=== PATIENT | female | born 1995 | race Caucasian/White ===

== ENCOUNTER 2022-03-18 16:30 | Outpatient (CLI) | payer OTHER, SELFPAY ==
[2022-03-18 16:39] VITALS: BMI 34.2
[2022-03-18 17:16] VITALS: BP 125/81; PULSE 86
[2022-03-18 17:17] VITALS: TEMP 36.7; TEMP 37.6
[2022-03-18 17:49] LABS: ROM Internal Control Test YES-OK TO RESULT pt. (Internal QC); ROM Patient Test Negative (Negative)
[2022-03-18 17:51] VITALS: TEMP 36.7
[2022-03-18 19:30] VITALS: TEMP 36.6
[2022-03-18 19:31] VITALS: BP 135/87; PULSE 76
--- NOTE | 2022-03-18 21:17 | OB.TRI.NOTE ---
HPI - General General Date of Admission: 03/18/22 Date of Service: 03/18/22 Chief Complaint: DFM HPI Narrative MENDEZ CANADA, is a 26 F who presents with DFM. She reports increased vaginal discharge over the last few days that she notices a few minutes after using the restroom. No constant leaking of fluid. No gushes of fluid. The discharge is white-mucous. She reports DFM over the last few days. She says she has been busy and on her feet often over the last few days, and typically when she is busy she does not notice as much movement. She was at work today and behind a desk, and she has been feeling movement but she still feels like it was decreased today more than normal. She has been feeling movement since being here. She feels movement increased once she arrived because she was hungry. She says typically once she is hungry the movement increases, and then after eating dinner the movement slows again. No ctx, pain, vb. PFSH PFSH Home Medications Vitamin 03/18/22 [History Last Taken 03/17/22 17:00] Vitamin B-6 03/18/22 [History Last Taken 03/17/22 17:00] acyclovir 800 mg tablet mg 03/18/22 [History Last Taken 03/17/22 17:00] levothyroxine 150 mcg tablet (Synthroid) mcg 03/18/22 [History Last Taken 03/18/22 07:00] Allergy/AdvReac Type Severity Reaction Status Date / Time pollen extracts [pollens] Allergy Itching Verified 03/18/22 16:48 Physical Exam Const alert and no apparent distress General Appearance: comfortable GI soft to palpation and non-tender NST FHR Rate Baby A Baseline: 140 Variability:: Moderate Accelerations:: 15 x 15 Decelerations:: Variable NST Reactive:: Yes Uterine Activity:: No regular ctx's Assessment & Plan (1) 37 weeks gestation of : (2) Decreased movement: PLAN: - NST reactive but occasional variable decelerations noted. EDD normal on bedside ultrasound. BPP 8/10 and points off for 2/3 gross movements within the 30 minutes. Patient has been feeling movement since being here. ROM plus negative and no leaking of fluid, but she notes vaginal discharge after using restroom. Rupture unlikely given this, ROM plus negative, and normal EDD. Will have patient follow up in the office tomorrow for repeat ultrasound
== END 2022-03-18 21:20 | disposition home or self-care (01) ==
LOC: WPOUT 16:36 → WP 16:36 → WPOUT 16:46 → WP 16:47
PROVIDERS: Referring Provider Advanced Practice Midwife; Visit Provider Advanced Practice Midwife
DX: O36.8130 Decreased fetal movements, third trimester, not applicable or unspecified (principal); Z3A.37 37 weeks gestation of pregnancy
CPT/HCPCS: 59025; 59050; 76815; 84112; 99218; G0378

== ENCOUNTER 2022-03-30 01:50 | Inpatient (IN) | payer OTHER, SELFPAY ==
[2022-03-30] VITALS (80 sets, daily range): BP systolic 109–146; BP diastolic 53–93; PULSE 70–133; RESP 16; TEMP 36.6–37.9; O2SAT 97–100; BMI 34.4
[2022-03-30 01:59] LABS: ROM Internal Control Test YES-OK TO RESULT pt. (Internal QC)
[2022-03-30 02:01] LABS: ROM Patient Test POSITIVE (Negative)
[2022-03-30] MEDS: Lactated Ringers 1,000 ML 50 ML IV (02:25)
[2022-03-30 02:38] LABS: Absolute Lymphocyte Count 3.83 X10^3/uL (0.83-4.51); Absolute Neutrophil Count 8.6 X10^3/uL (2.0-7.7); Basophil# 0.05 X10^3/uL; Basophil% 0.4 % (0-1); Eosinophil# 0.22 X10^3/uL; Eosinophils% 1.6 % (0-5); Hematocrit 35.4 % (37-47); Hemoglobin 11.9 g/dL (12.0-15.0); Lymphocyte # 3.83 X10^3/ul (0.83-4.51); Lymphocyte % 27.5 % (19-41); Mean Corp Hgb Conc 33.6 g/dL (32-36); Mean Corpuscular Hgb 32.7 pg (27.0-32.0); Mean Corpuscular Volume 97.3 fL (81-99); Mean Platelet Vol. 10.5 fl (6.2-12.0); Monocyte% 7.9 % (0-10); NRBC Flagged by Analyzer 0 % (0-5); Neutrophil # 8.61 X10^3/uL (2.7-7.7); Neutrophil % 61.7 % (47-70); Platelet Count 263 K/mm3 (150-450); RBC Distribution Width CV 13.2 % (11.6-14.6); RBC Distribution Width SD 46.9 fl (35.1-43.9); Red Blood Count 3.64 M/mm3 (4.2-5.4); White Blood Count 13.9 K/mm3 (4.4-11.0)
[2022-03-30] MEDS: Oxytocin 15 Units/NS 250ml 15 UNITS/250 ML IV.SOLN 2 UNITS IV (03:12)
[2022-03-30] MEDS: Acetaminophen 500 MG Tablet PO ×2 (05:26→17:09)
[2022-03-30] MEDS: LACTATED RINGERS 500 ML 999 ML IV ×2 (05:35→08:12)
[2022-03-30] MEDS: Penicillin G 3,000,000 Units 50 ML 100 UNITS IV ×2 (06:26→11:05)
[2022-03-30] MEDS: fentaNYL-bupivacaine (epidural) 100 ML BAG EPIDURAL ×2 (06:45→10:54)
--- NOTE | 2022-03-30 09:27 | HP.PCM.OB_ITS ---
HPI - General General Date of Admission: 03/30/22 Date of Service: 03/30/22 HPI Narrative MENDEZ CANADA, is a 26 F who presents with LOF. Maternal Data Information Final JADON: 04/[birth year]/22 Gestational age: 39&2 PFSH PFSH Medical History Herpes, genital Thyroid disorder Home Medications Vitamin 1 tablet PO/SL DAILY 03/18/22 [History Last Taken 03/29/22 22:30] Vitamin B-6 1 caplet PO/SL DAILY 03/18/22 [History Last Taken 03/29/22 22:30] acyclovir 800 mg tablet 400 mg PO TID 03/18/22 [History Last Taken 03/29/22 22:30] levothyroxine 150 mcg tablet (Synthroid) 150 mcg PO DAILY 03/18/22 [History Last Taken 03/29/22 10:00] Allergy/AdvReac Type Severity Reaction Status Date / Time pollen extracts [pollens] Allergy Itching Verified 03/30/22 01:33 Surgical History Hx of tonsillectomy [place] teeth removed Social History Smoking Status: Never smoker History Elective abortions Hx Para 0 Spontaneous abortions Hx # Term Pregnancies Ectopic pregnancies Hx # Pregnancies Multiple births # of living children NST FHR Rate Baby A Baseline: 130 Variability:: Minimal and Moderate Accelerations:: 15 x 15 Decelerations:: Early Uterine Activity:: Q 2-3 minutes Vital Signs Vital Signs Vital Signs: 03/30/22 01:26 03/30/22 01:26 03/30/22 01:32 Temperature Temperature Source Pulse Rate 83 Blood Pressure 135/93 H BP Systolic 135 BP Diastolic 93 Pulse Ox 100 03/30/22 01:32 03/30/22 01:31 03/30/22 02:43 Temperature 100.0 F H 99.5 F H Temperature Source Pulse Rate 77 Blood Pressure BP Systolic BP Diastolic Pulse Ox 03/30/22 02:42 03/30/22 02:43 03/30/22 02:43 Temperature Temperature Source Temporal Pulse Rate 83 Blood Pressure 145/74 H BP Systolic 145 BP Diastolic 74 Pulse Ox 03/30/22 02:43 03/30/22 03:35 03/30/22 03:35 Temperature Temperature Source Pulse Rate 77 Blood Pressure BP Systolic BP Diastolic Pulse Ox 99 98 03/30/22 03:37 03/30/22 03:37 03/30/22 03:38 Temperature 99.3 F H Temperature Source Pulse Rate 81 Blood Pressure 125/80 H BP Systolic 125 BP Diastolic 80 Pulse Ox 03/30/22 03:38 03/30/22 04:54 03/30/22 04:54 Temperature Temperature Source Temporal Pulse Rate 74 Blood Pressure 126/82 H BP Systolic 126 BP Diastolic 82 Pulse Ox 03/30/22 04:54 03/30/22 04:56 03/30/22 04:56 Temperature 98.4 F Temperature Source Temporal Pulse Rate Blood Pressure BP Systolic BP Diastolic Pulse Ox 98 03/30/22 05:20 03/30/22 05:20 03/30/22 06:06 Temperature Temperature Source Pulse Rate 75 104 H Blood Pressure BP Systolic BP Diastolic Pulse Ox 100 03/30/22 06:06 03/30/22 06:11 03/30/22 06:11 Temperature Temperature Source Pulse Rate 100 Blood Pressure BP Systolic BP Diastolic Pulse Ox 99 99 03/30/22 06:16 03/30/22 06:16 03/30/22 06:21 Temperature Temperature Source Pulse Rate 91 100 Blood Pressure BP Systolic BP Diastolic Pulse Ox 98 03/30/22 06:21 03/30/22 06:26 03/30/22 06:26 Temperature Temperature Source Pulse Rate 91 Blood Pressure BP Systolic BP Diastolic Pulse Ox 98 97 03/30/22 06:28 03/30/22 06:28 03/30/22 06:31 Temperature Temperature Source Pulse Rate 81 108 H Blood Pressure 139/75 H BP Systolic 139 BP Diastolic 75 Pulse Ox 03/30/22 06:31 03/30/22 06:33 03/30/22 06:33 Temperature Temperature Source Pulse Rate 102 H Blood Pressure 140/82 H BP Systolic 140 BP Diastolic 82 Pulse Ox 100 03/30/22 06:37 03/30/22 06:37 03/30/22 06:39 Temperature Temperature Source Pulse Rate 92 Blood Pressure 109/53 L BP Systolic 109 BP Diastolic 53 Pulse Ox 98 03/30/22 06:39 03/30/22 06:40 03/30/22 06:42 Temperature 99.7 F H Temperature Source Pulse Rate 90 96 Blood Pressure BP Systolic BP Diastolic Pulse Ox 03/30/22 06:42 03/30/22 06:43 03/30/22 06:43 Temperature Temperature Source Pulse Rate 85 Blood Pressure 110/66 BP Systolic 110 BP Diastolic 66 Pulse Ox 99 03/30/22 06:47 03/30/22 06:47 03/30/22 06:50 Temperature Temperature Source Pulse Rate 86 Blood Pressure 117/59 L BP Systolic 117 BP Diastolic 59 Pulse Ox 100 03/30/22 06:50 03/30/22 06:52 03/30/22 06:52 Temperature Temperature Source Pulse Rate 93 94 Blood Pressure BP Systolic BP Diastolic Pulse Ox 100 03/30/22 06:55 03/30/22 06:55 03/30/22 06:57 Temperature Temperature Source Pulse Rate 85 82 Blood Pressure 111/65 BP Systolic 111 BP Diastolic 65 Pulse Ox 03/30/22 06:57 03/30/22 06:59 03/30/22 06:59 Temperature Temperature Source Pulse Rate 86 Blood Pressure 119/73 BP Systolic 119 BP Diastolic 73 Pulse Ox 100 03/30/22 07:02 03/30/22 07:02 03/30/22 07:04 Temperature Temperature Source Pulse Rate 87 Blood Pressure 112/70 BP Systolic 112 BP Diastolic 70 Pulse Ox 100 03/30/22 07:04 03/30/22 07:29 03/30/22 07:30 Temperature 98.4 F Temperature Source Pulse Rate 82 Blood Pressure 122/67 H BP Systolic 122 BP Diastolic 67 Pulse Ox 03/30/22 07:30 03/30/22 07:29 03/30/22 07:29 Temperature Temperature Source Temporal Pulse Rate 75 Blood Pressure BP Systolic BP Diastolic Pulse Ox 100 03/30/22 07:29 03/30/22 08:39 03/30/22 08:39 Temperature 98.4 F Temperature Source Temporal Pulse Rate Blood Pressure 139/80 H BP Systolic 139 BP Diastolic 80 Pulse Ox 03/30/22 08:39 03/30/22 08:39 03/30/22 08:39 Temperature 100.2 F H Temperature Source Pulse Rate 82 Blood Pressure BP Systolic BP Diastolic Pulse Ox 99 Weight Weight: 206 lb 12.8 oz Body Mass Index (BMI) 34.4 Physical Exam Narrative: cvx - 6-7/80/-2, FSE & IUPC placed Labs Labs Labs: Blood Type A POSITIVE Antibody Screen NEGATIVE Hct 35.4 % (37-47) L Hgb 11.9 g/dL (12.0-15.0) L See [facility] H&P Assessment & Plan (1) SROM (spontaneous rupture of membranes): COMMENT: 39&2 PLAN: Plan Admit to L&D Augmentation wiht pitocin GBS positive - pcn per protocol Pain - epidural EFW - less than 4500g, patient with adequate pelvis Routine care
[2022-03-30] MEDS: Levothyroxine 150 MCG Tablet 300 MCG PO (10:55)
[2022-03-30] MEDS: Lactated Ringers 1,000 ML 200 ML IV (11:10)
[2022-03-30] MEDS: miSOPROStol 200 MCG Tablet 1000 MCG RC (14:51)
--- NOTE | 2022-03-30 15:58 | EX.PCM.OBRPT ---
Maternal Data Information Final JADON: 04[birth year]22 Gestational age: 39&2 Vaginal Delivery Maternal Presentation Maternal Presentation: Spontaneous Rupture of Membranes Operative Information Date of Procedure: 03/30/22 Pre-Operative Diagnosis: SROM Post-Operative Diagnosis: SROM Surgery / Procedure Performed: Spontaneous Vaginal Delivery Type of Anesthesia: Epidural Estimated Blood Loss: 700ml Findings Description of Procedure: Patient prepped & draped when C/C/+2. She pushed well to deliver the head. Triple nuchal cord clamped & cut. head gently guided to allow delivery of anterior and posterior shoulders. No excess traction placed on head. Body delivered Placenta delivered with gentle traction and good uterine tone obtained. Presentation: JAMISON Amniotic Membrane Rupture Type: Spontaneous Amniotic Fluid Description: Clear Placental Delivery Description: Expressed Placenta Disposition: [facility] Specimen(s) Removed: Placenta Cord Vessel Description: 3 Vessels Cord Entanglement: - (Around neck x3 tight) Nuchal Cord Compression: With compression A Gender: Female (Karena) (1 minute): 8 (5 minute): 9 Delayed Cord Clamping: No Post Vaginal Delivery Medications Given After Delivery: IV Pitocin and - (Rectal cytotec) Episiotomy Description: None Laceration: 1st degree (Vaginal - repaired with 3-0 vicryl) Complication Complications: None
[2022-03-30] MEDS: Ibuprofen 600 MG Tablet PO (23:57)
[2022-03-31] VITALS (8 sets, daily range): BP systolic 121–135; BP diastolic 66–73; PULSE 73–86; RESP 16–18; TEMP 36.7–36.9; O2SAT 97–100
[2022-03-31] MEDS: Levothyroxine 150 MCG Tablet 300 MCG PO (06:18)
[2022-03-31] MEDS: Acetaminophen 500 MG Tablet 1000 MG PO ×2 (07:47→13:44)
[2022-03-31] MEDS: Prenatal Vits Tablet 1 TABLET PO (13:31)
--- NOTE | 2022-03-31 16:09 | DCINST_ITS ---
Discharge Instructions Diet Discharge Diet: No restrictions Activity Discharge Activity: May Shower May resume sexual activity in: 6 weeks Weight Bearing Status: Weight bearing as tolerated Dressing / Incision Call your doctor if you observe: Fever of 101 or Higher, Coldness, Increased Pain, Change in Color, Inability to urinate, Inability to have a bowel movement, Using more than 1 pad per hour, Shortness of breath, Dizziness, Fainting spells, Chest pain, Increased palpitations (irregular heartbeat), Calf discomfort and Uncontrolled pain Follow Up Care Please Follow Up With: Namrata Harvey MD When: Follow up in 2 and 6 weeks for visits. Test Results: Test results from this visit will be discussed in further detail at your follow- up appointment, if applicable. Discharge Plan Admission Admit Date/Time: 03/30/22 01:50 Primary Reason for Your Visit: Vaginal delivery Attending Provider: Namrata Harvey Primary Care Provider: Fadumo Gibbs Primary Discharge Orders/Prescriptions Prescriptions: New acetaminophen 500 mg Tablet 1,000 mg PO Q6H PRN PRN (Reason: Pain 1-10 Or Fever) Qty: 0 0RF ibuprofen 600 mg Tablet 600 mg PO Q6H PRN PRN (Reason: Pain Score 1-3) Qty: 0 0RF Continued levothyroxine [Synthroid] 150 mcg Tablet 150 mcg PO DAILY Rx Instructions: pt reports taking 2 tablets on Saturdays and Sundays Vitamin 1 tablet PO/SL DAILY Discontinued acyclovir 800 mg Tablet 400 mg PO TID Vitamin B-6 1 caplet PO/SL DAILY Referrals / Follow Up: Care Physician,No Primary [Primary Care Provider] - Disposition Disposition (needs filled in before D/C Order can be placed): Home, Self Care
--- NOTE | 2022-03-31 16:12 | PCM.PN.OB ---
Subjective Subjective Denies complaints Objective Data Objective Data Vital Signs: Vital Signs Temp Pulse Resp BP Pulse Ox O2 Del Method 98.0 F 73 18 124/71 H 97 Room Air 03/31/22 13:39 03/31/22 13:39 03/31/22 13:39 03/31/22 13:39 03/31/22 13:39 03/31/22 13:39 Oxygen Delivery Method Room Air Weight: 206 lb 12.8 oz Body Mass Index (BMI) 34.4 Intake & Output: Intake and Output for Last 24 Hours 03/29/22 03/30/22 03/31/22 23:59 23:59 23:59 Intake Total 2484.17 / 2484.17 Output Total 600 / 1100 500 / 500 Balance 1884.17 / 1384.17 -500 / -500 Lab / Micro Data Result Diagrams: 03/30/22 02:25 Physical Exam Const alert, oriented x3 and no apparent distress HEENT normocephalic GI soft to palpation, non-tender and non-distended GI Narrative: fundus firm, mid & below umbilicus Extremity normal to inspection and no calf tenderness Extremity Narrative: 2+ edema bilaterally Assessment & Plan (1) Vaginal delivery: COMMENT: PPD#1 PLAN: Plan D/c home per patient request
== END 2022-03-31 16:45 | disposition home or self-care (01) | DRG 806 ==
LOC: WPOUT 01:54 → WP 01:54
PROVIDERS: Admitting Provider Obstetrics & Gynecology; Visit Provider Obstetrics & Gynecology
DX: O99.284 Endocrine, nutritional and metabolic diseases complicating childbirth (principal); Z37.0 Single live birth; O98.32 Other infections with a predominantly sexual mode of transmission complicating childbirth; E07.9 Disorder of thyroid, unspecified; O99.824 Streptococcus B carrier state complicating childbirth; A60.00 Herpesviral infection of urogenital system, unspecified; Z3A.39 39 weeks gestation of pregnancy; Z79.899 Other long term (current) drug therapy; Z79.890 Hormone replacement therapy; O70.0 First degree perineal laceration during delivery; O69.1XX0 Labor and delivery complicated by cord around neck, with compression, not applicable or unspecified
CPT/HCPCS: 59025; 59050; 84112; 85025; 86850; 86900; 86901; 99218; J7120; G0378

== ENCOUNTER 2022-06-05 23:21 | Observation (INO) | payer OTHER, SELFPAY ==
[2022-06-05 23:22] VITALS: BP 99/61; PULSE 87; RESP 16; TEMP 36.6; O2SAT 100; BMI 27.4
--- NOTE | 2022-06-05 23:52 | EDS_ITS ---
HPI HPI - GI History of Present Illness Chief Complaint: Chest Pain Narrative Narrative: 26-year-old female 2 weeks presents with right-sided chest pain/right upper quadrant abdominal pain that began within the last 30 minutes prior to arrival. It awoke her from sleep. She states has been having heartburn all week. Whenever she eats she gets abdominal pain radiating to her back. She states that she is having pain in her right shoulder as well. She is nauseated but has not vomited. No fevers or chills. She is having pain mainly on the right side of her chest under her ribs. She told the survey data technician that it was more chest pain, but actually is now stating it is more in her abdomen. She denies any coronary artery disease risk factors, past medical history includes hypothyroidism. [facility] Medical History Herpes, genital Thyroid disorder Home Medications Vitamin 1 tablet PO/SL DAILY 03/18/22 [History Last Taken 03/29/22 22:30] levothyroxine 150 mcg tablet (Synthroid) 150 mcg PO DAILY 03/18/22 [History Last Taken 03/29/22 10:00] acetaminophen 500 mg tablet 1,000 mg PO Q6H PRN PRN Pain 1-10 Or Fever #0 tabs 03/31/22 [Rx Last Taken Unknown] ibuprofen 600 mg tablet 600 mg PO Q6H PRN PRN Pain Score 1-3 #0 tabs 03/31/22 [Rx Last Taken Unknown] Allergy/AdvReac Type Severity Reaction Status Date / Time pollen extracts [pollens] Allergy Itching Verified 06/05/22 23:23 Surgical History Hx of tonsillectomy [place] teeth removed Social History Smoking Status: Never smoker ROS ROS ED ROS Narrative Constitutional: No fever, no chills. HEENT: No sore throat. No neck pain. No loss of vision. No rhinorrhea. Cardiovascular: Right lower and right shoulder chest pain. No palpitations. No pedal edema. Respiratory: No cough, no shortness of breath. Abdominal: Right upper quadrant abdominal pain. Positive nausea. No vomiting. Genitourinary: No dysuria. No hematuria. Musculoskeletal: No myalgias. No arthralgias. Neurologic: No headaches. No dizziness. No lightheadedness. Skin: No rash. No change in color. Psychiatric: No depression. No anxiety. EXAM Physical Exam Narrative Exam Narrative: Afebrile. Vital signs noted. HEENT: Normocephalic. Atraumatic. PERRL, EOMI. Neck soft and supple. No point tenderness or step off. Cardiovascular: Regular rate and rhythm. No murmurs, rubs, or gallops appreciated. Respiratory: No tachypnea. Lungs clear to auscultation bilaterally. Gastrointestinal: Abdomen soft, mild tenderness over right upper quadrant and epigastrium, with normoactive bowel sounds. No rebound or guarding. Questionable Lo[place] sign. Neurological: Awake. Alert. Nonfocal, nonlateralizing. Skin: No rash. Normal color. No pallor. Musculoskeletal: No pedal edema. Full range of motion extremities. Const Vital Signs: 06/05/22 23:22 06/05/22 23:42 06/06/22 00:28 Temperature 98 F Temperature Source Temporal Pulse Rate 87 83 Respiratory Rate 16 18 Respiratory Effort Short of Breath Blood Pressure 99/61 124/74 H Blood Pressure Mean 73 90 Pulse Ox 100 98 Oxygen Delivery Method Room Air Room Air 06/06/22 01:00 06/06/22 04:34 06/06/22 05:00 Temperature Temperature Source Pulse Rate 89 78 57 L Respiratory Rate 15 19 H 13 Respiratory Effort Blood Pressure 118/69 122/72 H 101/56 L Blood Pressure Mean 85 88 71 Pulse Ox 98 97 95 Oxygen Delivery Method Room Air Room Air Room Air 06/06/22 06:00 Temperature Temperature Source Pulse Rate 55 L Respiratory Rate 12 Respiratory Effort Blood Pressure 101/60 Blood Pressure Mean 73 Pulse Ox 95 Oxygen Delivery Method Room Air MDM MDM MDM Narrative Medical decision making narrative: I do feel that she is having more problems with right upper quadrant abdominal pain than cardiac chest pain. EKG was obtained and interpreted by myself which demonstrates what I see as normal sinus rhythm at 80 bpm without ectopy or acute ST changes. No STEMI. At this hour, ultrasound is unavailable, but she will be bolused normal saline and administered morphine and ondansetron for analgesia. I will obtain CT imaging after negative test. I will also obtain CBC, CMP, and lipase in the event that she has choledocholithiasis. I reviewed her laboratory work and she has a normal white count of 9.9, hemoglobin normal at 12.4, hematocrit 38.6. Normal platelet count of 276. CMP shows normal sodium of 134 with potassium normal at 3.5, chloride normal at 106. Glucose 80 with AST slightly elevated at 83 and ALT elevated at 79, alk phos normal at 109. Lipase normal at 203. Serum is negative. Urinalysis shows 10-25 WBCs, but negative for nitrites. I do not feel that antibiotics are indicated as she is not having dysuria or hematuria. Her pain is more in the right upper quadrant. CT was obtained as ultrasound is unavailable at this hour. CT of the abdomen and pelvis does show intrahepatic periportal edema which could be a nonspecific finding, but radiology report was reviewed and they are suggesting clinical correlation with LFTs and hepatitis panel. Hepatitis panel was ordered along with ultrasound as she has slightly elevated LFTs. She did have continued pain mainly in the right upper quadrant. I discussed with her the possibility of outpatient ultrasound, but she would like ultrasound performed. They will arrive in the morning to perform the study. At this point in time, patient will be signed out to the oncoming physician to check the ultrasound results and the hepatitis panel to make final disposition on this patient. Surgery can be consulted as needed versus gastroenterology. Disposition is pending. Patient is in stable condition. Lab Data Attestation: I reviewed the patient's lab results. Labs: Laboratory Results - last 24 hr 06/05/22 06/05/22 06/06/22 23:30 23:30 00:15 WBC 9.9 RBC 4.11 L Hgb 12.4 Hct 38.6 MCV 93.9 MCH 30.2 MCHC 32.1 RDW Std Deviation 42.1 RDW Coeff of Lakeisha 12.2 Plt Count 276 MPV 8.9 Immature Gran % (Auto) 0.300 Neut % (Auto) 33.0 L Lymph % (Auto) 52.2 H Mcintosh % (Auto) 8.8 Eos % (Auto) 5.4 H Baso % (Auto) 0.3 Absolute Neuts (auto) 3.3 Absolute Lymphs (auto) 5.16 H Nucleated RBC % 0 Differential Comment SCANNED Reactive Lymphocytes 1+ Sodium 143 Potassium 3.5 Chloride 106 Carbon Dioxide 31.0 Anion Gap 6 BUN 13 Creatinine 0.90 Estim Creat Clear Calc 90.23 Est GFR (MDRD) Af Amer 98 Est GFR (MDRD) Non-Af 81 BUN/Creatinine Ratio 14.4 Glucose 80 Calcium 9.1 Total Bilirubin 0.40 AST 83 H ALT 79 H Alkaline Phosphatase 109 Troponin I High Sens 4 Total Protein 7.0 Albumin 3.7 Globulin 3.3 Albumin/Globulin Ratio 1.1 Lipase 203 Serum , Qual NEGATIVE Urine Color Urine Clarity Urine pH Ur Specific [place] Urine Protein Urine Glucose (UA) Urine Ketones Urine Occult Blood Urine Nitrite Urine Bilirubin Urine Urobilinogen Ur Leukocyte Esterase Urine RBC Urine WBC Ur Squamous Epith Cells Urine Bacteria Urine Mucus 06/06/22 01:05 WBC RBC Hgb Hct MCV MCH MCHC RDW Std Deviation RDW Coeff of [place]isha Plt Count MPV Immature Gran % (Auto) Neut % (Auto) Lymph % (Auto) Mcintosh % (Auto) Eos % (Auto) Baso % (Auto) Absolute Neuts (auto) Absolute Lymphs (auto) Nucleated RBC % Differential Comment Reactive Lymphocytes Sodium Potassium Chloride Carbon Dioxide Anion Gap BUN Creatinine Estim Creat Clear Calc Est GFR (MDRD) Af Amer Est GFR (MDRD) Non-Af BUN/Creatinine Ratio Glucose Calcium Total Bilirubin AST ALT Alkaline Phosphatase Troponin I High Sens Total Protein Albumin Globulin Albumin/Globulin Ratio Lipase Serum , Qual Urine Color Yellow Urine Clarity Clear Urine pH 6.0 Ur Specific [place] 1.020 Urine Protein 30 H Urine Glucose (UA) Normal Urine Ketones 5 H Urine Occult Blood Negative Urine Nitrite Negative Urine Bilirubin Negative Urine Urobilinogen 1 H Ur Leukocyte Esterase 500 H Urine RBC 0 SEEN Urine WBC 10-25 SEEN Ur Squamous Epith Cells 0-5 SEEN Urine Bacteria 0 SEEN Urine Mucus 0 SEEN Radiography Diagnostic Testing: Clinical Impression(s) from Imaging Studies Abdomen/Pelvis CT 06/06/22 00:00 IMPRESSION: 1. Mild, nonspecific intrahepatic periportal edema. Often benign idiopathic finding. Consider correlation with LFTs and hepatitis profile and/or further evaluation with right upper quadrant ultrasound. 2. Trace physiologic fluid within pelvis with partially involuted left ovarian follicle. Electronically Signed: Cassius Kapadia MD at 1:54 EST , Discharge Plan Triage Chief Complaint: Chest Pain ED Provider: Michoacano Seaman Dx/Rx/DC Orders Clinical Impression: Abdominal pain, RUQ, Elevated LFTs Prescriptions: No Action levothyroxine [Synthroid] 150 mcg Tablet 150 mcg PO DAILY Rx Instructions: pt reports taking 2 tablets on Saturdays and Sundays Vitamin 1 tablet PO/SL DAILY acetaminophen 500 mg Tablet 1,000 mg PO Q6H PRN PRN (Reason: Pain 1-10 Or Fever) Qty: 0 0RF ibuprofen 600 mg Tablet 600 mg PO Q6H PRN PRN (Reason: Pain Score 1-3) Qty: 0 0RF Primary Care Provider: Care Physician,No Primary Referrals: Care Physician,No Primary [Primary Care Provider] -
[2022-06-06] VITALS (11 sets, daily range): BP systolic 101–130; BP diastolic 56–80; PULSE 55–89; RESP 12–19; TEMP 36.6–36.9; O2SAT 95–100; BMI 28.7
--- NOTE | 2022-06-06 | CT_ITS ---
INDICATION: Epigastric pain EXAMINATION: CT Abdomen And Pelvis W/ Contrast Injection TECHNIQUE: Helically acquired images were obtained of the abdomen and pelvis following IV contrast. 2-D reconstructions reviewed. A radiation dose optimization technique was used for this scan. IV Contrast dosage and agent: 100 mL [id number] Oral contrast: None. COMPARISON: None. FINDINGS: LOWER CHEST: Partially imaged small right infrahilar fluid attenuation focus likely benign effusion within pericardial recess. No acute basilar airspace disease. Heart size within normal limits. LIVER: Mild intrahepatic periportal edema. No discrete lesion. GALLBLADDER AND BILIARY TREE: No radiopaque gallstones identified. No significant biliary ductal dilation. PANCREAS: No discrete mass or peripancreatic edema. SPLEEN: Normal size without focal cystic or solid mass. ADRENAL GLANDS: Unremarkable. KIDNEYS AND URETERS: Normal renal size and position. No perinephric edema or hydronephrosis. No concerning lesion. PERITONEUM: Trace free pelvic fluid. No free air or abscess. RETROPERITONEUM: No retroperitoneal mass or pathologic fluid collection. BOWEL: Normal appendix posterior to cecum within right lower quadrant. No abnormal stomach or bowel distension. No focal inflammatory change. LYMPH NODES: No enlarged mesenteric or retroperitoneal lymph nodes. VESSELS: No acute findings. No abdominal aortic aneurysm. URINARY BLADDER: Unremarkable as visualized. REPRODUCTIVE ORGANS: Partially involuted 1.6 cm left ovarian follicle. ABDOMINAL WALL: No acute findings or significant hernia defect. BONES: Mild levoscoliotic curvature of lumbar spine. CT/Abdomen/Pelvis W IV Cont ONLY IMPRESSION: 1. Mild, nonspecific intrahepatic periportal edema. Often benign idiopathic finding. Consider correlation with LFTs and hepatitis profile and/or further evaluation with right upper quadrant ultrasound. 2. Trace physiologic fluid within pelvis with partially involuted left ovarian follicle. Electronically Signed: Cassius Kapadia MD at 1:54 EST ,
[2022-06-06 00:23] LABS: Absolute Lymphocyte Count 5.16 X10^3/uL (0.83-4.51); Absolute Neutrophil Count 3.3 X10^3/uL (2.0-7.7); Basophil# 0.03 X10^3/uL; Basophil% 0.3 % (0-1); Eosinophil# 0.53 X10^3/uL; Eosinophils% 5.4 % (0-5); Hematocrit 38.6 % (37-47); Hemoglobin 12.4 g/dL (12.0-15.0); Lymphocyte # 5.16 X10^3/ul (0.83-4.51); Lymphocyte % 52.2 % (19-41); Mean Corp Hgb Conc 32.1 g/dL (32-36); Mean Corpuscular Hgb 30.2 pg (27.0-32.0); Mean Corpuscular Volume 93.9 fL (81-99); Mean Platelet Vol. 8.9 fl (6.2-12.0); Monocyte# 0.87 X10^3/uL; Monocyte% 8.8 % (0-10); NRBC Flagged by Analyzer 0 % (0-5); Neutrophil # 3.26 X10^3/uL (2.7-7.7); POSITIVE DIFFERENTIAL YES; Platelet Count 276 K/mm3 (150-450); RBC Distribution Width CV 12.2 % (11.6-14.6); RBC Distribution Width SD 42.1 fl (35.1-43.9); Red Blood Count 4.11 M/mm3 (4.2-5.4); White Blood Count 9.9 K/mm3 (4.4-11.0)
[2022-06-06] MEDS: Ondansetron 4 MG/2 ML Vial IV (00:23)
[2022-06-06] MEDS: Morphine 4 MG/ML Syringe IV ×2 (00:24→04:42)
[2022-06-06] MEDS: 0.9% Normal Saline 1,000 ML 1000 ML IV (00:25)
[2022-06-06 00:27] LABS: Differential Indicated SCAN CRITERIA MET
[2022-06-06 00:34] LABS: Internal QC Validated? YES +Cl - CLEAR BKGD; Pregnancy, Serum, hCG Quali. NEGATIVE Negative
[2022-06-06 00:42] LABS: ALB/GLOB Ratio 1.1 RATIO (0.9-2.4); AST(SGOT) 83 U/L (15-37); Alanine Aminotransfer ALT/SGPT 79 U/L (13-56); Albumin, Serum 3.7 g/dL (3.2-5.0); Alkaline Phosphatase 109 U/L (45-117); Anion Gap 6 (5-15); BUN 13 mg/dL (7-18); BUN/Creat Ratio 14.4 RATIO (10-20); Calcium,Total 9.1 mg/dL (8.5-10.1); Chloride 106 mmol/L (98-107); EST Glomerular Filtration Rate 81 mL/min (>60); Est Glom Filt Rate - Afr Amer 98 mL/min (>60); Estimated Creatinine Clearance 90.23 ml/min; Globulin 3.3 g/dL (2.2-4.2); Glucose 80 mg/dL (74-106); Lipase 203 U/L (73-393); Potassium 3.5 mmol/L (3.5-5.1); Sodium Level 143 mmol/L (136-145); Troponin-I HS 4 pg/mL (3.0-54.0)
[2022-06-06 00:47] LABS: Differential Comment SCANNED; Reactive Lymphocyte 1+
[2022-06-06 01:09] LABS: Bacteria 0 SEEN /hpf (None Seen); Mucous, Urine 0 SEEN /hpf (<or=2+); Red Blood Cells-Urine 0 SEEN /hpf (0-5)
[2022-06-06 01:10] LABS: Color, Urine Yellow (Yellow); Glucose, Dipstick Normal (Normal); Ketone-Dipstick 5 mg/dl (Negative); Leukocyte Esterase-Dipstick 500 /ul (Negative); Nitrite-Dipstick Negative (Negative); Occult Blood-Urine Negative /ul (Negative); Protein-Dipstick 30 mg/dl (Negative); Urine Bilirubin Dipstick Negative (Negative); Urine Clarity Clear (Clear); Urine Urobilinogen 1 mg/dl (Normal)
[2022-06-06 01:17] LABS: Squamous Epithelial Cells - UA 0-5 SEEN /hpf (5-10); White Blood Cells 10-25 SEEN /hpf (0-5)
--- NOTE | 2022-06-06 02:10 | US_ITS ---
STUDY: ABDOMINAL ULTRASOUND - RIGHT UPPER QUADRANT REASON FOR VISIT: Female, 26 years old periportal edema -- CT today also TECHNIQUE: Ultrasound evaluation of the right upper quadrant was performed with real-time and static stanton-scale imaging. TECHNICAL QUALITY: Adequate. COMPARISON: Comparison is made with prior CT scan the abdomen and pelvis done earlier today. FINDINGS: Liver: The liver measures 14.9 cm. There is increased echogenicity consistent with a mild degree of fatty infiltration. The bile ducts are within normal limits. There is hepatic color flow. The direction of portal flow is hepatopetal. There is no demonstrated mass lesion. Gallbladder: Normal distended gallbladder. The gallbladder wall measures 2.5 mm. There is a negative sonographic Loera''s sign. There is no pericholecystic fluid. There are no gallstones. Common Bile Duct (C.B.D.): The common bile duct measures 8.5 mm. Pancreas: Normal size of the head, body and tail of the pancreas. There is normal echogenicity of the pancreas. There is no demonstrated pancreatic mass or cyst. Right Kidney: Normal size of the right kidney. The right kidney measures 11.8 cm x 5.7 cm x 4.7 cm. Normal renal cortex. The right cortex measures 1.5 cm. There is no demonstrated renal mass or cyst. There is no right hydronephrosis. US/Liver IMPRESSION: Mild degree of fatty infiltration of the liver. Electronically Signed: Antonio Mark MD at 8:03 EST ,
[2022-06-06] MEDS: Ketorolac 15 MG/ML Vial IV (09:23)
--- NOTE | 2022-06-06 11:49 | MRI_ITS ---
EXAM: MR ABDOMEN WITHOUT INTRAVENOUS CONTRAST, MRCP PROTOCOL CLINICAL INDICATION: dilated bile duct TECHNIQUE: Multiplanar and multisequence MR images of the abdomen without intravenous contrast obtained with MRCP sequence. Three-dimensional post-processing reconstructions were performed. This report was created using [employer] report generation technology. COMPARISON: None. FINDINGS: LOWER THORAX: Trace pleural effusion noted bilaterally. LIVER: Normal. Normal morphology. GALLBLADDER AND BILE DUCTS: 2 mm filling defect noted within the distal common bile duct on the MIP images of the biliary tree suggestive of stone. Biliary tree is nondilated. Common bile duct measures 5.8 mm in maximum diameter. No gallbladder distention or wall edema. PANCREAS: Normal. No focal cystic mass. No pancreatic duct dilation. SPLEEN: Normal. Non-enlarged. ADRENALS: Normal. No nodules. KIDNEYS AND URETERS: Normal. Normal renal size and position. No hydronephrosis. INTRAPERITONEAL SPACE: Normal. No ascites or other fluid collection. VASCULATURE: Normal. Abdominal aorta is non-dilated. LYMPH NODES: No enlarged lymph nodes. MRI/MRCP Abdomen without Contrast IMPRESSION: 2 mm filling defect within the distal common bile duct noted only on the MIP images consistent with small stone. Otherwise unremarkable MRCP Electronically Signed: Nelson Dunbar MD at 14:06 EST ,
[2022-06-06] MEDS: 0.9% Normal Saline 1,000 ML 100 ML IV (13:22)
[2022-06-06] MEDS: 0.9% Saline Lock 10 ML Syringe IV (13:22)
[2022-06-06 14:19] LABS: Free T3 1.2 pg/mL (2.18-3.98)
--- NOTE | 2022-06-06 14:58 | HP.PCM.HOS_ITS ---
HPI - General General Date of Admission: 06/06/22 Date of Service: 06/06/22 Chief Complaint: Chest discomfort, right upper quadrant abdominal pain HPI Narrative MENDEZ CANADA, is a 26 F who presents to the emergency room at [facility] with complaints of right-sided chest discomfort and right upper quadrant abdominal pain that began 30 minutes prior to arrival, she stated it woke her from sleep, she was also complaining of pain in her right shoulder area along with nausea but no vomiting. Patient had recently delivered 2 weeks previously. Work-up in the emergency room showed the patient have normal white blood cell count, patient's AST was slightly elevated 83 and ALT was elevated at 79. Lipase was normal. CT of the abdomen pelvis showed intrahepatic periportal edema which could be a nonspecific finding, it was suggested that the patient have an ultrasound done as an outpatient but patient declined and wanted it performed in the hospital. Patient remained in the emergency room throughout the night and was given IV normal saline and administered morphine and Zofran. Liver ultrasound was obtained and it showed a common bile duct that was dilated at 8.5 mm along with some fatty infiltration of the liver. EKG showed a normal sinus rhythm. Troponin was unremarkable. Patient was admitted to [place] [address] and will undergo an MRCP. Gastroenterology will be consulted. [facility] Medical History (Updated 06/06/22 @ 11:01 by Crista Garza) Anemia Herpes, genital Hypothyroidism Thyroid disorder Home Medications levothyroxine 150 mcg tablet (Synthroid) 150 mcg PO DAILY #30 tabs 06/06/22 [Rx Last Taken Unknown] multivitamin 1 tab PO DAILY 06/06/22 [History Last Taken 06/05/22 14:00] Allergy/AdvReac Type Severity Reaction Status Date / Time pollen extracts [pollens] Allergy Itching Verified 06/06/22 10:56 Surgical History Hx of tonsillectomy [place] teeth removed Social History Smoking Status: Never smoker ROS Constitutional Constitutional: Denies anorexia, change in weight, chills, fatigue, fever(s), night sweats or weakness Eyes Eyes: Denies blurry vision, change in vision, discharge from eye(s) or eye pain Cardiovascular Cardiovascular: Reports chest pain; Denies claudication, edema or palpitations Respiratory/Chest Respiratory/Chest: Denies cough, hemoptysis, shortness of breath at rest or shortness of breath with exertion Gastrointestinal Gastrointestinal: Reports abdominal pain and nausea; Denies constipation, diarrhea, hematemesis, hematochezia, melena or vomiting Genitourinary Genitourinary: Denies dysuria, hematuria, urinary frequency, urinary hesitancy, urinary incontinence or urinary urgency Musculoskeletal Musculoskeletal: Denies back pain, joint pain, joint stiffness, joint swelling, myalgias or neck pain Neurologic Neurologic: Denies abnormal gait, abnormal speech, dizziness, focal weakness, headache(s), loss of vision, numbness, other visual disturbances, paresthesias, syncope or tingling Psychiatric Psychiatric: Denies anxiety, cognitive impairment, depression, irritability, mood swings or suicidal ideation Endocrine Endocrinology: Denies change in body appearance, cold intolerance, excessive sweating, heat intolerance, polydipsia or polyuria Hematologic/Lymphatic Hematologic/Lymphatic: Denies none, anemia, easy bleeding, easy bruising or lymphadenopathy Allergic/Immunologic Allergic/Immunologic: Denies rhinitis, urticaria, eczemia or asthma Vital Signs Vital Signs Vital Signs: Weight Weight: 80.7 kg Body Mass Index (BMI) 28.7 Physical Exam Const alert, oriented x3, no apparent distress and healthy appearing General Appearance: cooperative, well kempt and well developed Orientation / Consciousness: awake, oriented to person, oriented to place and oriented to time HEENT normocephalic, head/scalp atraumatic, hearing grossly normal bilaterally and moist oral mucous membranes Eyes PERRL, EOMs intact bilaterally and conjunctivae normal Neck supple, no JVD, thyroid normal and no carotid bruits General: trachea midline Resp normal respiratory effort, no retractions, no use of accessory muscles and clear to auscultation bilaterally Auscultation: Negative for rales, rhonchi or wheezes Cardio regular rate, regular rhythm, S1 normal heart sound, S2 normal heart sound, no murmurs, no rub and no gallops GI normal to inspection, nondistended, normoactive bowel sounds, soft to palpation, non-tender and non-distended Extremity no clubbing, cyanosis or edema Skin no rashes or lesions noted General Skin Exam: no breakdown Neuro oriented x3, CN's II-XII intact bilaterally, moves all extremities, no focal motor deficits and no sensory deficits noted Sensorium / Orientation: awake, alert, oriented to person, oriented to place and oriented to time Speech: speech normal Psych affect normal Results Lab / Micro Data Result Diagrams: 06/05/22 23:30 06/05/22 23:30 Assessment & Plan Assessment/Plan (1) Elevated LFTs: PLAN: Plan 1. Dilated common bile duct-indicative of possible obstructive process, patient will be placed in observation status on [facility] 3, she will undergo an MRCP, she will be seen in consultation by gastroenterology and be given IV fluids and pain medications as needed. #2 elevated liver enzymes suggestive of possible bile duct obstruction-again patient will undergo an MRCP Total clinical time spent by myself addressing the patient's medical issues, reviewing all the data, and collaborating with patient's care team: 55-minutes Charges/Coding Visit Charges Inpatient E&M: 40602 Init Hosp L2
--- NOTE | 2022-06-06 15:23 | NURSING ---
This RN IBCLC Kel Horta calling to speak with primary RN Crista about patient and her needs during hospital stay. Primary RN reports patient has a pump with her as needed and hasn't voiced any concerns. Verified patient is okay to nurse/pump with morphine, and IBCLC confirmed. Checked in [facility] [employer] reference book and medication is category L-3, likely compatible with . Primary RN informed patient can request business analyst consultant at any time if needed. Kel Horta, MSN, RN, IBCLC.
--- NOTE | 2022-06-06 17:28 | HP.PCM.HOS_ITS ---
HPI - General General Date of Admission: 06/06/22 Date of Service: 06/06/22 Chief Complaint: Chest pain, mid back pain, right upper abdominal pain HPI Narrative MENDEZ CANADA, is a 26 F who presents [facility] Medical History (Updated 06/06/22 @ 11:01 by Crista Garza) Anemia Herpes, genital Hypothyroidism Thyroid disorder Home Medications multivitamin 1 tab PO DAILY 06/06/22 [History Last Taken 06/05/22 14:00] Allergy/AdvReac Type Severity Reaction Status Date / Time pollen extracts [pollens] Allergy Itching Verified 06/06/22 10:56 Surgical History Hx of tonsillectomy [place] teeth removed Social History Smoking Status: Never smoker Vital Signs Vital Signs Vital Signs: 06/05/22 23:22 06/05/22 23:42 06/06/22 00:28 Temperature 98 F Temperature Source Temporal Pulse Rate 87 83 Respiratory Rate 16 18 Respiratory Effort Short of Breath Respiratory Depth Respiratory Pattern Blood Pressure 99/61 124/74 H Blood Pressure Mean 73 90 Blood Pressure Source Blood Pressure Position Blood Pressure Location Pulse Ox 100 98 Oxygen Delivery Method Room Air Room Air 06/06/22 01:00 06/06/22 04:34 06/06/22 05:00 Temperature Temperature Source Pulse Rate 89 78 57 L Respiratory Rate 15 19 H 13 Respiratory Effort Respiratory Depth Respiratory Pattern Blood Pressure 118/69 122/72 H 101/56 L Blood Pressure Mean 85 88 71 Blood Pressure Source Blood Pressure Position Blood Pressure Location Pulse Ox 98 97 95 Oxygen Delivery Method Room Air Room Air Room Air 06/06/22 06:00 06/06/22 08:00 06/06/22 10:07 Temperature 97.9 F Temperature Source Temporal Pulse Rate 55 L 73 65 Respiratory Rate 12 16 16 Respiratory Effort Respiratory Depth Respiratory Pattern Blood Pressure 101/60 107/79 116/80 Blood Pressure Mean 73 88 92 Blood Pressure Source Blood Pressure Position Blood Pressure Location Pulse Ox 95 100 98 Oxygen Delivery Method Room Air Room Air Room Air 06/06/22 10:00 06/06/22 10:41 06/06/22 11:06 Temperature 98.5 F Temperature Source Oral Pulse Rate 65 59 L 60 Respiratory Rate 16 14 Respiratory Effort Normal Respiratory Depth Normal Respiratory Pattern Normal Blood Pressure 116/80 130/80 H Blood Pressure Mean 92 96 Blood Pressure Source Monitor Blood Pressure Position Semi-Fowlers Blood Pressure Location Right Arm Pulse Ox 98 98 Oxygen Delivery Method Room Air Room Air Room Air 06/06/22 14:22 06/06/22 14:22 Temperature 98.5 F Temperature Source Oral Pulse Rate 60 59 L Respiratory Rate 14 Respiratory Effort Respiratory Depth Respiratory Pattern Blood Pressure 108/63 Blood Pressure Mean 78 Blood Pressure Source Blood Pressure Position Blood Pressure Location Pulse Ox 96 Oxygen Delivery Method Room Air Weight Weight: 80.7 kg Body Mass Index (BMI) 28.7 Results Lab / Micro Data Result Diagrams: 06/05/22 23:30 06/05/22 23:30 Labs: Laboratory Results - last 24 hr 06/05/22 23:30: WBC 9.9, RBC 4.11 L, Hgb 12.4, Hct 38.6, MCV 93.9, MCH 30.2, MCHC 32.1, RDW Std Deviation 42.1, RDW Coeff of [place] 12.2, Plt Count 276, MPV 8.9, Immature Gran % (Auto) 0.300, Neut % (Auto) 33.0 L, Lymph % (Auto) 52.2 H, [place] % (Auto) 8.8, Eos % (Auto) 5.4 H, Baso % (Auto) 0.3, Absolute Neuts (auto) 3.3, Absolute Lymphs (auto) 5.16 H, Nucleated RBC % 0, Differential Comment SCANNED, Reactive Lymphocytes 1+ 06/05/22 23:30: Sodium 143, Potassium 3.5, Chloride 106, Carbon Dioxide 31.0, Anion Gap 6, BUN 13, Creatinine 0.90, Estim Creat Clear Calc 90.23, Est GFR (MDRD) Af Amer 98, Est GFR (MDRD) Non-Af 81, BUN/Creatinine Ratio 14.4, Glucose 80, Calcium 9.1, Total Bilirubin 0.40, AST 83 H, ALT 79 H, Alkaline Phosphatase 109, Troponin I High Sens 4, Total Protein 7.0, Albumin 3.7, Globulin 3.3, Albumin/Globulin Ratio 1.1, Lipase 203 06/05/22 23:30: TSH 95.30 H, Free T4 0.40 L, Free T3 pg/dL 1.2 L 06/06/22 00:15: Serum , Qual NEGATIVE 06/06/22 01:05: Urine Color Yellow, Urine Clarity Clear, Urine pH 6.0, Ur Specific [place] 1.020, Urine Protein 30 H, Urine Glucose (UA) Normal, Urine Ket ones 5 H, Urine Occult Blood Negative, Urine Nitrite Negative, Urine Bilirubin Negative, Urine Urobilinogen 1 H, Ur Leukocyte Esterase 500 H, Urine RBC 0 SEEN, Urine WBC 10-25 SEEN, Ur Squamous Epith Cells 0-5 SEEN, Urine Bacteria 0 SEEN, Urine Mucus 0 SEEN Radiology Impression Abdomen/Pelvis CT 06/06/22 00:00 IMPRESSION: 1. Mild, nonspecific intrahepatic periportal edema. Often benign idiopathic finding. Consider correlation with LFTs and hepatitis profile and/or further evaluation with right upper quadrant ultrasound. 2. Trace physiologic fluid within pelvis with partially involuted left ovarian follicle. Electronically Signed: Cassius Kapadia MD at 1:54 EST , Liver Ultrasound 06/06/22 02:10 IMPRESSION: Mild degree of fatty infiltration of the liver. Electronically Signed: Antonio Mark MD at 8:03 EST , ADDENDUM: 06/06/22 1206 IMPRESSION: undefined MRCP 06/06/22 11:49 IMPRESSION: 2 mm filling defect within the distal common bile duct noted only on the MIP images consistent with small stone. Otherwise unremarkable MRCP Electronically Signed: Nelson Dunbar MD at 14:06 EST ,
--- NOTE | 2022-06-06 17:30 | DCINST_ITS ---
Discharge Instructions Diet Discharge Diet: No restrictions Activity Discharge Activity: Return to Normal Activity Weight Bearing Status: Full weight bearing Follow Up Care Test Results: Test results from this visit will be discussed in further detail at your follow- up appointment, if applicable. Discharge Plan Admission Admit Date/Time: 06/06/22 11:42 Primary Reason for Your Visit: Common bile duct stone Attending Provider: Cassius Hernandez Primary Care Provider: Care Physician,No Primary Instructions Additional Instructions / Restrictions: Follow-up with a family physician in 3 to 4 weeks, I would recommend [facility] Discharge Orders/Prescriptions Prescriptions: New levothyroxine [Synthroid] 150 mcg tablet 150 mcg PO DAILY Qty: 30 1RF Rx Instructions: Take one half daily for 5 days, then increase to 1 daily thereafter Continued multivitamin Tablet 1 tab PO DAILY Referrals / Follow Up: [facility] [Non-Staff] - See Referral Note (In 3 to 4 weeks, call for an appointment) Care Physician,No Primary [Primary Care Provider] - Disposition Disposition (needs filled in before D/C Order can be placed): Home, Self Care
--- NOTE | 2022-06-06 17:36 | DS.PCM_ITS ---
Providers Date of Admission: 06/06/22 Date of Discharge: 06/06/22 Primary Care Physician: No Primary Care Phys Reason For Visit: RUQ PAIN, DILATED CBD Diagnosis Discharge Diagnosis (1) Elevated LFTs: Status: Acute Code(s): R79.89 - Other specified abnormal findings of blood chemistry Plan 1. Distal common bile duct stone-probably passed by the patient #2 elevated liver enzymes secondary to #1 Medications at Discharge Home Medications levothyroxine 150 mcg tablet (Synthroid) 150 mcg PO DAILY #30 tabs 06/06/22 multivitamin 1 tab PO DAILY 06/06/22 Hospital Course Operations None Procedures None Summary of Care Provided Minutes Spent on Discharge: 45 Hospital Course: This 26-year-old white female was seen in the emergency room at [facility] complaining of right-sided chest pain along with right upper quadrant abdominal pain radiating to her right shoulder area along with nausea. Work-up in the emergency room included a CT of the abdomen and pelvis which did not show any etiology for patient's abdominal pain, an ultrasound was recomme nded, and the patient underwent an ultrasound of the abdomen the next morning. Patient's liver enzymes are slightly elevated, ultrasound showed dilation of the common bile duct at 8.5 mm. Patient was placed in observation status on MedSurg 3, she underwent an MRCP which showed a very small stone in the distal bile duct. Patient's gastroenterology consultation was canceled after this case was discussed with them, they felt that the patient would probably pass a stone if she had not already passed it, patient's symptomology had resolved and she was no longer having any abdominal pain. On 06/06/2022, patient was seen and examined: On examination she appeared in good health and spirits, she does not appear to be in any distress. Vital signs as documented. Skin warm and dry and without overt rashes. Neck without JVD, thyroid appears normal, trachea is midline, neck is supple. Lungs clear, normal air movement was noted. Heart exam notable for regular rhythm, normal sounds and absence of murmurs, rubs or gallops. Abdomen unremarkable and without evidence of organomegaly, masses, or abdominal aortic enlargement, bowel sounds are present in all 4 quadrants, no abdominal tenderness was noted. Extremities nonedematous, no cyanosis was noted, no clubbing was noted. Neuro: Cranial nerves II through XII are grossly intact, no focal motor deficits were noted, sensation to light touch and pinprick is intact, motor exam 5/5 throughout. Psych: Patient is alert and oriented x3, she does not appear anxious or depressed, she does not appear agitated. Patient was discharged home in stable condition on 06/06/2022 Weight / BMI Weight Weight: 80.7 kg Body Mass Index (BMI) 28.7 ABG / Lab / Microbiology Data Result Diagrams: 06/05/22 23:30 06/05/22 23:30 Laboratory: Laboratory Results - last 24 hr 06/05/22 23:30: WBC 9.9, RBC 4.11 L, Hgb 12.4, Hct 38.6, MCV 93.9, MCH 30.2, MCHC 32.1, RDW Std Deviation 42.1, RDW Coeff of [place] 12.2, Plt Count 276, MPV 8.9, Immature Gran % (Auto) 0.300, Neut % (Auto) 33.0 L, Lymph % (Auto) 52.2 H, [place] % (Auto) 8.8, Eos % (Auto) 5.4 H, Baso % (Auto) 0.3, Absolute Neuts (auto) 3.3, Absolute Lymphs (auto) 5.16 H, Nucleated RBC % 0, Differential Comment SCANNED, Reactive Lymphocytes 1+ 06/05/22 23:30: Sodium 143, Potassium 3.5, Chloride 106, Carbon Dioxide 31.0, Anion Gap 6, BUN 13, Creatinine 0.90, Estim Creat Clear Calc 90.23, Est GFR (MDRD) Af Amer 98, Est GFR (MDRD) Non-Af 81, BUN/Creatinine Ratio 14.4, Glucose 80, Calcium 9.1, Total Bilirubin 0.40, AST 83 H, ALT 79 H, Alkaline Phosphatase 109, Troponin I High Sens 4, Total Protein 7.0, Albumin 3.7, Globulin 3.3, Albumin/Globulin Ratio 1.1, Lipase 203 06/05/22 23:30: TSH 95.30 H, Free T4 0.40 L, Free T3 pg/dL 1.2 L 06/06/22 00:15: Serum , Qual NEGATIVE 06/06/22 01:05: Urine Color Yellow, Urine Clarity Clear, Urine pH 6.0, Ur Specific [place] 1.020, Urine Protein 30 H, Urine Glucose (UA) Normal, Urine Ketones 5 H, Urine Occult Blood Negative, Urine Nitrite Negative, Urine Bilirubin Negative, Urine Urobilinogen 1 H, Ur Leukocyte Esterase 500 H, Urine RBC 0 SEEN, Urine WBC 10-25 SEEN, Ur Squamous Epith Cells 0-5 SEEN, Urine Bacteria 0 SEEN, Urine Mucus 0 SEEN Radiography Diagnostic Testing: Radiology Impression Abdomen/Pelvis CT 06/06/22 00:00 IMPRESSION: 1. Mild, nonspecific intrahepatic periportal edema. Often benign idiopathic finding. Consider correlation with LFTs and hepatitis profile and/or further evaluation with right upper quadrant ultrasound. 2. Trace physiologic fluid within pelvis with partially involuted left ovarian follicle. Electronically Signed: Cassius Kapadia MD at 1:54 EST , Liver Ultrasound 06/06/22 02:10 IMPRESSION: Mild degree of fatty infiltration of the liver. Electronically Signed: Antonio Mark MD at 8:03 EST , ADDENDUM: 06/06/22 1206 IMPRESSION: undefined MRCP 06/06/22 11:49 IMPRESSION: 2 mm filling defect within the distal common bile duct noted only on the MIP images consistent with small stone. Otherwise unremarkable MRCP Electronically Signed: Nelson Dunbar MD at 14:06 EST , D/C Instructions Discharge Diet: No restrictions Weight Bearing Status: Full weight bearing Meaningful Use Info Meaningful Use Diagnoses (Choose all that apply): None applicable Discharge Plan Admission Admit Date/Time: 06/06/22 11:42 Primary Reason for Your Visit: Common bile duct stone Attending Provider: Cassius Hernandez Primary Care Provider: Care Physician,No Primary Instructions Additional Instructions / Restrictions: Follow-up with a family physician in 3 to 4 weeks, I would recommend [facility] Discharge Orders/Prescriptions Prescriptions: New levothyroxine [Synthroid] 150 mcg tablet 150 mcg PO DAILY Qty: 30 1RF Rx Instructions: Take one half daily for 5 days, then increase to 1 daily thereafter Continued multivitamin Tablet 1 tab PO DAILY Referrals / Follow Up: [facility] [Non-Staff] - See Referral Note (In 3 to 4 weeks, call for an appointment) Care Physician,No Primary [Primary Care Provider] - Disposition Disposition (needs filled in before D/C Order can be placed): Home, Self Care Charges/Coding Visit Charges OBSV E&M: 06254 Observ/hosp same date L1
[2022-06-07 07:08] LABS: HEPATITIS B SURFACE AG Negative (Negative); Hep C Antibodies Non Reactive (Non Reactive); Hepatitis A IgM Antibody Negative (Negative); Hepatitis B Core AB IgM Negative (Negative)
== END 2022-06-06 17:51 | disposition home or self-care (01) ==
LOC: ED 06-06 00:43 → MS3 06-06 12:02
PROVIDERS: Admitting Provider Internal Medicine; Emergency Provider Emergency Medicine; Visit Provider Internal Medicine
DX: K80.50 Calculus of bile duct without cholangitis or cholecystitis without obstruction (principal); K76.0 Fatty (change of) liver, not elsewhere classified; M25.511 Pain in right shoulder; K83.8 Other specified diseases of biliary tract; R79.89 Other specified abnormal findings of blood chemistry; R12 Heartburn; E03.9 Hypothyroidism, unspecified; Z79.890 Hormone replacement therapy; Z79.899 Other long term (current) drug therapy
CPT/HCPCS: 74177; 74181; 76705; 80053; 80074; 81001; 83690; 84439; 84443; 84481; 84484; 84703; 85025; 87086; 87088; 93005; 96361; 96374; 96375; 96376; 97802; 99221; 99284; J7030; Q9967; A4216; G0378; J2405

== ENCOUNTER 2024-02-09 18:56 | Inpatient (IN) | payer OTHER, SELFPAY ==
[2024-02-09] VITALS (7 sets, daily range): BP systolic 92–137; BP diastolic 50–82; PULSE 59–81; RESP 16–17; TEMP 36.6–37.2; O2SAT 99; BMI 32.8
--- OUTSIDE RECORDS SUMMARY | 2024-02-09 19:09 | XMS RPT_ITS | CCD ---
Author Organization [facility] Care Team Providers Care Waistline Joiner Lockstitch Name Role Phone Unavailable Primary Care Provider Unavailabl e Nils Leo MD Primary Care Provider Nils Leo MD Primary Care Provider Nils Leo MD Primary Care Provider Radhika DIRECTOR OF TEENAGE ACTIVITIES.PAPER CUTTING MACHINE OPERATOR, Nolan Primary Care Provider Radhika DIRECTOR OF TEENAGE ACTIVITIES.PAPER CUTTING MACHINE OPERATOR, Nolan Primary Care Provider YAN ESPINO Referring Unavailable KNOBLE, NOLAN Primary Care Unavailable KNOBLE, NOLAN Primary Care Unavailable KNOBLE, NOLAN Primary Care Unavailable CONI GONZALEZ Attending Unavailable KNOBLE, NOLAN Primary Care Unavailable KNOBLE, NOLAN Referring Unavailable HASANDRA, BERTO Referring Unavailable KNOBLE, NOLAN Primary Care Unavailable YAN ESPINO Referring Unavailable KNOBLE, NOLAN Primary Care Unavailable YAN ESPINO Attending Unavailable KNOBLE, NOLAN Primary Care Unavailable JOSSELINE COX Attending Unavail able KNOBLE, NOLAN Primary Care Unavailable KNOBLE, NOLAN Primary Care Unavailable WESTLEY SIERRA Attending Unavailable KNOBLE, NOLAN Primary Care Unavailable JACINTA MERRITT Attending Unavailable YAN ESPINO Attending Unavailable KNOBLE, NOLAN Primary Care Unavailable CONI GONZALEZ Attending Unavailable KNOBLE, NOLAN Primary Care Unavailable CONI GONZALEZ Referring Unavailable KNOBLE, NOLAN Primary Care Unavailable KNOBLE, NOLAN Primary Care Unavailable PADMINI LITTLE Attending Unavailable KNOBLE, NOLAN Primary Care Unavailable HAURY, BERTO Referring Unavailable KNOBLE, NOLAN Primary Care Unavailable CLOTILDE CONKLIN Attending Unavailable KNOBLE, NOLAN Primary Care Unavailable KNOBLE, NOLAN Primary Care Unavailable WESTLEY SIERRA Attending Unavailable PADMINI LITTLE Attending Unavailable KNOBLE, NOLAN Primary Care Unavailable PLOTTS, CONI Attending Unavailable NOLAN GARRIDO Primary Care Unavailable PADMINI LITTLE Attending Unavailable NOLAN GARRIDO Primary Care Unavailable BERTO VIDES Attending Unavailable NOLAN GARRIDO Primary Care Unavailable BERTO VIDES Attending Unavailable RADHIKA, NOLAN Primary Care Unavailable WESTLEY SIERRA Attending Unavailable NOLAN GARRIDO Primary Care Unavailable Medications Current Medications Medication Drug Class(es) Dates Sig (Normalized) Sig (Original) acyclovir 400 mg oral tablet (20 sources) Herpesvirus Nucleoside Analog DNA Polymerase Inhibitor, Herpes Simplex Virus Nucleoside Analog DNA Polymerase Inhibitor, Herpes Zoster Virus Nucleoside Analog DNA Polymerase Inhibitor Start: 01-15-2024 take 1 tablet by mouth three times daily acyclovir (ZOVIRAX) 400 mg tablet Indications: 36 weeks gestation of , Supervision of high risk in third trimester , History of herpes genitalis Take 1 tablet by mouth three times a day. 90 tablet 1 01/15/2024 Active Start: 03-01-2022 End: 11-21-2022 take 1 tablet by mouth three times daily acyclovir (ZOVIRAX) 400 mg tablet Indications: 35 weeks gestation of , Encounter for supervision of normal first in third trimester , History of herpes genitalis Take 1 tablet by mouth three times daily. 60 tablet 1 03/01/2022 11/21/2022 Discontinued Comment on above: Take 1 tablet by ranjan th three times daily. amoxicillin 875 mg oral tablet (2 sources) Penicillin-class Antibacterial Start: 04-08-20 End: 04-15-20 take 1 tablet by mouth twice daily amoxicillin (AMOXIL) 875 mg tablet Indications: Dysuria , Feeling of incomplete bladder emptying Take 1 tablet by mouth twice daily for 7 days. 14 tablet 0 04/08/2022 04/15/2022 Active Comment on above: Take 1 tablet by ranjan th twice daily for 7 days. Choline (12 sources) CHOLINE ORAL Luke e by mouth. Active dicloxacillin 500 mg oral capsule (2 sources) Penicillin-class Antibacterial Start: 05-10-19 End: 05-24-19 take 1 capsule by mouth four times daily dicloxacillin (DYNAPEN) 500 mg capsule Indications: Mastitis, right, acute Take 1 capsule by mouth four times daily for 14 days. 56 capsule 0 05/10/2022 05/24/2022 Active Comment on above: Take 1 capsule by mo uth four times daily for 14 days. 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 30 tablet 11 07/09/2023 Active Start: 06-09-2023 End: 09-25-2023 take 1 tablet by mouth once daily before breakfast levothyroxine (SYNTHROID) 137 mcg tablet Indications: Hypothyroidism, acquired Take 1 tablet by mouth daily before breakfast. 90 tablet 0 06/09/2023 09/25/2023 Discontinued Start: 11-22-2022 End: 06-06-2023 take 1 tablet by mouth once daily before breakfast levothyroxine (SYNTHROID) 137 mcg tablet Indications: Hypothyroidism, acquired Take 1 tablet by mouth daily before breakfast. 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 Friday through Friday. Please take 2 tablets on Friday and Friday. 90 tablet 0 03/08/2022 11/22/2022 Discontinued Start: 08-10-2021 End: 01-02-2022 take 1 tablet by mouth once daily levothyroxine (SYNTHROID) 125 mcg tablet Take 1 tablet by mouth once daily. 90 tablet 0 10/04/2021 12/21/2021 Discontinued Start: 04-26-2020 End: 08-10-2021 take 1 tablet by mouth once daily levothyroxine (SYNTHROID) 112 mcg tablet Indications: Hypothyroidism, unspecified type TAKE 1 TABLET BY MOUTH EVERY DAY 90 tablet 3 04/26/2020 08/10/2021 Discontinued Comment on above: TAKE 1 TABLET BY RANJAN TH EVERY DAY Take 1 tablet by ranjan th once daily. Patient needs an appt for further refills Take 1 tablet by ranjan th once daily. Take 1 tablet by ranjan th once daily. Friday through Friday. Please take 2 tablets on Friday. Take 1 tablet by ranjan th once daily. Friday through Friday. Please take 2 tablets on Friday and Friday. Take 1 tablet by ranjan th daily before breakfast. metoclopramide 10 mg oral tablet (2 sources) Dopamine-2 Receptor Antagonist Start: 09-26-2020 metoclopramide (REGLAN) tablet 10 mg PNV no.95/ferrous fum/folic ac ( ORAL) (20 sources) PNV no.95/ferrou s fum/folic ac ( ORAL) Take by mouth. Active PNV no.95/ferrou s fum/folic ac ( ORAL) Take by mouth. 0 Active Comment on above: Take by mouth. Completed/Discontinued Medications Medication Drug Class(es) Dates Sig (Normalized) Sig (Original) Calcium Carbonate (7 sources) End: 09-25-2023 calcium carbonate (TUMS ORAL) Take by mouth. 0 09/25/2023 Discontinued calcium carbonat e (TUMS ORAL) Take by mouth. 0 Active Comment on above: Take by mouth. Cetirizine (3 sources) Histamine-1 Receptor Antagonist End: 09-25-2023 cetirizine HCl (ZYRTEC ORAL) Take by mouth. 0 09/25/2023 Discontinued cetirizine HCl ( ZYRTEC ORAL) Take by mouth. 0 Active Ethinyl Estradiol / norgestimate (2 sources) Progestin, Estrogen Start: 06-26-2021 End: 08-09-2021 take 1 tablet by mouth once daily TRI FEMYNOR 0.18/0.215/0.25 mg-35 mcg (28) Indications: Encounter for surveillance of contraceptive pills TAKE 1 TABLET BY MOUTH EVERY DAY 84 tablet 0 06/26/2021 08/09/2021 Discontinued Start: 06-26-2021 take 1 tablet by ranjan th once daily TRI FEMYNOR 0.18/0.215/0.25 mg-35 mcg (28) Indications: Encounter for surveillance of contraceptive pills TAKE 1 TABLET BY MOUTH EVERY DAY 84 tablet 0 06/26/2021 Active Comment on above: TAKE 1 TABLET BY RANJAN TH EVERY DAY famotidine 20 mg oral tablet (16 sources) Histamine-2 Receptor Antagonist Start: 2 End: 3 take 1 tablet by mouth twice daily famotidine (PEPCID) 20 mg tablet TAKE 1 TABLET BY MOUTH TWICE A DAY 60 tablet 0 04/08/2022 11/21/2022 Discontinued Comment on above: Take 1 tablet by ranjan th twice daily. TAKE 1 TABLET BY RANJAN TH TWICE A DAY ferrous sulfate 325 mg oral tablet (2 sources) End: 2 take 1 tablet by mouth once daily at breakfast ferrous sulfate (IRON) 325 mg (65 mg iron) tablet Take 325 mg by mouth daily with breakfast. 0 08/09/2021 Discontinued Comment on above: Take 325 mg by mouth daily with breakfast. fluconazole 150 mg oral tablet (2 sources) Azole Antifungal Start: 2 End: 2 take 1 tablet by mouth once fluconazole (DIFLUCAN) 150 mg tablet Indications: Dysuria , Feeling of incomplete bladder emptying Take 1 tablet by mouth one time only for 1 dose. 1 tablet 0 04/08/2022 04/08/2022 Comment on above: Take 1 tablet by ranjan th one time only for 1 dose. magnesium oxide 420 mg oral tablet (20 sources) Start: 4 End: 4 take 1 tablet by mouth once daily Magnesium Oxide 420 mg tab Take 1 tablet by mouth once daily. 0 08/07/2023 09/25/2023 Discontinued Start: 08-09-2021 End: 11-21-2022 take 1 tablet by mouth once daily Magnesium Oxide 420 mg tab Take 1 tablet by mouth once daily. 100 tablet 2 08/09/2021 11/21/2022 Discontinued Comment on above: Take 1 tablet by ranjan th once daily. norethindrone 0.35 mg oral tablet (6 sources) Start: 05-06-2022 End: 11-21-2022 take 1 tablet by mouth once daily Norethindrone, Contraceptive, (ORTHO MICRONOR) 0.35 mg tablet Take 1 tablet by mouth once daily. 30 tablet 11 05/06/2022 11/21/2022 Discontinued Comment on above: Take 1 tablet by ranjan th once daily. multivitamin (CLASSIC ) 28 mg iron- 800 mcg tab(s) (20 sources) End: 11-21-2022 take 1 tablet by mouth once daily multivitamin (CLASSIC ) 28 mg iron- 800 mcg tab(s) Take 1 tablet by mouth once daily. 0 11/21/2022 Discontinued take 1 tablet by mouth once ingrid y multivitamin (CLASSIC ) 28 mg iron- 800 mcg tab(s) Take 1 tablet by mouth once daily. 0 Active Comment on above: Take 1 tablet by ranjan th once daily. vitamin b6 50 mg oral tablet (20 sources) Start: 08-09-2021 End: 11-21-2022 take 1 tablet by mouth twice daily pyridoxine, vitamin B6, (VITAMIN B-6) 50 mg tablet Take 1 tablet by mouth twice daily. 0 08/09/2021 11/21/2022 Discontinued Comment on above: Take 1 tablet by ranjan th twice daily. Problems Active Problems Problem Classification Problem Date Documented Date Episodic/Chronic Biliary tract disease (1 source) Gallstone; Translations: [Calculus of gallbladder without cholecystitis without obstruction] 11-21-2022 Episodic Blindness and vision defects (1 source) Eye / vision finding; Translations: [Unspecified visual disturbance] Episodic Disorders usually diagnosed in infancy, childhood, or adolescence (20 sources) Attention deficit hyperactivity disorder, predominantly inattentive type; Translations: [Other specified behavioral and emotional disorders with onset usually occurring in childhood and adolescence] Onset: 06-13-2010 06-13-2010 Chronic Headache; including migraine (1 source) Headache; Translations: [Nonintractable episodic headache, unspecified headache type] Episodic Immunizations and screening for infectious disease (2 sources) Vaccination needed; Translations: [Encounter for immunization] Episodic Nonmalignant breast conditions (1 source) Acute mastitis; Translations: [Mastitis without abscess] Episodic Other complications of (2 sources) Variable heart decelerations; Translations: [Maternal care for abnormalities of the heart rate or rhythm, unspecified trimester, not applicable or unspecified] Episodic Other complications of (2 sources) Thyroid dysfunction during , childbirth and the puerperium; Translations: [Endocrine, nutritional and metabolic diseases complicating , second trimester] 08-14-2023 Episodic Other complications of (20 sources) High risk ; Translations: [Supervision of high risk , unspecified, second trimester] Onset: 07-03-2023 08-27-2023 Episodic Other complications of (20 sources) Hypothyroidism in ; Translations: [Endocrine, nutritional and metabolic diseases complicating , second trimester] Onset: 10-09-2017 10-16-2023 Episodic Other complications of (2 sources) Uterine size for dates discrepancy; Translations: [Uterine size-date discrepancy, third trimester] 12-23-2023 Episodic Other complications of (1 source) Supervision of high risk , unspecified, third trimester; Translations: [Encounter for supervision of high risk in third trimester, antepartum] Onset: 12-23-2023 Episodic Other complications of (1 source) Endocrine, nutritional and metabolic diseases complicating , third trimester; Translations: [Hypothyroidism affecting in third trimester] Onset: 01-29-2024 Episodic Other female genital disorders (5 sources) Cyst of vagina; Translations: [Other specified noninflammatory disorders of vagina] Onset: 01-29-2024 01-29-2024 Episodic Other infections; including parasitic (20 sources) History of sexually transmitted disease; Translations: [Personal history of other infectious and parasitic diseases] Onset: 08-02-2021 Episodic Other nervous system disorders (1 source) Difficulty articulating words; Translations: [Dysarthria and anarthria] 11-21-2022 Episodic Other nutritional; endocrine; and metabolic disorders (1 source) Unintentional weight loss; Translations: [Abnormal weight loss] Episodic Other screening for suspected conditions (not mental disorders or infectious disease) (10 sources) Patient encounter status; Translations: [Encounter for screening for malignant neoplasm of cervix] Episodic Other upper respiratory disease (20 sources) Seasonal allergy; Translations: [Other seasonal allergic rhinitis] Onset: 07-12-2014 07-12-2014 Chronic Polyhydramnios and other problems of amniotic cavity (1 source) Polyhydramnios; Translations: [Polyhydramnios, third trimester, not applicable or unspecified] 01-06-2024 Episodic Residual codes; unclassified (1 source) Gestation period, 12 weeks; Translations: [12 weeks gestation of ] Episodic Residual codes; unclassified (1 source) Gestation period, 16 weeks; Translations: [16 weeks gestation of ] Episodic Residual codes; unclassified (3 sources) Gestation period, 20 weeks; Translations: [20 weeks gestation of ] Episodic Residual codes; unclassified (2 sources) Gestation period, 23 weeks; Translations: [23 weeks gestation of ] Episodic Residual codes; unclassified (3 sources) Gestation period, 25 weeks; Translations: [25 weeks gestation of ] Episodic Residual codes; unclassified (2 sources) Gestation period, 27 weeks; Translations: [27 weeks gestation of ] Episodic Residual codes; unclassified (1 source) Gestation period, 33 weeks; Translations: [33 weeks gestation of ] Episodic Residual codes; unclassified (2 sources) Gestation period, 35 weeks; Translations: [35 weeks gestation of ] Episodic Residual codes; unclassified (2 sources) Gestation period, 36 weeks; Translations: [36 weeks gestation of ] Episodic Residual codes; unclassified (2 sources) Gestation period, 37 weeks; Translations: [37 weeks gestation of ] Episodic Residual codes; unclassified (2 sources) Gestation period, 38 weeks; Translations: [38 weeks gestation of ] Episodic Residual codes; unclassified (2 sources) Gestation period, 39 weeks; Translations: [39 weeks gestation of ] Episodic Residual codes; unclassified (1 source) Family history of cancer; Translations: [Family history of malignant neoplasm, unspecified] 11-21-2022 Episodic Residual codes; unclassified (1 source) Reduced libido; Translations: [Decreased libido] 11-21-2022 Episodic Residual codes; unclassified (1 source) Gestation period, 8 weeks; Translations: [8 weeks gestation of ] 07-03-2023 Episodic Residual codes; unclassified (1 source) Gestation period, 15 weeks; Translations: [15 weeks gestation of ] 08-27-2023 Episodic Residual codes; unclassified (1 source) Gestation period, 29 weeks; Translations: [29 weeks gestation of ] 11-27-2023 Episodic Residual codes; unclassified (1 source) Gestation period, 31 weeks; Translations: [31 weeks gestation of ] 12-11-2023 Episodic Residual codes; unclassified (1 source) Gestation period, 32 weeks; Translations: [32 weeks gestation of ] 12-23-2023 Episodic Residual codes; unclassified (1 source) Gestation period, 34 weeks; Translations: [34 weeks gestation of ] 01-06-2024 Episodic Residual codes; unclassified (7 sources) H/O: Disorder; Translations: [Personal history of other specified conditions] Onset: 01-22-2024 01-22-2024 Episodic Residual codes; unclassified (1 source) 38 weeks gestation of ; Translations: [38 weeks gestation of ] Onset: 01-29-2024 Episodic Residual codes; unclassified (1 source) 31 weeks gestation of ; Translations: [31 weeks gestation of ] Onset: 12-11-2023 Episodic Syncope (7 sources) Syncope and collapse; Translations: [Syncope and collapse] Onset: 01-22-2024 01-22-2024 Episodic Thyroid disorders (20 sources) Hypothyroidism; Translations: [Hypothyroidism, unspecified] Onset: 10-09-2017 Chronic Unclassified (20 sources) [facility] Education - COMMON Onset: 07-03-2023 07-03-2023 Unclassified (20 sources) Education - [place] Onset: 07-03-2023 07-03-2023 Past or Other Problems Problem Classification Problem Date Documented Da te Episodic/Chronic Abdominal pain (20 sources) Pelvic girdle pain; Translations: [Pelvic and perineal pain] Onset: 05-14-2022 Episodic Acquired foot deformities (20 sources) Talipes planus; Translations: [Flat foot [pes planus] (acquired), right foot] Onset: 05-29-2015 05-29-2015 Episodic Bacterial infection; unspecified site (20 sources) Bacteria present; Translations: [Streptococcus, group B, as the cause of diseases classified elsewhere] Onset: 03-11-2022 Resolved: 08-07-2023 03-11-2022 Episodic Conditions associated with dizziness or vertigo (20 sources) Dizziness; Translations: [Dizziness and giddiness] Onset: 10-16-2023 10-16-2023 Episodic Genitourinary symptoms and ill-defined conditions (20 sources) Dysuria; Translations: [Dysuria] Onset: 07-06-2023 Episodic Other complications of (20 sources) Swelling of lower limb; Translations: [Gestational edema, third trimester] Onset: 03-12-2022 Episodic Other complications of (1 source) Endocrine, nutritional and metabolic diseases complicating , second trimester; Translations: [Thyroid dysfunction in in second trimester] Onset: 09-18-2023 Episodic Other complications of (1 source) Supervision of high risk , unspecified, second trimester; Translations: [Supervision of high risk in second trimester] Onset: 08-27-2023 Episodic Other infections; including parasitic (1 source) Personal history of other infectious and parasitic diseases; Translations: [History of herpes genitalis] Onset: 08-09-2021 Episodic Other and delivery including normal (20 sources) Normal ; Translations: [Encounter for supervision of normal first , unspecified trimester] Onset: 05-14-2022 Resolved: 08-07-2023 Episodic Other skin disorders (20 sources) Keloid scar; Translations: [Hypertrophic scar] Onset: 02-25-2006 02-25-2006 Episodic Residual codes; unclassified (20 sources) FH: Thyroid disorder; Translations: [Family history of other endocrine, nutritional and metabolic diseases] Onset: 10-09-2017 Resolved: 08-09-2021 10-09-2017 Episodic Residual codes; unclassified (1 source) 23 weeks gestation of ; Translations: [23 weeks gestation of ] Onset: 10-16-2023 Episodic Residual codes; unclassified (1 source) 15 weeks gestation of ; Translations: [15 weeks gestation of ] Onset: 08-27-2023 Episodic Thyroid disorders (1 source) Disorder of thyroid, unspecified; Translations: [Thyroid dysfunction in in second trimester] Onset: 09-18-2023 Episodic Results Test Name Value Interpretation Reference Range Facil ity URINE OB DIP B/Oon Glucose Ql (U) Negative Neg mg/dL [facility] Interpretation and review of laboratory results Normal [facility] Protein.monoclonal (U) [Mass/Vol] Negative Neg mg/dL [facility] URINE OB DIP B/OOrdered By: Hortensia Jacobs on 01-29-2024 Glucose Ql (U) Negative Neg mg/dL [facility] Interpretation and review of laboratory results Normal [facility] Protein.monoclonal (U) [Mass/Vol] Negative Neg mg/dL [facility] CNPNon 01-27-2024 MARIANAN Telephone (OBGYWM) ODALYS MORALES ([id number]) 1995 F Date Time Provider Department 01/27/24 WESTLEY SIERRA During your visit today, we recorded the following information about you: Padmini Calles RN 01/27/2024 8:21 AM Signed Received breast pump RX from [facility]. To SW to sign. YASMEEN Stanley Trisha, RN 01/30/2024 8:58 AM Signed Signed and faxed. Azra Iraheta RN Allergies As of Date: 01/27/2024 (No Known Allergies) Date Reviewed: 01/22/2024 Reviewed by: Coni Gonzalez APRN.CNM - Fully Assessed Reason for Visit: Breast Pump [Other] Prescriptions as of 01/30/2024 - acyclovir (ZOVIRAX) 400 mg tablet Take 1 tablet by mouth three times a day. - CHOLINE ORAL Take by mouth. - levothyroxine (SYNTHROID) 150 mcg tablet Take 1 tablet by mouth once daily. - PNV no.95/ferrous fum/folic ac ( ORAL) Take by mouth. Problem List As Of Date 01/27/2024 Noted Resolved KELOID, CHELOID SCAR [L91.0] 02/25/2006 ADD (attention deficit disorder) [F98.8] 06/13/2010 Seasonal allergies [J30.2] 07/12/2014 Bilateral pes planus [M21.41, M21.42] 05/29/2015 Family history of thyroid disease in mother [Z8*10/09/2017 08/09/2021 Hypothyroidism affecting in second tr*10/09/2017 History of herpes genitalis [Z86.19] 08/02/2021 Positive GBS test [B95.1] 03/11/2022 08/07/2023 Swelling of lower extremity during in*03/12/2022 care and examination [Z39.2] 05/14/2022 08/07/2023 Pain of pelvic girdle [R10.2] 05/14/2022 Encounter for supervision of high risk pregnanc*07/03/2023 GBS bacteriuria [R82.71] 07/06/2023 Dizziness [R42] 10/16/2023 H/O dizziness [Z87.898] 01/22/2024 Syncope and collapse [R55] 01/22/2024 Encounter Status:Closed by AZRA IRAHETA on 01/30/24 Normal [facility] URINE OB DIP B/Oon 4 Glucose Ql (U) Negative Neg mg/dL [facility] Interpretation and review of laboratory results Normal [facility] Protein.monoclonal (U) [Mass/Vol] Negative Neg mg/dL [facility] URINE OB DIP B/Oon 4 Glucose Ql (U) Negative Neg mg/dL [facility] Interpretation and review of laboratory results Normal [facility] Protein.monoclonal (U) [Mass/Vol] Negative Neg mg/dL [facility] URINE OB DIP B/Oon 4 Glucose Ql (U) Negative Neg mg/dL [facility] Interpretation and review of laboratory results Normal [facility] Protein.monoclonal (U) [Mass/Vol] Negative Neg mg/dL [facility] Examination level ultrasound on 01-06-2024 [facility] Radiology Study observation (narrative) [facility] CNPNon 12-23-2023 CNPN Telephone (OBGYWM) ODALYS MORALES ([id number]) 1995 F Date Time Provider Department 12/23/23 JACINTA MERRITT OBGYWM During your visit today, we recorded the following information about you: Cirilo [facility] 12/23/2023 11:33 AM Signed PT refused US due to no available US in [place]. Jacinta Merritt APRN.CN 12/23/2023 12:05 PM Signed Can we please see if [facility] has any? Azra Iraheta RN 12/23/2023 1:02 PM Signed PSS calling to schedule patient. Azra Iraheta RN Allergies As of Date: 12/23/2023 (No Known Allergies) Date Reviewed: 12/23/2023 Reviewed by: Nadine Boyer LPN - Fully Assessed Prescriptions as of 12/23/2023 - CHOLINE ORAL Take by mouth. - levothyroxine (SYNTHROID) 150 mcg tablet Take 1 tablet by mouth once daily. - PNV no.95/ferrous fum/folic ac ( ORAL) Take by mouth. 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] 02/25/2006 ADD (attention deficit disorder) [F98.8] 06/13/2010 Seasonal allergies [J30.2] 07/12/2014 Bilateral pes planus [M21.41, M21.42] 05/29/2015 Family history of thyroid disease in mother [Z8*10/09/2017 08/09/2021 Hypothyroidism affecting in second tr*10/09/2017 History of herpes genitalis [Z86.19] 08/02/2021 Positive GBS test [B95.1] 03/11/2022 08/07/2023 Swelling of lower extremity during in*03/12/2022 care and examination [Z39.2] 05/14/2022 08/07/2023 Pain of pelvic girdle [R10.2] 05/14/2022 Encounter for supervision of high risk pregnanc*07/03/2023 GBS bacteriuria [R82.71] 07/06/2023 Dizziness [R42] 10/16/2023 Encounter Status:Closed by AZRA IRAHETA on 12/23/23 [facility] Telephone (OBGYWM) ODALYS MORALES ([id number]) 1995 F Date Time Provider Department 12/23/23 JACINTA MERRITT During your visit today, we recorded the following information about you: Cirilo Butler 12/23/2023 11:31 AM Signed PT refused US do to no available US in jenny. Allergies As of Date: 12/23/2023 (No Known Allergies) Date Reviewed: 12/23/2023 Reviewed by: Nadine Boyer LPN - Fully Assessed Prescriptions as of 12/23/2023 - CHOLINE ORAL Take by mouth. - levothyroxine (SYNTHROID) 150 mcg tablet Take 1 tablet by mouth once daily. - PNV no.95/ferrous fum/folic ac ( ORAL) Take by mouth. 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] 02/25/2006 ADD (attention deficit disorder) [F98.8] 06/13/2010 Seasonal allergies [J30.2] 07/12/2014 Bilateral pes planus [M21.41, M21.42] 05/29/2015 Family history of thyroid disease in mother [Z8*10/09/2017 08/09/2021 Hypothyroidism affecting in second tr*10/09/2017 History of herpes genitalis [Z86.19] 08/02/2021 Positive GBS test [B95.1] 03/11/2022 08/07/2023 Swelling of lower extremity during in*03/12/2022 care and examination [Z39.2] 05/14/2022 08/07/2023 Pain of pelvic girdle [R10.2] 05/14/2022 Encounter for supervision of high risk pregnanc*07/03/2023 GBS bacteriuria [R82.71] 07/06/2023 Dizziness [R42] 10/16/2023 Encounter Status:Closed by CIRILO BUTLER on 12/23/23 [facility] Ce 11-26-2023 [employer] Telephone (ENDOAL) ODALYS MORALES ([id number]) 1995 F Date Time Provider Department 11/26/23 YAN ESPINO During your visit today, we recorded the following information about you: Yan Espino, DO 11/26/2023 11:15 AM Signed Sent the following via Chirpify: Justyn Morrow- your thyroid studies are at goal for - continue levothyroxine 150 mcg/day as you are doing for the duration of your . After delivery - reduce levothyroxine 137 mcg/day. See me for post f/u Apr 26 as scheduled with blood work prior. Thanks and GOOD LUCK with the rest of your ! 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 - PNV no.95/ferrous fum/folic ac ( ORAL) Take by mouth. 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] 02/25/2006 ADD (attention deficit disorder) [F98.8] 06/13/2010 Seasonal allergies [J30.2] 07/12/2014 Bilateral pes planus [M21.41, M21.42] 05/29/2015 Family history of thyroid disease in mother [Z8*10/09/2017 08/09/2021 Hypothyroidism affecting in second tr*10/09/2017 History of herpes genitalis [Z86.19] 08/02/2021 Positive GBS test [B95.1] 03/11/2022 08/07/2023 Swelling of lower extremity during in*03/12/2022 care and examination [Z39.2] 05/14/2022 08/07/2023 Pain of pelvic girdle [R10.2] 05/14/2022 Encounter for supervision of high risk pregnanc*07/03/2023 GBS bacteriuria [R82.71] 07/06/2023 Dizziness [R42] 10/16/2023 Encounter Status:Closed by YAN ESPINO on 11/26/23 Normal [facility] CBC W Auto Differential pane l (Bld)on 11-13-2023 Basophils (Bld) [#/Vol] 0.04 10*3/uL Normal <0.11 [facility] Comment on above: Order Comment: Speci men Type: BLOOD SPECIMEN Ordering Facility: [facility] Address: [address] [place] [address] Performed By: #### 3 026-2, 6-3 #### [facility] CLIA [id number] [address] [place] [address] [place] Basophils/100 WBC (Bld) 0.3 % Normal [facility] Comment on above: Order Comment: Speci men Type: BLOOD SPECIMEN Ordering Facility: [facility] Address: [address] [place] [address] Performed By: #### 3 026-2, 6-3 #### [facility] CLIA [id number] [address] [place] [address] [place] Differential cell count method Nom (Bld) Auto Normal [facility] Comment on above: Order Comment: Speci men Type: BLOOD SPECIMEN Ordering Facility: [facility] Address: [address] [place] [address] Performed By: #### 3 026-2, 6-3 #### [facility] CLIA [id number] [address] [place] [address] [place] Eosinophils (Bld) [#/Vol] 0.16 10*3/uL Normal <0.46 [facility] Comment on above: Order Comment: Speci men Type: BLOOD SPECIMEN Ordering Facility: [facility] Address: [address] [place] [address] Performed By: #### 3 026-2, 3016-3 #### [facility] CLIA [id number] [address] [place] [address] [place] Eosinophils/100 WBC (Bld) 1.3 % Normal [facility] Comment on above: Order Comment: Speci men Type: BLOOD SPECIMEN Ordering Facility: [facility] Address: [address] [place] [address] Performed By: #### 3 026-2, 3016-3 #### [facility] CLIA [id number] [address] [place] [address] [place] Erythrocyte distribution width (RBC) [Ratio] 12.4 % Normal 11.5-15.0 [facility] Comment on above: Order Comment: Speci men Type: BLOOD SPECIMEN Ordering Facility: [facility] Address: [address] [place] [address] Performed By: #### 3 026-2, 3015-3 #### [facility] CLIA [id number] [address] [place] [address] [place] Hematocrit (Bld) [Volume fraction] 34.3 % Low 36.0-46.0 [facility] Comment on above: Order Comment: Speci men Type: BLOOD SPECIMEN Ordering Facility: [facility] Address: [address] [place] [address] Performed By: #### 3 026-2, 6-3 #### [facility] CLIA [id number] [address] [place] [address] [place] Hemoglobin (Bld) [Mass/Vol] 11.4 g/dL Low 11.5-15.5 [facility] Comment on above: Order Comment: Speci men Type: BLOOD SPECIMEN Ordering Facility: [facility] Address: [address] [place] [address] Performed By: #### 3 026-2, 3016-3 #### [facility] CLIA [id number] [address] [id number] [address] [place] Immature granulocytes (Bld) [#/Vol] 0.11 10*3/uL High <0.10 [facility] Comment on above: Order Comment: Speci men Type: BLOOD SPECIMEN Ordering Facility: [facility] Address: [address] [place] [address] Performed By: #### 3 026-2, 3016-3 #### [facility] CLIA [id number] [address] [place] [address] [place] Immature granulocytes/100 WBC (Bld) 0.9 % Normal [facility] Comment on above: Order Comment: Speci men Type: BLOOD SPECIMEN Ordering Facility: [facility] Address: [address] [place] [address] Performed By: #### 3 026-2, 3016-3 #### [facility] CLIA [id number] [address] [place] [address] [place] Lymphocytes (Bld) [#/Vol] 2.64 10*3/uL Normal 1.00-4.00 [facility] Comment on above: Order Comment: Speci men Type: BLOOD SPECIMEN Ordering Facility: [facility] Address: [address] [place] [address] Performed By: #### 3 026-2, 3016-3 #### [facility] CLIA [id number] [address] [place] [address] [place] Lymphocytes/100 WBC (Bld) 20.7 % Normal [facility] Comment on above: Order Comment: Speci men Type: BLOOD SPECIMEN Ordering Facility: [facility] Address: [address] [place] [address] Performed By: #### 3 026-2, 3016-3 #### [facility] CLIA [id number] [address] [place] [address] [place] MCH (RBC) [Entitic mass] 31.8 pg Normal 26.0-34.0 [facility] Comment on above: Order Comment: Speci men Type: BLOOD SPECIMEN Ordering Facility: [facility] Address: [address] [place] [address] Performed By: #### 3 026-2, 3016-3 #### [facility] CLIA [id number] [address] [place] [address] [place] MCHC (RBC) [Mass/Vol] 33.2 g/dL Normal 30.5-36.0 [facility] Comment on above: Order Comment: Speci men Type: BLOOD SPECIMEN Ordering Facility: [facility] Address: [address] [place] [address] Performed By: #### 3 026-2, 6-3 #### [facility] CLIA [id number] [address] [place] [address] [place] MCV (RBC) [Entitic vol] 95.8 fL Normal 80.0-100.0 [facility] Comment on above: Order Comment: Speci men Type: BLOOD SPECIMEN Ordering Facility: [facility] Address: [address] [place] [address] Performed By: #### 3 026-2, 6-3 #### [facility] CLIA [id number] [address] [place] [address] [place] Monocytes (Bld) [#/Vol] 0.80 10*3/uL Normal <0.87 [facility] Comment on above: Order Comment: Speci men Type: BLOOD SPECIMEN Ordering Facility: [facility] Address: [address] [place] [address] Performed By: #### 3 026-2, 6-3 #### [facility] CLIA [id number] [address] [place] [address] [place] Monocytes/100 WBC (Bld) 6.3 % Normal [facility] Comment on above: Order Comment: Speci men Type: BLOOD SPECIMEN Ordering Facility: [facility] Address: [address] [place] [address] Performed By: #### 3 026-2, 3016-3 #### [facility] CLIA [id number] [address] [place] [address] [place] Neutrophils (Bld) [#/Vol] 9.03 10*3/uL High 1.45-7.50 [facility] Comment on above: Order Comment: Speci men Type: BLOOD SPECIMEN Ordering Facility: [facility] Address: [address] [place] [address] Performed By: #### 3 026-2, 3015-3 #### [facility] CLIA [id number] [address] [place] [address] [place] Neutrophils/100 WBC (Bld) 70.5 % Normal [facility] Comment on above: Order Comment: Speci men Type: BLOOD SPECIMEN Ordering Facility: [facility] Address: [address] [place] [address] Performed By: #### 3 026-2, 3015-3 #### [facility] CLIA [id number] [address] [place] [address] [place] Nucleated RBC (Bld) [#/Vol] 10*3/uL Normal <0.01 [facility] Comment on above: Order Comment: Speci men Type: BLOOD SPECIMEN Ordering Facility: [facility] Address: [address] [place] [address] Performed By: #### 3 026-2, 3015-3 #### [facility] CLIA [id number] [address] [place] [address] [place] Nucleated RBC/100 WBC (Bld) [Ratio] 0.0 /100 WBC Normal [facility] Comment on above: Order Comment: Speci men Type: BLOOD SPECIMEN Ordering Facility: [facility] Address: [address] [place] [address] Performed By: #### 3 026-2, 6-3 #### [facility] CLIA [id number] [address] [place] [address] [place] Platelet mean volume (Bld) [Entitic vol] 9.9 fL Normal 9.0-12.7 [facility] Comment on above: Order Comment: Speci men Type: BLOOD SPECIMEN Ordering Facility: [facility] Address: [address] [place] [address] Performed By: #### 3 026-2, 3016-3 #### [facility] CLIA [id number] [address] [place] [address] [place] Platelets (Bld) [#/Vol] 244 10*3/uL Normal 150-400 [facility] Comment on above: Order Comment: Speci men Type: BLOOD SPECIMEN Ordering Facility: [facility] Address: [address] [place] [address] Performed By: #### 3 026-2, 3016-3 #### [facility] CLIA [id number] [address] [place] [address] [place] RBC (Bld) [#/Vol] 3.58 10*6/uL Low 3.90-5.20 [facility] Comment on above: Order Comment: Speci men Type: BLOOD SPECIMEN Ordering Facility: [facility] Address: [address] [place] [address] Performed By: #### 3 026-2, 3016-3 #### [facility] CLIA [id number] [address] [place] [address] [place] WBC (Bld) [#/Vol] 12.78 10*3/uL High 3.70-11.00 [facility] Comment on above: Order Comment: Speci men Type: BLOOD SPECIMEN Ordering Facility: [facility] Address: [address] [place] [address] Performed By: #### 3 026-2, 3016-3 #### [facility] CLIA [id number] [address] [place] [address] [place] GESTATIONAL GLUCOSE SCREEN, 1-HOUR, 50 GRAM, NON-FASTINGon 07-25-2024 Glucose [Mass/Vol] 123 mg/dL Normal 74-134 [facility] Comment on above: Order Comment: Elaina england Type: BLOOD SPECIMEN Ordering Facility: [facility] Address: [address] [place] [address] Result Comment: [facility] Congress of Obstetricians and Gynecologists (Ammy/Glenn) guidelines state a gestational diabetes mellitus positive screen is made, in women not previously diagnosed with overt diabetes, when the 1 hr plasma glucose level is equal to or above 140 mg/dL. The [facility] Leak Inspector and [facility] recommends a 135 mg/dL cutoff. Performed By: #### 3 026-2, 6-3 #### [facility] CLIA [id number] [address] [place] [address] [place] Reagin and Treponema pallidu m IgG and IgM [Interp]on 11-13-2023 T. pallidum IgG+IgM IA Ql (S) Non-Reactive Normal Nonreactive [facility] Comment on above: Order Comment: Elaina england Type: BLOOD SPECIMEN Ordering Facility: [facility] Address: [address] [place] [address] Performed By: #### 3 026-2, 3015-3 #### [facility] CLIA [id number] [address] [place] [address] [place] Reagin+T pallidum IgG+IgM Se rPl-Impon 11-13-2023 Reagin and Treponema pallidum IgG and IgM [Interp] Cannot exclude recent Treponemal infection if specimen collected within 7-10 days after appearance of suspect lesions or 2-3 weeks after an exposure. Clinical correlation is required. Normal [facility] Comment on above: Order Comment: Elaina england Type: BLOOD SPECIMEN Ordering Facility: [facility] Address: [address] [place] [address] Performed By: #### 3 026-2, 6-3 #### [facility] CLIA [id number] [address] [place] [address] [place] T4 SerPl-mCncon 11-13-2023 T4 [Mass/Vol] 11.4 ug/dL High 5.5-10.2 [facility] Comment on above: Order Comment: Speci men Type: BLOOD SPECIMEN Ordering Facility: [facility] Address: [address] [place] [address] Performed By: #### 3 026-2, 3016-3 #### [facility] CLIA [id number] [address] [place] [address] [place] TSH SerPl-aCncon 11-13-2023 TSH Qn 2.120 m[IU]/L Normal 0.270-4.200 [facility] Comment on above: Order Comment: Speci men Type: BLOOD SPECIMEN Ordering Facility: [facility] Address: [address] [place] [address] Result Comment: If t he patient is , TSH reference range varies by gestational period: First Trimester (weeks 9-12): 0.180-2.990 mIU/L Second Trimester: 0.110-3.980 mIU/L Third Trimester: 0.480-4.710 mIU/L Gerry Joel et al. A Practical Approach for the Verifications and Determination of Site- and Trimester-Specific Reference Intervals for Thyroid Function tests in . Thyroid, 2019:29:3:412-420. Juvencio Marinelli, et al. 2017 Guidelines of the [place] Thy[employer] for the Diagnosis and Management of Thyroid Disease during and the . Thyroid, 2017:27:3:315-389. Performed By: #### 3 026-2, 6-3 #### [facility] CLIA [id number] [address] [place] [address] [place] CBC panel Auto (Bld)on 10-15 Erythrocyte distribution width (RBC) [Ratio] 13.1 % 11.5 - 15.0 % [facility] Hematocrit (Bld) [Volume fraction] 34.8 % Low 36.0 - 46.0 % [facility] Hemoglobin (Bld) [Mass/Vol] 11.8 g/dL 11.5 - 15.5 g/dL [facility] Interpretation and review of laboratory results Abnormal [facility] MCH (RBC) [Entitic mass] 32.2 pg 26.0 - 34.0 pg [facility] MCHC (RBC) [Mass/Vol] 33.9 g/dL 30.5 - 36.0 g/dL [facility] MCV (RBC) [Entitic vol] 94.8 fL 80.0 - 100.0 fL [facility] Nucleated RBC (Bld) [#/Vol] NINF [facility] Platelet mean volume (Bld) [Entitic vol] 9.4 fL 9.0 - 12.7 fL [facility] Platelets (Bld) [#/Vol] 243 10*3/uL [facility] RBC (Bld) [#/Vol] 3.67 10*6/uL Low 3.90 - 5.20 m/uL [facility] WBC (Bld) [#/Vol] 11.95 10*3/uL High [facility] Erythrocyte distribution width (RBC) [Ratio] 13.1 % Normal 11.5-15.0 [facility] Comment on above: Order Comment: Speci men Type: BLOOD SPECIMEN Ordering Facility: [facility] Address: [address] [place] [address] Performed By: #### 3 026-2, 3016-3 #### [facility] CLIA [id number] [address] [place] [address] [place] Hematocrit (Bld) [Volume fraction] 34.8 % Low 36.0-46.0 [facility] Comment on above: Order Comment: Speci men Type: BLOOD SPECIMEN Ordering Facility: [facility] Address: [address] [place] [address] Performed By: #### 3 026-2, 3016-3 #### [facility] CLIA [id number] [address] [place] [address] [place] Hemoglobin (Bld) [Mass/Vol] 11.8 g/dL Normal 11.5-15.5 [facility] Comment on above: Order Comment: Speci men Type: BLOOD SPECIMEN Ordering Facility: [facility] Address: [address] [place] [address] Performed By: #### 3 026-2, 6-3 #### [facility] CLIA [id number] [address] [place] [address] [place] MCH (RBC) [Entitic mass] 32.2 pg Normal 26.0-34.0 [facility] Comment on above: Order Comment: Speci men Type: BLOOD SPECIMEN Ordering Facility: [facility] Address: [address] [place] [address] Performed By: #### 3 026-2, 3015-3 #### [facility] CLIA [id number] [address] [place] [address] [place] MCHC (RBC) [Mass/Vol] 33.9 g/dL Normal 30.5-36.0 [facility] Comment on above: Order Comment: Speci men Type: BLOOD SPECIMEN Ordering Facility: [facility] Address: [address] [place] [address] Performed By: #### 3 026-2, 3015-3 #### [facility] CLIA [id number] [address] [place] [address] [place] MCV (RBC) [Entitic vol] 94.8 fL Normal 80.0-100.0 [facility] Comment on above: Order Comment: Speci men Type: BLOOD SPECIMEN Ordering Facility: [facility] Address: [address] [place] [address] Performed By: #### 3 026-2, 3015-3 #### [facility] CLIA [id number] [address] [place] [address] [place] Nucleated RBC (Bld) [#/Vol] 10*3/uL Normal <0.01 [facility] Comment on above: Order Comment: Speci men Type: BLOOD SPECIMEN Ordering Facility: [facility] Address: [address] [place] [address] Performed By: #### 3 026-2, 3016-3 #### [facility] CLIA [id number] [address] [place] [address] [place] Platelet mean volume (Bld) [Entitic vol] 9.4 fL Normal 9.0-12.7 [facility] Comment on above: Order Comment: Speci men Type: BLOOD SPECIMEN Ordering Facility: [facility] Address: [address] [place] [address] Performed By: #### 3 026-2, 6-3 #### [facility] CLIA [id number] [address] [place], [place] [address] [place] Platelets (Bld) [#/Vol] 243 10*3/uL Normal 150-400 [facility] Comment on above: Order Comment: Speci men Type: BLOOD SPECIMEN Ordering Facility: [facility] Address: [address] [place] [address] Performed By: #### 3 026-2, 3015-3 #### [facility] CLIA [id number] [address] [place] [address] [place] RBC (Bld) [#/Vol] 3.67 10*6/uL Low 3.90-5.20 [facility] Comment on above: Order Comment: Speci men Type: BLOOD SPECIMEN Ordering Facility: [facility] Address: [address] [place] [address] Performed By: #### 3 026-2, 3015-3 #### [facility] CLIA [id number] [address] [place], [place] [address] [place] WBC (Bld) [#/Vol] 11.95 10*3/uL High 3.70-11.00 [facility] Comment on above: Order Comment: Speci men Type: BLOOD SPECIMEN Ordering Facility: [facility] Address: [address] [place] [address] Performed By: #### 3 026-2, 3016-3 #### [facility] CLIA [id number] [address] [place] [address] [place] Comprehensive metabolic 2000 panelOrdered By: Laurie Parra on 10-16-2023 Albumin [Mass/Vol] 3.6 g/dL Low 3.9 - 4.9 g/dL [facility] ALP [Catalytic activity/Vol] 73 U/L 34 - 123 U/L [facility] ALT [Catalytic activity/Vol] U/L Low 7 - 38 U/L [facility] Anion gap [Moles/Vol] 9 mmol/L 8 - 15 mmol/L [facility] AST [Catalytic activity/Vol] 10 U/L Low 13 - 35 U/L [facility] Bilirubin [Mass/Vol] 0.3 mg/dL 0.2 - 1.3 mg/dL [facility] Calcium [Mass/Vol] 9.0 mg/dL 8.5 - 10.2 mg/dL [facility] Chloride [Moles/Vol] 104 mmol/L 98 - 107 mmol/L [facility] CO2 [Moles/Vol] 22 mmol/L 22 - 30 mmol/L [facility] Creatinine [Mass/Vol] 0.63 mg/dL 0.58 - 0.96 mg/dL [facility] GFR/1.73 sq M.predicted among non-blacks MDRD (S/P/Bld) [Vol rate/Area] 126 mL/min/{1.73_m2} - PINF [facility] Comment on above: Estimated Glomerular Filtration Rate (eGFR) is calculated using the 2020 CKD-EPI creatinine equation. This equation utilizes serum creatinine, sex, and age as parameters. The creatinine assay has traceable calibration to isotope dilution-mass spectrometry. Refer to KDIGO guidelines for clinical interpretation. In patients with unstable renal function, e.g. those with acute kidney injury, the eGFR may not accurately reflect actual GFR. Glucose [Mass/Vol] 79 mg/dL 74 - 99 mg/dL [facility] Comment on above: The [place] [employer] s Association (ADA) provides guidance for cutoff values for fasting glucose and random glucose. The ADA defines fasting as no caloric intake for at least 8 hours. Fasting plasma glucose results between 100 to 125 mg/dL indicate increased risk for diabetes (prediabetes). Fasting plasma glucose results greater than or equal to 126 mg/dL meet the criteria for diagnosis of diabetes. In the absence of unequivocal hyperglycemia, results should be confirmed by repeat testing. In a patient with classic symptoms of hyperglycemia or hyperglycemic crisis, random plasma glucose results greater than or equal to 200 mg/dL meet the criteria for diagnosis of diabetes. Reference: Standards of Medical Care in Diabetes 2016, [place] Diabetes Association. Diabetes Care. 2016.39(Suppl 1). Interpretation and review of laboratory results Abnormal [facility] Potassium [Moles/Vol] 4.1 mmol/L 3.7 - 5.1 mmol/L [facility] Protein [Mass/Vol] 6.0 g/dL Low 6.3 - 8.0 g/dL [facility] Sodium [Moles/Vol] 135 mmol/L Low 136 - 144 mmol/L [facility] Urea nitrogen [Mass/Vol] 10 mg/dL 7 - 21 mg/dL [facility] Comprehensive metabolic 2000 panelon 10-16-2023 Albumin [Mass/Vol] 3.6 g/dL Low 3.9-4.9 [facility] Comment on above: Order Comment: Elaina england Type: BLOOD SPECIMEN Ordering Facility: [facility] Address: [address] [place] [address] Performed By: #### 3 026-2, 6-3 #### [facility] CLIA [id number] [address] [place] [address] [place] ALP [Catalytic activity/Vol] 73 U/L Normal 34-123 [facility] Comment on above: Order Comment: Elaina england Type: BLOOD SPECIMEN Ordering Facility: [facility] Address: [address] [place] [address] Performed By: #### 3 026-2, 6-3 #### [facility] CLIA [id number] [address] [place] [address] [place] ALT [Catalytic activity/Vol] U/L Low 7-38 [facility] Comment on above: Order Comment: Elaina england Type: BLOOD SPECIMEN Ordering Facility: [facility] Address: [address] [place] [address] Performed By: #### 3 026-2, 6-3 #### [facility] CLIA [id number] [address] [place] [address] [place] Anion gap [Moles/Vol] 9 mmol/L Normal 8-15 [facility] Comment on above: Order Comment: Speci men Type: BLOOD SPECIMEN Ordering Facility: [facility] Address: [address] [place] [address] Performed By: #### 3 026-2, 3016-3 #### [facility] CLIA [id number] [address] [place] [address] [place] AST [Catalytic activity/Vol] 10 U/L Low 13-35 [facility] Comment on above: Order Comment: Speci men Type: BLOOD SPECIMEN Ordering Facility: [facility] Address: [address] [place] [address] Performed By: #### 3 026-2, 3016-3 #### [facility] CLIA [id number] [address] [place] [address] [place] Bilirubin [Mass/Vol] 0.3 mg/dL Normal 0.2-1.3 [facility] Comment on above: Order Comment: Speci men Type: BLOOD SPECIMEN Ordering Facility: [facility] Address: [address] [place] [address] Performed By: #### 3 026-2, 3016-3 #### [facility] CLIA [id number] [address] [place] [address] [place] Calcium [Mass/Vol] 9.0 mg/dL Normal 8.5-10.2 [facility] Comment on above: Order Comment: Speci men Type: BLOOD SPECIMEN Ordering Facility: [facility] Address: [address] [place] [address] Performed By: #### 3 026-2, 3016-3 #### [facility] CLIA [id number] [address] [place] [address] [place] Chloride [Moles/Vol] 104 mmol/L Normal 98-107 [facility] Comment on above: Order Comment: Speci men Type: BLOOD SPECIMEN Ordering Facility: [facility] Address: [address] [place] [address] Performed By: #### 3 026-2, 6-3 #### [facility] CLIA [id number] [address] [place] [address] [place] CO2 [Moles/Vol] 22 mmol/L Normal 22-30 [facility] Comment on above: Order Comment: Speci men Type: BLOOD SPECIMEN Ordering Facility: [facility] Address: [address] [place] [address] Performed By: #### 3 026-2, 3015-3 #### [facility] CLIA [id number] [address] [place] [address] [place] Creatinine [Mass/Vol] 0.63 mg/dL Normal 0.58-0.96 [facility] Comment on above: Order Comment: Speci men Type: BLOOD SPECIMEN Ordering Facility: [facility] Address: [address] [place] [address] Performed By: #### 3 026-2, 3015-3 #### [facility] CLIA [id number] [address] [place] [address] [place] Creatinine and Glomerular filtration rate.predicted panel (S/P/Bld) 126 mL/min/1.73m??? Normal >=60 [facility] Comment on above: Order Comment: Speci men Type: BLOOD SPECIMEN Ordering Facility: [facility] Address: [address] [place] [address] Result Comment: Micaela mated Glomerular Filtration Rate (eGFR) is calculated using the 2020 CKD-EPI creatinine equation. This equation utilizes serum creatinine, sex, and age as parameters. The creatinine assay has traceable calibration to isotope dilution-mass spectrometry. Refer to KDIGO guidelines for clinical interpretation. In patients with unstable renal function, e.g. those with acute kidney injury, the eGFR may not accurately reflect actual GFR. Performed By: #### 3 026-2, 3016-3 #### [facility] CLIA [id number] [address] [place] [address] [place] Glucose [Mass/Vol] 79 mg/dL Normal 74-99 [facility] Comment on above: Order Comment: Speci men Type: BLOOD SPECIMEN Ordering Facility: [facility] Address: [address] [place] [address] Result Comment: The [place] Diabetes Association (ADA) provides guidance for cutoff values for fasting glucose and random glucose. The ADA defines fasting as no caloric intake for at least 8 hours. Fasting plasma glucose results between 100 to 125 mg/dL indicate increased risk for diabetes (prediabetes). Fasting plasma glucose results greater than or equal to 126 mg/dL meet the criteria for diagnosis of diabetes. In the absence of unequivocal hyperglycemia, results should be confirmed by repeat testing. In a patient with classic symptoms of hyperglycemia or hyperglycemic crisis, random plasma glucose results greater than or equal to 200 mg/dL meet the criteria for diagnosis of diabetes. Reference: Standards of Medical Care in Diabetes 2016, [place] Diabetes Association. Diabetes Care. 2016.39(Suppl 1). Performed By: #### 3 026-2, 3015-3 #### [facility] CLIA [id number] [address] [place] [address] [place] Potassium [Moles/Vol] 4.1 mmol/L Normal 3.7-5.1 [facility] Comment on above: Order Comment: Mikeyi men Type: BLOOD SPECIMEN Ordering Facility: [facility] Address: [address] [place] [address] Performed By: #### 3 026-2, 3 #### [facility] CLIA [id number] [address] [place] [address] [place] Protein [Mass/Vol] 6.0 g/dL Low 6.3-8.0 [facility] Comment on above: Order Comment: Mikeyi men Type: BLOOD SPECIMEN Ordering Facility: [facility] Address: [address] [place] [address] Performed By: #### 3 026-2, 3015-3 #### [facility] CLIA [id number] [address] [place] [address] [place] Sodium [Moles/Vol] 135 mmol/L Low 136-144 [facility] Comment on above: Order Comment: Speci men Type: BLOOD SPECIMEN Ordering Facility: [facility] Address: [address] [place] [address] Performed By: #### 3 026-2, 3016-3 #### [facility] CLIA [id number] [address] [place] [address] [place] Urea nitrogen [Mass/Vol] 10 mg/dL Normal 7-21 [facility] Comment on above: Order Comment: Speci men Type: BLOOD SPECIMEN Ordering Facility: [facility] Address: [address] [place] [address] Performed By: #### 3 026-2, 6-3 #### [facility] CLIA [id number] [address] [place] [address] [place] Examination level ultrasound on 09-25-2023 Indication anatomy survey Hypothyroidism Impression REMOTE READ 1. Single, live, intrauterine . 2. biometry is consistent with the established gestational age. 3. Unremarkable anatomic survey. No markers for aneuploidy are noted. 4. Amniotic fluid normal amount. 5. The placenta is anterior, fundal. 6. Normal transabdominal cervical length without evidence of funneling or dynamic changes. Recommendations Follow up as clinically indicated. Maternal Assessment Height 165 cm Height (ft) 5 ft Height (in) 5 in Physical Exam Initial weight (lb) 160 lb Initial BMI 26.63 kg/m Maternal assessment other: 2 Para 1 Method Transabdominal ultrasound examination. View: Adequate visualization Choudhury . Number of fetuses: 1 Dating LMP on: 05/08/2023 GA by LMP 20 w + 0 d JADON by LMP: 02/12/2024 GA by prior assessment 20 w + 0 d JADON by prior assessment: 02/12/2024 Ultrasound examination on: 09/25/2023 GA by U/S based upon: AC, BPD, Femur, HC GA by U/S 19 w + 6 d JADON by U/S: 02/13/2024 Assigned: based on stated JADON, selected on 09/25/2023 Assigned GA 20 w + 0 d Assigned JADON: 02/12/2024 General Evaluation Cardiac activity present. FHR 132 bpm. movements: present. Presentation: cephalic Placenta: Placental site: anterior, fundal Umbilical cord: normal insertion, 3 vessel cord Amniotic fluid: Amount of AF: normal amount. MVP 5.3 cm Growth Overview Exam date GA BPD (mm) HC (mm) AC (mm) FL (mm) HL (mm) EFW (g) 09/25/2023 20w 0d 47.8 69% 173.1 45% 143.1 33% 30.1 38% 29.5 42% 297 22% Biometry Standard BPD 47.8 mm 20w 3d 69% Hadlock OFD 60.4 mm 19w 4d 51% Nicolaides HC 173.1 mm 19w 6d 45% Too Cerebellum tr 20.6 mm 19w 5d 66% Hill Nuchal fold 4.7 mm AC 143.1 mm 19w 5d 33% Hadlock Femur 30.1 mm 19w 3d 38% Too Humerus 29.5 mm 19w 4d 42% Too EFW 297 g 19w 3d 22% Hadlock EFW (lb) 0 lb EFW (oz) 10 oz EFW by: Hadlock (HC-AC-FL) Extended Social Work Instructor 4.4 mm CM 5.0 mm 51% Nicolaides Extremities / Bony Struc FL / HC 0.17 5% Hadlock Other Structures FHR 132 bpm Anatomy Cranium: normal Lateral ventricles: normal Choroid plexus: normal Midline falx: normal Cavum septi pellucidi: normal Cerebellum: normal Cisterna magna: normal Head / Neck Vermis: normal Neck: normal Nuchal fold: normal Lips: normal Profile: normal Nose: normal Face Maxilla: normal Mandible: normal Orbits: normal Lens: normal 4-chamber view: normal RVOT view: normal LVOT view: normal 3-vessel view: normal 8-[id number]-xrjxuhs view: normal Heart / Thorax Situs: situs solitus (normal) Aortic arch view: normal Ductal arch view: normal SVC: normal IVC: normal Cardiac axis: normal Rt lung: normal Lt lung: normal Diaphragm: normal Cord insertion: normal Stomach: normal Kidneys: normal Bladder: normal Genitals: normal Abdomen Abdom. wall: normal Cervical spine: normal Thoracic spine: normal Lumbar spine: normal Sacral spine: normal Arms: normal Legs: normal Rt upper arm: normal Rt forearm: normal Rt hand: normal Rt fingers: normal Lt upper arm: normal Lt forearm: normal Lt hand: normal Lt fingers: normal Rt upper leg: normal Rt lower leg: normal Rt foot: normal Lt upper leg: normal Lt lower leg: normal Lt foot: normal Gender: Unspecified Wants to know sex: no Maternal Structures Uterus / Cervix Uterus: Visualized Cervix: Visualized Approach: Transabdominal Cervical length 33.7 mm Ovaries / Tubes / Adnexa Rt ovary: Visualized Lt ovary: Visualized Performed By: Christine Lei RDMS, RVT Read By: Jessica Peñaloza M.D. MATERNAL MEDICINE [facility] Radiology Study observation (narrative) [facility] Ce 09-24-2023 CNPN Telephone (ENDOAL) ODALYS MORALES ([id number]) 1995 F Date Time Provider Department 09/24/23 YAN ESPINO ENDOAL During your visit today, we recorded the following information about you: Yan Espino, 09/24/2023 2:14 PM Signed Sent the following via Chirpify: Justyn Morrow- your TSH/T4 are at goal for - continue levothyroxine 150 mcg/day as you are doing. Please get blood work repeated prior to you next follow up with me- let me know if you need anything in the interim Thanks Dr Espino Allergies As of Date: 09/24/2023 (No Known Allergies) Date Reviewed: 08/27/2023 Reviewed by: Rosa Maria Haq MA - Fully Assessed Reason for Visit: Results [95] Primary Visit Diagnosis:Hypothyroid ism due to Carole's thyroiditis [E03.8, E06.3] Order(s):THYROID STIMULATING HORMONE [SQTSH] Order #: [id number] FUTURE T4/THYROXINE [SQT4] Order #: [id number] FUTURE Prescriptions as of 09/24/2023 - cetirizine HCl (ZYRTEC ORAL) Take by mouth. - Magnesium Oxide 420 mg tab Take 1 tablet by mouth once daily. - levothyroxine (SYNTHROID) 150 mcg tablet Take 1 tablet by mouth once daily. - PNV no.95/ferrous fum/folic ac ( ORAL) Take by mouth. - calcium carbonate (TUMS ORAL) Take by mouth. - levothyroxine (SYNTHROID) 137 mcg tablet Take 1 tablet by mouth daily before breakfast. 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] 02/25/2006 ADD (attention deficit disorder) [F98.8] 06/13/2010 Seasonal allergies [J30.2] 07/12/2014 Bilateral pes planus [M21.41, M21.42] 05/29/2015 Family history of thyroid disease in mother [Z8*10/09/2017 08/09/2021 Hypothyroidism [E03.9] 10/09/2017 History of herpes genitalis [Z86.19] 08/02/2021 Patient request for diagnostic testing [Z01.89] 08/02/2021 Positive GBS test [B95.1] 03/11/2022 08/07/2023 Swelling of lower extremity during in*03/12/2022 care and examination [Z39.2] 05/14/2022 08/07/2023 Pain of pelvic girdle [R10.2] 05/14/2022 Encounter for supervision of normal first pregn*07/03/2023 GBS bacteriuria [R82.71] 07/06/2023 Supervision of high risk in second tr*08/27/2023 Encounter Status:Closed by YAN ESPINO on 09/24/23 Normal [facility] T4 SerPl-mCncon 09-18-2023 T4 [Mass/Vol] 12.0 ug/dL High 5.5-10.2 [facility] Comment on above: Order Comment: Speci men Type: BLOOD SPECIMEN Ordering Facility: [facility] Address: [address] [place] [address] Performed By: #### 3 026-2, 3016-3 #### [facility] CLIA [id number] [address] [place] [address] [place] TSH SerPl-aCncon 09-18-2023 TSH Qn 0.396 m[IU]/L Normal 0.270-4.200 [facility] Comment on above: Order Comment: Speci men Type: BLOOD SPECIMEN Ordering Facility: [facility] Address: [address] [place] [address] Result Comment: If t he patient is , TSH reference range varies by gestational period: First Trimester (weeks 9-12): 0.180-2.990 mIU/L Second Trimester: 0.110-3.980 mIU/L Third Trimester: 0.480-4.710 mIU/L Gerry Joel et al. A Practical Approach for the Verifications and Determination of Site- and Trimester-Specific Reference Intervals for Thyroid Function tests in . Thyroid, 2019:29:3:412-420. Juvencio Marinelli, et al. 2017 Guidelines of the [place] Thyroid Association for the Diagnosis and Management of Thyroid Disease during and the . Thyroid, 2017:27:3:315-389. Performed By: #### 3 026-2, 6-3 #### [facility] CLIA [id number] [address] [place] [address] [place] T4 SerPl-mCncon 08-07-2023 T4 [Mass/Vol] 13.6 ug/dL High 5.5-10.2 [facility] Comment on above: Order Comment: Speci men Type: BLOOD SPECIMEN Ordering Facility: [facility] Address: [address] [place] [address] Performed By: #### 3 026-2, 3016-3 #### [facility] CLIA [id number] [address] [place] [address] [place] TSH SerPl-aCncon 08-07-2023 TSH Qn 0.144 m[IU]/L Low 0.270-4.200 [facility] Comment on above: Order Comment: Speci men Type: BLOOD SPECIMEN Ordering Facility: [facility] Address: [address] [place] [address] Result Comment: If t he patient is , TSH reference range varies by gestational period: First Trimester (weeks 9-12): 0.180-2.990 mIU/L Second Trimester: 0.110-3.980 mIU/L Third Trimester: 0.480-4.710 mIU/L Gerry Joel et al. A Practical Approach for the Verifications and Determination of Site- and Trimester-Specific Reference Intervals for Thyroid Function tests in . Thyroid, 2019:29:3:412-420. Juvencio E, et al. 2017 Guidelines of the [place] Thyroid Association for the Diagnosis and Management of Thyroid Disease during and the . Thyroid, 2017:27:3:315-389. Performed By: #### 3 026-2, 3016-3 #### [facility] CLIA [id number] [address] [place], [place] [address] [address] OF [facility] CNPNon 07-08-2023 CNPN Telephone (ENDOAL) ODALYS MORALES ([id number]) 1995 F Date Time Provider Department 07/08/23 YAN ESPINO ENDOAL During your visit today, we recorded the following information about you: Yan Espino, DO 07/08/2023 7:41 PM Signed Please contact pt- TSH elevated- is she taking levothyroxine 137 mcg/day (everyday, not missing doses)- if so will need to increase dose (let me know yovany, she is ) Advise her she can f/u with me in 4 weeks - will repeat blood work prior. Please advise/schedule Thanks Jaclyn Wagoner, RN 07/09/2023 8:41 AM Signed Called patient. Left a message for the patient to check her Everypointt message. Alexandra León 07/09/2023 8:44 AM Signed Left voicemail for patient to call [phone] Espino in 4 weeks. Advised patient that it is okay to cancel appt on 07/13 and that she will need to have repeat blood work prior to appt. Alexandra León 07/09/2023 9:14 AM Signed Sent patient My Chart message that Dr. Espino would like to see her in 4 weeks with repeat blood work done prior to appt. Advised patient that I can cancel 07/14/2023 appt and gave her the number [phone] to directly schedule with Dr. Espino's office. Alexandra León 07/09/2023 9:57 AM Signed Patient replied that she is available on 08/07/2023 , you will be out of the office that week. Please advise if patient should be scheduled 07/30 or 08/14 and please advise if you would like her to come to the office or virtual appointment. Thank you Yan Espino DO 07/09/2023 11:23 AM Signed She should increase levothyroxine to 150 mcg/day (take away from foods/medications, , etc, take by itself). I sent rx to [facility]- She can see me virtually 08/14 with blood work 1-2 days prior. Thanks! Yan Dickson DO 07/09/2023 11:23 AM Signed Addended by: YAN ESPINO on: 07/09/2023 11:23 AM Modules accepted: Orders Alexandra León 07/09/2023 12:04 PM Signed Spoke with patient, advised her on the changes to her medication, patient advised that she does not take her meds with any food or other meds , she takes 45 minutes prior to eating. Patient scheduled 08/14/2023 @ 8:40 am (virtual appointment) Allergies As of Date: 07/08/2023 (No Known Allergies) Date Reviewed: 07/03/2023 Reviewed by: Coni Gonzalez APRN.CNM - Fully Assessed Reason for Visit: Results [95] Primary Visit Diagnosis:Hypothyroid ism due to Carole's thyroiditis [E03.8, E06.3] Order(s):levothyroxin e (SYNTHROID) 150 mcg tabletTake 1 tablet by mouth once daily.Disp: 30 tabletRfl: 11 TSH BLD [SQTSH] Order #: [id number] FUTURE T4/THYROXINE BLOOD [SQT4] Order #: [id number] FUTURE Prescriptions as of 07/09/2023 - levothyroxine (SYNTHROID) 150 mcg tablet Take 1 tablet by mouth once daily. - PNV no.95/ferrous fum/folic ac ( ORAL) Take by mouth. - calcium carbonate (TUMS ORAL) Take by mouth. - levothyroxine (SYNTHROID) 137 mcg tablet Take 1 tablet by mouth daily before breakfast. 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] 02/25/2006 ADD (attention deficit disorder) [F98.8] 06/13/2010 Seasonal allergies [J30.2] 07/12/2014 Bilateral pes planus [M21.41, M21.42] 05/29/2015 Family history of thyroid disease in mother [Z8*10/09/2017 08/09/2021 Hypothyroidism [E03.9] 10/09/2017 History of herpes genitalis [Z86.19] 08/02/2021 Patient request for diagnostic testing [Z01.89] 08/02/2021 Positive GBS test [B95.1] 03/11/2022 Swelling of lower extremity during in*03/12/2022 care and examination [Z39.2] 05/14/2022 Pain of pelvic girdle [R10.2] 05/14/2022 Encounter for supervision of normal first pregn*07/03/2023 GBS bacteriuria [R82.71] 07/06/2023 Prescriptions ordered this encounter Disp Refills Start End LEVOTHYROXINE 150 MCG TABLET 30 t* 11 07/09/2023 Route: ORAL Sig: Take 1 tablet by mouth once daily. Encounter Status:Closed by ALEXANDRA LEÓN on 07/09/23 Normal [facility] Bacteria Ur Culton Bacteria identified Cx Nom (U) ORGANISM ID: 1 10,000 -<50,000 CFU/ml Normal urogenital niharika Streptococcus agalactiae (Group B streptococcus) was identified in this specimen, which is clinically relevant if the individual is . Normal [facility] Comment on above: Performed By: #### 6 30-4 #### [facility] CLIA [id number] [address] [place] [address] [place] C. trachomatis+N. gonorrhoea e DNA PAWAN+probe Ql (Unsp spec)on 07-03-2023 C. trachomatis rRNA PAWAN+probe Ql (Unsp spec) Negative Normal Negative for Chlamydia trachomatis by amplificaton [facility] Comment on above: Order Comment: Speci men Type: SWABOrdering Facility: [facility] Address: [address] [place] [address] Performed By: #### 3 6902-5 ####[facility] [id number] [address] [place] N. gonorrhoeae rRNA PAWAN+probe Ql (Unsp spec) Negative Normal Negative for Neisseria gonorrhoeae by amplification [facility] Comment on above: Order Comment: Speci men Type: SWABOrdering Facility: [facility] Address: [address] [place] [address] Performed By: #### 3 6902-5 ####[facility] [id number] [place] [address] [place] CBC panel Auto (Bld)on 07-02 Erythrocyte distribution width (RBC) [Ratio] 12.5 % 11.5 - 15.0 % [facility] Hematocrit (Bld) [Volume fraction] 36.2 % 36.0 - 46.0 % [facility] Hemoglobin (Bld) [Mass/Vol] 12.7 g/dL 11.5 - 15.5 g/dL [facility] MCH (RBC) [Entitic mass] 30.8 pg 26.0 - 34.0 pg [facility] MCHC (RBC) [Mass/Vol] 35.1 g/dL 30.5 - 36.0 g/dL [facility] MCV (RBC) [Entitic vol] 87.7 fL 80.0 - 100.0 fL [facility] Nucleated RBC (Bld) [#/Vol] <0.01 k/uL [facility] Platelet mean volume (Bld) [Entitic vol] 9.2 fL 9.0 - 12.7 fL [facility] Platelets (Bld) [#/Vol] 255 10*3/uL 150 - 400 k/uL [facility] RBC (Bld) [#/Vol] 4.13 10*6/uL 3.90 - 5.20 m/uL [facility] WBC (Bld) [#/Vol] 9.52 10*3/uL 3.70 - 11.00 k/u L [facility] Erythrocyte distribution width (RBC) [Ratio] 12.5 % Normal 11.5-15.0 [facility] Comment on above: Order Comment: Speci men Type: BLOOD SPECIMEN Ordering Facility: [facility] Address: [address] [place] [address] Performed By: #### 3 026-2, 3016-3 #### [facility] IA [id number] [address] [place] [address] [place] Hematocrit (Bld) [Volume fraction] 36.2 % Normal 36.0-46.0 [facility] Comment on above: Order Comment: Speci men Type: BLOOD SPECIMEN Ordering Facility: [facility] Address: [address] [place] [address] Performed By: #### 3 026-2, 3016-3 #### [facility] CLIA [id number] [address] [place] [address] [place] Hemoglobin (Bld) [Mass/Vol] 12.7 g/dL Normal 11.5-15.5 [facility] Comment on above: Order Comment: Speci men Type: BLOOD SPECIMEN Ordering Facility: [facility] Address: [address] [place] [address] Performed By: #### 3 026-2, 3016-3 #### [facility] CLIA [id number] [address] [place] [address] [place] MCH (RBC) [Entitic mass] 30.8 pg Normal 26.0-34.0 [facility] Comment on above: Order Comment: Speci men Type: BLOOD SPECIMEN Ordering Facility: [facility] Address: [address] [place] [address] Performed By: #### 3 026-2, 3016-3 #### [facility] CLIA [id number] [address] [place] [address] [place] MCHC (RBC) [Mass/Vol] 35.1 g/dL Normal 30.5-36.0 [facility] Comment on above: Order Comment: Speci men Type: BLOOD SPECIMEN Ordering Facility: [facility] Address: [address] [place] [address] Performed By: #### 3 026-2, 3016-3 #### [facility] CLIA [id number] [address] [place] [address] [place] MCV (RBC) [Entitic vol] 87.7 fL Normal 80.0-100.0 [facility] Comment on above: Order Comment: Speci men Type: BLOOD SPECIMEN Ordering Facility: [facility] Address: [address] [place] [address] Performed By: #### 3 026-2, 3016-3 #### [facility] CLIA [id number] [address] [place] [address] [place] Nucleated RBC (Bld) [#/Vol] 10*3/uL Normal <0.01 [facility] Comment on above: Order Comment: Speci men Type: BLOOD SPECIMEN Ordering Facility: [facility] Address: [address] [place] [address] Performed By: #### 3 026-2, 3016-3 #### [facility] CLIA [id number] [address] [place] [address] [place] Platelet mean volume (Bld) [Entitic vol] 9.2 fL Normal 9.0-12.7 [facility] Comment on above: Order Comment: Speci men Type: BLOOD SPECIMEN Ordering Facility: [facility] Address: [address] [place] [address] Performed By: #### 3 026-2, 3016-3 #### [facility] CLIA [id number] [address] [place] [address] [place] Platelets (Bld) [#/Vol] 255 10*3/uL Normal 150-400 [facility] Comment on above: Order Comment: Speci men Type: BLOOD SPECIMEN Ordering Facility: [facility] Address: [address] [place] [address] Performed By: #### 3 026-2, 3016-3 #### [facility] CLIA [id number] [address] [place] [address] [place] RBC (Bld) [#/Vol] 4.13 10*6/uL Normal 3.90-5.20 [facility] Comment on above: Order Comment: Speci men Type: BLOOD SPECIMEN Ordering Facility: [facility] Address: [address] [place] [address] Performed By: #### 3 026-2, 3016-3 #### [facility] CLIA [id number] [address] [place] [address] [place] WBC (Bld) [#/Vol] 9.52 10*3/uL Normal 3.70-11.00 [facility] Comment on above: Order Comment: Speci men Type: BLOOD SPECIMEN Ordering Facility: [facility] Address: [address] [place] [address] Performed By: #### 3 026-2, 3016-3 #### [facility] CLIA [id number] [address] [place] [address] [place] HBV surface Ag Ser Qlon 03- HBV surface Ag Ql (S) Negative Normal Negative [facility] Comment on above: Order Comment: Speci men Type: BLOOD SPECIMEN Ordering Facility: [facility] Address: [address] [place] [address] Performed By: #### 3 026-2, 6-3 #### [facility] CLIA [id number] [address] [place] [address] [place] HCV Ab Ser Qlon 07-03-2023 HCV Ab Ql (S) Negative Normal Negative [facility] Comment on above: Order Comment: Speci men Type: BLOOD SPECIMEN Ordering Facility: [facility] Address: [address] [place] [address] Result Comment: The result suggests no evidence of active infection with Hepatitis C virus. Should recent infection be suspected, repeat testing may be considered 4-6 weeks after this draw. Performed By: #### 3 026-2, 3015-3 #### [facility] CLIA [id number] [address] [place] [address] [place] HEP B SURF AG SCRNon 024 HBV surface Ag Ql (S) Negative Negative [facility] HEPATITIS C ANTIBODY IA WITH CONFIRMATIONon 07-03-2023 HCV Ab Ql (S) Negative Negative [facility] HIV 1+2 Ab IA Qlon HIV 1 and 2 Ab IA.rapid Nom (S/P/Bld) [facility] HIV 1+2 Ab+HIV1 p24 Ag IA Ql Non-Reactive Nonreactive [facility] HIV immunoassay testing algorithm interpretation (S/P/Bld) [Interp] [facility] HIV 1 and 2 Ab IA.rapid Nom (S/P/Bld) Normal [facility] Comment on above: Order Comment: Speci men Type: BLOOD SPECIMEN Ordering Facility: [facility] Address: [address] [place] [address] Result Comment: Test not indicated. Performed By: #### 3 026-2, 6-3 #### [facility] CLIA [id number] [address] [place] [address] [place] HIV 1+2 Ab+HIV1 p24 Ag IA Ql Non-Reactive Normal Nonreactive [facility] Comment on above: Order Comment: Speci men Type: BLOOD SPECIMEN Ordering Facility: [facility] Address: [address] [place] [address] Performed By: #### 3 026-2, 3015-3 #### [facility] CLIA [id number] [address] [place] [address] [place] HIV immunoassay testing algorithm interpretation (S/P/Bld) [Interp] Normal [facility] Comment on above: Order Comment: Speci men Type: BLOOD SPECIMEN Ordering Facility: [facility] Address: [address] [place] [address] Result Comment: No e vidence of HIV-1 or HIV-2 infection. Should recent infection be suspected, repeat testing may be considered 2-3 weeks after this draw. [place] Rev. Code 3701.243(E): This information has been disclosed to you from confidential records protected from disclosure by state law. ???You shall make no further disclosure of this information without the specific, written, and informed release of the individual to whom it pertains or as otherwise permitted by state law. A general authorization for the release of medical or other information is not sufficient for the purpose of the release of HIV test results or diagnoses. Performed By: #### 3 026-2, 3015-3 #### [facility] CLIA [id number] [address] [place] [address] [place] RUBELLA IGG ABon 07-03-2023 RUBELLA IGG AB, QUAL Positive Normal Positive [facility] Comment on above: Order Comment: Speci men Type: BLOOD SPECIMEN Ordering Facility: [facility] Address: [address] [place] [address] Result Comment: The result suggests recent or past exposure to Rubella virus or history of Rubella vaccination. Positive result may also be seen due to presence of passively-transferred antibodies. Please correlate with patient's history. Performed By: #### 3 026-2, 3015-3 #### [facility] CLIA [id number] [address] [id number] [address] [place] Reagin and Treponema pallidu m IgG and IgM [Interp]on 07-03-2023 T. pallidum IgG+IgM IA Ql (S) Non-Reactive Nonreactive [facility] T. pallidum IgG+IgM IA Ql (S) Non-Reactive Normal Nonreactive [facility] Comment on above: Order Comment: Elaina england Type: BLOOD SPECIMEN Ordering Facility: [facility] Address: [address] [place] [address] Performed By: #### 3 026-2, 3016-3 #### [facility] CLIA [id number] [address] [place] [address] [place] Reagin+T pallidum IgG+IgM Se rPl-Impon 07-03-2023 Reagin and Treponema pallidum IgG and IgM [Interp] Cannot exclude recent Treponemal infection if specimen collected within 7-10 days after appearance of suspect lesions or 2-3 weeks after an exposure. Clinical correlation is required. Normal [facility] Comment on above: Order Comment: Elaina england Type: BLOOD SPECIMEN Ordering Facility: [facility] Address: [address] [place] [address] Performed By: #### 3 026-2, 3016-3 #### [facility] CLIA [id number] [address] [place] [address] [place] SYPHILIS TOTAL W/REFLEXon Reagin and Treponema pallidum IgG and IgM [Interp] Cannot exclude recent Treponemal infection if specimen collected within 7-10 days after appearance of suspect lesions or 2-3 weeks after an exposure. Clinical correlation is required. [facility] TSH BLDon 07-03-2023 TSH Qn 11.200 m[IU]/L High 0.270 - 4.200 mIU/L [facility] TSH SerPl-aCncon 07-03-2023 TSH Qn 11.200 m[IU]/L High 0.270-4.200 [facility] Comment on above: Order Comment: Elaina england Type: BLOOD SPECIMEN Ordering Facility: [facility] Address: [address] [place] [address] Result Comment: If t he patient is , TSH reference range varies by gestational period: First Trimester (weeks 9-12): 0.180-2.990 mIU/L Second Trimester: 0.110-3.980 mIU/L Third Trimester: 0.480-4.710 mIU/L Gerry Joel et al. A Practical Approach for the Verifications and Determination of Site- and Trimester-Specific Reference Intervals for Thyroid Function tests in . Thyroid, 2019:29:3:412-420. Juvencio Marinelli, et al. 2017 Guidelines of the [place] Thyroid Association for the Diagnosis and Management of Thyroid Disease during and the . Thyroid, 2017:27:3:315-389. Performed By: #### 3 026-2, 3016-3 #### [facility] CLIA [id number] [address] [place] [address] [place] TYPE + SCREEN PRENATALon ABO A Normal [facility] Comment on above: Order Comment: Speci men Type: BLOOD SPECIMENOrdering Facility: [facility] Address: [address] [place] [address] Performed By: #### T SPN ####[facility] [id number] [place] [address] [place] HISTORICAL AB SCR STATUS Negative Normal [facility] Comment on above: Order Comment: Speci men Type: BLOOD SPECIMENOrdering Facility: [facility] Address: [address] [place] [address] Performed By: #### T SPN ####[facility] [id number] [place] [address] [place] Rh Nom (Bld) Positive Normal [facility] Comment on above: Order Comment: Speci men Type: BLOOD SPECIMENOrdering Facility: [facility] Address: [address] [place] [address] Performed By: #### T SPN ####[facility]CLIA [id number] [id number] TYPE AND SCREEN EXPIRATION 07/06/2023 23:59 Normal [facility] Comment on above: Order Comment: Speci men Type: BLOOD SPECIMENOrdering Facility: [facility] Address: [address] [place] [address] Performed By: #### T SPN ####CC [facility] [id number] [id number] CNPNon 07-01-2023 CNPN Telephone (OBGYWM) ODALYS MORALES ([id number]) 1995 F Date Time Provider Department 07/01/23 CONI GONZALEZ OBGYWM During your visit today, we recorded the following information about you: Johnna Ashley MA 07/01/2023 12:56 PM Signed Left vm message for patient to call back to go over intake questions for New OB appt. Johnna Ashley MA ext: [phone] Allergies As of Date: 07/01/2023 (No Known Allergies) Date Reviewed: 11/21/2022 Reviewed by: Adela Julian MA - Fully Assessed Reason for Visit: NOB Intake Questions [Other] Prescriptions as of 07/04/2023 - PNV no.95/ferrous fum/folic ac ( ORAL) Take by mouth. - calcium carbonate (TUMS ORAL) Take by mouth. - levothyroxine (SYNTHROID) 137 mcg tablet Take 1 tablet by mouth daily before breakfast. 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 ADD (attention deficit disorder) [F98.8] 06/13/2010 Seasonal allergies [J30.2] 07/12/2014 Bilateral pes planus [M21.41, M21.42] 05/29/2015 Family history of thyroid disease in mother [Z8*10/09/2017 08/09/2021 Hypothyroidism [E03.9] 10/09/2017 History of herpes genitalis [Z86.19] 08/02/2021 Patient request for diagnostic testing [Z01.89] 08/02/2021 Positive GBS test [B95.1] 03/11/2022 Swelling of lower extremity during in*03/12/2022 care and examination [Z39.2] 05/14/2022 Pain of pelvic girdle [R10.2] 05/14/2022 Encounter Status:Closed by PADMINI CALLES on 07/04/23 [facility] OD[facility] ([id number]) 1995 F Date Time Provider Department 02/24/23 NOLAN GARRIDO During your visit today, we recorded the following information about you: Nolan Garrido APRN.PAPER CUTTING MACHINE OPERATOR 02/24/2023 7:54 AM Signed Please let patient know TSH is normal. Continue current levothyroxine dose. I have sent in a refill for her. Adela Julian Cma 02/24/2023 8:50 AM Signed Left message for patient to return call to office Malia Mendez Cma, LPN 02/25/2023 8:02 AM Signed Spoke with pt and information listed below given. Pt verbalizes understanding. Malia Boyer LPN Allergies As of Date: 02/24/2023 (No Known Allergies) Date Reviewed: 11/21/2022 Reviewed by: Adela Julian Cma - Fully Assessed Reason for Visit: Results [95] Visit Diagnosis:Hypothyroid ism, acquired [E03.9] Order(s):levothyroxin e (SYNTHROID) 137 mcg tabletTake 1 tablet by mouth daily before breakfast.Disp: 90 tabletRfl: 0 Prescriptions as of 02/25/2023 - levothyroxine (SYNTHROID) 137 mcg tablet Take 1 tablet by mouth daily before breakfast. 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 ADD (attention deficit disorder) [F98.8] 06/13/2010 Seasonal allergies [J30.2] 07/12/2014 Bilateral pes planus [M21.41, M21.42] 05/29/2015 Family history of thyroid disease in mother [Z8*10/09/2017 08/09/2021 Hypothyroidism [E03.9] 10/09/2017 History of herpes genitalis [Z86.19] 08/02/2021 Patient request for diagnostic testing [Z01.89] 08/02/2021 Positive GBS test [B95.1] 03/11/2022 Swelling of lower extremity during in*03/12/2022 care and examination [Z39.2] 05/14/2022 Pain of pelvic girdle [R10.2] 05/14/2022 Prescriptions ordered this encounter Disp Refills Start End LEVOTHYROXINE 137 MCG TABLET 90 t* 0 02/24/2023 Route: ORAL Sig: Take 1 tablet by mouth daily before breakfast. Medications Discontinued During This Encounter Prescriptions - levothyroxine (SYNTHROID) 137 mcg tablet (Discontinued) Take 1 tablet by mouth daily before breakfast. Encounter Status:Closed by MALIA BOYER LPN on 02/25/23 Normal [facility] TSH SerPl-aCncon 02-22-2023 TSH Qn 0.311 m[IU]/L Normal 0.270-4.200 [facility] Comment on above: Order Comment: Speci men Type: BLOOD SPECIMEN Ordering Facility: [facility] Address: [address] [place] [address] Result Comment: If t he patient is , TSH reference range varies by gestational period: First Trimester (weeks 9-12): 0.180-2.990 mIU/L Second Trimester: 0.110-3.980 mIU/L Third Trimester: 0.480-4.710 mIU/L Gerry L, et al. A Practical Approach for the Verifications and Determination of Site- and Trimester-Specific Reference Intervals for Thyroid Function tests in . Thyroid, 2019:29:3:412-420. Juvencio Marinelli, et al. 2017 Guidelines of the [place] Thyroid Association for the Diagnosis and Management of Thyroid Disease during and the . Thyroid, 2017:27:3:315-389. Performed By: #### 3 026-2, 3016-3 #### [facility] CLIA [id number] [address] [place] [address] [place] CBC W Auto Differential pane l (Bld)on 11-21-2022 Basophils (Bld) [#/Vol] 0.05 10*3/uL <0.11 k/uL [facility] Basophils/100 WBC (Bld) 0.7 % [facility] Differential cell count method Nom (Bld) Auto [facility] Eosinophils (Bld) [#/Vol] 0.22 10*3/uL <0.46 k/uL [facility] Eosinophils/100 WBC (Bld) 2.9 % [facility] Erythrocyte distribution width (RBC) [Ratio] 12.0 % 11.5 - 15.0 % [facility] Hematocrit (Bld) [Volume fraction] 44.3 % 36.0 - 46.0 % [facility] Hemoglobin (Bld) [Mass/Vol] 14.4 g/dL 11.5 - 15.5 g/dL [facility] Immature granulocytes (Bld) [#/Vol] <0.10 k/uL [facility] Immature granulocytes/100 WBC (Bld) 0.3 % [facility] Lymphocytes (Bld) [#/Vol] 3.46 10*3/uL 1.00 - 4.00 k/uL [facility] Lymphocytes/100 WBC (Bld) 46.3 % [facility] MCH (RBC) [Entitic mass] 29.6 pg 26.0 - 34.0 pg [facility] MCHC (RBC) [Mass/Vol] 32.5 g/dL 30.5 - 36.0 g/dL [facility] MCV (RBC) [Entitic vol] 91.0 fL 80.0 - 100.0 fL [facility] Monocytes (Bld) [#/Vol] 0.68 10*3/uL <0.87 k/uL [facility] Monocytes/100 WBC (Bld) 9.1 % [facility] Neutrophils (Bld) [#/Vol] 3.05 10*3/uL 1.45 - 7.50 k/uL [facility] Neutrophils/100 WBC (Bld) 40.7 % [facility] Nucleated RBC (Bld) [#/Vol] <0.01 k/uL [facility] Nucleated RBC/100 WBC (Bld) [Ratio] 0.0 /100 WBC [facility] Platelet mean volume (Bld) [Entitic vol] 9.8 fL 9.0 - 12.7 fL [facility] Platelets (Bld) [#/Vol] 300 10*3/uL 150 - 400 k/uL [facility] RBC (Bld) [#/Vol] 4.87 10*6/uL 3.90 - 5.20 m/uL [facility] WBC (Bld) [#/Vol] 7.48 10*3/uL 3.70 - 11.00 k/u L [facility] HbA1c (Bld)on 11-21-2022 Average glucose Estimated from glycated hemoglobin (Bld) [Mass/Vol] 94 mg/dL [facility] HbA1c (Bld) [Mass fraction] 4.9 % 4.3 - 5.6 % [facility] UA DIP, URINE (POC)on 2021 BILIRUBIN UA (POCT) Negative Negative [facility] CLARITY UA (POCT) Clear [facility] COLOR UA (POCT) Yellow [facility] GLUCOSE UA (POCT) Negative Negative mg/dL [facility] HEMOGLOBIN/BLOOD UA (POCT) Large Abnormal Negative [facility] KETONE UA (POCT) Negative Negative mg/dL [facility] LEUKOCYTES UA (POCT) Moderate Abnormal Negative [facility] NITRITE UA (POCT) Negative Negative [facility] PH UA (POCT) 6.5 4.5 - 8.0 [facility] Protein Ql (U) Trace Abnormal Negative mg/dL [facility] SPECIFIC GRAVITY UA (POCT) 1.020 1.005 - 1.030 [facility] UROBILINOGEN UA (POCT) 0.2 E.U./dL Normal E.U./dL [facility] URINE OB DIP B/Oon 2 Glucose Ql (U) Negative Neg mg/dL [facility] Protein.monoclonal (U) [Mass/Vol] Negative Neg mg/dL [facility] URINE OB DIP B/Oon 2 Glucose Ql (U) Negative Neg mg/dL [facility] Protein.monoclonal (U) [Mass/Vol] Negative Neg mg/dL [facility] OBSTETRIC ULTRASOUND WHIon 1 05-19-2021 [facility] URINE OB DIP B/Oon 2 Glucose Ql (U) Negative Neg mg/dL [facility] Protein.monoclonal (U) [Mass/Vol] Negative Neg mg/dL [facility] URINE OB DIP B/Oon 2 Glucose Ql (U) Negative Neg mg/dL [facility] Protein.monoclonal (U) [Mass/Vol] Negative Neg mg/dL [facility] URINE OB DIP B/Oon 2 Glucose Ql (U) Negative Neg mg/dL [facility] Protein.monoclonal (U) [Mass/Vol] Negative Neg mg/dL [facility] URINE OB DIP B/Oon 2 Glucose Ql (U) Negative Neg mg/dL [facility] Protein.monoclonal (U) [Mass/Vol] Negative Neg mg/dL [facility] URINE OB DIP B/Oon 2 Glucose Ql (U) Negative Neg mg/dL [facility] Protein.monoclonal (U) [Mass/Vol] Negative Neg mg/dL [facility] OBSTETRIC ULTRASOUND WHIon 0 11-15-2021 [facility] URINE OB DIP B/Oon 2 Glucose Ql (U) Negative Neg mg/dL [facility] Protein.monoclonal (U) [Mass/Vol] Negative Neg mg/dL [facility] URINE OB DIP B/Oon 2 Glucose Ql (U) Negative Neg mg/dL [facility] Protein.monoclonal (U) [Mass/Vol] Negative Neg mg/dL [facility] CBC panel Auto (Bld)on 08-09 Erythrocyte distribution width (RBC) [Ratio] 11.9 % 11.5 - 15.0 % [facility] Hematocrit (Bld) [Volume fraction] 39.3 % 36.0 - 46.0 % [facility] Hemoglobin (Bld) [Mass/Vol] 13.7 g/dL 11.5 - 15.5 g/dL [facility] MCH (RBC) [Entitic mass] 32.7 pg 26.0 - 34.0 pg [facility] MCHC (RBC) [Mass/Vol] 34.9 g/dL 30.5 - 36.0 g/dL [facility] MCV (RBC) [Entitic vol] 93.8 fL 80.0 - 100.0 fL [facility] Nucleated RBC (Bld) [#/Vol] 10*3/uL <0.01 k/uL [facility] Platelet mean volume (Bld) [Entitic vol] 9.0 fL 9.0 - 12.7 fL [facility] Platelets (Bld) [#/Vol] 265 10*3/uL 150 - 400 k/uL [facility] RBC (Bld) [#/Vol] 4.19 10*6/uL 3.90 - 5.20 m/uL [facility] WBC (Bld) [#/Vol] 6.97 10*3/uL 3.70 - 11.00 k/u L [facility] Vital Signs Date Time Vital Sign Value Performing Clinician Faci lity 02-05-2024 13:25-0400 Body mass index (BMI) [Ratio] 33.12 kg/m2 Westley Sierra MD Work Phone: [facility] 02-05-2024 13:25-0400 Body weight 90.27 kg Westley Sierra MD Work Phone: [facility] 02-05-2024 13:25-0400 Diastolic blood pressure 70 mm[Hg] Westley Sierra MD Work Phone: [facility] 02-05-2024 13:25-0400 Systolic blood pressure 110 mm[Hg] Westley Sierra MD Work Phone: [facility] 01-29-2024 09:28-0400 Diastolic blood pressure 62 mm[Hg] Berto Vides APRN.PAPER CUTTING MACHINE OPERATOR Work Phone: [facility] 01-29-2024 09:28-0400 Systolic blood pressure 96 mm[Hg] Berto Vides APRN.PAPER CUTTING MACHINE OPERATOR Work Phone: [facility] 01-29-2024 08:44-0400 Body mass index (BMI) [Ratio] 32.95 kg/m2 Berto Vides DIRECTOR OF TEENAGE ACTIVITIES.PAPER CUTTING MACHINE OPERATOR Work Phone: [facility] 01-29-2024 08:44-0400 Body weight 89.81 kg Berto Vides DIRECTOR OF TEENAGE ACTIVITIES.PAPER CUTTING MACHINE OPERATOR Work Phone: [facility] 01-22-2024 11:07-0400 Body mass index (BMI) [Ratio] 32.28 kg/m2 Coni Plotts DIRECTOR OF TEENAGE ACTIVITIES.CNM Work Phone: [facility] 01-22-2024 11:07-0400 Body weight 88 kg Coni Plotts DIRECTOR OF TEENAGE ACTIVITIES.CNM Work Phone: [facility] 01-22-2024 11:07-0400 Diastolic blood pressure 72 mm[Hg] Coni Plotts DIRECTOR OF TEENAGE ACTIVITIES.CNM Work Phone: [facility] 01-22-2024 11:07-0400 Systolic blood pressure 112 mm[Hg] Coni Plotts DIRECTOR OF TEENAGE ACTIVITIES.CNM Work Phone: [facility] 01-15-2024 14:34-0400 Body mass index (BMI) [Ratio] 31.82 kg/m2 Westley Sierra MD Work Phone: [facility] 01-15-2024 14:34-0400 Body weight 86.73 kg Westley Sierra MD Work Phone: [facility] 01-15-2024 14:34-0400 Diastolic blood pressure 72 mm[Hg] Westley Sierra MD Work Phone: [facility] 01-15-2024 14:34-0400 Systolic blood pressure 120 mm[Hg] Westley Sierra MD Work Phone: [facility] 01-08-2024 10:42-0400 Body mass index (BMI) [Ratio] 31.32 kg/m2 Westley Sierra MD Work Phone: [facility] 01-08-2024 10:42-0400 Body weight 85.37 kg Westley Sierra MD Work Phone: [facility] 01-08-2024 10:42-0400 Diastolic blood pressure 78 mm[Hg] Westley Sierra MD Work Phone: [facility] 01-08-2024 10:42-0400 Systolic blood pressure 120 mm[Hg] Westley Sierra MD Work Phone: [facility] 01-06-2024 13:22-0400 Diastolic blood pressure 78 mm[Hg] Ob Remote Work Phone: [facility] 01-06-2024 13:22-0400 Systolic blood pressure 114 mm[Hg] Ob Remote Work Phone: [facility] 12-23-2023 11:00-0400 Body mass index (BMI) [Ratio] 30.89 kg/m2 Jacinta Merritt APRN.CNM Work Phone: [facility] 12-23-2023 11:00-0400 Body weight 84.19 kg Jacinta Merritt APRN.CNM Work Phone: [facility] 12-23-2023 11:00-0400 Diastolic blood pressure 74 mm[Hg] Jacinta Merritt APRN.CNM Work Phone: [facility] 12-23-2023 11:00-0400 Systolic blood pressure 126 mm[Hg] Jacinta Merritt APRN.CNM Work Phone: [facility] 12-11-2023 16:36-0400 Diastolic blood pressure 62 mm[Hg] Westley Sierra MD Work Phone: [facility] 12-11-2023 16:36-0400 Systolic blood pressure 112 mm[Hg] Westley Sierra MD Work Phone: [facility] 12-11-2023 16:25-0400 Body mass index (BMI) [Ratio] 30.85 kg/m2 Westley Sierra MD Work Phone: [facility] 12-11-2023 16:25-0400 Body weight 84.1 kg Westley Sierra MD Work Phone: [facility] 11-27-2023 16:35-0400 Body mass index (BMI) [Ratio] 30.29 kg/m2 Coni Pelaezts DIRECTOR OF TEENAGE ACTIVITIES.CNM Work Phone: [facility] 11-27-2023 16:35-0400 Body weight 82.56 kg Coni Gonzalez DIRECTOR OF TEENAGE ACTIVITIES.CNM Work Phone: [facility] 11-27-2023 16:35-0400 Diastolic blood pressure 64 mm[Hg] Coni Pelaezts DIRECTOR OF TEENAGE ACTIVITIES.CNM Work Phone: [facility] 11-27-2023 16:35-0400 Systolic blood pressure 100 mm[Hg] Coni Pelaezts DIRECTOR OF TEENAGE ACTIVITIES.CNM Work Phone: [facility] 11-13-2023 15:29-0400 Body mass index (BMI) [Ratio] 30.25 kg/m2 Padmini Little MD Work Phone: [facility] 11-13-2023 15:29-0400 Body weight 82.46 kg Padmini Little MD Work Phone: [facility] 11-13-2023 15:29-0400 Diastolic blood pressure 68 mm[Hg] Padmini Little MD Work Phone: [facility] 11-13-2023 15:29-0400 Systolic blood pressure 110 mm[Hg] Padmini Little MD Work Phone: [facility] 10-16-2023 09:11-0400 Body mass index (BMI) [Ratio] 28.49 kg/m2 Berto Vides DIRECTOR OF TEENAGE ACTIVITIES.PAPER CUTTING MACHINE OPERATOR Work Phone: [facility] 10-16-2023 09:11-0400 Body weight 77.66 kg Bertolarry Vides DIRECTOR OF TEENAGE ACTIVITIES.PAPER CUTTING MACHINE OPERATOR Work Phone: [facility] 10-16-2023 09:11-0400 Diastolic blood pressure 58 mm[Hg] Berto Haury DIRECTOR OF TEENAGE ACTIVITIES.PAPER CUTTING MACHINE OPERATOR Work Phone: [facility] 10-16-2023 09:11-0400 Systolic blood pressure 90 mm[Hg] Berto Hasandra DIRECTOR OF TEENAGE ACTIVITIES.PAPER CUTTING MACHINE OPERATOR Work Phone: [facility] 09-25-2023 16:20-0400 Body mass index (BMI) [Ratio] 27.79 kg/m2 Padmini Little MD Work Phone: [facility] 09-25-2023 16:20-0400 Body weight 75.75 kg Padmini Little MD Work Phone: [facility] 09-25-2023 16:20-0400 Diastolic blood pressure 70 mm[Hg] Padmini Little MD Work Phone: [facility] 09-25-2023 16:20-0400 Systolic blood pressure 110 mm[Hg] Padmini Little MD Work Phone: [facility] 08-27-2023 16:28-0400 Body mass index (BMI) [Ratio] 26.96 kg/m2 Josseline Carroll MD Work Phone: [facility] 08-27-2023 16:28-0400 Body weight 73.48 kg Josseline Carroll MD Work Phone: [facility] 08-27-2023 16:28-0400 Diastolic blood pressure 60 mm[Hg] Josseline Carroll MD Work Phone: [facility] 08-27-2023 16:28-0400 Systolic blood pressure 92 mm[Hg] Josseline Carroll MD Work Phone: [facility] 08-07-2023 16:11-0400 Body weight 70.31 kg Clotilde Conklin MD Work Phone: [facility] 08-07-2023 16:11-0400 Diastolic blood pressure 58 mm[Hg] Clotilde Conklin MD Work Phone: [facility] 08-07-2023 16:11-0400 Systolic blood pressure 102 mm[Hg] Clotilde Conklin MD Work Phone: [facility] 07-03-2023 13:12-0400 Body height 165.1 cm [facility] Work Phone: [facility] 07-03-2023 13:12-0400 Body weight 72.76 kg Coni Pelaezjulius DIRECTOR OF TEENAGE ACTIVITIES.CNM Work Phone: [facility] 07-03-2023 13:12-0400 Diastolic blood pressure 66 mm[Hg] Coni Plotts DIRECTOR OF TEENAGE ACTIVITIES.CNM Work Phone: [facility] 07-03-2023 13:12-0400 Systolic blood pressure 98 mm[Hg] Coni Pelaezts DIRECTOR OF TEENAGE ACTIVITIES.CNM Work Phone: [facility] 11-21-2022 09:02-0400 Body height 167 cm Nolan Garrido DIRECTOR OF TEENAGE ACTIVITIES.PAPER CUTTING MACHINE OPERATOR Work Phone: [facility] 11-21-2022 09:02-0400 Body weight 77.56 kg Nolan Garrido DIRECTOR OF TEENAGE ACTIVITIES.PAPER CUTTING MACHINE OPERATOR Work Phone: [facility] 11-21-2022 09:02-0400 Diastolic blood pressure 66 mm[Hg] Nolan Garrido DIRECTOR OF TEENAGE ACTIVITIES.PAPER CUTTING MACHINE OPERATOR Work Phone: [facility] 11-21-2022 09:02-0400 Heart rate 98 /min Nolan Garrido DIRECTOR OF TEENAGE ACTIVITIES.PAPER CUTTING MACHINE OPERATOR Work Phone: [facility] 11-21-2022 09:02-0400 Respiratory rate 14 /min Nolan Garrido DIRECTOR OF TEENAGE ACTIVITIES.PAPER CUTTING MACHINE OPERATOR Work Phone: [facility] 11-21-2022 09:02-0400 Systolic blood pressure 120 mm[Hg] Nolan Garrido DIRECTOR OF TEENAGE ACTIVITIES.PAPER CUTTING MACHINE OPERATOR Work Phone: [facility] 05-14-2022 11:00-0500 Diastolic blood pressure 72 mm[Hg] Natasha Castillo PT Work Phone: [facility] 05-14-2022 11:00-0500 Systolic blood pressure 122 mm[Hg] Natasha Castillo PT Work Phone: [facility] 05-10-2022 11:23-0500 Body temperature 98.1 [degF] Jovanna Torres DIRECTOR OF TEENAGE ACTIVITIES.PAPER CUTTING MACHINE OPERATOR Work Phone: [facility] 05-10-2022 11:23-0500 Body weight 78.47 kg Jovanna Torres DIRECTOR OF TEENAGE ACTIVITIES.PAPER CUTTING MACHINE OPERATOR Work Phone: [facility] 05-10-2022 11:23-0500 Diastolic blood pressure 60 mm[Hg] Jovanna Torres DIRECTOR OF TEENAGE ACTIVITIES.PAPER CUTTING MACHINE OPERATOR Work Phone: [facility] 05-10-2022 11:23-0500 Systolic blood pressure 100 mm[Hg] Jovanna Torres DIRECTOR OF TEENAGE ACTIVITIES.PAPER CUTTING MACHINE OPERATOR Work Phone: [facility] 05-06-2022 15:21-0500 Body weight 78.83 kg Jacinta Merritt DIRECTOR OF TEENAGE ACTIVITIES.CNM Work Phone: [facility] 05-06-2022 15:21-0500 Diastolic blood pressure 64 mm[Hg] Jacinta Merritt DIRECTOR OF TEENAGE ACTIVITIES.CNM Work Phone: [facility] 05-06-2022 15:21-0500 Systolic blood pressure 110 mm[Hg] Jacinta Merritt DIRECTOR OF TEENAGE ACTIVITIES.CNM Work Phone: [facility] 04-08-2022 14:25-0500 Body weight 79.02 kg Jacinta Merritt DIRECTOR OF TEENAGE ACTIVITIES.CNM Work Phone: [facility] 04-08-2022 14:25-0500 Diastolic blood pressure 72 mm[Hg] Jacinta Merritt DIRECTOR OF TEENAGE ACTIVITIES.CNM Work Phone: [facility] 04-08-2022 14:25-0500 Systolic blood pressure 124 mm[Hg] Jacinta Merritt DIRECTOR OF TEENAGE ACTIVITIES.CNM Work Phone: [facility] 03-28-2022 16:28-0500 Body weight 95.44 kg Westley Sierra MD Work Phone: [facility] 03-28-2022 16:28-0500 Diastolic blood pressure 88 mm[Hg] Westley Sierra MD Work Phone: [facility] 03-28-2022 16:28-0500 Systolic blood pressure 120 mm[Hg] Westley Sierra MD Work Phone: [facility] 03-21-2022 16:26-0500 Body weight 95.17 kg Westley Sierra MD Work Phone: [facility] 03-21-2022 16:26-0500 Diastolic blood pressure 82 mm[Hg] Westley Sierra MD Work Phone: [facility] 03-21-2022 16:26-0500 Systolic blood pressure 120 mm[Hg] Westley Sierra MD Work Phone: [facility] 03-19-2022 11:47-0500 Body height 166 cm Jessica Peñaloza MD Work Phone: [facility] 03-19-2022 11:47-0500 Body weight 93.89 kg Jessica Peñaloza MD Work Phone: [facility] 03-19-2022 11:47-0500 Diastolic blood pressure 78 mm[Hg] Jessica Peñaloza MD Work Phone: [facility] 03-19-2022 11:47-0500 Systolic blood pressure 118 mm[Hg] Jessica Peñaloza MD Work Phone: [facility] 03-12-2022 15:19-0500 Body weight 93.89 kg Coni Plotts DIRECTOR OF TEENAGE ACTIVITIES.CNM Work Phone: [facility] 03-12-2022 15:19-0500 Diastolic blood pressure 72 mm[Hg] Coni Plotts DIRECTOR OF TEENAGE ACTIVITIES.CNM Work Phone: [facility] 03-12-2022 15:19-0500 Systolic blood pressure 110 mm[Hg] Coni Plotts DIRECTOR OF TEENAGE ACTIVITIES.CNM Work Phone: [facility] 02-28-2022 16:39-0500 Body weight 87.82 kg Westley Sierra MD Work Phone: [facility] 02-28-2022 16:39-0500 Diastolic blood pressure 62 mm[Hg] Westley Sierra MD Work Phone: [facility] 02-28-2022 16:39-0500 Systolic blood pressure 102 mm[Hg] Westley Sierra MD Work Phone: [facility] 02-14-2022 16:25-0400 Body weight 85.28 kg Coni Plotts DIRECTOR OF TEENAGE ACTIVITIES.CNM Work Phone: [facility] 02-14-2022 16:25-0400 Diastolic blood pressure 68 mm[Hg] Coni Plotts DIRECTOR OF TEENAGE ACTIVITIES.CNM Work Phone: [facility] 02-14-2022 16:25-0400 Systolic blood pressure 110 mm[Hg] Coni Plotts DIRECTOR OF TEENAGE ACTIVITIES.CNM Work Phone: [facility] 01-03-2022 16:10-0400 Body weight 77.02 kg Westley Sierra MD Work Phone: [facility] 01-03-2022 16:10-0400 Diastolic blood pressure 64 mm[Hg] Westley Sierra MD Work Phone: [facility] 01-03-2022 16:10-0400 Systolic blood pressure 108 mm[Hg] Westley Sierra MD Work Phone: [facility] 12-06-2021 16:19-0400 Body weight 72.58 kg Coni Plotts DIRECTOR OF TEENAGE ACTIVITIES.CNM Work Phone: [facility] 12-06-2021 16:19-0400 Diastolic blood pressure 62 mm[Hg] Coni Plotts DIRECTOR OF TEENAGE ACTIVITIES.CNM Work Phone: [facility] 12-06-2021 16:19-0400 Systolic blood pressure 104 mm[Hg] Coni Plotts DIRECTOR OF TEENAGE ACTIVITIES.CNM Work Phone: [facility] 10-18-2021 14:40-0400 Body weight 68.49 kg Coni Plotts DIRECTOR OF TEENAGE ACTIVITIES.CNM Work Phone: [facility] 10-18-2021 14:40-0400 Diastolic blood pressure 58 mm[Hg] Coni Plotts DIRECTOR OF TEENAGE ACTIVITIES.CNM Work Phone: [facility] 10-18-2021 14:40-0400 Systolic blood pressure 110 mm[Hg] Coni Plotts DIRECTOR OF TEENAGE ACTIVITIES.CNM Work Phone: [facility] 09-20-2021 13:47-0400 Body weight 68.04 kg Coni Gonzalez DIRECTOR OF TEENAGE ACTIVITIES.CNM Work Phone: [facility] 09-20-2021 13:47-0400 Diastolic blood pressure 60 mm[Hg] Coni Gonzalez DIRECTOR OF TEENAGE ACTIVITIES.CNM Work Phone: [facility] 09-20-2021 13:47-0400 Systolic blood pressure 100 mm[Hg] Coni Gonzalez DIRECTOR OF TEENAGE ACTIVITIES.CNM Work Phone: [facility] 08-09-2021 10:06-0400 Body height 166 cm Clotilde Conklin MD Work Phone: [facility] 08-09-2021 10:06-0400 Body weight 71.58 kg Clotilde Conklin MD Work Phone: [facility] 08-09-2021 10:06-0400 Diastolic blood pressure 70 mm[Hg] Clotilde Conklin MD Work Phone: [facility] 08-09-2021 10:06-0400 Systolic blood pressure 102 mm[Hg] Clotilde Conklin MD Work Phone: [facility] 09-26-2020 21:50-0400 Diastolic blood pressure 79 mm[Hg] Norman Pay DO Work Phone: [facility] Work Phone: 09-26-2020 21:50-0400 Heart rate 64 /min Norman Pay DO Work Phone: [facility] Work Phone: 09-26-2020 21:50-0400 Respiratory rate 14 /min Norman Pay DO Work Phone: [facility] Work Phone: 09-26-2020 21:50-0400 SaO2% (BldA) [Mass fraction] 100 % Norman Pay DO Work Phone: [facility] Work Phone: 09-26-2020 21:50-0400 Systolic blood pressure 122 mm[Hg] Norman Pay DO Work Phone: [facility] Work Phone: 09-26-2020 20:28-0400 Body height 165.1 cm Norman Pay DO Work Phone: [facility] Work Phone: 09-26-2020 20:28-0400 Body mass index (BMI) [Ratio] 29.95 kg/m2 Norman Pay DO Work Phone: [facility] Work Phone: 09-26-2020 20:28-0400 Body temperature 98.2 [degF] Norman Pay DO Work Phone: [email or web address] Work Phone: 09-26-2020 20:28-0400 Body weight 81.65 kg Norman Pay DO Work Phone: [email or web address] Work Phone: Encounters Encounter Date Encounter Type Care Provider Facility Start: 02-05-2024 End: 02-05-2024 ambulatory WESTLEY SIERRA Facility:[facility] Start: 02-05-2024 End: 02-05-2024 Patient encounter procedure Westley Sierra MD Work Phone: OB/Gynecology Comment on above: GBS bacteriuria (Milena dong Dx); Hypothyroidism affecting in third trimester; Encounter for supervision of high risk in third trimester, antepartum; History of herpes genitalis; 39 weeks gestation of Start: 01-29-2024 End: 01-29-2024 ambulatory Ruth Hardwick [facility] Start: 01-29-2024 End: 01-29-2024 Patient encounter procedure Berto Vides APRN.CNP Work Phone: OB/Gynecology Comment on above: Encounter for superv ision of high risk in third trimester, antepartum (Primary Dx); 38 weeks gestation of ; History of herpes genitalis; Hypothyroidism affecting in third trimester; GBS bacteriuria; Dizziness; Vaginal cyst [facility] (OB/peds) Start: 01-27-2024 End: 01-30-2024 Telephone encounter Westley Sierra MD Work Phone: OB/Gynecology Comment on above: Breast Pump Start: 01-22-2024 End: 01-23-2024 ambulatory Coni Gonzalez APRN.CNM Work Phone: OB/Gynecology Comment on above: Bartholin cyst? Start: 01-22-2024 End: 01-22-2024 Patient encounter procedure Coni Benignojulius NEHAL Work Phone: OB/Gynecology Comment on above: Supervision of high risk in third trimester (Primary Dx); 37 weeks gestation of ; History of herpes genitalis; Hypothyroidism affecting in third trimester; GBS bacteriuria; H/O dizziness; Syncope and collapse Start: 01-15-2024 End: 01-15-2024 ambulatory PADMINI LITTLE Facility:[facility] Start: 01-15-2024 End: 01-15-2024 Patient encounter procedure Westley Sierra MD Work Phone: OB/Gynecology Comment on above: Supervision of high risk in third trimester (Primary Dx); 36 weeks gestation of ; History of herpes genitalis Start: 01-08-2024 End: 01-08-2024 ambulatory NOLAN GARRIDO Facility:[facility] Start: 01-08-2024 End: 01-08-2024 Patient encounter procedure Westley Sierra MD Work Phone: OB/Gynecology Comment on above: Supervision of high risk in third trimester (Primary Dx); 35 weeks gestation of Start: 01-06-2024 End: 01-06-2024 ambulatory NOLAN GARRIDO Facility:[facility] Start: 01-06-2024 End: 01-06-2024 Patient encounter procedure Physician Assistant [facility] Remote Work Phone: Maternal Medicine Comment on above: Encounter for ultras ound to check growth (Primary Dx); Uterine size-date discrepancy, third trimester; 34 weeks gestation of ; Polyhydramnios in third trimester complication, single or unspecified fetus Start: 12-23-2023 End: 12-23-2023 Telephone encounter Jacinta Merritt APRN.CNM Work Phone: OB/Gynecology Start: 12-23-2023 End: 12-23-2023 ambulatory NOLAN GARRIDO Facility:[facility] Start: 12-23-2023 End: 12-23-2023 Patient encounter procedure Jacintalobo Merritt APRN.CNM Work Phone: OB/Gynecology Comment on above: Supervision of high risk in third trimester (Primary Dx); 32 weeks gestation of ; Hypothyroidism affecting in second trimester; GBS bacteriuria; Uterine size-date discrepancy, third trimester Start: 12-11-2023 End: 12-11-2023 Patient encounter procedure Westley Sierra MD Work Phone: OB/Gynecology Comment on above: 31 weeks gestation o f (Primary Dx); Supervision of high risk in second trimester Start: 12-11-2023 End: 12-11-2023 ambulatory NOLAN GARRIDO Facility:[facility] Start: 11-27-2023 End: 11-27-2023 ambulatory NOLAN GARRIDO Facility:[facility] Start: 11-27-2023 End: 11-27-2023 Patient encounter procedure Coni Gonzalez APRN.CNM Work Phone: OB/Gynecology Comment on above: Supervision of high risk in second trimester (Primary Dx); 29 weeks gestation of ; Encounter for supervision of high risk in second trimester, antepartum; Hypothyroidism affecting in second trimester Start: 11-26-2023 Telephone encounter Yan henry DO Work Phone: Endocrinology Comment on above: Results Start: 11-13-2023 End: 11-13-2023 Patient encounter procedure Padmini Little MD Work Phone: OB/Gynecology Comment on above: 27 weeks gestation o f (Primary Dx); Supervision of high risk in second trimester; Need for vaccination Start: 11-13-2023 End: 11-13-2023 ambulatory NOLAN GARRIDO Facility:[facility] Start: 11-04-2023 ambulatory Berto GARCIA RN.PAPER CUTTING MACHINE OPERATOR Work Phone: OB/Gynecology Comment on above: Cramps Start: 10-30-2023 End: 10-30-2023 ambulatory Yan Espino DO Work Phone: Endocrinology Comment on above: Thyroid dysfunction in in second trimester (Primary Dx); 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 Start: 10-30-2023 End: 10-30-2023 Telemedicine consultation with patient Yan Wisam Espino DO Work Phone: Endocrinology Start: 10-16-2023 End: 10-16-2023 ambulatory BERTO VIDES Facility:[facility] Start: 10-16-2023 End: 10-16-2023 Patient encounter procedure Berto Vides APRNGrantPAPER CUTTING MACHINE OPERATOR Work Phone: OB/Gynecology Comment on above: Supervision of high risk in second trimester (Primary Dx); 23 weeks gestation of ; Hypothyroidism affecting in second trimester; Group beta Strep positive; History of herpes genitalis; Dizziness Start: 09-25-2023 End: 09-25-2023 ambulatory NOLAN GARRIDO Facility:[facility] Start: 09-25-2023 End: 09-25-2023 Patient encounter procedure Physician Assistant Jenny Ultrasound Work Phone: OB/Gynecology Comment on above: Encounter for anatomic survey (Primary Dx); 20 weeks gestation of 20 weeks gestation o f (Primary Dx); Supervision of high risk in second trimester Start: 09-24-2023 Telephone encounter Yan henry DO Work Phone: Endocrinology Comment on above: Results Start: 09-18-2023 End: 09-18-2023 ambulatory YAN ESPINO Facility:[facility] Start: 08-27-2023 End: 08-27-2023 Patient encounter procedure Josseline Carroll MD Work Phone: OB/Gynecology Comment on above: Supervision of high risk in second trimester (Primary Dx); 15 weeks gestation of ; Hypothyroidism, unspecified type Start: 08-27-2023 End: 08-27-2023 ambulatory JOSSELINE CARROLL Facility:[facility] Start: 08-14-2023 End: 08-14-2023 ambulatory Yan Espino DO Work Phone: Endocrinology Comment on above: Hypothyroidism due t o Carole's thyroiditis (Primary Dx); Thyroid dysfunction in in second trimester Start: 08-14-2023 End: 08-14-2023 Telemedicine consultation with patient Yan Espino DO Work Phone: Endocrinology Start: 08-07-2023 End: 08-07-2023 ambulatory YAN ESPINO Facility:[facility] Start: 08-07-2023 End: 08-07-2023 Patient encounter procedure Clotilde Conklin MD Work Phone: OB/Gynecology Comment on above: Encounter for superv ision of normal first in first trimester (Primary Dx) Start: 07-08-2023 Telephone encounter Yan henry DO Work Phone: Endocrinology Comment on above: Results Start: 07-03-2023 End: 07-03-2023 ambulatory CONI GONZALEZ Facility:[facility] Start: 07-03-2023 End: 07-03-2023 Patient encounter procedure Coni Gonzalez DIRECTOR OF TEENAGE ACTIVITIES.CNM Work Phone: OB/Gynecology Comment on above: with uncer tain dates, antepartum (Primary Dx); Hypothyroidism, unspecified type; 8 weeks gestation of ; Encounter for supervision of normal first in first trimester Start: 07-01-2023 Telephone encounter Coni prater DIRECTOR OF TEENAGE ACTIVITIES.CNM Work Phone: OB/Gynecology Comment on above: NOB Intake Questions Start: 06-20-2023 Refill Nolan marinelli APRN.PAPER CUTTING MACHINE OPERATOR Work Phone: [facility] [place] Comment on above: Refill Request Thyroid Start: 06-06-2023 Refill Nolan marinelli APRN.PAPER CUTTING MACHINE OPERATOR Work Phone: [facility] [place] Comment on above: Refill Request Start: 03-08-2023 ambulatory Nolan marinelli DIRECTOR OF TEENAGE ACTIVITIES.PAPER CUTTING MACHINE OPERATOR Work Phone: [facility] [place] Comment on above: Hemroids Start: 02-24-2023 Telephone encounter Nolan simpson DIRECTOR OF TEENAGE ACTIVITIES.PAPER CUTTING MACHINE OPERATOR Work Phone: [facility] [place] Comment on above: Results Start: 02-22-2023 End: 02-22-2023 ambulatory NOLAN GARRIDO Facility:[facility] Start: 11-22-2022 Telephone encounter Nolan simpson APRN.PAPER CUTTING MACHINE OPERATOR Work Phone: [facility] Comment on above: Results Start: 11-21-2022 End: 11-21-2022 Patient encounter procedure Nolan Garrido APRN.PAPER CUTTING MACHINE OPERATOR Work Phone: [facility] Comment on above: Family history of ca ncer (Primary Dx); Wellness examination; Screening for diabetes mellitus; Screening for lipid disorders; Hypothyroidism, unspecified type; Gallstones; Encounter for immunization; Low libido; Difficulty articulating words Start: 11-21-2022 End: 11-21-2022 Patient encounter status Nolan Knzulma DIRECTOR OF TEENAGE ACTIVITIES.PAPER CUTTING MACHINE OPERATOR Work Phone: [facility] Work Phone: Start: 06-01-2022 Refill Jacinta Merritt APRN.AJ Work Phone: OB/Gynecology Comment on above: Refill Request Start: 05-14-2022 End: 05-14-2022 ambulatory Natasha Castillo PT Work Phone: [facility] Start: 05-14-2022 End: 05-14-2022 Manual pelvic examination Natasha Castillo PT Work Phone: [facility] Comment on above: care and examination (Primary Dx); Pain of pelvic girdle Start: 05-10-2022 ambulatory Jacinta Merritt APRN.AJ Work Phone: OB/Gynecology Comment on above: Mastitis Start: 05-10-2022 End: 05-10-2022 Patient encounter procedure Jovanna Torres APRN.PAPER CUTTING MACHINE OPERATOR Work Phone: OB/Gynecology Comment on above: Mastitis, right, acu te (Primary Dx) Start: 05-06-2022 End: 05-06-2022 Patient encounter procedure Jacinta Merritt APRN.CNAbad Work Phone: OB/Gynecology Comment on above: care and examination (Primary Dx); Pain of pelvic girdle; Encounter for initial prescription of contraceptive pills Start: 04-08-2022 End: 04-08-2022 Patient encounter procedure Jacinta Merritt APRN.CNM Work Phone: OB/Gynecology Comment on above: Dysuria (Primary Dx) ; Feeling of incomplete bladder emptying; Lactating mother Start: 04-08-2022 ambulatory Clotilde Stauffer Work Phone: OB/Gynecology Comment on above: Labor Start: 04-08-2022 Refill Coni ochoa DIRECTOR OF TEENAGE ACTIVITIES.CNM Work Phone: OB/Gynecology Comment on above: Refill Request Start: 04-02-2022 ambulatory Clotilde Stauffer Work Phone: OB/Gynecology Comment on above: Ob Delivery Note Start: 03-28-2022 End: 03-28-2022 Patient encounter procedure Westley Sierra MD Work Phone: OB/Gynecology Comment on above: 39 weeks gestation o f (Primary Dx); Encounter for supervision of normal first in third trimester Start: 03-21-2022 End: 03-21-2022 Patient encounter procedure Westley Sierra MD Work Phone: OB/Gynecology Comment on above: 38 weeks gestation o f (Primary Dx); Encounter for supervision of normal first in third trimester Start: 03-19-2022 End: 03-19-2022 Patient encounter procedure Jessica Peñaloza MD Work Phone: Maternal Medicine Comment on above: Suspected problem wi th amniotic cavity and membrane not found (Primary Dx); Variable heart rate decelerations, antepartum; Suspected problem with growth not found; 37 weeks gestation of Start: 03-18-2022 Telephone encounter Westley santos MD Work Phone: OB/Gynecology Comment on above: Orders Start: 03-12-2022 End: 03-12-2022 Patient encounter procedure Coni Gonzalez DIRECTOR OF TEENAGE ACTIVITIES.CNM Work Phone: OB/Gynecology Comment on above: 36 weeks gestation o f (Primary Dx); Swelling of lower extremity during in third trimester Start: 03-08-2022 ambulatory Lisa Gomez MD Work Phone: Endocrinology Comment on above: Results Start: 03-08-2022 E-mail encounter fro m caregiver Lisa Gomez MD Work Phone: [facility] Start: 03-08-2022 Telephone encounter Coni gomezjulius DIRECTOR OF TEENAGE ACTIVITIES.CNM Work Phone: OB/Gynecology Comment on above: OB-Cramping Start: 03-01-2022 ambulatory Westley Stauffer Work Phone: OB/Gynecology Comment on above: Medication Start: 02-28-2022 End: 02-28-2022 Patient encounter procedure Westley Sierra MD Work Phone: OB/Gynecology Comment on above: 35 weeks gestation o f (Primary Dx); Encounter for supervision of normal first in third trimester; History of herpes genitalis Start: 02-26-2022 ambulatory Coni ochoa DIRECTOR OF TEENAGE ACTIVITIES.CNM Work Phone: OB/Gynecology Comment on above: FMLA paperwork Start: 02-26-2022 E-mail encounter marycarmen campbell caregiver Coni Pelaezjulius DIRECTOR OF TEENAGE ACTIVITIES.CNM Work Phone: [facility] Start: 02-20-2022 Telephone encounter Lisa Garnica MD Work Phone: Endocrinology Comment on above: Appointment Start: 02-14-2022 End: 02-14-2022 Patient encounter procedure Coni Gonzalez APRN.CNM Work Phone: OB/Gynecology Comment on above: 33 weeks gestation o f (Primary Dx) Start: 01-31-2022 ambulatory Lisa Gomez MD Work Phone: Endocrinology Comment on above: Results Start: 01-31-2022 E-mail encounter fro m caregiver Lisa Gomez MD Work Phone: [facility] Start: 01-25-2022 Telephone encounter Lisa Garnica MD Work Phone: Endocrinology Comment on above: Appointment Start: 01-17-2022 Refill Westley Stauffer Work Phone: OB/Gynecology Comment on above: Refill Request Start: 01-03-2022 End: 01-03-2022 Patient encounter procedure Wsetley Sierra MD Work Phone: OB/Gynecology Comment on above: 27 weeks gestation o f (Primary Dx); Encounter for supervision of normal first in second trimester; Need for vaccination Start: 12-21-2021 Telephone encounter Westley santos MD Work Phone: OB/Gynecology Comment on above: Orders Results Start: 12-06-2021 End: 12-06-2021 Patient encounter procedure Coni Gonzalez DIRECTOR OF TEENAGE ACTIVITIES.CNM Work Phone: OB/Gynecology Comment on above: Encounter for superv ision of normal first in second trimester (Primary Dx); 23 weeks gestation of ; Hypothyroidism, unspecified type Start: 11-19-2021 Telephone encounter Westley santos MD Work Phone: OB/Gynecology Comment on above: Results Start: 11-15-2021 End: 11-15-2021 Patient encounter procedure Jessica Peñaloza MD Work Phone: Maternal Medicine Comment on above: Encounter for anatomic survey (Primary Dx); 20 weeks gestation of Start: 10-18-2021 End: 10-18-2021 Patient encounter procedure Coni Gonzalez DIRECTOR OF TEENAGE ACTIVITIES.CNM Work Phone: OB/Gynecology Comment on above: 16 weeks gestation o f (Primary Dx) Start: 10-04-2021 End: 10-04-2021 ambulatory Lisa Gomez MD Work Phone: Endocrinology Comment on above: Hypothyroidism due t o Carole's thyroiditis (Primary Dx) Start: 10-04-2021 End: 10-04-2021 Telemedicine consultation with patient Lisa Gomez MD Work Phone: [facility] Start: 09-20-2021 End: 09-20-2021 Patient encounter procedure Coni Gonzalez DIRECTOR OF TEENAGE ACTIVITIES.CNM Work Phone: OB/Gynecology Comment on above: 12 weeks gestation o f (Primary Dx); Encounter for supervision of normal first in first trimester; Hypothyroidism, unspecified type; Weight loss, non-intentional Start: 09-07-2021 Refill Benita Sellers MD Work Phone: Endocrinology Comment on above: Refill Request Start: 08-10-2021 Telephone encounter Benita Sellers MD Work Phone: Endocrinology Comment on above: Results Start: 08-09-2021 End: 08-09-2021 Patient encounter procedure Clotilde Conklin MD Work Phone: OB/Gynecology Comment on above: Encounter for screen ing for malignant neoplasm of cervix (Primary Dx); Supervision of normal first , antepartum; Other specified hypothyroidism; History of herpes genitalis Start: 08-02-2021 End: 08-02-2021 Nursing evaluation of patient and report Nurse [facility] Work Phone: OB/Gynecology Comment on above: Supervision of jorge a l first , antepartum (Primary Dx); Hypothyroidism, unspecified type; History of herpes genitalis; Patient request for diagnostic testing Start: 08-02-2021 End: 08-02-2021 Patient requested procedure Nurse [facility]nob [facility] Work Phone: OB/Gynecology Start: 09-26-2020 End: 09-26-2020 Emergency department patient visit Norman L Jacoby HERR Work Phone: [facility] ED Comment on above: Nonintractable episo dic headache, unspecified headache type (Primary Dx); Vision changes Procedures Date Procedure Procedure Detail Performing Clinician Start: 02-05-2024 Urnls dip stick/tabl et rgnt non-auto w/o micrscp Westley Sierra MD Work Phone: Start: 01-29-2024 Urnls dip stick/tabl et rgnt non-auto w/o micrscp Berto Vides DIRECTOR OF TEENAGE ACTIVITIES.PAPER CUTTING MACHINE OPERATOR Work Phone: Start: 01-22-2024 Urnls dip stick/tabl et rgnt non-auto w/o micrscp Coni Gonzalez APRN.CNM Work Phone: Start: 01-15-2024 Urnls dip stick/tabl et rgnt non-auto w/o micrscp Padmini Little MD Work Phone: Start: 01-08-2024 Urnls dip stick/tabl et rgnt non-auto w/o micrscp Westley Sierra MD Work Phone: Start: 01-06-2024 Us preg uterus after 1st trimest / gestation Jacinta Merritt DIRECTOR OF TEENAGE ACTIVITIES.CNM Work Phone: Start: 09-25-2023 Us preg uterus after 1st trimest / gestation Coni Gonzalez DIRECTOR OF TEENAGE ACTIVITIES.CNM Work Phone: Start: 07-03-2023 Antibody screen YAN SCHWARTZ Comment on above: Order Comment: Speci men Type: BLOOD SPECIMENOrdering Facility: [facility] Address: [address] [place] [address] Performed By: #### T SPN ####CC MAIN BLOOD BANKCLIA [id number] [address] [place] Start: 11-21-2022 MENINGOCOCCAL B VACC INE (BEXSERO) Nolan Garrido DIRECTOR OF TEENAGE ACTIVITIES.PAPER CUTTING MACHINE OPERATOR Work Phone: Start: 04-08-2022 Urnls dip stick/tabl et rgnt auto w/o microscopy Jacinta Merritt DIRECTOR OF TEENAGE ACTIVITIES.CNM Work Phone: Start: 03-28-2022 URINE OB DIP B/O Westley chairez MD Work Phone: Start: 03-21-2022 URINE OB DIP B/O Westley chairez MD Work Phone: Start: 03-19-2022 Us preg uterus after 1st trimest 04/21 gestation Josseline Carroll MD Work Phone: Start: 03-12-2022 URINE OB DIP B/O Anuja Gonzalez DIRECTOR OF TEENAGE ACTIVITIES.CNM Work Phone: Start: 02-28-2022 URINE OB DIP B/O Westley chairez MD Work Phone: Start: 02-14-2022 URINE OB DIP B/O Courtn sheryl Gonzalez DIRECTOR OF TEENAGE ACTIVITIES.CNM Work Phone: Start: 01-03-2022 URINE OB DIP B/O Westley chairez MD Work Phone: Start: 12-06-2021 URINE OB DIP B/O Maylinn sheryl Gonzalez DIRECTOR OF TEENAGE ACTIVITIES.CNM Work Phone: Start: 11-15-2021 Us preg uterus after 1st trimest 04/21 gestation Coni Gonzalez DIRECTOR OF TEENAGE ACTIVITIES.CNM Work Phone: Start: 10-18-2021 URINE OB DIP B/O Maylinn ey Carlos DIRECTOR OF TEENAGE ACTIVITIES.CNM Work Phone: Start: 09-20-2021 URINE OB DIP B/O Maylinn ey Carlos DIRECTOR OF TEENAGE ACTIVITIES.CNM Work Phone: Start: 04-20-2018 [facility] Work Phone: Plan of Treatment Date Care Activity Detail Author Start: 08-09-2024 PAP TESTING PAP TESTING [facility] Start: 08-09-2024 Screening for malignant neoplasm of cervix [facility] Start: 08-02-2024 End: 08-02-2024 Patient encounter procedure 08/02/2024 2:00 PM EDT Office Visit Cardiology [address] [place] [id number] Chasity Dasilva MD [address], [address] [place] [address] Supervision of high risk in third trimester [O09.93]; 37 weeks gestation of [Z3A.37]; H/O dizziness [Z87.898]; Syncope and collapse [R55] Cardiology Comment on above: Supervision of high risk in th ird trimester [O09.93]; 37 weeks gestation of [Z3A.37]; H/O dizziness [Z87.898]; Syncope and collapse [R55] Start: 04-29-2024 End: 04-29-2024 ambulatory 04/29/2024 11:00 AM [facility] Endocrinology [address] [address] Yan Espino, DO [address] [place] [address] See me for post f/u Apr 26- with blood work prior (virtual visit ok) Endocrinology Comment on above: See me for post f/u Apr 26- with b lood work prior (virtual visit ok) Start: 04-21-2024 End: 07-21-2024 Thyrotropin [Units/volume] in Serum or Plasma THYROID STIMULATING HORMONE Lab Routine 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 Expected: 04/21/2024 (Approximate), Expires: 07/21/2024 [facility] Work Phone: Comment on above: Expected: 04/21/2024 (Approximate), Expi res: 07/21/2024 Start: 04-21-2024 End: 07-21-2024 Thyroxine (T4) free [Mass/volume] in Serum or Plasma T4 FREE/FREE THYROXINE Lab Routine 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 Expected: 04/21/2024 (Approximate), Expires: 07/21/2024 [facility] Comment on above: Expected: 04/21/2024 (Approximate), Expi res: 07/21/2024 Start: 02-12-2024 End: 02-12-2024 Patient encounter procedure 02/12/2024 10:50 AM EDT Routine Office Visit OB/Gynecology [address] [place] [address] Westley Sierra MD [address] [place] [address] OB OB/Gynecology Comment on above: OB Start: 02-05-2024 End: 02-05-2024 Patient encounter procedure 02/05/2024 1:30 PM EDT Routine Office Visit OB/Gynecology [address] [place] [id number] Westley Sierra MD [address] [place] [id number] OB OB/Gynecology Comment on above: OB Start: 01-29-2024 End: 04-29-2024 Thyrotropin [Units/volume] in Serum or Plasma THYROID STIMULATING HORMONE Lab Routine Hypothyroidism affecting in third trimester Expected: 01/29/2024, Expires: 04/29/2024 [facility] Work Phone: Comment on above: Expected: 01/29/2024, Expires: Start: 01-29-2024 End: 04-29-2024 Thyroxine (T4) free [Mass/volume] in Serum or Plasma T4 FREE/FREE THYROXINE Lab Routine Hypothyroidism affecting in third trimester Expected: 01/29/2024, Expires: 04/29/2024 [facility] Comment on above: Expected: 01/29/2024, Expires: Start: 01-29-2024 End: 01-29-2024 Patient encounter procedure 01/29/2024 8:45 AM EDT Routine Office Visit OB/Gynecology [address] [place] [address] Berto Vides APRN.PAPER CUTTING MACHINE OPERATOR [address] [place] [address] OB OB/Gynecology Comment on above: OB Start: 01-22-2024 End: 01-22-2024 Patient encounter procedure 01/22/2024 10:10 AM EDT Routine Office Visit OB/Gynecology [address] [place] [address] Westley Sierra MD [address] [place] [address] OB OB/Gynecology Comment on above: OB Start: 01-15-2024 End: 01-15-2024 Patient encounter procedure 01/15/2024 2:40 PM EDT Routine Office Visit OB/Gynecology [address] [place] [address] Padmini Little MD [address] [place] [address] OB OB/Gynecology Comment on above: OB Start: 01-08-2024 End: 01-08-2024 Patient encounter procedure OB/Gynecology Comment on above: OB OB- discuss u/s and scheduled next one Start: 01-06-2024 End: 01-06-2024 Patient encounter procedure 01/06/2024 1:00 PM EDT Routine Office Visit Maternal Medicine [address] [place] [address] Growth Maternal Medicine Comment on above: Growth Start: 12-23-2023 End: 12-22-2024 OBSTETRIC ULTRASOUND WHI OBSTETRIC ULTRASOUND [facility] Anc Imaging Routine Supervision of high risk in third trimester 32 weeks gestation of Uterine size-date discrepancy, third trimester Expected: 12/23/2023, Expires: 12/22/2024 [facility] Work Phone: Comment on above: Expected: 12/23/2023, Expires: Start: 12-23-2023 End: 12-23-2023 Patient encounter procedure 12/23/2023 11:00 AM EDT Routine Office Visit OB/Gynecology [address] [place] [address] Jacinta Merritt APRN.CN [address] [place] [address] OB OB/Gynecology Comment on above: OB Start: 12-21-2023 Covid-19 Vaccine ( season) Covid-19 Vaccine ( season) [facility] Start: 12-21-2023 Covid-19 Vaccine ( season) Covid-19 Vaccine ( season) [facility] Start: 12-21-2023 Influenza vaccination [facility] Start: 12-21-2023 RSV Vaccine (1 - Risk 1-dose series) RSV Vaccine (1 - Risk 1-dose series) [facility] Start: 12-11-2023 End: 12-11-2023 Patient encounter procedure 12/11/2023 4:20 PM EDT Routine Office Visit OB/Gynecology [address] [place] [address] Westley Sierra MD [address] [place] [address] OB OB/Gynecology Comment on above: OB Start: 11-27-2023 End: 11-27-2023 Patient encounter procedure 11/27/2023 4:30 PM EDT Routine Office Visit OB/Gynecology [address] [place] [address] Coni Gonzalez APRN.CN [address] [place] [address] OB OB/Gynecology Comment on above: OB Start: 11-22-2023 ANNUAL PCP TEAM CHRONIC DISEASE VISIT ANNUAL PCP TEAM CHRONIC DISEASE VISIT [facility] Start: 11-22-2023 COVID-19 VACCINE (#1) COVID-19 VACCINE (#1) [facility] Comment on above: Postponed from 06/23/1998 (Declined at t his time) Start: 11-13-2023 End: 11-13-2023 Patient encounter procedure 11/13/2023 3:50 PM EDT Routine Office Visit OB/Gynecology [address] [place] [address] Padmini Little MD [address] [place] [address] OB OB/Gynecology Comment on above: OB Start: 11-13-2023 End: 11-13-2023 ambulatory 11/13/2023 3:15 PM EDT Results Only Jenny Álvarez [facility] [address] [place] [address] Glucose Lab [facility] Laboratory Comment on above: Glucose Lab Start: 10-30-2023 End: 01-29-2024 Thyrotropin [Units/volume] in Serum or Plasma THYROID STIMULATING HORMONE Lab Routine Thyroid dysfunction in in second trimester 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 Expected: 10/30/2023, Expires: 01/29/2024 [facility] Work Phone: Comment on above: Expected: 10/30/2023, Expires: Start: 10-30-2023 End: 01-29-2024 Thyroxine (T4) [Mass/volume] in Serum or Plasma T4/THYROXINE Lab Routine Thyroid dysfunction in in second trimester 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 Expected: 10/30/2023, Expires: 01/29/2024 [facility] Comment on above: Expected: 10/30/2023, Expires: Start: 10-30-2023 End: 10-30-2023 ambulatory 10/30/2023 8:20 AM EDT [facility] Endocrinology [address] [place], [place] [id number] Yan Espino, DO [address] [place], [place] [id number] 10 weeks virtual visit ok thyroid in Endocrinology Comment on above: 10 weeks virtual visit ok thyroid in pre gnancy Start: 10-20-2023 End: 01-19-2024 Thyrotropin [Units/volume] in Serum or Plasma THYROID STIMULATING HORMONE Lab Routine 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 Expected: 10/20/2023 (Approximate), Expires: 01/19/2024 [facility] Work Phone: Comment on above: Expected: 10/20/2023 (Approximate), Expi res: 01/19/2024 Start: 10-20-2023 End: 01-19-2024 Thyroxine (T4) [Mass/volume] in Serum or Plasma T4/THYROXINE Lab Routine 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 Expected: 10/20/2023 (Approximate), Expires: 01/19/2024 [facility] Comment on above: Expected: 10/20/2023 (Approximate), Expi res: 01/19/2024 Start: 10-16-2023 End: 01-15-2024 CBC W Auto Differential panel - Blood COMPLETE BLOOD COUNT AND DIFFERENTIAL Lab Routine Supervision of high risk in second trimester 23 weeks gestation of Expected: 10/16/2023, Expires: 01/15/2024 [facility] Comment on above: Expected: 10/16/2023, Expires: Start: 10-16-2023 End: 01-15-2024 GESTATIONAL GLUCOSE SCREEN, 1-HOUR, 50 GRAM, NON-FASTING GESTATIONAL GLUCOSE SCREEN, 1-HOUR, 50 GRAM, NON-FASTING Lab Routine Supervision of high risk in second trimester 23 weeks gestation of Expected: 10/16/2023, Expires: 01/15/2024 [facility] Comment on above: Expected: 10/16/2023, Expires: Start: 10-16-2023 End: 01-15-2024 SYPHILIS TOTAL W/REFLEX SYPHILIS TOTAL W/REFLEX Lab Routine Supervision of high risk in second trimester 23 weeks gestation of Expected: 10/16/2023, Expires: 01/15/2024 [facility] Comment on above: Expected: 10/16/2023, Expires: Start: 10-16-2023 End: 10-16-2023 Patient encounter procedure 10/16/2023 9:00 AM EDT Routine Office Visit OB/Gynecology [address] [place], [place] [id number] Berto Vides APRN.PAPER CUTTING MACHINE OPERATOR [address] 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 Thyroid dysfunction in in second trimester Expected: 09/03/2023 (Approximate), Expires: 12/03/2023 [facility] Work Phone: Comment on above: Expected: 09/03/2023 (Approximate), Expi res: 12/03/2023 Start: 09-03-2023 End: 12-03-2023 Thyroxine (T4) [Mass/volume] in Serum or Plasma T4/THYROXINE Lab Routine 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 Thyroid dysfunction in in second trimester Expected: 09/03/2023 (Approximate), Expires: 12/03/2023 [facility] Comment on above: Expected: 09/03/2023 (Approximate), Expi res: 12/03/2023 Start: 08-09-2023 End: 11-08-2023 Thyrotropin [Units/volume] in Serum or Plasma TSH BLD Lab Routine 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 Expected: 08/09/2023 (Approximate), Expires: 11/08/2023 [facility] Work Phone: Comment on above: Expected: 08/09/2023 (Approximate), Expi res: 11/08/2023 Start: 08-09-2023 End: 11-08-2023 Thyroxine (T4) [Mass/volume] in Serum or Plasma T4/THYROXINE BLOOD Lab Routine 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 Expected: 08/09/2023 (Approximate), Expires: 11/08/2023 [facility] Work Phone: Comment on above: Expected: 08/09/2023 (Approximate), Expi res: 11/08/2023 Start: 07-03-2023 End: 07-02-2024 NUCHAL TRANSLUCENCY WHI NUCHAL TRANSLUCENCY WHI Anc Imaging Routine with uncertain dates, antepartum Expected: 07/03/2023, Expires: 07/02/2024 [facility] Work Phone: Comment on above: Expected: 07/03/2023, Expires: Start: 07-03-2023 End: 07-02-2024 OBSTETRIC ULTRASOUND WHI OBSTETRIC ULTRASOUND [facility] Anc Imaging Routine with uncertain dates, antepartum Expected: 07/03/2023, Expires: 07/02/2024 [facility] Work Phone: Comment on above: Expected: 07/03/2023, Expires: Start: 07-03-2023 End: 10-02-2023 RUBELLA IGG AB [facility] Work Phone: Comment on above: Expected: 07/03/2023, Expires: Start: 07-03-2023 End: 10-02-2023 TYPE + SCREEN [facility] Work Phone: Comment on above: Expected: 07/03/2023, Expires: 4 Start: 04-21-2023 Behavioral Health Screening Behavioral Health Screening [facility] Start: 04-21-2023 Depression Assessment Depression Assessment [facility] Start: 02-22-2023 End: 04-24-2023 Thyrotropin [Units/volume] in Serum or Plasma TSH BLD Lab Routine Hypothyroidism, acquired Expected: 02/22/2023, Expires: 04/24/2023 [facility] Work Phone: Comment on above: Expected: 02/22/2023, Expires: 4 Start: 12-20-2022 Covid-19 Vaccine ( season) Covid-19 Vaccine ( season) [facility] Start: 12-20-2022 Influenza vaccination [facility] Start: 12-19-2022 Meningococcal B Vaccine: Consider Based On Risk (2 of 2 - Risk Bexsero 2-dose series) Meningococcal B Vaccine: Consider Based On Risk (2 of 2 - Risk Bexsero 2-dose series) [facility] Start: 12-19-2022 MENINGOCOCCAL B: Consider based on risk (2 of 2 - Risk Bexsero 2-dose series) MENINGOCOCCAL B: Consider based on risk (2 of 2 - Risk Bexsero 2-dose series) [facility] Start: 11-21-2022 End: 01-21-2023 Comprehensive metabolic 2000 panel - Serum or Plasma [facility] Work Phone: Comment on above: Expected: 11/21/2022, Expires: 3 Start: 11-21-2022 End: 01-21-2023 Lipase [Enzymatic activity/volume] in Serum or Plasma [facility] Work Phone: Comment on above: Expected: 11/21/2022, Expires: 3 Start: 11-21-2022 End: 01-21-2023 LIPID PANEL, NONFASTING [facility] Work Phone: Comment on above: Expected: 11/21/2022, Expires: 3 Start: 11-21-2022 End: 01-21-2023 Thyrotropin [Units/volume] in Serum or Plasma [facility] Work Phone: Comment on above: Expected: 11/21/2022, Expires: 3 Start: 08-09-2022 CHLAMYDIA SCREENING (18-24) CHLAMYDIA SCREENING (18-24) [facility] Start: 08-09-2022 GC (GONORRHEA) SCREENING (18-24) GC (GONORRHEA) SCREENING (18-24) [facility] Start: 04-21-2022 DEPRESSION ASSESSMENT DEPRESSION ASSESSMENT [facility] Start: 04-15-2022 PAP TESTING PAP TESTING [facility] Start: 03-19-2022 End: 03-19-2023 OBSTETRIC ULTRASOUND [facility] OBSTETRIC ULTRASOUND [facility] Anc Imaging Routine Variable heart rate decelerations, antepartum Expected: 03/19/2022, Expires: 03/19/2023 [facility] Work Phone: Comment on above: Expected: 03/19/2022, Expires: 3 Start: 02-20-2022 End: 04-22-2022 Thyrotropin [Units/volume] in Serum or Plasma TSH BLD Lab Routine 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 Expected: 02/20/2022, Expires: 04/22/2022 [facility] Work Phone: Comment on above: Expected: 02/20/2022, Expires: 3 Start: 02-20-2022 End: 04-22-2022 Thyroxine (T4) free [Mass/volume] in Serum or Plasma T4 FREE/FREE THYROX Lab Routine 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 Expected: 02/20/2022, Expires: 04/22/2022 [facility] Work Phone: Comment on above: Expected: 02/20/2022, Expires: 3 Start: 12-20-2021 Influenza vaccination [facility] Start: 12-06-2021 End: 02-05-2022 CBC W Auto Differential panel - Blood CBC + DIFF Lab Routine Encounter for supervision of normal first in second trimester 23 weeks gestation of Hypothyroidism, unspecified type Expected: 12/06/2021, Expires: 02/05/2022 [facility] Work Phone: Comment on above: Expected: 12/06/2021, Expires: 2 Start: 12-06-2021 End: 02-05-2022 GEST GLUC SCREEN, 1-HR, 50 GM, NON-FASTING GEST GLUC SCREEN, 1-HR, 50 GM, NON-FASTING Lab Routine Encounter for supervision of normal first in second trimester 23 weeks gestation of Hypothyroidism, unspecified type Expected: 12/06/2021, Expires: 02/05/2022 [facility] Work Phone: Comment on above: Expected: 12/06/2021, Expires: 2 Start: 12-06-2021 End: 02-05-2022 SYPHILIS TOTAL W/REFLEX SYPHILIS TOTAL W/REFLEX Lab Routine Encounter for supervision of normal first in second trimester 23 weeks gestation of Hypothyroidism, unspecified type Expected: 12/06/2021, Expires: 02/05/2022 [facility] Work Phone: Comment on above: Expected: 12/06/2021, Expires: 2 Start: 10-04-2021 End: 12-04-2021 Thyrotropin [Units/volume] in Serum or Plasma TSH BLD Lab Routine 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 Expected: 10/04/2021, Expires: 12/04/2021 [facility] Work Phone: Comment on above: Expected: 10/04/2021, Expires: 2 Start: 10-04-2021 End: 12-04-2021 Thyroxine (T4) [Mass/volume] in Serum or Plasma T4/THYROXINE BLOOD Lab Routine 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 Expected: 10/04/2021, Expires: 12/04/2021 [facility] Work Phone: Comment on above: Expected: 10/04/2021, Expires: 2 Start: 10-04-2021 End: 12-04-2021 Thyroxine (T4) free [Mass/volume] in Serum or Plasma T4 FREE/FREE THYROX Lab Routine 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 Expected: 10/04/2021, Expires: 12/04/2021 [facility] Work Phone: Comment on above: Expected: 10/04/2021, Expires: 2 Start: 10-04-2021 End: 12-04-2021 Triiodothyronine (T3) [Mass/volume] in Serum or Plasma T3 BLD Lab Routine 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 Expected: 10/04/2021, Expires: 12/04/2021 [facility] Work Phone: Comment on above: Expected: 10/04/2021, Expires: 2 Start: 09-20-2021 End: 11-20-2021 Thyrotropin [Units/volume] in Serum or Plasma TSH BLD Lab Routine Hypothyroidism, unspecified type Expected: 09/20/2021, Expires: 11/20/2021 [facility] Work Phone: Comment on above: Expected: 09/20/2021, Expires: 2 Start: 08-09-2021 End: 10-09-2021 Hepatitis B virus surface Ab [Presence] in Serum by Immunoassay [facility] Work Phone: Comment on above: Expected: 08/09/2021, Expires: 2 Start: 08-09-2021 End: 10-09-2021 Hepatitis C virus Ab [Presence] in Serum [facility] Work Phone: Comment on above: Expected: 08/09/2021, Expires: 2 Start: 08-09-2021 End: 10-09-2021 HIV 1+2 Ab [Presence] in Serum or Plasma by Immunoassay [facility] Work Phone: Comment on above: Expected: 08/09/2021, Expires: 2 Start: 08-09-2021 End: 10-09-2021 RUBELLA IGG AB [facility] Work Phone: Comment on above: Expected: 08/09/2021, Expires: 2 Start: 08-09-2021 End: 10-09-2021 SYPHILIS TOTAL W/REFLEX [facility] Work Phone: Comment on above: Expected: 08/09/2021, Expires: 2 Start: 08-09-2021 End: 10-09-2021 T4 FREE/FREE THYROX [facility] Work Phone: Comment on above: Expected: 08/09/2021, Expires: 2 Start: 08-09-2021 End: 10-09-2021 Thyrotropin [Units/volume] in Serum or Plasma [facility] Work Phone: Comment on above: Expected: 08/09/2021, Expires: 2 Start: 08-09-2021 End: 10-09-2021 TYPE + SCREEN [facility] Work Phone: Comment on above: Expected: 08/09/2021, Expires: 2 Start: 04-21-2021 DEPRESSION ASSESSMENT DEPRESSION ASSESSMENT [facility] Start: 12-20-2020 Influenza vaccination Flu vaccine (Season Ended) [facility] Work Phone: Start: 04-15-2020 CHLAMYDIA SCREENING (18-24) CHLAMYDIA SCREENING (18-24) [facility] Start: 04-15-2020 GC (GONORRHEA) SCREENING (18-24) GC (GONORRHEA) SCREENING (18-24) [facility] Start: 04-20-2019 Adult depression screening assessment DEPRESSION SCREENING [facility] Start: 04-20-2019 ANNUAL PCP TEAM CHRONIC DISEASE VISIT ANNUAL PCP TEAM CHRONIC DISEASE VISIT [facility] Start: 08-21-2018 ANNUAL PCP TEAM CHRONIC DISEASE VISIT ANNUAL PCP TEAM CHRONIC DISEASE VISIT [facility] Start: 12-25-2015 Anxiety Screening Anxiety Screening [facility] Start: 12-25-2015 Depression Screening Depression Screening [facility] Start: 12-25-2015 HEPATITIS C SCREENING HEPATITIS C SCREENING [facility] Start: 12-25-2015 HIV SCREENING HIV SCREENING [facility] Start: 12-25-2011 PEDS TO ADULT TRANSITION ANNUAL ASSESSMENT PEDS TO ADULT TRANSITION ANNUAL ASSESSMENT [facility] Start: 2009 COVID-19 Vaccine (1) COVID-19 Vaccine (1) [facility] Work Phone: Start: 2009 PEDS TO ADULT TRANSITION INITIAL DISCUSSION PEDS TO ADULT TRANSITION INITIAL DISCUSSION [facility] Start: 12-25-2007 MENINGOCOCCAL B: Consider based on risk (1 of 2 - Risk Bexsero 2-dose series) MENINGOCOCCAL B: Consider based on risk (1 of 2 - Risk Bexsero 2-dose series) [facility] Start: 2002 COVID-19 VACCINE (#1) COVID-19 VACCINE (#1) [facility] Start: 2002 COVID-19 VACCINE (1) COVID-19 VACCINE (1) [facility] Start: 06-23-1998 COVID-19 VACCINE (#1) COVID-19 VACCINE (#1) [facility] Bacteria identified in Urine by Culture URINE CULTURE Microbiology Routine Supervision of normal first , antepartum 08/09/2021 10:51 AM EDT [facility] Work Phone: Bacteria identified in Urine by Culture URINE CULTURE Microbiology Routine Dysuria Feeling of incomplete bladder emptying 04/08/2022 3:01 PM EST [facility] Work Phone: Bacteria identified in Urine by Culture URINE CULTURE Microbiology Routine with uncertain dates, antepartum 07/03/2023 1:50 PM EDT [facility] Work Phone: Chlamydia trachomatis+Neisseria gonorrhoeae DNA [Presence] in Unspecified specimen by PAWAN with probe detection GC/CHLAMYDIA DNA DET Lab Routine Supervision of normal first , antepartum 08/09/2021 10:51 AM EDT [facility] Work Phone: Chlamydia trachomatis+Neisseria gonorrhoeae DNA [Presence] in Unspecified specimen by PAWAN with probe detection GONORRHEA/CHLAMYDIA NAAT Lab Routine with uncertain dates, antepartum 07/03/2023 1:50 PM EDT [facility] Work Phone: NUCHAL TRANSLUCENCY WHI NUCHAL T RANSLUCENCY WHI Anc Imaging Routine Supervision of normal first , antepartum Ordered: 08/09/2021 [facility] Work Phone: Comment on above: Ordered: 08/09/2021 OBSTETRIC ULTRASOUND WHI OBSTETR IC ULTRASOUND WHI Anc Imaging Routine 16 weeks gestation of Ordered: 10/18/2021 [facility] Work Phone: Comment on above: Ordered: 10/18/2021 PAP FLUID CERVICAL SCREENING PAP FLUID CERVICAL SCREENING Lab Routine Encounter for screening for malignant neoplasm of cervix 08/09/2021 10:51 AM EDT [facility] Work Phone: POC FAST FOOD DELIVERY DRIVER ULTRASOUND POC FAST FOOD DELIVERY DRIVER ULTRASO UND Anc Imaging Routine with uncertain dates, antepartum Ordered: 07/03/2023 [facility] Work Phone: Comment on above: Ordered: 07/03/2023 PT PLAN OF CARE CERTIFICATION PT PLAN OF CARE CERTIFICATION Procedures Routine care and examination Pain of pelvic girdle Ordered: 05/14/2022 [facility] Work Phone: Comment on above: Ordered: 05/14/2022 URINE OB DIP B/O URINE OB DIP B/ O Lab Routine Supervision of high risk in second trimester 23 weeks gestation of Ordered: 10/16/2023 [facility] Work Phone: Comment on above: Ordered: 10/16/2023 [facility] Immunizations Immunization Date Immunization Notes Care Provider Yohan cristina 11-13-2023 tetanus toxoid, redu alia diphtheria toxoid, and acellular pertussis vaccine, adsorbed Padmini Little MD Work Phone: [facility] 11-21-2022 meningococcal B vacc ine, recombinant, OMV, adjuvanted Nolan Garrido APRN.PAPER CUTTING MACHINE OPERATOR Work Phone: [facility] 01-03-2022 tetanus toxoid, redu alia diphtheria toxoid, and acellular pertussis vaccine, adsorbed Westley Sierra MD Work Phone: [facility] 05-29-2015 Human Papillomavirus 9-valent vaccine Nurse Wstr Work Phone: [facility] Work Phone: 05-27-2014 hepatitis A vaccine, pediatric/adolescent dosage, 2 dose schedule Nurse Wstr Work Phone: [facility] Work Phone: 05-27-2014 human papilloma viru s vaccine, quadrivalent Nurse Wstr Work Phone: [facility] Work Phone: 05-27-2014 meningococcal oligosaccharide (groups A, C, Y and W-135) diphtheria toxoid conjugate vaccine (MCV4O) Nurse Wstr Work Phone: [facility] Work Phone: 07-06-2013 hepatitis A vaccine, unspecified formulation Nurse Wstr Work Phone: [facility] 07-06-2013 human papilloma viru s vaccine, quadrivalent Nurse Wstr Work Phone: [facility] 05-13-2011 influenza virus vacc ine, unspecified formulation Nurse Wstr Work Phone: [facility] 05-13-2011 Meningococcal, MCV4, unspecified conjugate formulation(groups A, C, Y and W-135) Nurse Wstr Work Phone: [facility] 05-13-2011 varicella virus vaccine Nurs e Wstr Work Phone: [facility] 05-11-2009 tetanus toxoid, redu alia diphtheria toxoid, and acellular pertussis vaccine, adsorbed Nurse Wstr Work Phone: [facility] Work Phone: 09-01-2002 diphtheria, tetanus toxoids and acellular pertussis vaccine Nurse Wstr Work Phone: [facility] Work Phone: 09-01-2002 measles, mumps and rubella virus vaccine Nurse Wstr Work Phone: [facility] Work Phone: 09-01-2002 poliovirus vaccine, inactivated Nurse Wstr Work Phone: [facility] Work Phone: 05-09-1999 haemophilus influenz ae type b vaccine, HbOC conjugate Nurse Wstr Work Phone: [facility] Work Phone: 05-09-1999 poliovirus vaccine, inactivated Nurse Wstr Work Phone: [facility] Work Phone: 01-17-1999 measles, mumps and rubella virus vaccine Nurse Wstr Work Phone: [facility] Work Phone: 01-17-1999 varicella virus vaccine Nurs e Wstr Work Phone: [facility] Work Phone: 10-02-1998 diphtheria, tetanus toxoids and acellular pertussis vaccine Nurse Wstr Work Phone: [facility] Work Phone: 10-02-1998 haemophilus influenz ae type b vaccine, HbOC conjugate Nurse Wstr Work Phone: [facility] Work Phone: 10-02-1998 hepatitis B vaccine, pediatric or pediatric/adolescent dosage Nurse Wstr Work Phone: [facility] Work Phone: 04-26-1998 diphtheria, tetanus toxoids and acellular pertussis vaccine Nurse Wstr Work Phone: [facility] Work Phone: 04-26-1998 haemophilus influenz ae type b vaccine, HbOC conjugate Nurse Wstr Work Phone: [facility] Work Phone: 04-26-1998 poliovirus vaccine, inactivated Nurse Wstr Work Phone: [facility] Work Phone: 02-23-1998 diphtheria, tetanus toxoids and acellular pertussis vaccine Nurse Wstr Work Phone: [facility] Work Phone: 02-23-1998 haemophilus influenz ae type b vaccine, HbOC conjugate Nurse Wstr Work Phone: [facility] Work Phone: 02-23-1998 hepatitis B vaccine, pediatric or pediatric/adolescent dosage Nurse Wstr Work Phone: [facility] Work Phone: 02-23-1998 poliovirus vaccine, inactivated Nurse Wstr Work Phone: [facility] Work Phone: 1997 hepatitis B vaccine, pediatric or pediatric/adolescent dosage Nurse Wstr Work Phone: [facility] Work Phone: Payers Date Payer Category Payer Unknown [id number] 2023 Unknown MMO MMO [employer] PPO [id number] 2023-Present [phone] [address] [place] [address] PPO [id number] 2023 Unknown [id number] 2011 Private Health Insurance [employer] A ETNA CHOICE POS II [id number] 2011-Present [phone] [address] [place] [address] POS [id number] 2011 Private Health Insurance [id number] Social History Date Type Detail Facility Start: 09-26-2020 End: 01-03-2022 Tobacco smoking status NHIS Never smoker [facility] Work Phone: Start: 09-26-2020 Alcohol Comment Occasional [facility] Work Phone: Start: 1997 Sex Assigned At Not on file [facility] Work Phone: Start: 07-22-2021 End: 02-28-2022 Exposure to SARS-CoV-2 (event) Not sure [facility] Start: 08-02-2021 End: 02-05-2024 Alcohol intake Ex-drinker (finding) [facility] Start: 03-03-2018 History SDOH Alcohol Comment Occasionally [facility] Start: 08-02-2021 Education 21 [facility] Start: 07-12-2021 [facility] Start: 11-27-2015 End: 01-03-2022 Tobacco use and exposure Smokeless tobacco non-user [facility] Start: 05-10-2022 End: 11-21-2022 History of Social function [facility] Work Phone: Start: 05-10-2022 End: 11-21-2022 Tobacco use panel [facility] Work Phone: Adult Depression Screening Assessment 0 [facility] Work Phone: Goals Date Patient Goal Desired Activity /State Personal health goal Personal health goal Clinical Notes 10-09-2017 to 02-05-2024 Quick Notes - Westley Sierra MD - 02/05/2024 1:59 PM EDTPrenatal Quick Notes - Westley Sierra MD - 02/05/2024 1:59 PM EDTPatient Ruth Kunz MA - 01/29/2024 11:07 AM EDT Note Date & Type Note Facility 02-05-2024 Progress note Formatting of t his note might be different from the original. SW- pt doing well. No ctx, vb, lof. Good FM PE: Gen- NAD, well appearing Abd- Soft, gravid, NT See flowsheet A/p 39 wk gestation - Pt requests membrane sweep today. Performed after discussion of r/b/a - RTO 1 wk. Discussed Iol ~41 wks if undelivered Westley Sierra DO [facility] 02-05-2024 Miscellaneous Notes SW- pt doing well. No ctx, vb, lof. Good FM PE: Gen- NAD, well appearing Abd- Soft, gravid, NT See flowsheet A/p 39 wk gestation - Pt requests membrane sweep today. Performed after discussion of r/b/a - RTO 1 wk. Discussed Iol ~41 wks if undelivered Westley Sierra DO documented in this encounter [facility] 02-05-2024 Instructions Rajinder Horner MA - 02/05/2024 1:21 PM EDT SEQUENTIAL SCREENINGS The [facility] offers sequential screenings for women who are interested in screenings for chromosomal abnormalities and certain defects during a . The sequential screen combines ultrasound and blood tests to determine the risk of chromosomal abnormalities, including Down's Syndrome (Trisomy 21) and Trisomy 18, as well as open neural tube defects including spina bifida. Ultrasound examination is performed between 11 weeks and 13 weeks gestational age. Blood tests are drawn after the ultrasound and again later in the between 15 and 21 weeks gestational age. Please let your physician know if you are interested in this testing. It will require an appointment with our dyno technician. This is not an ultrasound performed by a physician in our office during a routine visit. SIGNS AND SYMPTOMS OF LABOR 1. Contractions every 10 minutes or more often 2. Clear, pink, or brownish fluid (water) leaking from vagina 3. Feeling that baby is pushing down, pressure 4. Low, dull backache 5. Cramps that feel like a period 6. Cramps with or without diarrhea If you notice any of the above symptoms, contact our office at [phone] and ask to speak with a nurse. After hours, you can call doctors registry at [phone] OR call [facility] at [phone] and ask to have the doctor outdoor education teacher paged. If you consider this an emergency, dial 9- or go to your nearest emergency department. NEED HELP? Are you dealing with a violent or abusive relationship? Are you a victim of rape or sexual assult? Call [facility] ([place]) 24 hour Crisis Hotline: 422.689.8101 or 038-576-4685. MANUAL Your Guide to a Healthy manual is now on-line. Visit [email or web address] to download your free copy documented in this encounter [facility] 01-30-2024 Telephone encounter Note Signed and faxed. Azra Iraheta RN [facility] 01-30-2024 Miscellaneous Notes Signed and faxed. Azra Iraheta RN Received breast pump RX from [facility]. To SW to sign. Padmini Calles RN documented in this encounter [facility] 01-29-2024 Note HNO ID: [id number] Author: RUTH HARDWICK MA Service: ? Author Type: Automotive Welder Type: Progress Notes Filed: 01/29/2024 11:09 Note Text: POPULATION HEALTH NAVIGATION OUTREACH Action/FYI Called and spoke with pt and confirmed driller's assistant. Reason for Outreach Medicaid OB/Peds Care Gaps due: N/A Patient Contacted: Spoke to patient/parent/or legal guardian Patient identified by name and : Yes Medicaid OB/Peds actions taken: [place]/Caterer'S Aide added Navigation Signature: Ruth Ackerman MA January 29, 2024 11:09 AM [facility] 01-29-2024 History of Presen t illness Narrative POPULATION HEALTH NAVIGATION OUTREACH Action/FYI Called and spoke with pt and confirmed driller's assistant. Reason for Outreach Medicaid OB/Peds Care Gaps due: N/A Patient Contacted: Spoke to patient/parent/or legal guardian Patient identified by name and : Yes Medicaid OB/Peds actions taken: /Caterer'S Aide added Navigation Signature: Ruth Ackerman MA January 29, 2024 11:09 AM documented in this encounter [facility] 01-29-2024 Note HNO ID: [id number] Author: BERTO VIDES APRN.PAPER CUTTING MACHINE OPERATOR Service: ? 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 CHOLINE ORAL Take by mouth. levothyroxine (SYNTHROID) 150 mcg tablet Take 1 tablet by mouth once daily. PNV no.95/ferrous fum/folic ac ( ORAL) Take by mouth. No current facility-administered medications for this visit. ALLERGIES No Known Allergies Social History Tobacco Use Smoking status: Never Smokeless tobacco: Never Vaping Use Vaping status: Never Used Substance Use Topics Alcohol use: Not Currently Comment: Occasionally Drug use: No UNIVERSAL PROTOCOL / SAFETY CHECKLIST Procedure to be Performed: Incision and Drainage Sign In: A Moment of CARE was completed. Personnel directly involved with the procedure wore the appropriate PPE (Personal Protective Equipment). Patient/Surrogate Stated/Verified: PATIENT VERIFIED(optional for EMERGENT procedures): Patient name, Date of , Relevant allergies, and The intended procedure Time Out Communication: Intended patient and procedure match the source documents. Consent documented and matches the intended procedure. Sign Out: SIGN OUT (optional for EMERGENT procedures): No specimen collected. All instruments, equipment, possible retained foreign bodies accounted for. Post-procedure follow-up management communicated and Plan of Care Visit completed when applicable. Berto Vides APRN.PAPER CUTTING MACHINE OPERATOR PHYSICAL EXAMINATION: PELVIS: External genitalia edematous.Perineal body intact. + 2 cm, fluid filled white soft cyst to the internal left vaginal wall PLAN: After informed consent was obtained, using Betadine for cleansing and 1% LIDOCAINE for anesthetic, some white thin fluid was drained from the cyst from the site of lidocaine injection. The cyst somewhat decreased in size. However, patient requested procedure to be stopped due to dizziness. Return to clinic as needed for pain, increased swelling, or fever. 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 CHOLINE ORAL Take by mouth. levothyroxine (SYNTHROID) 150 mcg tablet Take 1 tablet by mouth once daily. PNV no.95/ferrous fum/folic ac ( ORAL) Take by mouth. No current facility-administered medications for this visit. ALLERGIES No Known Allergies Social History Tobacco Use Smoking status: Never Smokeless tobacco: Never Vaping Use Vaping status: Never Used Substance Use Topics Alcohol use: Not Currently Comment: Occasionally Drug use: No UNIVERSAL PROTOCOL / SAFETY CHECKLIST Procedure to be Performed: Incision and Drainage Sign In: A Moment of CARE was completed. Personnel directly involved with the procedure wore the appropriate PPE (Personal Protective Equipment). Patient/Surrogate Stated/Verified: PATIENT VERIFIED(optional for EMERGENT procedures): Patient name, Date of , Relevant allergies, and The intended procedure Time Out Communication: Intended patient and procedure match the source documents. Consent documented and matches the intended procedure. Sign Out: SIGN OUT (optional for EMERGENT procedures): No specimen collected. All instruments, equipment, possible retained foreign bodies accounted for. Post-procedure follow-up management communicated and Plan of Care Visit completed when applicable. Berto Vides APRN.PAPER CUTTING MACHINE OPERATOR PHYSICAL EXAMINATION: PELVIS: External genitalia edematous.Perineal body intact. + 2 cm, fluid filled white soft cyst to the internal left vaginal wall PLAN: After informed consent was obtained, using Betadine for cleansing and 1% LIDOCAINE for anesthetic, some white thin fluid was drained from the cyst from the site of lidocaine injection. The cyst somewhat decreased in size. However, patient requested procedure to be stopped due to dizziness. Return to clinic as needed for pain, increased swelling, or fever. 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 CHOLINE ORAL Take by mouth. levothyroxine (SYNTHROID) 150 mcg tablet Take 1 tablet by mouth once daily. PNV no.95/ferrous fum/folic ac ( ORAL) Take by mouth. No current facility-administered medications for this visit. ALLERGIES No Known Allergies Social History Tobacco Use Smoking status: Never Smokeless tobacco: Never Vaping Use Vaping status: Never Used Substance Use Topics Alcohol use: Not Currently Comment: Occasionally Drug use: No UNIVERSAL PROTOCOL / SAFETY CHECKLIST Procedure to be Performed: Incision and Drainage Sign In: A Moment of CARE was completed. Personnel directly involved with the procedure wore the appropriate PPE (Personal Protective Equipment). Patient/Surrogate Stated/Verified: PATIENT VERIFIED(optional for EMERGENT procedures): Patient name, Date of , Relevant allergies, and The intended procedure Time Out Communication: Intended patient and procedure match the source documents. Consent documented and matches the intended procedure. Sign Out: SIGN OUT (optional for EMERGENT procedures): No specimen collected. All instruments, equipment, possible retained foreign bodies accounted for. Post-procedure follow-up management communicated and Plan of Care Visit completed when applicable. Berto Vides APRN.CNP PHYSICAL EXAMINATION: PELVIS: External genitalia edematous.Perineal body intact. + 2 cm, fluid filled white soft cyst to the internal left vaginal wall PLAN: After informed consent was obtained, using Betadine for cleansing and 1% LIDOCAINE for anesthetic, some white thin fluid was drained from the cyst from the site of lidocaine injection. The cyst somewhat decreased in size. However, patient requested procedure to be stopped due to dizziness. Return to clinic as needed for pain, increased swelling, or fever. Berto Vides APRN.PAPER CUTTING MACHINE OPERATOR documented in this encounter [facility] 01-29-2024 Miscellaneous Notes EH - S: Odalys is a 28 year old female who presents at 38w0d for a routine visit. Feeling movement. Denies headache, visual changes, chest pain, shortness of breath, vaginal bleeding, leakage of fluid, or dysuria. O: See flow sheet Gen: No apparent distress Abd: Gravid, nontender, S<D The sensitive examination was discussed with the Patient or Patient's Authorized Quality Analyst. As applicable, any other physician, advance practice provider, medical student, or other health professional student that will be observing or involved in the sensitive examination for educational or training purposes was discussed with the Patient or Authorized Quality Analyst. The Patient or Authorized Quality Analyst has agreed to proceed with the sensitive examination. (Sensitive examination includes inspection and/or palpation of the breasts, pelvis, prostate and anorectal regions) ASSESSMENT/PLAN: 1. Encounter for supervision of high risk in third trimester, antepartum - ICD9: V23.9, ICD10: O09.93 (primary diagnosis) - Notes a cyst to left side of vulva - Non tender - Exam reveals a 2 cm, fluid filled soft cyst to the internal left vaginal wall - Does not cause pain with palpation - No surrounding erythema, edema, or signs of infection - Dr. Conklin in to assess and recommends I+D - Verbal consent received from patient - See procedure note, unable to tolerate I+D due to dizziness. Re evaluate at delivery. Precautions reviewed. 2. 38 weeks gestation of - ICD9: V22.2, ICD10: Z3A.38 3. History of herpes genitalis - ICD9: V12.09, ICD10: Z86.19 - Continue suppression therapy 4. Hypothyroidism affecting in third trimester - ICD9: 648.13, 244.9, ICD10: O99.283, E03.9 - Managed by Dr. Espino, continue Synthroid - Repeat thyroid labs today 5. GBS bacteriuria - ICD9: 599.0, 041.02, ICD10: R82.71 - Plan for Penicillin during labor 6. Dizziness - ICD9: 780.4, ICD10: R42 - Cardiology consult previously placed, appt scheduled for July Labor precautions and kick counts reviewed. Pre e precautions reviewed. RTO in 1 week or sooner as needed. Berto Vides APRN.MARIANA documented in this encounter [facility] 01-29-2024 Progress note Formatting of t his note might be different from the original. EH - S: Odalys is a 28 year old female who presents at 38w0d for a routine visit. Feeling movement. Denies headache, visual changes, chest pain, shortness of breath, vaginal bleeding, leakage of fluid, or dysuria. O: See flow sheet Gen: No apparent distress Abd: Gravid, nontender, S The sensitive examination was discussed with the Patient or Patient's Authorized Quality Analyst. As applicable, any other physician, advance practice provider, medical student, or other health professional student that will be observing or involved in the sensitive examination for educational or training purposes was discussed with the Patient or Authorized Quality Analyst. The Patient or Authorized Quality Analyst has agreed to proceed with the sensitive examination. (Sensitive examination includes inspection and/or palpation of the breasts, pelvis, prostate and anorectal regions) ASSESSMENT/PLAN: 1. Encounter for supervision of high risk in third trimester, antepartum - ICD9: V23.9, ICD10: O09.93 (primary diagnosis) - Notes a cyst to left side of vulva - Non tender - Exam reveals a 2 cm, fluid filled soft cyst to the internal left vaginal wall - Does not cause pain with palpation - No surrounding erythema, edema, or signs of infection - Dr. Conklin in to assess and recommends I+D - Verbal consent received from patient - See procedure note, unable to tolerate I+D due to dizziness. Re evaluate at delivery. Precautions reviewed. 2. 38 weeks gestation of - ICD9: V22.2, ICD10: Z3A.38 3. History of herpes genitalis - ICD9: V12.09, ICD10: Z86.19 - Continue suppression therapy 4. Hypothyroidism affecting in third trimester - ICD9: 648.13, 244.9, ICD10: O99.283, E03.9 - Managed by Dr. Espino, continue Synthroid - Repeat thyroid labs today 5. GBS bacteriuria - ICD9: 599.0, 041.02, ICD10: R82.71 - Plan for Penicillin during labor 6. Dizziness - ICD9: 780.4, ICD10: R42 - Cardiology consult previously placed, appt scheduled for July Labor precautions and kick counts reviewed. Pre e precautions reviewed. RTO in 1 week or sooner as needed. Berto Vides APRN.PAPER CUTTING MACHINE OPERATOR [facility] 01-29-2024 Instructions Hortensia Jacobs MA - 01/29/2024 8:41 AM EDT SEQUENTIAL SCREENINGS The [facility] offers sequential screenings for women who are interested in screenings for chromosomal abnormalities and certain defects during a . The sequential screen combines ultrasound and blood tests to determine the risk of chromosomal abnormalities, including Down's Syndrome (Trisomy 21) and Trisomy 18, as well as open neural tube defects including spina bifida. Ultrasound examination is performed between 11 weeks and 13 weeks gestational age. Blood tests are drawn after the ultrasound and again later in the between 15 and 21 weeks gestational age. Please let your physician know if you are interested in this testing. It will require an appointment with our dyno technician. This is not an ultrasound performed by a physician in our office during a routine visit. SIGNS AND SYMPTOMS OF LABOR 1. Contractions every 10 minutes or more often 2. Clear, pink, or brownish fluid (water) leaking from vagina 3. Feeling that baby is pushing down, pressure 4. Low, dull backache 5. Cramps that feel like a period 6. Cramps with or without diarrhea If you notice any of the above symptoms, contact our office at [phone] and ask to speak with a nurse. After hours, you can call doctors registry at [phone] OR call [facility] at [phone] and ask to have the doctor outdoor education teacher paged. If you consider this an emergency, dial 9-1- or go to your nearest emergency department. NEED HELP? Are you dealing with a violent or abusive relationship? Are you a victim of rape or sexual assult? Call [facility] [place] ([facility] 24 hour Crisis Hotline: 590.967.8078 or 681-590-6770. MANUAL Your Guide to a Healthy manual is now on-line. Visit [email or web address] Orestes to download your free copy documented in this encounter [facility] 01-29-2024 Note Patient Outreach (YUNIER TNHEATH) ODALYS MORALES ([id number]) 1995 F Date Time Provider Department 01/29/24 RUTH HARDWICK During your visit today, we recorded the following information about you: Ruth Hardwick MA 01/29/2024 11:09 AM Signed POPULATION HEALTH NAVIGATION OUTREACH Action/FYI Called and spoke with pt and confirmed driller's assistant. Reason for Outreach Medicaid OB/Peds Care Gaps due: N/A Patient Contacted: Spoke to patient/parent/or legal guardian Patient identified by name and : Yes Medicaid OB/Peds actions taken: /Caterer'S Aide added Navigation Signature: Ruth Ackerman MA January 29, 2024 11:09 AM Allergies As of Date: 01/29/2024 (No Known Allergies) Date Reviewed: 01/29/2024 Reviewed by: Berto iVdes APRN.PAPER CUTTING MACHINE OPERATOR - Fully Assessed Reason for Visit: Population Health Navigation Outreach [3910] Cmt: OB/peds Prescriptions as of 01/29/2024 - acyclovir (ZOVIRAX) 400 mg tablet Take 1 tablet by mouth three times a day. - CHOLINE ORAL Take by mouth. - levothyroxine (SYNTHROID) 150 mcg tablet Take 1 tablet by mouth once daily. - PNV no.95/ferrous fum/folic ac ( ORAL) Take by mouth. Problem List As Of Date 01/29/2024 Noted Resolved KELOID, CHELOID SCAR [L91.0] 02/25/2006 ADD (attention deficit disorder) [F98.8] 06/13/2010 Seasonal allergies [J30.2] 07/12/2014 Bilateral pes planus [M21.41, M21.42] 05/29/2015 Family history of thyroid disease in mother [Z8*10/09/2017 08/09/2021 Hypothyroidism affecting in third tri*10/09/2017 History of herpes genitalis [Z86.19] 08/02/2021 Positive GBS test [B95.1] 03/11/2022 08/07/2023 care and examination [Z39.2] 05/14/2022 08/07/2023 Pain of pelvic girdle [R10.2] 05/14/2022 Encounter for supervision of high risk pregnanc*07/03/2023 GBS bacteriuria [R82.71] 07/06/2023 Dizziness [R42] 10/16/2023 H/O dizziness [Z87.898] 01/22/2024 Syncope and collapse [R55] 01/22/2024 Vaginal cyst [N89.8] 01/29/2024 Encounter Status:Closed by RUTH HARDWICK on 01/29/24 [facility] 01-27-2024 Telephone encounter Note Received breast pump RX from [facility]. To SW to sign. Padmini Calles RN [facility] 01-23-2024 Telephone encounter Note 37w1d Patient seen in office for an appointment yesterday. [facility] 01-23-2024 Miscellaneous Notes 37w1d Patient seen in office for an appointment yesterday. documented in this encounter [facility] 01-22-2024 Progress note Formatting of t his note might be different from the original. S: Odalys Morales is a 28 year old female who presents at 37 weeks gestation for a routine visit. Positive movement. Feeling cramping on and off. Yesterday felt that cramping was more frequent but not very painful. Rates pain 4/10. Denies headache, visual changes, chest pain, shortness of breath, vaginal bleeding, leakage of fluid, or dysuria. Patient reporting that she continues to have episodes of dizziness with syncope. She has had several episodes during the . O: See flow sheet Gen: No apparent distress Abd: Gravid, nontender TAUS- confirms vertex position ASSESSMENT/PLAN: 1. Supervision of high risk in third trimester - ICD9: V23.9, ICD10: O09.93 (primary diagnosis) 2. History of herpes genitalis - ICD9: V12.09, ICD10: Z86.19 3. Hypothyroidism affecting in third trimester - ICD9: 648.13, 244.9, ICD10: O99.283, E03.9 4. GBS bacteriuria - ICD9: 599.0, 041.02, ICD10: R82.71 5. 37 weeks gestation of - ICD9: V22.2, ICD10: Z3A.37 6. Dizziness 7. Syncope - Patient almost passing out while laying for TAUS today. Became diaphoretic, pale. Patient moved to side and recovered after several minutes - Consult placed for evaluation by cardiology department - Continues to take Acyclovir PO daily - GBS bacteremia - will need treatment during labor and delivery P: 1) PTL precautions reviewed and when to call 2) RTO 1 week Coni Gonzalez APRN.CNM [facility] 01-22-2024 Miscellaneous Notes S: Odalys Morales is a 28 year old female who presents at 37 weeks gestation for a routine visit. Positive movement. Feeling cramping on and off. Yesterday felt that cramping was more frequent but not very painful. Rates pain 4/10. Denies headache, visual changes, chest pain, shortness of breath, vaginal bleeding, leakage of fluid, or dysuria. Patient reporting that she continues to have episodes of dizziness with syncope. She has had several episodes during the . O: See flow sheet Gen: No apparent distress Abd: Gravid, nontender TAUS- confirms vertex position ASSESSMENT/PLAN: 1. Supervision of high risk in third trimester - ICD9: V23.9, ICD10: O09.93 (primary diagnosis) 2. History of herpes genitalis - ICD9: V12.09, ICD10: Z86.19 3. Hypothyroidism affecting in third trimester - ICD9: 648.13, 244.9, ICD10: O99.283, E03.9 4. GBS bacteriuria - ICD9: 599.0, 041.02, ICD10: R82.71 5. 37 weeks gestation of - ICD9: V22.2, ICD10: Z3A.37 6. Dizziness 7. Syncope - Patient almost passing out while laying for TAUS today. Became diaphoretic, pale. Patient moved to side and recovered after several minutes - Consult placed for evaluation by cardiology department - Continues to take Acyclovir PO daily - GBS bacteremia - will need treatment during labor and delivery P: 1) PTL precautions reviewed and when to call 2) RTO 1 week Coni Gonzalez APRN.CNM documented in this encounter [facility] 01-22-2024 Instructions Coni Gonzalez APRN.CNM - 01/22/2024 10:59 AM EDT Images from the original note were not included. Preparing for labor: Eat dates to promote spontaneous labor! Has an oxytocin-like effect on the body, leading to increased sensitivity of the uterus. Stimulates uterine contractions. Reduces hemorrhage the way oxytocin does. Date fruit contains saturated and unsaturated fatty acids such as oleic, linoleic, and linolenic acids, which are involved in saving and supplying energy and construction of prostaglandins. In addition, serotonin, tannin, and calcium in date fruit contribute to the contraction of smooth muscles of the uterus. Date fruit also has a laxative effect, which stimulates uterine contractions. Six dates per day is the magic number--provided that you re eating smaller deglet noor dates. Deglet noor dates are about 1 inch long. Medjool dates can be up to 2 inches long. If you re eating medjool dates, you only need about 3 dates to reach the 75 grams recommended in the studies. Not sure which type of date you have in your refrigerator? It s probably a deglet noor. How to Eat Dates During Dates are a healthy and delicious snack, so how can you add them to your diet? Add dates during in this awesome oatmeal recipe. Add dates to replace sugar in your favorite recipe or to conor your homemade almond milk. Use dates and nuts to make an easy pie crust in the food mixer. Add soaked dates to homemade nut butter for a sweet treat. Add dates to conor homemade salad dressing. Add dates during easily with these yummy (paleo friendly) bars made from dates. What Is Red Raspberry Lanett Tea? Red raspberry leaf tea comes from the leaves of the red raspberry plant. This herbal tea has been used for centuries to support respiratory, digestive and uterine health, particularly during and childbearing years. While usually known as a female herb, red raspberry leaf tea can also help support the prostate and various stomach ailments in children. How It Can Help and Red raspberry leaf tea can help to make labor faster and reduce complications and interventions during . One study found that women who consumed RRL tea regularly are less likely to go overdue or give prematurely. These women may also be less likely to receive an artificial rupture of their membranes or require a section, forceps, or vacuum than the women in the control group. Red raspberry leaf has many other benefits to , , and too. How Much Red Raspberry Lanett Tea to Drink? With your doctor or data librarian s approval, start with 1 cup of red raspberry leaf tea per day starting in the second trimester. Watch for any uterine cramping or other reactions. If you don t experience any, you can talk to your healthcare provider about increasing to 2 cups per day. Again, watch for any uterine cramping. If you notice any, cut back on your dosage for two weeks and try again. Keep in mind, some moms have irritable uteruses and can only drink red raspberry leaf tea once they reach their due date because of uterine cramping. Is Red Raspberry Lanett Tea the Same as Raspberry Lanett Tea? How About Plain Old Raspberry Tea? Sometimes. You really need to look at the ingredients to be sure. Note that there is no difference between red raspberry leaf and raspberry leaf. iMedia.fm or Recipharm Raspberry Lanett Tea are two good brands. The red raspberry leaf teas that we recommend are 100% red raspberry leaf. Other teas labeled as raspberry are often a blend of rosehips, hibiscus, raspberry leaves, and raspberry flavor. So they may not be as effective. The teas to avoid are raspberry-flavored herbal teas, which may have ingredients like hibiscus, neil hips, apples, elderberries, natural and artificial raspberry flavors. Teas like this don t contain raspberry leaf at all and thus won t offer any of the potential benefits of RRLT outlined in this article. [employer] www.Siine.[employer] I named this 'circuit' after my friend Tashaanju Chambers, who shared and discussed it with me when I was working with a client whose labor seemed to be stalled out and no longer progressing... This circuit is useful to help get the baby lined up, ideally, in the Left Occiput Anterior (IGNACIO) Position, both before labor begins and when some corrections need to be done during labor. Prenatally, this position set can help to rotate a baby. As a natural method of induction, this can help get things going if baby just needed a gentle nudge of position to set things off. To the best of my knowledge, this group of positions will not hurt a baby that is already lined up correctly. - Tracey Jc Before you Begin..... This circuit takes at least 90 minutes to complete so clear your schedule and make mental preparations so you can relax in your environment. The second step requires a lot of pillows so gather them up before beginning Before starting, you should empty your bladder! Have a nice drink nearby, and make sure it has a straw! If you are having contractions, this circuit should bedone through contractions, try not to change positions between steps Step One: Open-knee Chest Stay in this position for 30 minutes, start in cat/cow, then drop your chest as low as you can to the bed or the floor and your bottom as high as you can. Knees should be fairly wide apart, and the angle between the torso/thighs should be wider than 90 degrees. Wiggle around, prop with lots of pillows and use this time to get totally relaxed. This position allows the baby to scoot out of the pelvis a bit and gives them room to rotate, shift their head position, etc. If the person finds it helpful,careful positioning with a rebozo under the belly, with gentle tension from a support person behindcan help maintain this position for the full 30minutes. Step Two: Exaggerated Left Side Lying Roll to your left side, bringing your top leg as high as possible and keeping your bottom leg straight. Roll forward as much as possible,again using a lot of pillows. Sink into the bed and relax some more. If you fall asleep, that's totally okay and you can stay there! If not, stay here for at least another half an hour. Try and get your top right leg up towards your head and get as rolled over onto your belly as much as possible. If you repeat the circuit during labor, try alternating left and right sides. We know the photo the left is actually right side... just flip the image in your head. Step Three: Moving and Lunges Lunge, walk stairs facing sideways, 2 at a time, (have a doctor of medicine downstairs of you!), take a walk outside with one foot on the curb and the other on the street, sit on a ball and hula- anything that's upright and putting your pelvis in open, asymmetrical positions. Spend at least 30 minutes doing this one as well to give your baby a chance to move down. If you are lunging or stair or curb walking, you should lunge/walk/go up stairs in the direction that feels better to you. The rosario with the lunge is that the toes of the higher leg and mom's belly button should be at right angles. Do not lunge over your knee, that closes the pelvis. Tasha Chambers: Circuit Creator - www.[facility] rapidscollective.c tucker Jc, YAAKOV, BDT (CHARLIE), LCCE, FACCE: Supporting Content - www.WhoJamernestoDelfigo Securitymino.[employer] Berto Camacho: Photography - www.gaywShout TV.[employer] [place] CD/CDT (SANTIAGO): Print and Detective Lieutenant - www.[employer] Masterminds [employer] www.Siine.[employer] SEQUENTIAL SCREENINGS The [facility] offers sequential screenings for women who are interested in screenings for chromosomal abnormalities and certain defects during a . The sequential screen combines ultrasound and blood tests to determine the risk of chromosomal abnormalities, including Down's Syndrome (Trisomy 21) and Trisomy 18, as well as open neural tube defects including spina bifida. Ultrasound examination is performed between 11 weeks and 13 weeks gestational age. Blood tests are drawn after the ultrasound and again later in the between 15 and 21 weeks gestational age. Please let your physician know if you are interested in this testing. It will require an appointment with our dyno technician. This is not an ultrasound performed by a physician in our office during a routine visit. SIGNS AND SYMPTOMS OF LABOR 1. Contractions every 10 minutes or more often 2. Clear, pink, or brownish fluid (water) leaking from vagina 3. Feeling that baby is pushing down, pressure 4. Low, dull backache 5. Cramps that feel like a period 6. Cramps with or without diarrhea If you notice any of the above symptoms, contact our office at [phone] and ask to speak with a nurse. After hours, you can call doctors registry at [phone] OR call [facility] at [phone] and ask to have the doctor outdoor education teacher paged. If you consider this an emergency, dial or go to your nearest emergency department. NEED HELP? Are you dealing with a violent or abusive relationship? Are you a victim of rape or sexual assult? Call [facility] ([place]) 24 hour Crisis Hotline: 104.222.2989 or 986-051-9065. MANUAL Your Guide to a Healthy manual is now on-line. Visit [email or web address] Orestes to download your free copy documented in this encounter [facility] 01-15-2024 Note HNO ID: [id number] Author: WESTLEY SIERRA MD Service: ? Author Type: Physician Type: Progress Notes Filed: 01/15/2024 15:40 Note Text: NST SUMMARY PROVIDER ASSESSMENT AND INTERPRETATION Odalys Morales is a 28 year old female, , who is at 36w0d with an JADON of 02/12/2024, by Last Menstrual Period dating method. Indications for NST: Decreased Movement Baseline: 130 Variability: Moderate Accelerations: Present 15 X 15 Decelerations: None Contractions: TOCO: None Interpretation: Reactive SIGNATURE: Westley Sierra DO [facility] 01-15-2024 History of Presen t illness Narrative NST SUMMARY PROVIDER ASSESSMENT AND INTERPRETATION Odalys Morales is a 28 year old female, , who is at 36w0d with an JADON of 02/12/2024, by Last Menstrual Period dating method. Indications for NST: Decreased Movement Baseline: 130 Variability: Moderate Accelerations: Present 15 X 15 Decelerations: None Contractions: TOCO: None Interpretation: Reactive SIGNATURE: Westley Sierra DO documented in this encounter [facility] 01-15-2024 Progress note Formatting of t his note might be different from the original. SW- Lower pelvic cramping and diarrhea. No vb, lof. DFM today but is feeling movement PE: Gen- NAD, well appearing Abd- Soft, gravid, NT, S=D Cvx 0.5/t/h See flowsheet A/p 36 wk gestation - Diarrhea and cramping: No fevers, chills, severe pain. Recommend fluid hydration and bland diet - No evidence of PTL - DFM: NST today and reviewed reasons to call. Feeling movement throughout the day - GBS bacteruria: Discussed will need PCN prophylaxis. Patient denies allergy - History herpes: Start Acyclovir and Rx sent in - RTO 1 wk Westley Sierra DO [facility] 01-15-2024 Miscellaneous Notes SW- Lower pelvic cramping and diarrhea. No vb, lof. DFM today but is feeling movement PE: Gen- NAD, well appearing Abd- Soft, gravid, NT, S=D Cvx 0.5/t/h See flowsheet A/p 36 wk gestation - Diarrhea and cramping: No fevers, chills, severe pain. Recommend fluid hydration and bland diet - No evidence of PTL - DFM: NST today and reviewed reasons to call. Feeling movement throughout the day - GBS bacteruria: Discussed will need PCN prophylaxis. Patient denies allergy - History herpes: Start Acyclovir and Rx sent in - RTO 1 wk Westley Sierra DO documented in this encounter [facility] 01-15-2024 Instructions Ruth Perry MA - 01/15/2024 2:29 PM EDT SEQUENTIAL SCREENINGS The [facility] offers sequential screenings for women who are interested in screenings for chromosomal abnormalities and certain defects during a . The sequential screen combines ultrasound and blood tests to determine the risk of chromosomal abnormalities, including Down's Syndrome (Trisomy 21) and Trisomy 18, as well as open neural tube defects including spina bifida. Ultrasound examination is performed between 11 weeks and 13 weeks gestational age. Blood tests are drawn after the ultrasound and again later in the between 15 and 21 weeks gestational age. Please let your physician know if you are interested in this testing. It will require an appointment with our dyno technician. This is not an ultrasound performed by a physician in our office during a routine visit. SIGNS AND SYMPTOMS OF LABOR 1. Contractions every 10 minutes or more often 2. Clear, pink, or brownish fluid (water) leaking from vagina 3. Feeling that baby is pushing down, pressure 4. Low, dull backache 5. Cramps that feel like a period 6. Cramps with or without diarrhea If you notice any of the above symptoms, contact our office at [phone] and ask to speak with a nurse. After hours, you can call doctors registry at [phone] OR call [facility] at [phone] and ask to have the doctor outdoor education teacher paged. If you consider this an emergency, dial 7-7-3 or go to your nearest emergency department. NEED HELP? Are you dealing with a violent or abusive relationship? Are you a victim of rape or sexual assult? Call [facility] ([place]) 24 hour Crisis Hotline: 480.822.9837 or 122-840-2490. MANUAL Your Guide to a Healthy manual is now on-line. Visit [email or web address] Orestes to download your free copy documented in this encounter [facility] 01-08-2024 Progress note Formatting of t his note might be different from the original. SW- No ctx, vb, lof. Good FM PE: Gen- Nad, well appearing Abd- Soft, gravid, NT, S=D See flowsheet A/p 35 wk gestation - Reviewed growth US - RTO 1 wk for GBS Westley DO Rigo [facility] 01-08-2024 Miscellaneous Notes SW- No ctx, vb, lof. Good FM PE: Gen- Nad, well appearing Abd- Soft, gravid, NT, S=D See flowsheet A/p 35 wk gestation - Reviewed growth US - RTO 1 wk for GBS Westley DO [place] documented in this encounter [facility] 01-08-2024 Instructions Ruth Perry MA - 01/08/2024 10:36 AM EDT SEQUENTIAL SCREENINGS The [facility] offers sequential screenings for women who are interested in screenings for chromosomal abnormalities and certain defects during a . The sequential screen combines ultrasound and blood tests to determine the risk of chromosomal abnormalities, including Down's Syndrome (Trisomy 21) and Trisomy 18, as well as open neural tube defects including spina bifida. Ultrasound examination is performed between 11 weeks and 13 weeks gestational age. Blood tests are drawn after the ultrasound and again later in the between 15 and 21 weeks gestational age. Please let your physician know if you are interested in this testing. It will require an appointment with our dyno technician. This is not an ultrasound performed by a physician in our office during a routine visit. SIGNS AND SYMPTOMS OF LABOR 1. Contractions every 10 minutes or more often 2. Clear, pink, or brownish fluid (water) leaking from vagina 3. Feeling that baby is pushing down, pressure 4. Low, dull backache 5. Cramps that feel like a period 6. Cramps with or without diarrhea If you notice any of the above symptoms, contact our office at [phone] and ask to speak with a nurse. After hours, you can call doctors registry at [phone] OR call [facility] at [phone] and ask to have the doctor outdoor education teacher paged. If you consider this an emergency, dial 9-1-1 or go to your nearest emergency department. NEED HELP? Are you dealing with a violent or abusive relationship? Are you a victim of rape or sexual assult? Call [facility] ([place]) 24 hour Crisis Hotline: 639.165.5178 or 470-616-1669. MANUAL Your Guide to a Healthy manual is now on-line. Visit [email or web address] Orestes to download your free copy documented in this encounter [facility] 01-06-2024 Note Indication Evaluation of growth Hypothyroidism, Discrepancy between uterine size and clinical dates Impression REMOTE READ - Single, live, intrauterine . - The biometry is consistent with the assigned gestational dating. - The EFW is 2320 g, at the 26%. AC is at the 45%. - The amniotic fluid volume is mildly increased by MVP of 8.4 cm with a normal EDD of 22.4 cm. - The placenta is anterior, fundal. - No malformations visualized on a limited survey as detailed below. Recommendations Growth in four weeks Maternal Assessment Height 165 cm Height (ft) 5 ft Height (in) 5 in Physical Exam Initial weight (lb) 160 lb Initial BMI 26.63 kg/m Maternal assessment other: 2 Para 1 Method Transabdominal ultrasound examination. View: Suboptimal view: limited by late gestational age Choudhury . Number of fetuses: 1 Dating LMP on: 05/08/2023 GA by LMP 34 w + 5 d JADON by LMP: 02/12/2024 GA by prior assessment 34 w + 5 d JADON by prior assessment: 02/12/2024 Ultrasound examination on: 01/06/2024 GA by U/S based upon: AC, BPD, Femur, HC GA by U/S 34 w + 1 d JADON by U/S: 02/16/2024 Assigned: based on stated JADON, selected on 09/25/2023 Assigned GA 34 w + 5 d Assigned JADON: 02/12/2024 General Evaluation Cardiac activity present. FHR 128 bpm. movements: present. Presentation: cephalic Placenta: Placental site: anterior, fundal Umbilical cord: Cord vessels: 3 vessel cord Amniotic fluid: Amount of AF: mild polyhydramnios. MVP 8.4 cm. EDD 22.4 cm. Q1 4.7 cm, Q2 8.4 cm, Q3 4.0 cm, Q4 5.3 cm Growth Overview Exam date GA BPD (mm) HC (mm) AC (mm) FL (mm) HL (mm) EFW (g) 09/25/2023 20w 0d 47.8 69% 173.1 45% 143.1 33% 30.1 38% 29.5 42% 297 22% 01/06/2024 34w 5d 87.7 71% 316.3 48% 304.1 45% 62.7 11% 2320 26% Biometry Standard BPD 87.7 mm 35w 3d 71% Hadlock OFD 110.0 mm 33w 0d 35% Nicolaides HC 316.3 mm 34w 4d 48% Too AC 304.1 mm 34w 3d 45% Hadlock Femur 62.7 mm 32w 2d 11% Too EFW 2,320 g 33w 5d 26% Hadlock EFW (lb) 5 lb EFW (oz) 2 oz EFW by: Hadlock (HC-AC-FL) Extended Social Work Instructor 7.2 mm Extremities / Bony Struc FL / HC 0.20 Other Structures FHR 128 bpm Anatomy Lateral ventricles: normal Cavum septi pellucidi: normal Cerebellum: normal Cisterna magna: normal 4-chamber view: suboptimal RVOT view: normal LVOT view: suboptimal 3-vessel view: normal Heart / Thorax Situs: situs solitus (normal) Diaphragm: normal Stomach: normal Kidneys: normal Bladder: normal Gender: Unspecified Wants to know sex: no Performed By: Christine Lei RDMS, RVT Read By: Jessica Peñaloza M.D. [facility] 12-23-2023 Telephone encounter Note PSS calling to schedule patient. Azra Iraheta RN [facility] 12-23-2023 Miscellaneous Notes PSS calling to schedule patient. Azra Iraheta RN Can we please see if [facility] has any? PT refused US due to no available US in [place]. documented in this encounter [facility] 12-23-2023 Telephone encounter Note Can we please see if [facility] has any? [facility] 12-23-2023 Telephone encounter Note PT refused US due to no available US in [place]. [facility] 12-23-2023 Telephone encounter Note PT refused US do to no available US in [place]. [facility] 12-23-2023 Miscellaneous Notes PT refused US do to no available US in [place]. documented in this encounter [facility] 12-23-2023 Progress note Formatting of t his note might be different from the original. AMOS-S: Odalys Baker Bridgette is a 27 year old female who presents at 32w5d with JADON:02/12/2024, by Last Menstrual Period for a routine visit. Denies headache, visual changes, chest pain, shortness of breath, vaginal bleeding, leakage of fluid, or dysuria. Feeling well, no complaints. O: See flow sheet Gen: No apparent distress Abd: Gravid, nontender S>D, 25 lb TWG ASSESSMENT/PLAN: 1. Supervision of high risk in third trimester -PNV 2. 32 weeks gestation of 3. Hypothyroidism affecting in second trimester -Thyroid studies today -Continue sythroid 150mcg PO once daily 4. GBS bacteriuria -Prophylaxis during labor 5. Size date Discrepancy -Growth US ordered -PTL precautions reviewed and when to call -RTO in 2 weeks Jacinta Merritt APRN.CNM [facility] 12-23-2023 Miscellaneous Notes AMOS-S: Odalys Morales is a 27 year old female who presents at 32w5d with JADON:02/12/2024, by Last Menstrual Period for a routine visit. Denies headache, visual changes, chest pain, shortness of breath, vaginal bleeding, leakage of fluid, or dysuria. Feeling well, no complaints. O: See flow sheet Gen: No apparent distress Abd: Gravid, nontender S>D, 25 lb TWG ASSESSMENT/PLAN: 1. Supervision of high risk in third trimester -PNV 2. 32 weeks gestation of 3. Hypothyroidism affecting in second trimester -Thyroid studies today -Continue sythroid 150mcg PO once daily 4. GBS bacteriuria -Prophylaxis during labor 5. Size date Discrepancy -Growth US ordered -PTL precautions reviewed and when to call -RTO in 2 weeks Jacinta Merritt APRN.CNM documented in this encounter [facility] 12-23-2023 Instructions Nadine Boyer LPN - 12/23/2023 10:57 AM EDT SEQUENTIAL SCREENINGS The [facility] offers sequential screenings for women who are interested in screenings for chromosomal abnormalities and certain defects during a . The sequential screen combines ultrasound and blood tests to determine the risk of chromosomal abnormalities, including Down's Syndrome (Trisomy 21) and Trisomy 18, as well as open neural tube defects including spina bifida. Ultrasound examination is performed between 11 weeks and 13 weeks gestational age. Blood tests are drawn after the ultrasound and again later in the between 15 and 21 weeks gestational age. Please let your physician know if you are interested in this testing. It will require an appointment with our dyno technician. This is not an ultrasound performed by a physician in our office during a routine visit. SIGNS AND SYMPTOMS OF LABOR 1. Contractions every 10 minutes or more often 2. Clear, pink, or brownish fluid (water) leaking from vagina 3. Feeling that baby is pushing down, pressure 4. Low, dull backache 5. Cramps that feel like a period 6. Cramps with or without diarrhea If you notice any of the above symptoms, contact our office at [phone] and ask to speak with a nurse. After hours, you can call doctors registry at [phone] OR call [facility] at [phone] and ask to have the doctor outdoor education teacher paged. If you consider this an emergency, dial 3-9-5 or go to your nearest emergency department. NEED HELP? Are you dealing with a violent or abusive relationship? Are you a victim of rape or sexual assult? Call [facility] ([place]) 24 hour Crisis Hotline: 601.702.8383 or 776-584-6616. MANUAL Your Guide to a Healthy manual is now on-line. Visit [email or web address] nancyGuide to download your free copy documented in this encounter [facility] 12-11-2023 Progress note Formatting of t his note might be different from the original. SW- No ANDREWS, ctx, vb, lof. Good FM. Had an episode of RUQ pain recently but the pain has since resolved. The pain was after eating cereal. Pain feels similar to when she had gallstone that she passed. Reports never had follow up after the ER visit for gallstone PE: Gen- NAD, well appearing Abd- Soft, gravid, NT See flowsheet A/p 31 wk gestation - RUQ pain: Discussed to call with another episode of pain and/or fevers, chills, N/V. Discussed RUQ US and referral is has pain again - RTO 2 wks Westley Sierra DO [facility] Work Phone: 12-11-2023 Miscellaneous Notes SW- No ANDREWS, ctx, vb, lof. Good FM. Had an episode of RUQ pain recently but the pain has since resolved. The pain was after eating cereal. Pain feels similar to when she had gallstone that she passed. Reports never had follow up after the ER visit for gallstone PE: Gen- NAD, well appearing Abd- Soft, gravid, NT See flowsheet A/p 31 wk gestation - RUQ pain: Discussed to call with another episode of pain and/or fevers, chills, N/V. Discussed RUQ US and referral is has pain again - RTO 2 wks Westley Sierra DO documented in this encounter [facility] 12-11-2023 Instructions Ruth Perry MA - 12/11/2023 4:21 PM EDT SEQUENTIAL SCREENINGS The [facility] offers sequential screenings for women who are interested in screenings for chromosomal abnormalities and certain defects during a . The sequential screen combines ultrasound and blood tests to determine the risk of chromosomal abnormalities, including Down's Syndrome (Trisomy 21) and Trisomy 18, as well as open neural tube defects including spina bifida. Ultrasound examination is performed between 11 weeks and 13 weeks gestational age. Blood tests are drawn after the ultrasound and again later in the between 15 and 21 weeks gestational age. Please let your physician know if you are interested in this testing. It will require an appointment with our dyno technician. This is not an ultrasound performed by a physician in our office during a routine visit. SIGNS AND SYMPTOMS OF LABOR 1. Contractions every 10 minutes or more often 2. Clear, pink, or brownish fluid (water) leaking from vagina 3. Feeling that baby is pushing down, pressure 4. Low, dull backache 5. Cramps that feel like a period 6. Cramps with or without diarrhea If you notice any of the above symptoms, contact our office at [phone] and ask to speak with a nurse. After hours, you can call doctors registry at [phone] OR call [facility] at [phone] and ask to have the doctor outdoor education teacher paged. If you consider this an emergency, dial 9-1-3 or go to your nearest emergency department. NEED HELP? Are you dealing with a violent or abusive relationship? Are you a victim of rape or sexual assult? Call [facility] ([place]) 24 hour Crisis Hotline: 637.169.5135 or 217-298-3479. MANUAL Your Guide to a Healthy manual is now on-line. Visit [email or web address] Orestes to download your free copy documented in this encounter [facility] 11-27-2023 Progress note Formatting of t his note might be different from the original. S: Odalys Morales is a 27 year old female who presents at 29 weeks gestation for a routine visit. Positive movement. Denies any cramps. Denies headache, visual changes, chest pain, shortness of breath, vaginal bleeding, leakage of fluid, or dysuria. Feeling well, no complaints. O: See flow sheet Gen: No apparent distress Abd: Gravid, non tender S>D, measuring 2 weeks ahead ASSESSMENT/PLAN: 1. Supervision of high risk in second trimester - ICD9: V23.9, ICD10: O09.92 (primary diagnosis) 2. 29 weeks gestation of - ICD9: V22.2, ICD10: Z3A.29 3. Hypothyroidism affecting - Continue Synthroid 150 mcg PO daily- managed by Dr. Espino. - Reviewed labs from last visit with patient - S>D, measuring 2 weeks ahead- watch growth - PTL precautions reviewed and when to call office - RTO 2 weeks Coni Gonzalez APRN.CNM [facility] 11-27-2023 Miscellaneous Notes S: Odalys Morales is a 27 year old female who presents at 29 weeks gestation for a routine visit. Positive movement. Denies any cramps. Denies headache, visual changes, chest pain, shortness of breath, vaginal bleeding, leakage of fluid, or dysuria. Feeling well, no complaints. O: See flow sheet Gen: No apparent distress Abd: Gravid, non tender S>D, measuring 2 weeks ahead ASSESSMENT/PLAN: 1. Supervision of high risk in second trimester - ICD9: V23.9, ICD10: O09.92 (primary diagnosis) 2. 29 weeks gestation of - ICD9: V22.2, ICD10: Z3A.29 3. Hypothyroidism affecting - Continue Synthroid 150 mcg PO daily- managed by Dr. Espino. - Reviewed labs from last visit with patient - S>D, measuring 2 weeks ahead- watch growth - PTL precautions reviewed and when to call office - RTO 2 weeks Coni Gonzalez APRN.CNM documented in this encounter [facility] 11-27-2023 Shannan Mccall LPN - 11/27/2023 4:30 PM EDT SEQUENTIAL SCREENINGS The [facility] offers sequential screenings for women who are interested in screenings for chromosomal abnormalities and certain defects during a . The sequential screen combines ultrasound and blood tests to determine the risk of chromosomal abnormalities, including Down's Syndrome (Trisomy 21) and Trisomy 18, as well as open neural tube defects including spina bifida. Ultrasound examination is performed between 11 weeks and 13 weeks gestational age. Blood tests are drawn after the ultrasound and again later in the between 15 and 21 weeks gestational age. Please let your physician know if you are interested in this testing. It will require an appointment with our dyno technician. This is not an ultrasound performed by a physician in our office during a routine visit. SIGNS AND SYMPTOMS OF LABOR 1. Contractions every 10 minutes or more often 2. Clear, pink, or brownish fluid (water) leaking from vagina 3. Feeling that baby is pushing down, pressure 4. Low, dull backache 5. Cramps that feel like a period 6. Cramps with or without diarrhea If you notice any of the above symptoms, contact our office at [phone] and ask to speak with a nurse. After hours, you can call [facility] at [phone] OR call [facility] at [phone] and ask to have the doctor outdoor education teacher paged. If you consider this an emergency, dial 9-1-3 or go to your nearest emergency department. NEED HELP? Are you dealing with a violent or abusive relationship? Are you a victim of rape or sexual assult? Call [facility] ([place]) 24 hour Crisis Hotline: 239.845.5993 or 916-266-7267. MANUAL Your Guide to a Healthy manual is now on-line. Visit [email or web address] Orestes to download your free copy documented in this encounter [facility] 11-26-2023 Telephone encounter Note Sent the following via [employer]: Justyn Morrow- your thyroid studies are at goal for - continue levothyroxine 150 mcg/day as you are doing for the duration of your . After delivery - reduce levothyroxine 137 mcg/day. See me for post f/u Apr 26 as scheduled with blood work prior. Thanks and GOOD LUCK with the rest of your ! Dr Espino [facility] 11-26-2023 Miscellaneous Notes Sent the following via [employer]: Justyn Morrow- your thyroid studies are at goal for - continue levothyroxine 150 mcg/day as you are doing for the duration of your . After delivery - reduce levothyroxine 137 mcg/day. See me for post f/u Apr 26 as scheduled with blood work prior. Thanks and GOOD LUCK with the rest of your ! Dr Espino documented in this encounter [facility] 11-13-2023 Progress note Formatting of t his note might be different from the original. S: Odalys Morales is a 27 year old female who presents at 02/12/2024, by Last Menstrual Period for a routine visit. Denies headache, visual changes, chest pain, shortness of breath, vaginal bleeding, leakage of fluid, or dysuria. Feeling well, no complaints. Good movement, No contractions O: See flow sheet Gen: No apparent distress Abd: Gravid, nontender LARC declined TDAP today GCT today ASSESSMENT/PLAN: 1. 27 weeks gestation of - ICD9: V22.2, ICD10: Z3A.27 (primary diagnosis) PTL precautions 2. Supervision of high risk in second trimester - ICD9: V23.9, ICD10: O09.92 3. Need for vaccination - ICD9: V05.9, ICD10: Z23 TDAP Padmini Little MD [facility] 11-13-2023 Miscellaneous Notes S: Odalys Morales is a 27 year old female who presents at 02/12/2024, by Last Menstrual Period for a routine visit. Denies headache, visual changes, chest pain, shortness of breath, vaginal bleeding, leakage of fluid, or dysuria. Feeling well, no complaints. Good movement, No contractions O: See flow sheet Gen: No apparent distress Abd: Gravid, nontender LARC declined TDAP today GCT today ASSESSMENT/PLAN: 1. 27 weeks gestation of - ICD9: V22.2, ICD10: Z3A.27 (primary diagnosis) PTL precautions 2. Supervision of high risk in second trimester - ICD9: V23.9, ICD10: O09.92 3. Need for vaccination - ICD9: V05.9, ICD10: Z23 TDAP Padmini Little MD documented in this encounter [facility] 11-13-2023 Note HNO ID: [id number] Author: RUTH PERRY MA Service: ? Author Type: Automotive Welder Type: Progress Notes Filed: 11/13/2023 21:50 Note Text: Patient identified by name and date of . Odalys Morales presents today for a vaccination of Tdap. Patient denies an allergy to latex: yes Patient denies a severe (life-threatening) allergy to a previous dose of Tdap, DTP, DTaP, DT or Td vaccine. Yes Patient denies history of epilepsy or neurological problems: Yes Patient is afebrile and denies being moderately or severely ill: Yes Patient denies history of Guillain-Madera Syndrome (a severe paralytic illness): Yes Tdap Adacel injection was given without incident. See immunizations for details of immunizations administered today. VIS sheet provided: Yes Provider Padmini Little MD was present in office at time of injection. Ruth Perry MA [facility] 11-13-2023 History of Presen t illness Narrative Patient identified by name and date of . Odalys Morales presents today for a vaccination of Tdap. Patient denies an allergy to latex: yes Patient denies a severe (life-threatening) allergy to a previous dose of Tdap, DTP, DTaP, DT or Td vaccine. Yes Patient denies history of epilepsy or neurological problems: Yes Patient is afebrile and denies being moderately or severely ill: Yes Patient denies history of Guillain-Madera Syndrome (a severe paralytic illness): Yes Tdap Adacel injection was given without incident. See immunizations for details of immunizations administered today. VIS sheet provided: Yes Provider Padmini Little MD was present in office at time of injection. Ruth Perry MA documented in this encounter [facility] 11-13-2023 Instructions Ruth Perry MA - 11/13/2023 3:10 PM EDT SEQUENTIAL SCREENINGS The [facility] offers sequential screenings for women who are interested in screenings for chromosomal abnormalities and certain defects during a . The sequential screen combines ultrasound and blood tests to determine the risk of chromosomal abnormalities, including Down's Syndrome (Trisomy 21) and Trisomy 18, as well as open neural tube defects including spina bifida. Ultrasound examination is performed between 11 weeks and 13 weeks gestational age. Blood tests are drawn after the ultrasound and again later in the between 15 and 21 weeks gestational age. Please let your physician know if you are interested in this testing. It will require an appointment with our dyno technician. This is not an ultrasound performed by a physician in our office during a routine visit. SIGNS AND SYMPTOMS OF LABOR 1. Contractions every 10 minutes or more often 2. Clear, pink, or brownish fluid (water) leaking from vagina 3. Feeling that baby is pushing down, pressure 4. Low, dull backache 5. Cramps that feel like a period 6. Cramps with or without diarrhea If you notice any of the above symptoms, contact our office at [phone] and ask to speak with a nurse. After hours, you can call doctors registry at [phone] OR call [facility] at [phone] and ask to have the doctor outdoor education teacher paged. If you consider this an emergency, dial 2--8 or go to your nearest emergency department. NEED HELP? Are you dealing with a violent or abusive relationship? Are you a victim of rape or sexual assult? Call [facility] ([place]) 24 hour Crisis Hotline: 602.424.4188 or 953-922-5170. MANUAL Your Guide to a Healthy manual is now on-line. Visit [email or web address] [email or web address] to download your free copy documented in this encounter [facility] 11-04-2023 Telephone encounter Note 25w5d Spoke with patient. The menstrual like cramping started yesterday. This morning the cramping last for an hour and a half. Pain rate of 4. Having low back pain, neck pain, and pelvic pressure. Denies urinary s/s, LOF, or vaginal bleeding. Good FM. Encouraged to push fluids. Called KJ at L&D to discuss. As long as patient is having less than 6 contractions in an hour, ok to continue to monitor. Advised to rest tonight and push fluids. Offered her a visit with AT tomorrow. Patient declined. Advised that she is more than welcome to go to L&D this evening if she has increased pain or frequency. Patient voiced agreement. Padmini Calles RN [facility] 11-04-2023 Miscellaneous Notes 25w5d Spoke with patient. The menstrual like cramping started yesterday. This morning the cramping last for an hour and a half. Pain rate of 4. Having low back pain, neck pain, and pelvic pressure. Denies urinary s/s, LOF, or vaginal bleeding. Good FM. Encouraged to push fluids. Called KJ at L&D to discuss. As long as patient is having less than 6 contractions in an hour, ok to continue to monitor. Advised to rest tonight and push fluids. Offered her a visit with AT tomorrow. Patient declined. Advised that she is more than welcome to go to L&D this evening if she has increased pain or frequency. Patient voiced agreement. Padmini Calles RN documented in this encounter [facility] 10-30-2023 Note HNO ID: [id number] Author: ?, ?, ? Service: ? Author Type: ? Type: Progress Notes Filed: 10/30/2023 09:45 Note Text: Spoke with patient, scheduled 04/29/2023 @ 11:00 (virtual appointment) Patient advised to have blood work done prior to appointment. [facility] 10-30-2023 History of Presen t illness Narrative Spoke with patient, scheduled 04/29/2023 @ 11:00 (virtual appointment) Patient advised to have blood work done prior to appointment. Reason for Consultation: f/u- autoimmune hypothyroidsim complicating Referring Physician: Dr Clotilde Conklin My final recommendations will be communicated back to the requesting physician by way of shared Medical record or letter via [place] mail. This Team Access Model visit is a virtual encounter. It required patient-provider interaction for the medical decision making as documented below. I have communicated my name and active licensure. The patient's identity and physical location were verified at the time of this visit. Either the patient or their legal training representative has been informed of the risks and benefits of -- and alternatives to -- treatment through a remote evaluation and consents to proceed with the evaluation remotely. HISTORY OF PRESENT ILLNESS; Ms. Morales is a 27 year old F at 25 weeks presenting as a f/u patient to me regarding autoimmune hypothyroidsim complicating . Her first visit here was 08/14/23. She was initially diagnosed with a thyroid disorder 2017. Family hx of hypothyroidsim in mother (but not off of levothyroxine). Prior to this she was taking levothyroxine 137 mcg/day. TSH was elevated early in the and I increased her dose to 150 mcg/day on 07/09/23 (current regimen) She is taking appropriately. She went for blood work prior to this visit, here to review these results. Severity, modifying factors, context and associated signs and symptoms are as follows: Thyroid pain: no Mass effect: None Energy: improving Sleep: Normal sleep pattern Temperature Intolerance: Cold Intolerance- long standing. TERMITE TREATER: gravid at 25 weeks. GI: denies morning sickness (improved) Weight: +15 lbs weight gain Eyes: Normal Memory: Good Diaphoresis: Not significant Skin: dry Neuro: + headaches , denies tremor. Radiological imaging with contrast dyes within the last 3 months? no History of radiation exposure to head or neck area? no Saw OB on 10/15- S=D. Last u/s was 09/24- EFW 22nd centile, AC 33rd, EDD NL- having a boy! She has no acute complaints/concerns at this time- feels well overall. 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 PMH - PAST MEDICAL HISTORY OF 05/11/2009 Color Vision - Pass Seasonal allergies 07/12/2014 PAST SURGICAL HISTORY Procedure Laterality Date EXTRACTION, ERUPTED TOOTH OR EXPOSED ROOT (ELEVATION AND/OR FORCEPS REMOVAL) 09/2015 Mobile teeth TONSILLECTOMY & ADENOIDECTOMY <AGE 12 FAMILY HISTORY Problem Relation Age of Onset Thyroid Mother hypothyroidism other (Anemia) Mother As a child Heart Father other (anemia) Brother Arthritis Maternal Grandmother No Known Problems Maternal Grandfather Cervical Cancer Paternal Grandmother Skin Cancer Paternal Grandmother Cancer Paternal Grandfather 64 spinal Social History Tobacco Use Smoking status: Never Smokeless tobacco: Never Vaping Use Vaping Use: Never used Substance Use Topics Alcohol use: Not Currently Comment: Occasionally Drug use: No Current Outpatient Medications Medication Sig Dispense Refill levothyroxine (SYNTHROID) 150 mcg tablet Take 1 tablet by mouth once daily. 30 tablet 11 PNV no.95/ferrous fum/folic ac ( ORAL) Take by mouth. No current facility-administered medications for this visit. Allergies As of Date: 10/30/2023 (No Known Allergies) Fully Assessed 10/16/2023 REVIEW OF SYSTEMS: General: no fever, chills - 15 lbs weight gain so far in the . Cardiovascular: denies chest pain, heart palpitations or orthopnea Resp: denies wheezing, productive cough or exertional dyspnea PHYSICAL EXAM: No vitals as this was a virtual visit. GENERAL: Alert, no distress, cooperative SKIN: Skin color, texture, turgor normal. No rashes or lesions. HEAD/SINUSES: No significant findings EYES: sclera non-icteric, EOMS intact, no lid lag or stare. ABDOMEN: gravid at 25 weeks. EXTREMITIES: Normal exam of the extremities NEURO: AAO x 3, no focal deficits. The remainder of the physical exam is noncontributory. DATA: Latest Ref Rng 11/21/2022 02/22/2023 07/03/2023 08/07/2023 09/18/2023 TSH 0.270 - 4.200 mIU/L 0.026 (L) 0.311 11.200 (H) 0.144 (L) 0.396 T4 5.5 - 10.2 ug/dL 13.6 (H) 12.0 (H) THYROID PEROXIDASE ANTIBODY Date Value Ref Range Status 10/09/2017 1,396.1 (H) <5.6 IU/mL Final RADIOLOGY: US Thyroid was not done. ASSESSMENT: Ms. Morales is a 27 year old F at 25 weeks presenting as a new patient to me regarding autoimmune hypothyroidsim complicating . RECOMMENDATIONS: Untreated hypothyroidism in can be associated with adverse outcomes of mother and offspring such as neurological impairment in the developing fetus, delivery/low weight, gestational hypertension, preeclampsia, post hemorrhage, and placental abruption. TSH greater than 2.5 and antibody positivity has been associated with early miscarriage as well, even with normal free hormone levels. Subclinical hypothyroidism has been associated these adverse sequelae, however less frequently than with overt hypothyroidism. Also, treatment with T4 has been proven to reduce the risks of adverse obstetrical outcomes, and is therefore recommended by endocrine society 1) for now- continue levothyroxine 150 mcg/day 2) repeat blood work in 2-3 weeks- I will report these results to you when available (if you don't hear from me within 1-2 days, message me on mychart) 3) after delivery - reduce levothyroxine 137 mcg/day. See me for post f/u Apr 26- with blood work prior (virtual visit ok) for f/u- my office will reach out to schedule this- I spent a total of 30 minutes on the date of the service which included preparing to see the patient, [id number] patient care, completing clinical documentation, obtaining and/or reviewing separately obtained history, performing a medically appropriate examination, counseling and educating the patient/family/caregiver, and ordering medications, tests, or procedures. Yan Espino DO documented in this encounter [facility] 10-30-2023 Note HNO ID: [id number] Author: YAN ESPINO DO Service: ? Author Type: Physician Type: Progress Notes Filed: 10/30/2023 08:26 Note Text: Reason for Consultation: f/u- autoimmune hypothyroidsim complicating Referring Physician: Dr Clotilde Conklin My final recommendations will be communicated back to the requesting physician by way of shared Medical record or letter via [place] mail. This Team Access Model visit is a virtual encounter. It required patient-provider interaction for the medical decision making as documented below. I have communicated my name and active licensure. The patient's identity and physical location were verified at the time of this visit. Either the patient or their legal training representative has been informed of the risks and benefits of -- and alternatives to -- treatment through a remote evaluation and consents to proceed with the evaluation remotely. HISTORY OF PRESENT ILLNESS; Ms. Morales is a 27 year old F at 25 weeks presenting as a f/u patient to me regarding autoimmune hypothyroidsim complicating . Her first visit here was 08/14/23. She was initially diagnosed with a thyroid disorder 2018. Family hx of hypothyroidsim in mother (but not off of levothyroxine). Prior to this she was taking levothyroxine 137 mcg/day. TSH was elevated early in the and I increased her dose to 150 mcg/day on 07/09/23 (current regimen) She is taking appropriately. She went for blood work prior to this visit, here to review these results. Severity, modifying factors, context and associated signs and symptoms are as follows: Thyroid pain: no Mass effect: None Energy: improving Sleep: Normal sleep pattern Temperature Intolerance: Cold Intolerance- long standing. TERMITE TREATER: gravid at 25 weeks. GI: denies morning sickness (improved) Weight: +15 lbs weight gain Eyes: Normal Memory: Good Diaphoresis: Not significant Skin: dry Neuro: + headaches , denies tremor. Radiological imaging with contrast dyes within the last 3 months? no History of radiation exposure to head or neck area? no Saw OB on 10/15- S=D. Last u/s was 09/24- EFW 22nd centile, AC 33rd, EDD NL- having a boy! She has no acute complaints/concerns at this time- feels well overall. 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 PMH - PAST MEDICAL HISTORY OF 05/11/2009 Color Vision - Pass Seasonal allergies 07/12/2014 PAST SURGICAL HISTORY Procedure Laterality Date EXTRACTION, ERUPTED TOOTH OR EXPOSED ROOT (ELEVATION AND/OR FORCEPS REMOVAL) 09/2015 Mobile teeth TONSILLECTOMY AND ADENOIDECTOMY FAMILY HISTORY Problem Relation Age of Onset Thyroid Mother hypothyroidism other (Anemia) Mother As a child Heart Father other (anemia) Brother Arthritis Maternal Grandmother No Known Problems Maternal Grandfather Cervical Cancer Paternal Grandmother Skin Cancer Paternal Grandmother Cancer Paternal Grandfather 64 spinal Social History Tobacco Use Smoking status: Never Smokeless tobacco: Never Vaping Use Vaping Use: Never used Substance Use Topics Alcohol use: Not Currently Comment: Occasionally Drug use: No Current Outpatient Medications Medication Sig Dispense Refill levothyroxine (SYNTHROID) 150 mcg tablet Take 1 tablet by mouth once daily. 30 tablet 11 PNV no.95/ferrous fum/folic ac ( ORAL) Take by mouth. No current facility-administered medications for this visit. Allergies As of Date: 10/30/2023 (No Known Allergies) Fully Assessed 10/16/2023 REVIEW OF SYSTEMS: General: no fever, chills - 15 lbs weight gain so far in the . Cardiovascular: denies chest pain, heart palpitations or orthopnea Resp: denies wheezing, productive cough or exertional dyspnea PHYSICAL EXAM: No vitals as this was a virtual visit. GENERAL: Alert, no distress, cooperative SKIN: Skin color, texture, turgor normal. No rashes or lesions. HEAD/SINUSES: No significant findings EYES: sclera non-icteric, EOMS intact, no lid lag or stare. ABDOMEN: gravid at 25 weeks. EXTREMITIES: Normal exam of the extremities NEURO: AAO x 3, no focal deficits. The remainder of the physical exam is noncontributory. DATA: Latest Ref Rng 11/21/2022 02/22/2023 07/03/2023 08/07/2023 09/18/2023 TSH 0.270 - 4.200 mIU/L 0.026 (L) 0.311 11.200 (H) 0.144 (L) 0.396 T4 5.5 - 10.2 ug/dL 13.6 (H) 12.0 (H) THYROID PEROXIDASE ANTIBODY Date Value Ref Range Status 10/09/2017 1,396.1 (H) <5.6 IU/mL Final RADIOLOGY: US Thyroid was not done. ASSESSMENT: Ms. Morales is a 27 year old F at 25 weeks presenting as a new patient to me regarding autoimmune hypothyroidsim complicating . RECOMMENDATIONS: Untreated hypothyroidism in can be associated with adverse outcomes of mother and offs (more content not included)... [facility] 10-16-2023 Progress note Formatting of t his note might be different from the original. EH - S: Odalys is a 27 year old female who presents at 23w0d for a routine visit. Feeling movement. Denies headache, visual changes, chest pain, shortness of breath, vaginal bleeding, leakage of fluid, or dysuria. Feeling some dizziness with standing. O: See flow sheet Gen: No apparent distress Abd: Gravid, nontender, S=D ASSESSMENT/PLAN: 1. Supervision of high risk in second trimester - ICD9: V23.9, ICD10: O09.92 (primary diagnosis) 2. 23 weeks gestation of - ICD9: V22.2, ICD10: Z3A.23 - Anatomy ultrasound reviewed - GTT, CBC, RPR next visit 3. Hypothyroidism affecting in second trimester - ICD9: 648.13, 244.9, ICD10: O99.282, E03.9 - Managed by Dr. Espino - Thyroid labs with 28 week labs - Taking 150 mcg of Synthroid daily 4. Group beta Strep positive - ICD9: 041.02, ICD10: B95.1 - In urine with 1st OB - Plan for Penicillin during labor 5. History of herpes genitalis - ICD9: V12.09, ICD10: Z86.19 - Plan for suppression therapy at 36 weeks 6. Dizziness - ICD9: 780.4, ICD10: R42 - CMP and CBC today for ongoing dizziness with standing PTL precautions reviewed. RTO in 4 weeks or sooner as needed. Berto Vides APRN.PAPER CUTTING MACHINE OPERATOR T [facility] 10-16-2023 Miscellaneous Notes EH - S: Odalys is a 27 year old female who presents at 23w0d for a routine visit. Feeling movement. Denies headache, visual changes, chest pain, shortness of breath, vaginal bleeding, leakage of fluid, or dysuria. Feeling some dizziness with standing. O: See flow sheet Gen: No apparent distress Abd: Gravid, nontender, S=D ASSESSMENT/PLAN: 1. Supervision of high risk in second trimester - ICD9: V23.9, ICD10: O09.92 (primary diagnosis) 2. 23 weeks gestation of - ICD9: V22.2, ICD10: Z3A.23 - Anatomy ultrasound reviewed - GTT, CBC, RPR next visit 3. Hypothyroidism affecting in second trimester - ICD9: 648.13, 244.9, ICD10: O99.282, E03.9 - Managed by Dr. Kenzie - Thyroid labs with 28 week labs - Taking 150 mcg of Synthroid daily 4. Group beta Strep positive - ICD9: 041.02, ICD10: B95.1 - In urine with 1st OB - Plan for Penicillin during labor 5. History of herpes genitalis - ICD9: V12.09, ICD10: Z86.19 - Plan for suppression therapy at 36 weeks 6. Dizziness - ICD9: 780.4, ICD10: R42 - CMP and CBC today for ongoing dizziness with standing PTL precautions reviewed. RTO in 4 weeks or sooner as needed. Berto Vides APRN.PAPER CUTTING MACHINE OPERATOR documented in this encounter [facility] 10-16-2023 Instructions Azalea Duffy LPN - 10/16/2023 9:09 AM EDT SEQUENTIAL SCREENINGS The [facility] offers sequential screenings for women who are interested in screenings for chromosomal abnormalities and certain defects during a . The sequential screen combines ultrasound and blood tests to determine the risk of chromosomal abnormalities, including Down's Syndrome (Trisomy 21) and Trisomy 18, as well as open neural tube defects including spina bifida. Ultrasound examination is performed between 11 weeks and 13 weeks gestational age. Blood tests are drawn after the ultrasound and again later in the between 15 and 21 weeks gestational age. Please let your physician know if you are interested in this testing. It will require an appointment with our dyno technician. This is not an ultrasound performed by a physician in our office during a routine visit. SIGNS AND SYMPTOMS OF LABOR 1. Contractions every 10 minutes or more often 2. Clear, pink, or brownish fluid (water) leaking from vagina 3. Feeling that baby is pushing down, pressure 4. Low, dull backache 5. Cramps that feel like a period 6. Cramps with or without diarrhea If you notice any of the above symptoms, contact our office at [phone] and ask to speak with a nurse. After hours, you can call doctors registry at [phone] OR call [facility] at [phone] and ask to have the doctor outdoor education teacher paged. If you consider this an emergency, dial or go to your nearest emergency department. NEED HELP? Are you dealing with a violent or abusive relationship? Are you a victim of rape or sexual assult? Call [facility] ([place]) 24 hour Crisis Hotline: 529.454.8166 or 583-940-9133. MANUAL Your Guide to a Healthy manual is now on-line. Visit [email or web address] to download your free copy documented in this encounter [facility] 09-25-2023 Progress note Formatting of t his note might be different from the original. S: Odalys Morales is a 27 year old female who presents at 02/12/2024, by Last Menstrual Period for a routine visit. Denies headache, visual changes, chest pain, shortness of breath, vaginal bleeding, leakage of fluid, or dysuria. Feeling well, no complaints. Anatomy US today. Prelim without abnormalities. O: See flow sheet Gen: No apparent distress Abd: Gravid, nontender ASSESSMENT/PLAN: 1. 20 weeks gestation of - ICD9: V22.2, ICD10: Z3A.20 (primary diagnosis) 2. Supervision of high risk in second trimester - ICD9: V23.9, ICD10: O09.92 RTO 4 weeks Padmini Little MD [facility] 09-25-2023 Miscellaneous Notes S: Odalys Morales is a 27 year old female who presents at 02/12/2024, by Last Menstrual Period for a routine visit. Denies headache, visual changes, chest pain, shortness of breath, vaginal bleeding, leakage of fluid, or dysuria. Feeling well, no complaints. Anatomy US today. Prelim without abnormalities. O: See flow sheet Gen: No apparent distress Abd: Gravid, nontender ASSESSMENT/PLAN: 1. 20 weeks gestation of - ICD9: V22.2, ICD10: Z3A.20 (primary diagnosis) 2. Supervision of high risk in second trimester - ICD9: V23.9, ICD10: O09.92 RTO 4 weeks Padmini Little MD documented in this encounter [facility] 09-25-2023 Instructions Rosa Maria Haq MA - 09/25/2023 3:57 PM EDT SEQUENTIAL SCREENINGS The [facility] offers sequential screenings for women who are interested in screenings for chromosomal abnormalities and certain defects during a . The sequential screen combines ultrasound and blood tests to determine the risk of chromosomal abnormalities, including Down's Syndrome (Trisomy 21) and Trisomy 18, as well as open neural tube defects including spina bifida. Ultrasound examination is performed between 11 weeks and 13 weeks gestational age. Blood tests are drawn after the ultrasound and again later in the between 15 and 21 weeks gestational age. Please let your physician know if you are interested in this testing. It will require an appointment with our dyno technician. This is not an ultrasound performed by a physician in our office during a routine visit. SIGNS AND SYMPTOMS OF LABOR 1. Contractions every 10 minutes or more often 2. Clear, pink, or brownish fluid (water) leaking from vagina 3. Feeling that baby is pushing down, pressure 4. Low, dull backache 5. Cramps that feel like a period 6. Cramps with or without diarrhea If you notice any of the above symptoms, contact our office at [phone] and ask to speak with a nurse. After hours, you can call [facility] [place] [facility] at [phone] OR call [facility] at [phone] and ask to have the doctor outdoor education teacher paged. If you consider this an emergency, dial [phone] or go to your nearest emergency department. NEED HELP? Are you dealing with a violent or abusive relationship? Are you a victim of rape or sexual assult? Call [facility] [place] ([facility] 24 hour Crisis Hotline: 311.587.5739 or 293-204-3811. MANUAL Your Guide to a Healthy manual is now on-line. Visit [email or web address] to download your free copy documented in this encounter [facility] 09-24-2023 Telephone encounter Note Sent the following via [employer]: Justyn Odalys- your TSH/T4 are at goal for - continue levothyroxine 150 mcg/day as you are doing. Please get blood work repeated prior to you next follow up with me- let me know if you need anything in the interim Thanks Dr Espino [facility] 09-24-2023 Miscellaneous Notes Sent the following via [employer]: Justyn Morrow- your TSH/T4 are at goal for - continue levothyroxine 150 mcg/day as you are doing. Please get blood work repeated prior to you next follow up with me- let me know if you need anything in the interim Thanks Dr Espino documented in this encounter [facility] 08-27-2023 Progress note Formatting of t his note might be different from the original. DM- Pt doing well today. Denies Vaginal Bleeding, Leaking fluid, or cramping. Met with endocrinology. Pt reports passed out in shower today- caught her. Did this in previous . No CP or SOB. states out for about 20 seconds. Discussed BP and changing position slowly. Avoid prolonged standing/sitting. Reviewed hydration and snacks. Call if worsening symptoms. Has repeat thyroid labs next week. Anatomy us scheduled. RTO 4 wks. Josseline Nicholas MD [facility] 08-27-2023 Miscellaneous Notes DM- Pt doing well today. Denies Vaginal Bleeding, Leaking fluid, or cramping. Met with endocrinology. Pt reports passed out in shower today- caught her. Did this in previous . No CP or SOB. states out for about 20 seconds. Discussed BP and changing position slowly. Avoid prolonged standing/sitting. Reviewed hydration and snacks. Call if worsening symptoms. Has repeat thyroid labs next week. Anatomy us scheduled. RTO 4 wks. Josseline Nicholas MD documented in this encounter [facility] 08-27-2023 Instructions Rosa Maria Haq MA - 08/27/2023 4:22 PM EDT SEQUENTIAL SCREENINGS The [facility] offers sequential screenings for women who are interested in screenings for chromosomal abnormalities and certain defects during a . The sequential screen combines ultrasound and blood tests to determine the risk of chromosomal abnormalities, including Down's Syndrome (Trisomy 21) and Trisomy 18, as well as open neural tube defects including spina bifida. Ultrasound examination is performed between 11 weeks and 13 weeks gestational age. Blood tests are drawn after the ultrasound and again later in the between 15 and 21 weeks gestational age. Please let your physician know if you are interested in this testing. It will require an appointment with our dyno technician. This is not an ultrasound performed by a physician in our office during a routine visit. SIGNS AND SYMPTOMS OF LABOR 1. Contractions every 10 minutes or more often 2. Clear, pink, or brownish fluid (water) leaking from vagina 3. Feeling that baby is pushing down, pressure 4. Low, dull backache 5. Cramps that feel like a period 6. Cramps with or without diarrhea If you notice any of the above symptoms, contact our office at [phone] and ask to speak with a nurse. After hours, you can call doctors registry at [phone] OR call [facility] at [phone] and ask to have the doctor outdoor education teacher paged. If you consider this an emergency, dial [phone] or go to your nearest emergency department. NEED HELP? Are you dealing with a violent or abusive relationship? Are you a victim of rape or sexual assult? Call [facility] ([place]) 24 hour Crisis Hotline: 967.855.5665 or 560-002-2883. MANUAL Your Guide to a Healthy manual is now on-line. Visit [email or web address] Orestes to download your free copy documented in this encounter [facility] 08-14-2023 History of Presen t illness Narrative Reason for Consultation: autoimmune hypothyroidsim complicating Referring Physician: Dr Clotilde Conklin My final recommendations will be communicated back to the requesting physician by way of shared Medical record or letter via [place] mail. This Team Access Model visit is a virtual encounter. It required patient-provider interaction for the medical decision making as documented below. I have communicated my name and active licensure. The patient's identity and physical location were verified at the time of this visit. Either the patient or their legal training representative has been informed of the risks and benefits of -- and alternatives to -- treatment through a remote evaluation and consents to proceed with the evaluation remotely. HISTORY OF PRESENT ILLNESS; Ms. Morales is a 27 year old F at 14+ weeks presenting as a new patient to me regarding autoimmune hypothyroidsim complicating . She was initially diagnosed with a thyroid disorder 2017. Family hx of hypothyroidsim in mother (but not off of levothyroxine). Prior to this she was taking levothyroxine 137 mcg/day. TSH was elevated early in the and I increased her dose to 150 mcg/day on 07/08. She is taking appropriately. She went for blood work prior to this visit, here to review these results. Severity, modifying factors, context and associated signs and symptoms are as follows: Thyroid pain: no Mass effect: None Energy: improving Sleep: Normal sleep pattern Temperature Intolerance: Cold Intolerance- long standing. TERMITE TREATER: gravid at 14 weeks. GI: denies morning sickness (improved) Weight: remained stable Eyes: Normal Memory: Good Diaphoresis: Not significant Skin: dry Neuro: + headaches , denies tremor. Radiological imaging with contrast dyes within the last 3 months? no History of radiation exposure to head or neck area? no Saw OB on 08/06- plans to find out gender. Has 16 month old daughter. She has no acute complaints/concerns at this time- feels well overall. 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 PMH - PAST MEDICAL HISTORY OF 05/11/2009 Color Vision - Pass Seasonal allergies 07/12/2014 PAST SURGICAL HISTORY Procedure Laterality Date EXTRACTION, ERUPTED TOOTH OR EXPOSED ROOT (ELEVATION AND/OR FORCEPS REMOVAL) 09/2015 Mobile teeth TONSILLECTOMY & ADENOIDECTOMY <AGE 12 FAMILY HISTORY Problem Relation Age of Onset Thyroid Mother hypothyroidism other (Anemia) Mother As a child Heart Father other (anemia) Brother Arthritis Maternal Grandmother No Known Problems Maternal Grandfather Cervical Cancer Paternal Grandmother Skin Cancer Paternal Grandmother Cancer Paternal Grandfather 64 spinal Social History Tobacco Use Smoking status: Never Smokeless tobacco: Never Vaping Use Vaping Use: Never used Substance Use Topics Alcohol use: Not Currently Comment: Occasionally Drug use: No Current Outpatient Medications Medication Sig Dispense Refill Magnesium Oxide 420 mg tab Take 1 tablet by mouth once daily. levothyroxine (SYNTHROID) 150 mcg tablet Take 1 tablet by mouth once daily. 30 tablet 11 PNV no.95/ferrous fum/folic ac ( ORAL) Take by mouth. calcium carbonate (TUMS ORAL) Take by mouth. levothyroxine (SYNTHROID) 137 mcg tablet Take 1 tablet by mouth daily before breakfast. 90 tablet 0 No current facility-administered medications for this visit. Allergies As of Date: 08/14/2023 (No Known Allergies) Fully Assessed 08/07/2023 REVIEW OF SYSTEMS: General: no fever, chills or acute changes in weight in the last 6 months Cardiovascular: denies chest pain, heart palpitations or orthopnea Resp: denies wheezing, productive cough or exertional dyspnea PHYSICAL EXAM: No vitals as this was a virtual visit. GENERAL: Alert, no distress, cooperative SKIN: Skin color, texture, turgor normal. No rashes or lesions. HEAD/SINUSES: No significant findings EYES: sclera non-icteric, EOMS intact, no lid lag or stare. ABDOMEN: gravid at 14 weeks. EXTREMITIES: Normal exam of the extremities NEURO: AAO x 3, no focal deficits. The remainder of the physical exam is noncontributory. DATA: Latest Ref Rng 07/11/2022 11/21/2022 02/22/2023 07/03/2023 08/07/2023 TSH 0.270 - 4.200 mIU/L 0.501 0.026 (L) 0.311 11.200 (H) 0.144 (L) Free T4 0.9 - 1.7 ng/dL T3 79 - 165 ng/dL T4 5.5 - 10.2 ug/dL 9.7 13.6 (H) THYROID PEROXIDASE ANTIBODY Date Value Ref Range Status 10/09/2017 1,396.1 (H) <5.6 IU/mL Final RADIOLOGY: US Thyroid was not done. ASSESSMENT: Ms. Morales is a 27 year old F at 14+ weeks presenting as a new patient to me regarding autoimmune hypothyroidsim complicating . RECOMMENDATIONS: Untreated hypothyroidism in can be associated with adverse outcomes of mother and offspring such as neurological impairment in the developing fetus, delivery/low weight, gestational hypertension, preeclampsia, post hemorrhage, and placental abruption. TSH greater than 2.5 and antibody positivity has been associated with early miscarriage as well, even with normal free hormone levels. Subclinical hypothyroidism has been associated these adverse sequelae, however less frequently than with overt hypothyroidism. Also, treatment with T4 has been proven to reduce the risks of adverse obstetrical outcomes, and is therefore recommended by endocrine society 1) for now- continue levothyroxine 150 mcg/day 2) repeat blood work in 4 weeks- I will report these results to you when available (if you don't hear from me within 1-2 days, message me on mychart) 3) see me in 10 weeks (virtual visit ok) for f/u- my office will reach out to schedule this- I spent a total of 60 minutes on the date of the service which included preparing to see the patient, [id number] patient care, completing clinical documentation, obtaining and/or reviewing separately obtained history, performing a medically appropriate examination, counseling and educating the patient/family/caregiver, and ordering medications, tests, or procedures. Yan Espino DO documented in this encounter [facility] 08-14-2023 Note HNO ID: [id number] Author: YAN ESPINO DO Service: ? Author Type: Physician Type: Progress Notes Filed: 08/14/2023 09:05 Note Text: Reason for Consultation: autoimmune hypothyroidsim complicating Referring Physician: Dr Clotilde Conklin My final recommendations will be communicated back to the requesting physician by way of shared Medical record or letter via US mail. This Team Access Model visit is a virtual encounter. It required patient-provider interaction for the medical decision making as documented below. I have communicated my name and active licensure. The patient's identity and physical location were verified at the time of this visit. Either the patient or their legal training representative has been informed of the risks and benefits of -- and alternatives to -- treatment through a remote evaluation and consents to proceed with the evaluation remotely. HISTORY OF PRESENT ILLNESS; Ms. Morales is a 27 year old F at 14+ weeks presenting as a new patient to me regarding autoimmune hypothyroidsim complicating . She was initially diagnosed with a thyroid disorder 2017. Family hx of hypothyroidsim in mother (but not off of levothyroxine). Prior to this she was taking levothyroxine 137 mcg/day. TSH was elevated early in the and I increased her dose to 150 mcg/day on 07/08. She is taking appropriately. She went for blood work prior to this visit, here to review these results. Severity, modifying factors, context and associated signs and symptoms are as follows: Thyroid pain: no Mass effect: None Energy: improving Sleep: Normal sleep pattern Temperature Intolerance: Cold Intolerance- long standing. TERMITE TREATER: gravid at 14 weeks. GI: denies morning sickness (improved) Weight: remained stable Eyes: Normal Memory: Good Diaphoresis: Not significant Skin: dry Neuro: + headaches , denies tremor. Radiological imaging with contrast dyes within the last 3 months? no History of radiation exposure to head or neck area? no Saw OB on 08/06- plans to find out gender. Has 16 month old daughter. She has no acute complaints/concerns at this time- feels well overall. 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 PMH - PAST MEDICAL HISTORY OF 05/11/2009 Color Vision - Pass Seasonal allergies 07/12/2014 PAST SURGICAL HISTORY Procedure Laterality Date EXTRACTION, ERUPTED TOOTH OR EXPOSED ROOT (ELEVATION AND/OR FORCEPS REMOVAL) 09/2015 Mobile teeth TONSILLECTOMY AND ADENOIDECTOMY FAMILY HISTORY Problem Relation Age of Onset Thyroid Mother hypothyroidism other (Anemia) Mother As a child Heart Father other (anemia) Brother Arthritis Maternal Grandmother No Known Problems Maternal Grandfather Cervical Cancer Paternal Grandmother Skin Cancer Paternal Grandmother Cancer Paternal Grandfather 64 spinal Social History Tobacco Use Smoking status: Never Smokeless tobacco: Never Vaping Use Vaping Use: Never used Substance Use Topics Alcohol use: Not Currently Comment: Occasionally Drug use: No Current Outpatient Medications Medication Sig Dispense Refill Magnesium Oxide 420 mg tab Take 1 tablet by mouth once daily. levothyroxine (SYNTHROID) 150 mcg tablet Take 1 tablet by mouth once daily. 30 tablet 11 PNV no.95/ferrous fum/folic ac ( ORAL) Take by mouth. calcium carbonate (TUMS ORAL) Take by mouth. levothyroxine (SYNTHROID) 137 mcg tablet Take 1 tablet by mouth daily before breakfast. 90 tablet 0 No current facility-administered medications for this visit. Allergies As of Date: 08/14/2023 (No Known Allergies) Fully Assessed 08/07/2023 REVIEW OF SYSTEMS: General: no fever, chills or acute changes in weight in the last 6 months Cardiovascular: denies chest pain, heart palpitations or orthopnea Resp: denies wheezing, productive cough or exertional dyspnea PHYSICAL EXAM: No vitals as this was a virtual visit. GENERAL: Alert, no distress, cooperative SKIN: Skin color, texture, turgor normal. No rashes or lesions. HEAD/SINUSES: No significant findings EYES: sclera non-icteric, EOMS intact, no lid lag or stare. ABDOMEN: gravid at 14 weeks. EXTREMITIES: Normal exam of the extremities NEURO: AAO x 3, no focal deficits. The remainder of the physical exam is noncontributory. DATA: Latest Ref Rng 07/11/2022 11/21/2022 02/22/2023 07/03/2023 08/07/2023 TSH 0.270 - 4.200 mIU/L 0.501 0.026 (L) 0.311 11.200 (H) 0.144 (L) Free T4 0.9 - 1.7 ng/dL T3 79 - 165 ng/dL T4 5.5 - 10.2 ug/dL 9.7 13.6 (H) THYROID PEROXIDASE ANTIBODY Date Value Ref Range Status 10/09/2017 1,396.1 (H) <5.6 IU/mL Final RADIOLOGY: US Thyroid was not done. ASSESSMENT: Ms. Morales is a 27 year old F at 14+ weeks presenting as a new patient to me r (more content not included)... [facility] 08-07-2023 Miscellaneous Notes KJ - VB No. LOF No. CTXS No. Movement: absent. Other c/o: frequent headaches Medication list reviewed. Physical Exam See Flow Sheet Gen: no accute distress, well appearing A/P 13w0d Estimated Date of Delivery: 02/12/24 Headaches - advised on magnesium oxide & headache precautions Hypothyroid - continue synthroid. Repeat labs today. Follows with . Schedule anatomy US Clotilde Conklin MD documented in this encounter [facility] 08-07-2023 Instructions Shannan Ribeiro LPN - 08/07/2023 4:09 PM EDT SEQUENTIAL SCREENINGS The [facility] offers sequential screenings for women who are interested in screenings for chromosomal abnormalities and certain defects during a . The sequential screen combines ultrasound and blood tests to determine the risk of chromosomal abnormalities, including Down's Syndrome (Trisomy 21) and Trisomy 18, as well as open neural tube defects including spina bifida. Ultrasound examination is performed between 11 weeks and 13 weeks gestational age. Blood tests are drawn after the ultrasound and again later in the between 15 and 21 weeks gestational age. Please let your physician know if you are interested in this testing. It will require an appointment with our dyno technician. This is not an ultrasound performed by a physician in our office during a routine visit. SIGNS AND SYMPTOMS OF LABOR 1. Contractions every 10 minutes or more often 2. Clear, pink, or brownish fluid (water) leaking from vagina 3. Feeling that baby is pushing down, pressure 4. Low, dull backache 5. Cramps that feel like a period 6. Cramps with or without diarrhea If you notice any of the above symptoms, contact our office at [phone] and ask to speak with a nurse. After hours, you can call doctors registry at [phone] OR call [facility] at [phone] and ask to have the doctor outdoor education teacher paged. If you consider this an emergency, dial 9--0 or go to your nearest emergency department. NEED HELP? Are you dealing with a violent or abusive relationship? Are you a victim of rape or sexual assult? Call [facility] ([place]) 24 hour Crisis Hotline: 634.141.1439 or 888-293-0366. MANUAL Your Guide to a Healthy manual is now on-line. Visit [email or web address] to download your free copy documented in this encounter [facility] 07-09-2023 Miscellaneous Notes Spoke with patient, advised her on the changes to her medication, patient advised that she does not take her meds with any food or other meds , she takes 45 minutes prior to eating. Patient scheduled 08/14/2023 @ 8:40 am (virtual appointment) Addended by: YAN ESPINO on: 07/09/2023 11:23 AM Modules accepted: Orders She should increase levothyroxine to 150 mcg/day (take away from foods/medications, , etc, take by itself). I sent rx to [facility]- She can see me virtually 08/14 with blood work 1-2 days prior. Thanks! KB Patient replied that she is available on 08/07/2023 , you will be out of the office that week. Please advise if patient should be scheduled 07/30 or 4/26 and please advise if you would like her to come to the office or virtual appointment. Thank you Sent patient My Chart message that Dr. Espino would like to see her in 4 weeks with repeat blood work done prior to appt. Advised patient that I can cancel 07/14/2023 appt and gave her the number [phone] to directly schedule with Dr. Espino's office. Left voicemail for patient to call [phone] Espino in 4 weeks. Advised patient that it is okay to cancel appt on 07/13 and that she will need to have repeat blood work prior to appt. Called patient. Left a message for the patient to check her [employer] message. Please contact pt- TSH elevated- is she taking levothyroxine 137 mcg/day (everyday, not missing doses)- if so will need to increase dose (let me know yovany, she is ) Advise her she can f/u with me in 4 weeks - will repeat blood work prior. Please advise/schedule Thanks RANDI documented in this encounter [facility] 07-03-2023 Miscellaneous Notes Patient for NOB. See progress note. Coni Gonzalez APRN.CNM documented in this encounter [facility] 07-03-2023 History of Presen t illness Narrative INITIAL OB ASSESSMENT HPI: Odalys is a 27 year old White here to establish Obstetrical Care. Patient's last menstrual period was 05/08/2023. from OB Dating Form. was planned Complaints: (!) Abdominal pain; Shortness of breath Hypothyroidism- Medication management through Endocrinology OB History T1 L1 SAB0 IAB0 Ectopic0 Multiple0 Live Births1 Previous history: Prior : No History of 4th degree laceration: History question Answer Diagnosis Date Comment Perineal Laceration, 3rd or 4th degree No History of perineal laceration 07/03/2023 History of shoulder dystocia: Shoulder Dystocia No History of Hypertensive disorders including pre-eclampsia or gestational hypertension: Gestational Hypertension No Preeclampsia No History of gestational diabetes: Diabetes in No Patient's Risk Screening for delivery: Have you had a prior choudhury between 20w and 36w6d? No How many pregnancies have you had before? 1 Did you have a previous baby with a GBS Infection? No Please select all that apply for any prior : N/A MEDICAL/PSYCHOSOCIAL HISTORY: History question Answer Diagnosis Date Comment Severe bleeding with delivery No History of hemorrhage 07/03/2023 Thyroid Disease Yes Gestational Hypertension No Preeclampsia No Diabetes in No No results found for: ABORHD BMI 26.69 kg/(m^2) Last Pap: 08/16/2021 History of abnormal pap: Abnormal Pap No Prior treatment for cervical dysplasia: none. History of STDs: HSV Partner History of STDs: HSV Did you have a partner with Herpes? (!) Yes Tobacco use: No E-Cigarette/Vaping Use: No Caffeine use: No Drug use: No Alcohol use: No Multivitamin with Folic acid: Yes Would refuse blood transfusion if medically necessary: No Social Needs: How often does this describe you? I don't have enough money to pay my bills: Never Within the past 12 months, have you worried that your food would run out before you had money to buy more? Never In the past 12 months, has lack of reliable transportation kept you from going to medical appointments or work, or from getting things needed for daily living? Never In the past 12 months, have you had any concerns about having a place to live, or about the condition or quality of your housing? Never Would you like more information on any of the following (please check all that apply)? Not interested Social History: Do you have any history of depression, anxiety, PTSD, or other mood problems? No Do you have a history of abuse or trauma that may impact your experience? No Are you currently employed? Yes Depression/Anxiety Screening: denies symptoms of depression. OB Depression and Anxiety Screening- This Encounter (since 07/02/2023) Over the past 2 weeks have you felt down, depressed, or hopeless? Negative Over the past two weeks, have you felt little interest or pleasure in doing things? Negative Feeling nervous, anxious or on edge 0-Not at all Not being able to stop or control worrying 0-Not al all Anxiety Pre-Screening Total (If >/= 3 additional questions will be reviewed) 0 Genetic Screening: Partner present: No Patient verbalized knowledge of partner family health history: Yes Do you or your partner have any personal or family history of defects not previously discussed: No Do you have history of a complicated by anomaly, genetic condition, or demise: No ACOG Recommended Screening: Screening for early gestational diabetes testing: Criteria for early testing requires elevated BMI plus one other risk factor: BMI 26.69 kg/(m^2) (risk factor if > than 25 or 23 in Americans) Additional risk factors: None She does not meet ACOG criteria for early gestational DM screening. Screening for low dose aspirin use for the prevention of pre-eclampsia: Low dose aspirin should be considered if the patient has one high or two moderate risk factors: High risk factors: None Moderate risk ractors: None She does not meet criteria for low dose ASA OB Risk Screening: Completed, positive findings include: Patient answered 'Yes' to Partner with Herpes Marital Status: Partner: Name: Haseeb Age: 25 Occupation: [email or web address] manager Gender: Male 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 calcium carbonate (TUMS ORAL) Take by mouth. levothyroxine (SYNTHROID) 137 mcg tablet Take 1 tablet by mouth daily before breakfast. 90 tablet 0 No current facility-administered medications for this visit. Allergies As of Date: 07/03/2023 (No Known Allergies) Fully Assessed 07/03/2023 Does patient have penicillin allergy: No REVIEW OF SYSTEMS: GENERAL: Negative for: Fever or Chills and Positive for: Fatigue HEENT: Negative for: Headache, Impaired Vision, Ringing in Ears, Nosebleeds NECK: Negative for: Swelling, Pain, Stiffness RESPIRATORY: Negative for: Cough, Shortness of breath with walking up stares, Wheezing GASTROINTESTINAL: Negative for: Heartburn, Constipation, Diarrhea, Blood in stool, Vomiting, Positive for: Constipation, and Positive for: Nausea and Vomiting MUSCULOSKELETAL: Negative for: Muscle or joint pain, stiffness, Joint swelling NEUROLOGIC/PSYCHIATRIC: Negative for: Weakness, Paralysis, Numbness, Tingling, Tremor, Anxiety, Depression, Memory loss SKIN: Negative for: Rash, Itching GENITOURINARY: Negative for: vaginal itching, vaginal discharge, hematuria or dysuria PHYSICAL EXAM: BP 98/66 Ht 5' 5 (1.65m) Wt 160 lb 6.4 oz (72.8kg) LMP 05/08/2023 BMI 26.69 kg/(m^2). GENERAL: pleasant in no apparent distress DERMATOLOGY: Normal, without lesions, non-icteric, and non-hirsute NECK: Supple and full range of motion CHEST: Normal inspiratory effort BREAST: soft, non-tender, symmetric, no dominant mass, normal nipple-areolar complex, no lymphadenopathy, and no nipple discharge ABDOMEN: soft, non-tender, and no masses NEURO: alert and oriented x3,exam grossly non-focal PELVIS: External genitalia normal without lesions. Perineal body intact. No vaginal or cervical lesions. Cervix closed. Uterus 8 week size. No adnexal masses or tenderness. Clinical Pelvimetry: Pelvimetry clinically assessed as adequate POCUS completed at bedside. IUP with positive cardiac activity visualized. JADON consistent with LMP. ASSESSMENT: 27 year old at 8w0d wks gestational age PLAN: 1) Patient oriented to practice. Discussed nutrition, folic acid supplementation, dietary guidelines, exercise, smoking, alcohol, caffeine, and drug use. Discussed gestational weight gain guidelines. Discussed routine OB labs including STD/HIV. Discussed how to access Your guide to a health and the Fretted String Instrument Repairer. Discussed aneuploidy screening, nuchal translucency/first trimester early anatomy ultrasound and NIPT. The risks/benefits and limitations of NIPT/aneuploidy screening were reviewed including the potential for false negative and false positive results. The availability of genetic counseling was reviewed. Information on aneuploidy screening was provided. The patient declines screening Discussed hemoglobin electrophoresis. Patient: Declines Reviewed midwifery and visualizer services that are available. 2) Patient offered option of Virtual Visits. Patient prefers in person visits. 3) Thyroid Disease: TSH ordered Follow up in 4 weeks or sooner prn. Coni Gonzalez APRN.CNM documented in this encounter [facility] 07-03-2023 Note HNO ID: [id number] Author: CONI GONZALEZ APRN.CNM Service: ? Author Type: Wholesaler Type: Progress Notes Filed: 07/03/2023 13:52 Note Text: INITIAL OB ASSESSMENT HPI: Odalys is a 27 year old White here to establish Obstetrical Care. Patient's last menstrual period was 05/08/2023. from OB Dating Form. was planned Complaints: (!) Abdominal pain; Shortness of breath Hypothyroidism- Medication management through Endocrinology OB History T1 L1 SAB0 IAB0 Ectopic0 Multiple0 Live Births1 Previous history: Prior : No History of 4th degree laceration: History question Answer Diagnosis Date Comment Perineal Laceration, 3rd or 4th degree No History of perineal laceration 07/03/2023 History of shoulder dystocia: Shoulder Dystocia No History of Hypertensive disorders including pre-eclampsia or gestational hypertension: Gestational Hypertension No Preeclampsia No History of gestational diabetes: Diabetes in No Patient's Risk Screening for delivery: Have you had a prior choudhury between 20w and 36w6d? No How many pregnancies have you had before? 1 Did you have a previous baby with a GBS Infection? No Please select all that apply for any prior : N/A MEDICAL/PSYCHOSOCIAL HISTORY: History question Answer Diagnosis Date Comment Severe bleeding with delivery No History of hemorrhage 07/03/2023 Thyroid Disease Yes Gestational Hypertension No Preeclampsia No Diabetes in No No results found for: ABORHD BMI 26.69 kg/(m2) Last Pap: 08/16/2021 History of abnormal pap: Abnormal Pap No Prior treatment for cervical dysplasia: none. History of STDs: HSV Partner History of STDs: HSV Did you have a partner with Herpes? (!) Yes Tobacco use: No E-Cigarette/Vaping Use: No Caffeine use: No Drug use: No Alcohol use: No Multivitamin with Folic acid: Yes Would refuse blood transfusion if medically necessary: No Social Needs: How often does this describe you? I don't have enough money to pay my bills: Never Within the past 12 months, have you worried that your food would run out before you had money to buy more? Never In the past 12 months, has lack of reliable transportation kept you from going to medical appointments or work, or from getting things needed for daily living? Never In the past 12 months, have you had any concerns about having a place to live, or about the condition or quality of your housing? Never Would you like more information on any of the following (please check all that apply)? Not interested Social History: Do you have any history of depression, anxiety, PTSD, or other mood problems? No Do you have a history of abuse or trauma that may impact your experience? No Are you currently employed? Yes Depression/Anxiety Screening: denies symptoms of depression. OB Depression and Anxiety Screening- This Encounter (since 07/02/2023) Over the past 2 weeks have you felt down, depressed, or hopeless? Negative Over the past two weeks, have you felt little interest or pleasure in doing things?? Negative Feeling nervous, anxious or on edge 0-Not at all Not being able to stop or control worrying 0-Not al all Anxiety Pre-Screening Total (If >/= 3 additional questions will be reviewed) 0 Genetic Screening: Partner present: No Patient verbalized knowledge of partner family health history: Yes Do you or your partner have any personal or family history of defects not previously discussed: No Do you have history of a complicated by anomaly, genetic condition, or demise: No ACOG Recommended Screening: Screening for early gestational diabetes testing: Criteria for early testing requires elevated BMI plus one other risk factor: BMI 26.69 kg/(m2) (risk factor if > than 25 or 23 in Americans) Additional risk factors: None She does not meet ACOG criteria for early gestational DM screening. Screening for low dose aspirin use for the prevention of pre-eclampsia: Low dose aspirin should be considered if the patient has one high or two moderate risk factors: High risk factors: None Moderate risk ractors: None She does not meet criteria for low dose ASA OB Risk Screening: Completed, positive findings include: Patient answered 'Yes' to Partner with Herpes Marital Status: Partner: Name: Haseeb Age: 27 Occupation: [email or web address] manager Gender: Male 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 [facility] 07-03-2023 Instructions Rajinder Horner MA - 07/03/2023 11:55 AM EDT Please select the following link to access the [facility] Your Guide to a Healthy . [email or web address] documented in this encounter [facility] 07-01-2023 Miscellaneous Notes Left vm message for patient to call back to go over intake questions for New OB appt. Johnna Ashley MA ext: [phone] documented in this encounter [facility] 06-20-2023 Miscellaneous Notes Looks like thyroid rx was printed but unsure if nurse faxed it to pharmacy or pt took script with her. Checking with Nolan Garsia MA on if this printed rx was faxed to pharmacy or not. Awaiting response from pt on what pharmacy to send rx to. Hiral Gordon Ma documented in this encounter [facility] 06-07-2023 Miscellaneous Notes ESTHER-11/21/22 Labs-02/22/23 NOV-none Leatha Cardozo LPN documented in this encounter [facility] 03-10-2023 Miscellaneous Notes Review pt message and advise. Melissa Kenyon Ma documented in this encounter [facility] 02-25-2023 Miscellaneous Notes Spoke with pt and information listed below given. Pt verbalizes understanding. Malia Boyer LPN Left message for patient to return call to office Adela Julian Cma Please let patient know TSH is normal. Continue current levothyroxine dose. I have sent in a refill for her. documented in this encounter [facility] 11-23-2022 Miscellaneous Notes 2nd attempt to reach pt by phone without success. EQALt message sent with results below. Malia Boyer LPN Called pt. No answer. Voicemail full. Will need to call back. Ruth Galvan, YASMEEN Please let patient know her TSH is low and I have decreased her dose of levothyroxine. She should have her TSH rechecked in 3 months. The lab order is in and she can do this at her convenience. documented in this encounter [facility] 11-21-2022 Instructions Nolan Garrido APRN.CNP - 11/21/2022 9:29 AM EDT Complete lab work 2. Schedule with speech, functional med and genetics. documented in this encounter [facility] 11-21-2022 History of Presen t illness Narrative Chief Complaint Patient presents with: [facility] Odalys Morales is a 26 year old female who presents here today for Above Complaints.. [facility]. Patient denies concerns regarding her health. Patient reports she recently was in the ER and was diagnosed with gallstones and was told she had elevated liver enzymes. Patient voices concern regarding low libido and hormones. Has discussed with INTEGRATION DIRECTOR with no options provided. Past medical history, appointments, medications, allergies reviewed. 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 PMH - PAST MEDICAL HISTORY OF 05/11/2009 Color Vision - Pass Seasonal allergies 07/12/2014 Previous Surgical History PAST SURGICAL HISTORY Procedure Laterality Date EXTRACTION, ERUPTED TOOTH OR EXPOSED ROOT (ELEVATION AND/OR FORCEPS REMOVAL) 09/2015 Mobile teeth TONSILLECTOMY & ADENOIDECTOMY <AGE 14 Family History FAMILY HISTORY Problem Relation Age of Onset Thyroid Mother hypothyroidism other (Anemia) Mother As a child Heart Father other (anemia) Brother Arthritis Maternal Grandmother No Known Problems Maternal Grandfather Cervical Cancer Paternal Grandmother Skin Cancer Paternal Grandmother Cancer Paternal Grandfather 64 spinal Patient Allergies ALLERGIES No Known Allergies Current Medications Current Outpatient Medications on File Prior to Visit Medication Sig Norethindrone, Contraceptive, (ORTHO MICRONOR) 0.35 mg tablet Take 1 tablet by mouth once daily. famotidine (PEPCID) 20 mg tablet TAKE 1 TABLET BY MOUTH TWICE A DAY (Patient not taking: Reported on 11/21/2022) levothyroxine (SYNTHROID) 150 mcg tablet Take 1 tablet by mouth once daily. Friday through Friday. Please take 2 tablets on Friday and Friday. acyclovir (ZOVIRAX) 400 mg tablet Take 1 tablet by mouth three times daily. (Patient not taking: Reported on 11/21/2022) pyridoxine, vitamin B6, (VITAMIN B-6) 50 mg tablet Take 1 tablet by mouth twice daily. (Patient not taking: Reported on 11/21/2022) Magnesium Oxide 420 mg tab Take 1 tablet by mouth once daily. (Patient not taking: Reported on 11/21/2022) multivitamin (CLASSIC ) 28 mg iron- 800 mcg tab(s) Take 1 tablet by mouth once daily. (Patient not taking: Reported on 11/21/2022) No current facility-administered medications on file prior to visit. Social History Social History Tobacco Use Smoking status: Never Smokeless tobacco: Never Vaping Use Vaping Use: Never used Substance Use Topics Alcohol use: Not Currently Comment: Occasionally Drug use: No Review of Symptoms REVIEW OF SYSTEMS SEE HPI EXAM: BP 120/66 Pulse 98 Resp 14 Ht 167 cm (5' 5.75 ) Wt 77.6 kg (171 lb) LMP 06/28/2021 (Exact Date) BMI 27.81 kg/m General Appearance: Well appearing, alert, in no acute distress, well-hydrated, well nourished.. Skin: Skin color, texture, turgor normal, no suspicious rashes or lesions. Neck: Supple, no adenopathy; thyroid symmetric, normal size, no bruits. Lungs: Lungs clear to auscultation. No wheezing, rhonchi, rales.. Heart: RRR without murmur, gallop, or rubs. No ectopy. Abdomen: Normal abdominal exam, Abdomen soft, non-tender. Bowel sounds normal. No masses, organomegaly Extremities: No deformities, edema, skin discoloration, clubbing or cyanosis. Good capillary refill. . Peripheral Pulses: Normal. Neurologic: Gait normal. Reflexes normal and symmetric. Sensation grossly intact.. Health Maintenance List MENINGOCOCCAL B: Consider based on risk(1 of 2 - Patient Seeks Protection) Never done ANNUAL PCP TEAM CHRONIC DISEASE VISIT Never done DEPRESSION ASSESSMENT Never done COVID-19 VACCINE(1) due on 11/22/2023 INFLUENZA(1) due on 12/20/2022 PAP TESTING due on 08/09/2024 HEPATITIS B Completed HPV VACCINE Completed HEPATITIS C SCREENING Completed HIV SCREENING Completed DTAP,TDAP,TD Discontinued ASSESSMENT/PLAN: 1. Family history of cancer - ICD9: V16.9, ICD10: Z80.9 (primary diagnosis) - CONSULT TO MEDICAL GENETICS - CANCER 2. Wellness examination - ICD9: V70.0, ICD10: Z00.00 - Counseled on healthy diet and regular exercise - Calcium intake with supplements or by diet of 1000 mg/day for under 50, 9828-9831 mg/day for 50+ - Discussed need and benefit for weight loss. BMI 27.81 kg/(m^2) - Depression screening tool completed and reviewed with patient. Based on score and interview, patient is not at risk for depression and recommended no further intervention at this time. - Patient was counseled [id number] by myself (the billing provider) for the following immunizations and vaccine components, including side effects: Men B. Patient consents for immunization and understands risks and benefits. A VIS sheet on each immunization was given to the patient. - Follow up for annual exam in one year - DEPRESSION SCREENING/ASSESSMENT - CBC + DIFF - COMP METABOLIC PANEL 3. Screening for diabetes mellitus - ICD9: V77.1, ICD10: Z13.1 - LIPID PANEL, NONFASTING 4. Screening for lipid disorders - ICD9: V77.91, ICD10: Z13.220 - HGB A1C 5. Hypothyroidism, unspecified type - ICD9: 244.9, ICD10: E03.9 - Instructed patient on importance of taking on an empty stomach either first thing in the morning or at bedtime. - check TSH today Stable - TSH BLD 6. Gallstones - ICD9: 574.20, ICD10: K80.20 - LIPASE BLD 7. Encounter for immunization - ICD9: V03.89, ICD10: Z23 - MENINGOCOCCAL B VACCINE (BEXSERO) Nolan Garrido, DIRECTOR OF TEENAGE ACTIVITIES.PAPER CUTTING MACHINE OPERATOR 8. Low libido - ICD9: 799.81, ICD10: R68.82 - CONSULT TO FUNCTIONAL MEDICINE 9. Difficulty articulating words - ICD9: 784.59, ICD10: R47.1 - CONSULT TO SPEECH THERAPY Nolan Garrido APRN.CNP documented in this encounter [facility] 06-03-2022 Miscellaneous Notes Rx for norethindrone was sent to [facility] in [place] on 05/06/22 with 11 refills. Azra Iraheta RN documented in this encounter [facility] 05-14-2022 History of Past i llness Narrative Problem Noted Date Diagnosed Date Resolved Date care and examination 05/14/2022 08/07/2023 Positive GBS test 03/11/2022 08/07/2023 Family history of thyroid disease in mother 10/09/2017 08/09/2021 documented as of this encounter (statuses as of 08/08/2023) [facility] History of Present illness Narrative* Natasha Castillo, PT - 05/14/2022 11:01 AM EST Episode Visit Count: 1 Therapist That Will Accept/Oversee The Plan Of Care: Natasha Castillo Start of Care Date: 05/14/22 Onset Date: 03/30/22 Plan of Care Certification Date: 05/14/22 Next Certification Due Date: 07/13/22 Patient Identified by Name and Date of : Yes REHABILITATION AND SPORTS THERAPY PHYSICAL THERAPY EVALUATION PLAN OF CARE: Assessment: Odalys Morales presents with chief complaint of pelvic pain that interferes with sitting;walking;altered sexual function . She presents with impairments in decreased pelvic floor ROM; pelvic floor muscle tightness/tenderness; impaired sexual function. PROMIS (Patient-Reported OutcomesMeasurement Information System) scores were unable to be reviewed. Prognosis for therapy is Good due to: current objective clinical presentation . She will benefit from skilled therapy services to meet the goals established for this plan of care as noted below. Goals for Episode of Care: created on 05/14/22 through 07/13/22 Pelvic Pain: Patient to demonstrate independence in HEP Patient reports painfree intercourse Patient displays decreased muscle spasms in pelvic floor to allow for decreased pain levels Patient displays improved muscle dynamics of pelvic floor including ability to lengthen Patient reports at least 75% improvement in pelvic pain compared to IE. Patient Goals: improve pelvic pain Planned Interventions, Frequency, and Duration: Current Frequency: 1x/week Duration: 4 weeks (reassess at 4 weeks and progress as indicated) Total Number of Visits Planned: 4 Planned Treatment Interventions: Therapeutic exercise ([id number]);Manual therapy (76912);Self-care homemanagement ([id number]);Patient/Family/Caregiver Education PLAN FOR NEXT VISIT: progress stretches, discuss pelvic wand, assess external connective tissue Patient demonstrates good understanding of plan of care and treatment. The above goals and plan of care were discussed and agreed upon by patient/family. SUBJECTIVE: Pt reports delivering daughter on March 30, 2022. Pt reports pelvic pain began afterdelivery, increased pain with sitting, walking. Pt reports taking UTI medication, which helped someat first, but then pain returned. Patient Goals: improve pelvic pain Functional Limitations: sitting;walking;altered sexual function Prior Level of Function: Independent without limitations Relevant History Past Relevant Medical Conditions: (see note) Past Relevant Surgical Conditions: (see note) Employment: Admission Discharge Rn: See Comment Admission Discharge Rn Occupation: [employer] Recreation / Current Exercise: None. 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 5 points is clinically meaningfully difference Percentiles provide an indication of how the patient's score ranks in relation to the general population. Higher percentile rankings indicate better function/quality of life. 50th percentile is the average of the general population and indicates half of respondents had a worse score. T-scores: mean of general population = 50. 5 points is clinically meaningfully difference Percentiles provide an indication of how the patient's score ranks in relation to the general population. Higher percentile rankings indicate better function/quality of life. 50th percentile is the average of the general population and indicates half of respondents had a worse score. OBJECTIVE MEASURES WITH LEVEL OF FUNCTION: Pelvic Floor Pregnancies: 1 Births: 1 Vaginal Delivery: Tearing (1st degree tear) Currently ?: Yes Pain with penetration: Pain during intercourse;Deep and superficial Sexual Health: Has not resumed intercourse since delivery. Urinary/Bowel History : Urinary History;Bowel History Difficulty starting stream: No Incomplete emptying: No Stress Incontinence: No Urgency: No Nocturia (times per night): 0 Daytime Frequency (hours): 2-3 Fluid Intake: Water (8 oz measurements) Water : 12 Difficulty evacuating / Excessive Straining: No Incomplete emptying: No Bowel Movement Frequency: 1x/day Fecal incontinence: No Pelvic Floor Muscle Assessment Consent for pelvic assessment/testing and treatment: Patient was educated regarding pelvic floor physical therapy assessment/treatment which may include pelvic floor and girdle muscle assessment externally or internally (vaginal or rectal approach).;Patient verbalized consent for the above treatment approaches today. Patient understands they have control of the treatment and an opportunity to stop treatment at any time. Pelvic Floor Muscle Assessment: PERFECT;Muscle Dynamics Power: 3 Endurance: 4 Fast Reps: 10 Contracton Pressure: Moderate squeeze, felt all the way around finger surface Duration of Contraction: >3 seconds Recruitment of pelvic floor muscles: Coordinated Range of Motion: Decreased Ability to Lengthen pelvic floor: Difficulty at first, but improves with cueing and practice Diastasis Rectus Abdominis: Negative Pelvic Floor Manual Assessment Pelvic Floor Tenderness/Hyperactivity: Tested Vaginally in Tested Vaginally in : Supine/hooklying Iliococcygeus: Left (04/21) Pubococcygeus: Left (04/21) LE AROM R LE AROM: WFL L LE AROM: WFL LE Flexibility Flexibility: Hamstring Flexibility;Hip Adductor;Hip Internal Rotation Flexibility;Hip External Rotation Flexibility R Hamstring Flexibility: WNL L Hamstring Flexibility: WNL R Adductor Flexibility: WNL L Adductor Flexibility: WNL R Hip Internal Rotation Flexibility: WNL L Hip Internal Rotation Flexibility: WNL R Hip External Rotation Flexibility: WNL L Hip External Rotation Flexibility: WNL LE Strength Trunk Strength: Lower Abdominals: 4/5 R LE Strength: 5/5 L LE Strength: 5/5 Tissue Restriction/Tenderness Scale: 1= mild, 2= moderate, 3= severe Education: Education Learning Preferences: Demonstration;Explanation;Performance;Printed Materials Barriers: None Learning/educational needs: Home exercise program;Plan of Care Education Provided: Yes, see treatment interventions for education provided Education Provided To: Patient Education Mode/Type: Demonstration;Explanation/Discussion;Literature/Printed Materials;Performance Response to Education/Teach Back: States/Identifies;Return Demonstration TREATMENT: PT Treatment Interventions: Therapeutic Exercise;Self-Snf Management Evaluation Therapeutic Exercise: 1: *diaphragmatic breathing 2: *supine adductor stretch, [id number] 3: *PF lengthening, 2x10 Skilled Intervention: Patient was educated in proper exercise technique and purpose for exercises. Reviewed and educated patient on additions/changes for home exercise program as above (*). Skilled judgment was provided in selection of appropriate interventions. Provided written instruction for home exercise program to facilitate proper performance and compliance. Self-Snf Management: 1: Reviewed pelvic floor anatomy and function with 3D pelvic model 2: Reviewed typical vs dysfunctional bladder health 3: Reviewed impact of stress on mm tension, mm tension on pain: *body scanning 4: Reviewed benefits of using lubrication during intercourse 5: Reviewed proper body mechanics for ADLs with baby Skilled Intervention: Skilled judgment in the selection of proper modification for activity of daily living/home management based on clinical presentation, deficits, and needs. Provided written instruction for activities of daily living techniques to facilitate proper performance and compliance. Billing * Evaluation Low Complexity: 1 Unit Therapeutic Exercise Treatment Minutes: 9 Self-Care/Home Management Treatment Minutes: 15 Total Treatment Time Minutes (timed/untimed): 52 Ntaasha Castillo PT [facility] History of Present illness Narrative* Jovanna Torres APRN.[facility] - 05/10/2022 11:18 AM EST Odalys Morales is a 26 year old female who presents for problem visit possible mastitis Accompanied by . HPI: Almost 6 weeks . Exclusively nursing. Onset of fever, body aching, headache and painin right breast last night. Pain to underside of breast. T 100.2 last pm. Good latch but has started nursing on her side during the night and thinks can hear pulling in of air around the nipple. 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 PMH - PAST MEDICAL HISTORY OF 05/11/2009 Color Vision - Pass Seasonal allergies 07/12/2014 PAST SURGICAL HISTORY Procedure Laterality Date EXTRACTION, ERUPTED TOOTH OR EXPOSED ROOT (ELEVATION AND/OR FORCEPS REMOVAL) 09/2015 Mobile teeth TONSILLECTOMY & ADENOIDECTOMY <AGE 14 FAMILY HISTORY Problem Relation Age of Onset Thyroid Mother hypothyroidism other (Anemia) Mother As a child Heart Father other (anemia) Brother Arthritis Maternal Grandmother No Known Problems Maternal Grandfather Cervical Cancer Paternal Grandmother Skin Cancer Paternal Grandmother Cancer Paternal Grandfather 64 spinal Social History Tobacco Use Smoking status: Never Smokeless tobacco: Never Vaping Use Vaping Use: Never used Substance Use Topics Alcohol use: Not Currently Comment: Occasionally Drug use: No Current Outpatient Medications Medication Sig Norethindrone, Contraceptive, (ORTHO MICRONOR) 0.35 mg tablet Take 1 tablet by mouth once daily. famotidine (PEPCID) 20 mg tablet TAKE 1 TABLET BY MOUTH TWICE A DAY levothyroxine (SYNTHROID) 150 mcg tablet Take 1 tablet by mouth once daily. Friday through Friday. Please take 2 tablets on Friday and Friday. acyclovir (ZOVIRAX) 400 mg tablet Take 1 tablet by mouth three times daily. pyridoxine, vitamin B6, (VITAMIN B-6) 50 mg tablet Take 1 tablet by mouth twice daily. Magnesium Oxide 420 mg tab Take 1 tablet by mouth once daily. multivitamin (CLASSIC ) 28 mg iron- 800 mcg tab(s) Take 1 tablet by mouth once daily. No current facility-administered medications for this visit. Allergies As of Date: 05/10/2022 (No Known Allergies) Fully Assessed 05/06/2022 REVIEW OF SYSTEMS Breast: see HPI. Allergies and current medication updated:Yes EXAM: BP 100/60 Temp (Src) 98.1 (Left Tympanic) Wt 173 lb (78.5kg) LMP 06/28/2021 GENERAL: pleasant, female in no apparent distress BREAST: Lactating. Right breast with erythema, tenderness and warmth from 3 o'clock to 9 o'clock. No abscess. CHEST: Normal inspiratory effort NEURO: alert and oriented x3,exam grossly non-focal ASSESSMENT/PLAN: 1. Mastitis, right, acute - ICD9: 611.0, ICD10: N61.0 - DICLOXACILLIN 500 MG CAPSULE x 14 days - ibuprofen and/or acetaminophen as needed - given written information on mastitis. Ensure good latch. Follow-up as needed. If symptoms worsen, will seek earlier medical attention. Jovanna Torres APRN.[facility] Medical Decision Making: Problems: Low: Acute, uncomplicated illness or injury Risk: Moderate: Drug management Medical Decision Making Level: 3 - Low [facility] Miscellaneous Notes* Telephone Encounter - Azalea Duffy LPN - 05/10/2022 8:00 AM EST Pt given appt with AG at 11:30. Azalea Duffy LPN documented in [facility] Instructions* Patient Instructions* Jacinta Merritt APRN.AJ - 05/06/2022 3:54 PM EST Oral Contraceptives: The Pill Beginning the Pill Pills come in either a 21 day pack or a 28 day pack. With the 21 day pack you will take one pill for 21 days then no pill for 7 days, during which time you will have what is known as withdrawal bleeding. The 28 day pack allows you to take a pill every day of the cycle with no interruptions. The first 21 pills are the pills with the active ingredients and the last 7 are the nonmedical pills (placebo) or they may contain iron. There will be bleeding during the week you are taking the nonmedical pills. The advantage to the 28 day pack is that you don t have to keep track of when you stopped the pill. Unless otherwise instructed, you should start your pills the Friday following your first day of bleeding with your next period (if your period starts on a Friday, you should start pills the same day) Read your information packet that comes with the pills. Pill Benefits The pill is the most popular method of reversible control being used today. Millions of womenrely on oral contraceptives as their control method. It is important to have an examination by your physician to determine if the pill is safe for you. There are several advantages associated with the pill: it is 97-98% effective; may improve acne; periods are more regular and less painful; there is less iron deficiency anemia in pill users. equipment operator intermodal yard use is associated with a decreased incidence of ovarian and uterine cancer. There is also no evidence that the pill increases the incidenceof any cancer. How Oral Contraceptives Work Oral contraceptives come in two varieties. One is the combination pill which contains both estrogenand progesterone. Combination pills are considered 98-99% effective in preventing . This pill comes in either monophasic, which delivers the same amount of estrogen and progesterone throughout the cycle; and triphasic, which try tries to mimic the normal hormone cycle by changing the levels of the hormones in the pills during the month. There is no real advantage to taking the one over the other. The other type of pill only contains progesterone. It is best used for women who can t take estrogen. This type of pill is slightly less effective than the combination pill in preventing preg eleazar. Oral contraceptives prevent ovulation (release of an egg from the ovary) by suppressing the pituitary gland s action. The pill does NOT prevent sexually transmitted disease. Obtaining a Prescription It is important to see your doctor before starting oral contraceptives so that you can have a full medical history taken and a physical examination given. Certain medical conditions may make the pillinappropriate for you, therefore it is very important to be honest and as complete as possible withthe information you share with your doctor. The types of predisposing factors which would make the pill a poor choice of control would include: History of blood clots Stroke Serious liver disease or impaired liver function Unexplained vaginal bleeding or Cancer of the reproductive system Active gall bladder disease Hypertension Possible Side Effects It can take up to three months for your body to become adjusted to the pill. The more common side effects experienced at this time are: breakthrough spotting or bleeding, which is bleeding at any other time other than when you should be having a period; nausea or vomiting; breast tenderness; and mild fluid retention. There is no termite treater weight gain with the use of the pill. Breakthrough bleeding is the most common complaint of new pill users. There is no way to predict who will have it and there is no way of preventing it. Breakthrough bleeding usually subsides on its own with no further treatment after the first three months of taking the pill. If these symptoms continue to occur after the first three months you should check with your physician to see if there is any physical cause andpossibly change to another control pill. Problems: Missed 1 pill: Take 2 pills the next day. Missed 2 pills: Take 2 pills the next day and 2 pills the following day. Also use another form of control (condoms) along with the pill for the rest of the month. Missed 3 or more pills: You have two choices. You can take two pills each day until you are on schedule, plus use an additional form of control along with the pill for the rest of the month. Oryou can stop the pill and start a completely new pack of pills the next Friday. You must use another form of control with the pill for at least the first two weeks of the new pack. You re ill and you have been vomiting or have diarrhea: You must use another form of control with the pill since the pill may not be fully absorbed during your illness. Continue to use the added control until the end of the cycle. Desire to become : Stop using the pill for one month before trying to become . Taking other medications: The control pill is less effective when you take the antibiotic Rifampin, epilepsy (seizure) drugs such as phenytoin, carbamazepine, phenobarbital, topiramate and somemedications for HIV. Let your doctor know if you start taking any of these medications while on thepill. Symptoms to Notify Your Doctor with Immediately: Pain in your chest or legs Continuous blurred vision Severe headaches Slurred speech Tingling or weakness on one side of your body Shortness of breath Swelling of one leg Refills of Control Pills You need to see a doctor every year for a refill of your prescription. This is necessary in order that your health can be monitored closely while you are taking control pills. If your prescription should before your next scheduled appointment you can usually get a one month extension from your doctors office if you call during regular business hours about one week before you need to start the new package of pills. This allows the physician to refer to your chart for necessary health information. documented in this encounterMemorial Health System01-16-2023 History of Present illness Narrative* Jacinta Merritt APRN.CNM - 05/06/2022 3:16 PM EST VISIT Odalys Morales is a 26 year old year old here for visit. Delivery Summary: Date: 03/30/2022 Time: 2:20pm Sex: F Weight: 7lb# 8oz Outcome: Anesthesia: Epidural Delivered by: JOE Perineal repair: 1st degree vaginal lac. ROS/ Recovery: Feeding: Breast feeding problems: None Menses since delivery: spotting, cramping randomly Menstrual pattern prior to : Regular periods [place] since delivery: Not resumed Depression: denies symptoms of depression. OB Depression and Anxiety Screening- This Encounter (since 05/05/2022) Over the past 2 weeks have you felt down, depressed, or hopeless? Negative Over the past two weeks, have you felt little interest or pleasure in doing things? Negative Feeling nervous, anxious or on edge 0-Not at all Not being able to stop or control worrying 0-Not al all Anxiety Pre-Screening Total (If >/= 3 additional questions will be reviewed) 0 Emotional support: Yes Bowel symptoms: Negative for abdominal discomfort, blood in stools or black stools and change in bowel habits Abdomen: N/A Bladder symptoms: No dysuria, gross hematuria, urinary frequency, urinary urgency, or incontinence Other issues: None Last Pap: 2021 normal HPV: N/A 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 PMH - PAST MEDICAL HISTORY OF 05/11/2009 Color Vision - Pass Seasonal allergies 07/12/2014 PAST SURGICAL HISTORY Procedure Laterality Date EXTRACTION, ERUPTED TOOTH OR EXPOSED ROOT (ELEVATION AND/OR FORCEPS REMOVAL) 09/2015 Mobile teeth TONSILLECTOMY & ADENOIDECTOMY <AGE 12 FAMILY HISTORY Problem Relation Age of Onset Thyroid Mother hypothyroidism other (Anemia) Mother As a child Heart Father other (anemia) Brother Arthritis Maternal Grandmother No Known Problems Maternal Grandfather Cervical Cancer Paternal Grandmother Skin Cancer Paternal Grandmother Cancer Paternal Grandfather 64 spinal Social History Tobacco Use Smoking status: Never Smokeless tobacco: Never Vaping Use Vaping Use: Never used Substance Use Topics Alcohol use: Not Currently Comment: Occasionally Drug use: No PHYSICAL EXAMINATION: BP 110/64 Wt 173 lb 12.8 oz (78.8kg) LMP 06/28/2021 GENERAL: pleasant, female in no apparent distress HEENT: Normocephalic, atraumatic, mucus membranes moist, and no lesions NECK: Supple, full range of motion, no adenopathy, and thyroid normal DERMATOLOGY: Normal, without lesions, non-icteric, and non-hirsute BREAST: soft, non-tender, symmetric, no dominant mass, normal nipple-areolar complex, no lymphadenopathy, and no nipple discharge CHEST: Normal inspiratory effort ABDOMEN: soft, non-tender, and no masses. INCISION: N/A PELVIC: external genitalia normal, normal Bartholin's glands, urethra, Tubac's glands, no vulvar lesions, no cervical lesions, good vaginal support, physiologic discharge present, normal appearing perineal body and perianal region BIMANUAL: uterus normal size, shape and consistency, no adnexal masses, and non-tender NEURO: alert and oriented x3,exam grossly non-focal EXTREMITIES: normal ASSESSMENT AND PLAN: 26 year old status post with normal course. Contraception plan: Oral contraceptives She would like prescription, uncertain of when she will start as may desire condoms at this time. I discussed with the patient the risks, benefits, mechanism of action and alternatives to combined hormonal contraceptive use. No medical contraindications. Reviewed risk of blood clot, stroke and heart attack with hormonal contraception. Reviewed warning signs ACHES . Discussed stopping control 4 weeks prior to scheduled surgery if will be immobile. Ireviewed with her the administration options and when to start. Her questions were answered and shedesired to start. Pelvic floor PT and chiropractor for pelvic pain Follow up: RTC for annual exams and PRN Jacinta Merritt APRN.CNM documented in this encounterMemorial Health System12-19-2022 History of Present illness Narrative* Jacinta Merritt APRN.CNM - 04/08/2022 2:58 PM EST * Jacinta Merritt APRN.CNM - 04/08/2022 2:21 PM EST EARLY VISIT Odalys Morales is a 26 year old here for 1 week visit. Presents with complaintof burning with urination, incomplete emptying, and urinary frequency and urgency. This started 2 days ago. Denies any perineal pain or issues from laceration. Has not tried anything [id number] urinary symptoms. Delivery Summary: HPI: Patient delivered via by Dr. Conklin on 03/30/22 at [facility]. ROS: General: Denies any fever or chills Hypertension Screening: Headache? No. Visual Changes? No Epigastric Pain? No Increased Swelling? No Taking any BP medications at home? No If applicable, monitoring BP at home? (If Yes, include results) NA Mood: normal Depression: denies symptoms of depression. OB Depression and Anxiety Screening- This Encounter (since 04/08/2022) Over the past 2 weeks have you felt down, depressed, or hopeless? Negative Over the past two weeks, have you felt little interest or pleasure in doing things? Negative Feeling nervous, anxious or on edge 0-Not at all Not being able to stop or control worrying 0-Not al all Anxiety Pre-Screening Total (If >/= 3 additional questions will be reviewed) 0 Feeding: Breast feeding problems: None Bladder: See HPI Bowel symptoms: Negative for abdominal discomfort, blood in stools or black stools and change in bowel habits Abdomen: N/A Bleeding: light flow Bottom and Perineum: No issues Sleep: no sleep concerns, feels rested [place] since delivery: Not resumed Emotional support: Yes Exercise: N/A Other issues: None PHYSICAL EXAMINATION: BP 124/72 Wt 174 lb 3.2 oz (79 kg) LMP 06/28/2021 (Exact Date) Yes BMI 28.68 kg/m General: pleasant,female in no apparent distress, A&O x 3. Skin warm and intact. Breast: Deferred Abdomen: Deferred /Incision: N/A Pelvic: Deferred Bimanual: Deferred URINE POC GLUCOSE UA (POCT) Negative 04/08/2022 BILIRUBIN UA (POCT) Negative 04/08/2022 KETONE UA (POCT) Negative 04/08/2022 SPECIFIC GRAVITY UA (POCT) 1.020 04/08/2022 HEMOGLOBIN/BLOOD UA (POCT) Large 04/08/2022 PH UA (POCT) 6.5 04/08/2022 PROTEIN UA (POCT) Trace 04/08/2022 UROBILINOGEN UA (POCT) 0.2 04/08/2022 NITRITE UA (POCT) Negative 04/08/2022 LEUKOCYTES UA (POCT) Moderate 04/08/2022 COLOR UA (POCT) Yellow 04/08/2022 CLARITY UA (POCT) Clear 04/08/2022 ASSESSMENT AND PLAN: 26 year old status post with normal course. Contraception plan: will discuss further at 6 wk visit . Reinforced 6-week pelvic rest. Encouraged condom usage should patient deviate. Education: resources provided - see MA/RN note Reviewed likely urinary tract infection and will treat due to symptoms. Will give amoxil 875 mg p.o. twice daily x7 days. Also Diflucan 150 mg p.o. once in case she develops yeast symptoms. Urine culture to be sent Follow up: Return to Clinic for 6 week visit and as needed Jacinta Merritt APRN.CNM documented in this encounterMemorial Health System12-19-2022 Instructions* Patient Instructions* Jacinta Merritt APRN.CNM - 04/08/2022 2:56 PM EST URINARY TRACT INFECTIONS The urinary tract makes and stores urine, one of the body s liquid waste products. The urinary tract includes the following parts: Kidneys, which produce urine by removing waste and water from the blood Ureters, the tubes that carry urine from the kidneys to the bladder Bladder, the sac-like container for storing urine Urethra, the tube that carries urine from the bladder out of the body What is a urinary tract infection? Normal urine contains no bacteria (germs). Sometimes, however, bacteria from outside the body get into the urinary tract, and cause infection and inflammation. This is a urinary tract infection, which can involve the urethra (a condition called urethritis), kidneys (a condition called pyelonephritis) or bladder, (a condition called cystitis). Cystitis is the most common type of urinary tract infection. What are the symptoms of a urinary tract infection? A urinary tract infection causes the lining of the urinary tract to become red and irritated, producing the following symptoms: Pain in the flank (side of the body), abdomen, or pelvic area Pressure in the lower pelvis Frequent need to urinate (frequency) Painful urination (dysuria) Urgent need to urinate (urgency) Incontinence (urine leakage) The need to urinate at night Abnormal urine color (cloudy urine) Blood in the urine Strong or foul-smelling urine Other symptoms that might be associated with a urinary tract infection include: Pain during sex Penis pain Fatigue Fever (temperature above 100oF) Chills Vomiting Mental changes or confusion What causes a urinary tract infection? Urinary tract infections are caused by microorganisms--usually bacteria--that enter the urethra andbladder, causing inflammation and infection. The bacteria also might travel up the ureters and infect the kidneys. More than 90 percent of cystitis cases are caused by E. coli, bacteria normally found in the intestines. Other organisms--including chlamydia and mycoplasma--also cause urinary tract infections. Infections by these organisms usually are limited to the urethra and reproductive organs. Chlamydia and m ycoplasma infections might be sexually transmitted, in which case both partners must be treated. How common are urinary tract infections? Urinary tract infections are very common, occurring in two out of every 100 people. One percent to 2 percent of children develop urinary tract infections. Each year, 8 million to 10 million visits todoctors are for urinary tract infections. Who gets urinary tract infections? Anyone can get a urinary tract infection, but they are more common in women. This is because the urethra in females is shorter and closer to the anus, where E. coli bacteria are common. Older adults also are at higher risk for developing cystitis. This increased risk might be due to incomplete emptying of the bladder related to various medical conditions, including an enlarged prostate or a narrowing of the urethra. If you get frequent urinary tract infections, your doctor might do tests to check for other health problems--such as diabetes or an abnormal urinary system--that might be contributing to your infections. How are urinary tract infections diagnosed? Your doctor will use the following tests to diagnose a urinary tract infection: Urinalysis to examine the urine for red blood cells, white blood cells, and bacteria (The number ofwhite and red blood cells can indicate an infection.) Urine culture to determine the type of bacteria in the urine, which is important for determining the appropriate treatment If your infection does not respond to treatment or if you get repeated infections, your doctor might use the following tests to examine your urinary tract for disease or injury: Intravenous pyelogram (IVP), a series of X-rays of the bladder, kidneys, and ureters after a special dye is injected (The dye helps the structures to show up better on the X-ray.) Ultrasound, a test that uses sound waves to form images of internal organs Cystoscopy, a test that uses a special instrument fitted with a lens and a light source (cystoscope) to see inside the bladder from the urethra How are urinary tract infections treated? Antibiotics, medicines that kill the bacteria, are used to treat urinary tract infections. Your doctor will choose a drug that best treats the bacteria causing your infection. Commonly used antibiotics include: Nitrofurantoin Sulfonamides (sulfa drugs) Amoxicillin Cephalosporins Trimethoprim/sulfamethoxazole Doxycycline Quinolones It is very important that you follow your doctor s directions for taking the medicine. Do not stop taking the antibiotic because your symptoms go away and you start feeling better. If the infection is not treated completely, with the full course of antibiotics, it can return. What are the complications of a urinary tract infection? A urinary tract infection that is not treated can lead to recurrent infections and a more serious infection of the kidneys. Can urinary tract infections be prevented? There are some steps you can take to reduce your risk of developing a urinary tract infection: Good hygiene of the genital area--especially in women--might help reduce the chances of introducingbacteria into the urethra. After a bowel movement, the genitals should be wiped from front to back to reduce the chance of dragging E. coli bacteria from the rectal area to the urethra. Urinating frequently, which flushes bacteria out of the bladder, might reduce the risk of cystitis in those who are prone to urinary tract infections. Drinking plenty of fluids encourages frequent urination. Avoid fluids that irritate the bladder, such as alcohol, citrus juices, and drinks containing caffeine. Urinating immediately after sex might help flush out bacteria that might have been introduced during intercourse. Practicing safe sex (using a condom) can reduce the risk of a sexually transmitted infection. What is the outlook for a person with a urinary tract infection? While urinary tract infections might be uncomfortable, they generally respond well to treatment. When should I call my health care provider? Call your health care provider if you have symptoms of a urinary tract infection. Also call if you have been diagnosed with an infection and your symptoms get worse or you develop new symptoms, especially fever, back pain, and vomiting. Copyright [id number] The [facility]. All rights reserved This information is provided by the [facility] and is not intended to replace the medical advice of your doctor or health care provider. Please consult your health care provider for advice about a specific medical condition. For additional written health information, please contact the [facility] at the [facility] or toll-free extension [phone]. This document was last reviewed on: 2001 index#[id number] documented in this encounterMemorial Health System12-19-2022 Miscellaneous Notes* Telephone Encounter - Christine Truong RN - 04/08/2022 1:55 PM EST Refill request received from pharmacy. Patient delivered on 03/30. Has appointment in office for evaluation today. Christine Truong RN documented in this encounterMemorial Health System12-19-2022 Miscellaneous Notes* Telephone Encounter - Christine Truong RN - 04/08/2022 12:24 PM EST Patient called and appointment given for in office evaluation today. Christine Shannen RN * Telephone Encounter - Azra Iraheta RN - 04/08/2022 12:18 PM EST Left message for patient to call office. Azra Iraheta RN documented in this encounterMemorial Health System12-13-2022 History of Present illness Narrative* Azra Iraheta RN - 04/02/2022 9:27 AM EST Patient delivered via by Dr. Conklin on 03/30/22 at [facility]. See OB history. Azra Iraheta RN documented in this encounterMemorial Health System12-08-2022 Miscellaneous Notes* Quick Notes - Westley Sierra MD - 03/28/2022 4:47 PM EST SW- Pt doing well. No ctx, vb, lof. Good FM. Discussed r/b/a of membrane sweep and performed today per pt request. Labor precautions reviewed. Questions answered about elective 39-40 week IOL. Discussed induction could get bumped/moved for safety depending on how busy L&D is if elective. Discussed pitocin shortage and unfavorable cervix. Pt declines scheduling IOL at this time. Will schedule her for visit Friday next week for membrane sweep and schedule IOL at that time if not delivered. Discussed expectant management to ~41 weeks is reasonable. Westley Sierra DO documented in this encounterMemorial Health System12-08-2022 Instructions* Patient Instructions* Ruth Perry MA - 03/28/2022 4:16 PM EST SEQUENTIAL SCREENINGS The [facility] offers sequential screenings for women who are interested in screenings for chromosomal abnormalities and certain defects during a . The sequential screen combinesultrasound and blood tests to determine the risk of chromosomal abnormalities, including Down's Syndrome (Trisomy 21) and Trisomy 18, as well as open neural tube defects including spina bifida. Ultrasound examination is performed between 11 weeks and 13 weeks gestational age. Blood tests are drawn after the ultrasound and again later in the between 15 and 21 weeks gestational age. Please let your physician know if you are interested in this testing. It will require an appointment withour dyno technician. This is not an ultrasound performed by a physician in our office during a routine visit. SIGNS AND SYMPTOMS OF LABOR 1. Contractions every 10 minutes or more often 2. Clear, pink, or brownish fluid (water) leaking from vagina 3. Feeling that baby is pushing down, pressure 4. Low, dull backache 5. Cramps that feel like a period 6. Cramps with or without diarrhea If you notice any of the above symptoms, contact our office at [phone] and ask to speak with anurse. After hours, you can call doctors registry at [phone] OR call [facility] at [phone] ask to have the doctor outdoor education teacher paged. If you consider this an emergency, dial [phone] or go to your nearest emergency department. NEED HELP? Are you dealing with a violent or abusive relationship? Are you a victim of rape or sexual assult? Call [facility] ([place]) 24 hour Crisis Hotline: 540.876.6509 or 454-743-1529. MANUAL Your Guide to a Healthy manual is now on-line. Visit [email or web address] to download your free copy documented in this encounterMemorial Health System12-01-2022 Miscellaneous Notes* Quick Notes - Westley Sierra MD - 03/21/2022 4:47 PM EST SW- Pt doing well. Some cramping. Feeling good FM now and it has increased. No ctx, vb, lof. Reviewed ultrasound from this week with pt. Discussed labor precautions and induction of labor ~41 wks if not delivered. Weekly visits. Westley Sierra DO documented in this encounterMemorial Health System12-01-2022 Instructions* Patient Instructions* Ruth Perry MA - 03/21/2022 4:22 PM EST SEQUENTIAL SCREENINGS The [facility] offers sequential screenings for women who are interested in screenings for chromosomal abnormalities and certain defects during a . The sequential screen combinesultrasound and blood tests to determine the risk of chromosomal abnormalities, including Down's Syndrome (Trisomy 21) and Trisomy 18, as well as open neural tube defects including spina bifida. Ultrasound examination is performed between 11 weeks and 13 weeks gestational age. Blood tests are drawn after the ultrasound and again later in the between 15 and 21 weeks gestational age. Please let your physician know if you are interested in this testing. It will require an appointment withour dyno technician. This is not an ultrasound performed by a physician in our office during a routine visit. SIGNS AND SYMPTOMS OF LABOR 1. Contractions every 10 minutes or more often 2. Clear, pink, or brownish fluid (water) leaking from vagina 3. Feeling that baby is pushing down, pressure 4. Low, dull backache 5. Cramps that feel like a period 6. Cramps with or without diarrhea If you notice any of the above symptoms, contact our office at [phone] and ask to speak with anurse. After hours, you can call doctors registry at [phone] OR call [facility] at [phone] ask to have the doctor outdoor education teacher paged. If you consider this an emergency, dial 9-1-1 or go to your nearest emergency department. NEED HELP? Are you dealing with a violent or abusive relationship? Are you a victim of rape or sexual assult? Call [facility] ([place]) 24 hour Crisis Hotline: 349.593.6074 or 993-224-8680. MANUAL Your Guide to a Healthy manual is now on-line. Visit [email or web address] to download your free copy documented in this encounterMemorial Health System11-29-2022 Miscellaneous Notes* Addendum Note - Josseline Carroll MD - 03/19/2022 9:29 AM ESTAddended by: JOSSELINE CARROLL on: 03/19/2022 09:29 AM Modules accepted: Orders * Telephone Encounter - Josseline Carroll MD - 03/19/2022 9:29 AM EST ordered * Addendum Note - Christine Truong RN - 03/19/2022 8:35 AM ESTAddended by: CHRISTINE TRUONG RN on: 03/19/2022 08:35 AM Modules accepted: Orders * Telephone Encounter - Christine Truong RN - 03/19/2022 8:34 AM EST Please file pended order. Christine Truong RN * Telephone Encounter - Christine Truong RN - 03/19/2022 8:33 AM EST Patient called and US scheduled. Christine Truong RN * Telephone Encounter - Westley Sierra MD - 03/18/2022 9:17 PM EST Pt was on L&D for DFM. BPP 11/28 with occasional variable decels. Needs follow up US on 03/19/22for growth/fluid and repeat BPP documented in this encounterMemorial Health System11-22-2022 Miscellaneous Notes* Quick Notes - Coni Gonzalez APRN.AJ - 03/12/2022 3:39 PM EST Odalys Morales is a 26 year old female who presents at 36w5d for a routine visit. Called in last Friday for concerns with cramps that were painful. She has not felt any since hydrating more. Bilateral legs and feet with swelling. Difficulty walking at times. Denies any headaches, vision changes, loss of fluid or vaginal bleeding. Reviewed s/s of labor and timing of contractions. Positive movement. Size equal to dates. 42 lbs TWG. BLE- +2 pitting edema ASSESSMENT/PLAN: 1. 36 weeks gestation of - ICD9: V22.2, ICD10: Z3A.36 (primary diagnosis) - URINE OB DIP B/O 2. Swelling of lower extremity during in third trimester - ICD9: 646.13, ICD10: O12.03 - 10 lb weight gain in 1 week - Reviewed low/no sodium in diet - Increase water intake - Compression socks - Elevation of feet and legs - Will continue to monitor closely - Discussed above with Dr. Conklin and agrees with plan of care PTL/ preeclampsia precautions reviewed and when to call provider RTO 1 week or sooner if needed Coni Gonzalez APRN.CNM documented in this encounterMemorial Health System11-22-2022 Instructions* Patient Instructions* Rajinder Horner [facility] - 03/12/2022 3:17 PM EST SEQUENTIAL SCREENINGS [facility] offers sequential screenings for women who are interested in screenings for chromosomal abnormalities and certain defects during a . The sequential screen combinesultrasound and blood tests to determine the risk of chromosomal abnormalities, including Down's Syndrome (Trisomy 21) and Trisomy 18, as well as open neural tube defects including spina bifida. Ultrasound examination is performed between 11 weeks and 13 weeks gestational age. Blood tests are drawn after the ultrasound and again later in the between 15 and 21 weeks gestational age. Please let your physician know if you are interested in this testing. It will require an appointment withour dyno technician. This is not an ultrasound performed by a physician in our office during a routine visit. SIGNS AND SYMPTOMS OF LABOR 1. Contractions every 10 minutes or more often 2. Clear, pink, or brownish fluid (water) leaking from vagina 3. Feeling that baby is pushing down, pressure 4. Low, dull backache 5. Cramps that feel like a period 6. Cramps with or without diarrhea If you notice any of the above symptoms, contact our office at [phone] and ask to speak with anurse. After hours, you can call doctors registry at [phone] OR call [facility] at [phone] ask to have the doctor outdoor education teacher paged. If you consider this an emergency, dial 12-20- or go to your nearest emergency department. NEED HELP? Are you dealing with a violent or abusive relationship? Are you a victim of rape or sexual assult? Call [facility] ([place]) 24 hour Crisis Hotline: 661.429.6728 or 483-863-9071. MANUAL Your Guide to a Healthy manual is now on-line. Visit [email or web address] to download your free copy documented in this encounterMemorial Health System11-18-2022 Miscellaneous Notes* Telephone Encounter - Azra Iraheta RN - 03/08/2022 10:25 AM EST Patient notified and agreed. Azra Iraheta RN * Telephone Encounter - Coni Gonzalez APRN.CNM - 03/08/2022 10:22 AM EST Please have patient hydrate well today. If she starts feeling increased frequency or pain with cramps, she should notify office. Provide labor precautions and kick counts. Coni Gonzalez APRN.CNM * Telephone Encounter - Christine Truong RN - 03/08/2022 9:57 AM EST Patient 36w1d calling with complaints of pain/cramping in her pelvic/back and leg on left side only. Patient states pain started at around 9 pm last night and is occurring more frequently. Patient unable to time. Currently rating pain at a 4-5. Denies any decreased movement, bleeding or leaking fluid. Do you want patient to be brought in for evaluation? Christine Truong RN documented in this encounterMemorial Health System11-10-2022 Miscellaneous Notes* Quick Notes - Westley Sierra MD - 02/28/2022 4:55 PM EST SW- No ANDREWS or vision changes. No ctx, pain, vb, lof. Good FM. Measuring S=D. Repeat TSH. Discussed expectations and reasons to call. Weekly visits. Westley Sierra DO documented in this encounterMemorial Health System11-10-2022 Instructions* Patient Instructions* Ruth Perry MA - 02/28/2022 4:33 PM EST SEQUENTIAL SCREENINGS [facility] offers sequential screenings for women who are interested in screenings for chromosomal abnormalities and certain defects during a . The sequential screen combinesultrasound and blood tests to determine the risk of chromosomal abnormalities, including Down's Syndrome (Trisomy 21) and Trisomy 18, as well as open neural tube defects including spina bifida. Ultrasound examination is performed between 11 weeks and 13 weeks gestational age. Blood tests are drawn after the ultrasound and again later in the between 15 and 21 weeks gestational age. Please let your physician know if you are interested in this testing. It will require an appointment withour dyno technician. This is not an ultrasound performed by a physician in our office during a routine visit. SIGNS AND SYMPTOMS OF LABOR 1. Contractions every 10 minutes or more often 2. Clear, pink, or brownish fluid (water) leaking from vagina 3. Feeling that baby is pushing down, pressure 4. Low, dull backache 5. Cramps that feel like a period 6. Cramps with or without diarrhea If you notice any of the above symptoms, contact our office at [phone] and ask to speak with anurse. After hours, you can call doctors registry at [phone] OR call [facility] at [phone] ask to have the doctor outdoor education teacher paged. If you consider this an emergency, dial 9-- or go to your nearest emergency department. NEED HELP? Are you dealing with a violent or abusive relationship? Are you a victim of rape or sexual assult? Call [facility] ([place]) 24 hour Crisis Hotline: 834.341.3728 or 938-575-3545. MANUAL Your Guide to a Healthy manual is now on-line. Visit [email or web address] to download your free copy documented in this encounterMemorial Health System11-10-2022 Miscellaneous Notes* Telephone Encounter - Azalea Duffy LPN - 02/28/2022 9:51 AM EST FMLA paperwork completed, faxed to employer, scanned into EMR and filed in TARIFF COMPILING CLERK suite. Azalea Duffy LPN * Telephone Encounter - Azalea Duffy LPN - 02/28/2022 9:38 AM EST FMLA paperwork completed and placed on providers desk for signature. Azalea Duffy LPN * Telephone Encounter - Azalea Duffy LPN - 02/26/2022 1:58 PM EST Mychart and telephone message left for pt to contact our office dates that her spouse is planning to take FMLA. Forms will then be completed. Azalea Duffy LPN documented in this encounterMemorial Health System11-02-2022 Miscellaneous Notes* Telephone Encounter - Lisa Gomez MD - 02/20/2022 6:32 AM EDT Called patient for 6 AM virtual visit this AM. 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 Reminded her to complete her thyroid blood work on 03/04/2022 Please schedule appointment with me at [facility] in the second week of March 2022 in person. Lisa Gomez MD documented in this encounterMemorial Health System10-27-2022 Miscellaneous Notes* Quick Notes - Coni Gonzalez APRN.CNM - 02/14/2022 4:38 PM EDT Odalys Morales is a 26 year old female who presents at 33w0d for a routine visit. Good movement. Denies headache, visual changes, chest pain, shortness of breath, vaginal bleeding, leakage offluid, or dysuria. Noticed some increased swelling in feet after being on them last weekend. Feeling well overall, no complaints. Size equal to dates. 23 lbs TWG. PTL precautions reviewed. RTC in 2 weeks for MARIA ESTHER. Thyroid levels next week. Coni Gonzalez APRN.CNM documented in this encounterMemorial Health System10-27-2022 Instructions* Patient Instructions* Rosa Maria Haq Ma - 02/14/2022 4:26 PM EDT SEQUENTIAL SCREENINGS The [facility] offers sequential screenings for women who are interested in screenings for chromosomal abnormalities and certain defects during a . The sequential screen combinesultrasound and blood tests to determine the risk of chromosomal abnormalities, including Down's Syndrome (Trisomy 21) and Trisomy 18, as well as open neural tube defects including spina bifida. Ultrasound examination is performed between 11 weeks and 13 weeks gestational age. Blood tests are drawn after the ultrasound and again later in the between 15 and 21 weeks gestational age. Please let your physician know if you are interested in this testing. It will require an appointment withour dyno technician. This is not an ultrasound performed by a physician in our office during a routine visit. SIGNS AND SYMPTOMS OF LABOR 1. Contractions every 10 minutes or more often 2. Clear, pink, or brownish fluid (water) leaking from vagina 3. Feeling that baby is pushing down, pressure 4. Low, dull backache 5. Cramps that feel like a period 6. Cramps with or without diarrhea If you notice any of the above symptoms, contact our office at [phone] and ask to speak with anurse. After hours, you can call doctors registry at [phone] OR call [facility] at [phone] ask to have the doctor outdoor education teacher paged. If you consider this an emergency, dial 12-20- or go to your nearest emergency department. NEED HELP? Are you dealing with a violent or abusive relationship? Are you a victim of rape or sexual assult? Call [facility] ([place]) 24 hour Crisis Hotline: 565.982.4626 or 918-254-9348. MANUAL Your Guide to a Healthy manual is now on-line. Visit [email or web address] to download your free copy documented in this encounterMemorial Health System10-07-2022 Miscellaneous Notes* Telephone Encounter - Lisa Gomez MD - 01/25/2022 2:02 PM EDT Can we schedule this patient for an appointment virtually on 02/04/2022 at 11:20 AM with me - okay to take new visit slot Lisa Gomez MD documented in this encounterMemorial Health System09-29-2022 Miscellaneous Notes* Telephone Encounter - Azra Iraheta RN - 01/17/2022 12:33 PM EDT Rx was already sent 12/21/21 with 3 refills. Azra Iraheta RN documented in this encounterMemorial Health System09-15-2022 Miscellaneous Notes* Quick Notes - Westley Sierra MD - 01/03/2022 4:36 PM EDT SW- Round ligament pain. No vb, lof. Good FM. Discussed comfort measures. Tdap today. 28 wk labs today. PPBC: Plans on [employer]. LARC signed. Plans on . Discussed classes at [facility]. List ofpeds given. RTO 2 wks. Recheck TSH next visit. Westley Sierra DO documented in this encounterMemorial Health System09-15-2022 History of Present illness Narrative* Ruth Perry MA - 01/03/2022 4:10 PM EDT Patient identified by name and date of . Odalys Morales presents today for a vaccination of Tdap. Patient denies an allergy to latex: yes Patient denies a severe (life-threatening) allergy to a previous dose of Tdap, DTP, DTaP, DT or Td vaccine. Yes Patient denies history of epilepsy or neurological problems: Yes Patient is afebrile and denies being moderately or severely ill: Yes Patient denies history of Guillain-Madera Syndrome (a severe paralytic illness): Yes Tdap Adacel injection was given without incident. See immunizations for details of immunizations administered today. VIS sheet provided: Yes Provider Westley Sierra DO was present in office at time of injection. Ruth Perry MA documented in this encounterMemorial Health System09-15-2022 Instructions* Patient Instructions* Rajinder Horner Cma - 01/03/2022 3:44 PM EDT SEQUENTIAL SCREENINGS The [facility] offers sequential screenings for women who are interested in screenings for chromosomal abnormalities and certain defects during a . The sequential screen combinesultrasound and blood tests to determine the risk of chromosomal abnormalities, including Down's Syndrome (Trisomy 21) and Trisomy 18, as well as open neural tube defects including spina bifida. Ultrasound examination is performed between 11 weeks and 13 weeks gestational age. Blood tests are drawn after the ultrasound and again later in the between 15 and 21 weeks gestational age. Please let your physician know if you are interested in this testing. It will require an appointment withour dyno technician. This is not an ultrasound performed by a physician in our office during a routine visit. SIGNS AND SYMPTOMS OF LABOR 1. Contractions every 10 minutes or more often 2. Clear, pink, or brownish fluid (water) leaking from vagina 3. Feeling that baby is pushing down, pressure 4. Low, dull backache 5. Cramps that feel like a period 6. Cramps with or without diarrhea If you notice any of the above symptoms, contact our office at [phone] and ask to speak with anurse. After hours, you can call doctors registry at [phone] OR call [facility] at [phone] ask to have the doctor outdoor education teacher paged. If you consider this an emergency, dial 7-9-3 or go to your nearest emergency department. NEED HELP? Are you dealing with a violent or abusive relationship? Are you a victim of rape or sexual assult? Call [facility] ([place]) 24 hour Crisis Hotline: 892.896.4367 or 345-712-2481. MANUAL Your Guide to a Healthy manual is now on-line. Visit [email or web address] to download your free copy documented in this encounterMemorial Health System09-06-2022 Miscellaneous Notes* Telephone Encounter - Christine Truong RN - 12/25/2021 8:28 AM EDT Patient viewed [employer] message with instructions from provider. Christine Truong RN * Telephone Encounter - Azra Iraheta RN - 12/21/2021 4:21 PM EDT Patient has not viewed [employer] message. Attempted to call patient. Unable to leave message-mailbox is full. Azra Iraheta RN Odalys- Your TSH as you can see if elevated. I am going to increase your dose of thyroid medication to start tomorrow morning. We will then recheck blood work in 4 weeks. We can go over any questions or concerns at your next visit. -Dr. Sierra * Telephone Encounter - Azra Iraheta RN - 12/21/2021 4:21 PM EDT ----- Message from Westley Sierra MD sent at 12/21/2021 8:22 AM EDT ----- Add to record Message sent to pt call if not viewed documented in this encounterMemorial Health System09-02-2022 Miscellaneous Notes* Telephone Encounter - Westley Sierra MD - 12/21/2021 8:22 AM EDT See result not Levothyroxine sent documented in this encounterMemorial Health System08-18-2022 Miscellaneous Notes* Quick Notes - Coni Gonzalez APRN.CNM - 12/06/2021 4:31 PM EDT Odalys Morales is a 25 year old female who presents at 23w0d for a routine visit. Good movement. Denies headache, visual changes, chest pain, shortness of breath, vaginal bleeding, leakage offluid, or dysuria. Continues to have good appetite. Eating carbohydrates mostly- reviewed trying toincorporate fresh fruits and vegetables. Cannot stomach meat or chicken. Feeling well, no complaints. Size equal to dates. -5 lbs TWG. PTL precautions reviewed. RTC in 4 weeks for MARIA ESTHER with GCT screening. Coni Gonzalez APRN.CNM documented in this encounterMemorial Health System08-18-2022 Instructions* Patient Instructions* Judi Duarte Ma - 12/06/2021 4:22 PM EDT SEQUENTIAL SCREENINGS The [facility] offers sequential screenings for women who are interested in screenings for chromosomal abnormalities and certain defects during a . The sequential screen combinesultrasound and blood tests to determine the risk of chromosomal abnormalities, including Down's Syndrome (Trisomy 21) and Trisomy 18, as well as open neural tube defects including spina bifida. Ultrasound examination is performed between 11 weeks and 13 weeks gestational age. Blood tests are drawn after the ultrasound and again later in the between 15 and 21 weeks gestational age. Please let your physician know if you are interested in this testing. It will require an appointment withour dyno technician. This is not an ultrasound performed by a physician in our office during a routine visit. SIGNS AND SYMPTOMS OF LABOR 1. Contractions every 10 minutes or more often 2. Clear, pink, or brownish fluid (water) leaking from vagina 3. Feeling that baby is pushing down, pressure 4. Low, dull backache 5. Cramps that feel like a period 6. Cramps with or without diarrhea If you notice any of the above symptoms, contact our office at [phone] and ask to speak with anurse. After hours, you can call doctors registry at [phone] OR call [facility] at [phone] ask to have the doctor outdoor education teacher paged. If you consider this an emergency, dial 91-5 or go to your nearest emergency department. NEED HELP? Are you dealing with a violent or abusive relationship? Are you a victim of rape or sexual assult? Call [facility] ([place]) 24 hour Crisis Hotline: 201.447.4591 or 812-715-3127. MANUAL Your Guide to a Healthy manual is now on-line. Visit [email or web address] to download your free copy documented in this encounterMemorial Health System08-10-2022 Miscellaneous Notes* Telephone Encounter - Westley Sierra MD - 11/28/2021 9:03 AM EDT Ok to discuss results and upcoming appointment thanks * Telephone Encounter - Alta Ludwig RN - 11/27/2021 10:17 AM EDT Attempted to leave message but voicemail box was full. Do you want us to send her a letter or awaitfor her appointment 12/06 * Telephone Encounter - Azalea Duffy LPN - 11/26/2021 11:50 AM EDT Again attempted to contact pt, voicemail remains full. Will discuss at upcoming appt. Azalea Duffy LPN * Telephone Encounter - Shannan Ribeiro LPN - 11/23/2021 4:54 PM EDT Voicemail is still full. Patient has next ob appointment on 12/06 * Telephone Encounter - Azra Iraheta RN - 11/22/2021 8:47 AM EDT Still has not viewed [employer] message. Attempted to call patient. Unable to leave message-mailbox isfull. Azra Iraheta RN * Telephone Encounter - Azra Iraheta RN - 11/20/2021 3:38 PM EDT Attempted to call patient. Unable to leave message-mailbox is full. Azra Iraheta RN * Telephone Encounter - Alta Ludwig RN - 11/19/2021 1:55 PM EDT 2nd attempt to call patient. Mailbox full. Cannot leave a message. Dr Sierra, can we wait until her appointment 12/06 or do you want us to send a letter? * Telephone Encounter - Christine Truong RN - 11/19/2021 10:03 AM EDT Attempted to contact patient but no answer and unable to leave a message as voicemail box is full. Will attempt to contact patient again later as she has not viewed message on [employer]. Odalys- Your TSH is within normal limits for . It is on the higher end of normal, so haveyour blood drawn in 4 weeks again to make sure we do not need to increase the dose. -Dr. Sierra * Telephone Encounter - Christine Truong RN - 11/19/2021 10:03 AM EDT ----- Message from Westley Sierra MD sent at 11/19/2021 8:34 AM EDT ----- Message sent to pt call if not viewed documented in this encounterMemorial Health System06-30-2022 Miscellaneous Notes* Quick Notes - Coni Gonzalez APRN.CNM - 10/18/2021 2:50 PM EDT Odalys Morales is a 25 year old female who presents at 16w0d Estimated Date of Delivery: 04/04/22for a routine visit. No movement to date. Had virtual visit with endocrinology. Labs normal and continues dose of Synthroid 125 mcg PO daily. Denies any N/V and feeling like appetite is increasing. Difficult to eat meat and concerned over low protein intake. Discussed protein shakes. Denies he adache, visual changes, chest pain, shortness of breath, vaginal bleeding, leakage of fluid, or dysuria. Feeling well, no complaints. -14 lbs TWG. PTL/ Bleeding precautions reviewed. RTC in 4 weeks for anatomy US and ROB. Coni Gonzalez APRN.CNM documented in this encounterMemorial Health System06-30-2022 Instructions* Patient Instructions* Tish Oliveros MA - 10/18/2021 2:36 PM EDT SEQUENTIAL SCREENINGS The [facility] offers sequential screenings for women who are interested in screenings for chromosomal abnormalities and certain defects during a . The sequential screen combinesultrasound and blood tests to determine the risk of chromosomal abnormalities, including Down's Syndrome (Trisomy 21) and Trisomy 18, as well as open neural tube defects including spina bifida. Ultrasound examination is performed between 11 weeks and 13 weeks gestational age. Blood tests are drawn after the ultrasound and again later in the between 15 and 21 weeks gestational age. Please let your physician know if you are interested in this testing. It will require an appointment withour dyno technician. This is not an ultrasound performed by a physician in our office during a routine visit. SIGNS AND SYMPTOMS OF LABOR 1. Contractions every 10 minutes or more often 2. Clear, pink, or brownish fluid (water) leaking from vagina 3. Feeling that baby is pushing down, pressure 4. Low, dull backache 5. Cramps that feel like a period 6. Cramps with or without diarrhea If you notice any of the above symptoms, contact our office at [phone] and ask to speak with anurse. After hours, you can call doctors registry at [phone] OR call [facility] at [phone] ask to have the doctor outdoor education teacher paged. If you consider this an emergency, dial 1-8-0 or go to your nearest emergency department. NEED HELP? Are you dealing with a violent or abusive relationship? Are you a victim of rape or sexual assult? Call [facility] ([facility] 24 hour Crisis Hotline: 419.330.9568 or 843-365-1010. MANUAL Your Guide to a Healthy manual is now on-line. Visit [email or web address] to download your free copy documented in this encounterMemorial Health System06-16-2022 History of Present illness Narrative* Lisa Gomez MD - 10/04/2021 11:30 AM EDT Virtual Endocrinology and Metabolism [facility] Visit This is a virtual visit using HIPAA compliant video platform. It required patient-provider interaction for the medical decision making as documented below. 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 Prior to getting , she was on levothyroxine 100 mcg once daily 7 pills per week. In July 2021, patient found out she was and was started on Levothyroxine 125 mcg once daily 7 pills per week by Dr. Sellers due to an elevated TSH of 6.4 with normal Free T4 of 1.4 on 08/09/2021. She waspreviously following with hard tile setter Dr. Benita Sellers with most recent telephone visit in July 2021. She was unable to reschedule with Dr. Sellers as her as her schedule was booked. 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 Personal history of cancer or benign tumors Personal history of thyroid cancer - None Personal history of pituitary tumors - None Personal history of pancreatic tumors - None . Agents interfering with thyroid function -History of ionizing/external beam radiation to the head or neck - none -Exposure to iodinated contrast in the last 3 months - none -Excessive kelp or seaweed ingestion: - None -Current or prior use of lithium, prednisone, biotin, amiodarone use, or immune checkpoint inhibitors - yes on biotin in pre- vitamin . Symptoms -Confusion/Brain fog: None -Fatigue - yes since getting -Memory Changes none -Mood changes: None -Energy: fair -Sleep related changes: does not feel well rested when waking up -Hair changes: None -Skin Changes: None -Nail Changes: None -Bowel habit changes: None -Temperature intolerances: None -Weight changes: weight loss - gradual weight loss of 40lbs over 8 months - lost taste since covid in Apr 2021 -Appetite changes - poor appetite -Palpitations - None -Tremors - None -Menstrual cycle: LMP June 28, 2021 - currently t -Edema: None -Changes in neck size - None -Eye symptoms (redness, tearing, periorbital edema, proptosis, blurry/double vision) - None -Tobacco abuse: - None -Compressive symptoms (dysphagia, dyspnea, choking sensation, hoarseness/changes in voice) - None -New neck masses/lumps: None -Rapid expansion of any neck masses: - None -: 14 weeks -Personal history of autoimmune disease - has carole's disease . Medications: -Currently on levothyroxine 125 mcg qAM since July 2021 -Compliant with LT4 -Patient is taking Levothyroxine on an empty stomach with water only: -Patient is not taking Levothyroxine simultaneously with other medications or food -Patient is waiting at least 45 min to eat after Levothyroxine ingestion -Patient understands to take any calcium, MVI, or iron 4 hours after Levothyroxine ingestion - she is taking a vitamin ROS: SYSTEMIC: + fatigue, poor energy, +weight loss (lost taste in the setting of covid) + polydipsia EYES: Denies blurring of vision, diplopia, pain/discomfort, excessive tearing, swelling of eye lids, bulging, redness, dryness, NECK: Denies goiter, lump, pain/discomfort, dysphagia, hoarseness, sore throat RESPIRATORY: Denies dyspnea or cough CARDIOVASCULAR: Denies chest pain, palpitations GASTRO-INTESTINAL:Denies Nausea, vomiting, abdominal pain, bowel habit changes NEUROLOGICAL: Denies dizziness, lightheadedness, generalized weakness MUSCULOSKELETAL: Denies joint pain GENITOURINARY: +polyuria since getting SKIN: Denies dryness, brittle nails, hair loss excessive sweating, flushing, darkening of skin PSYCHIATRIC: Denies anxiety, depression Past Medical History PAST MEDICAL HISTORY Diagnosis Date ADD (attention deficit disorder) 06/13/2010 Bilateral pes planus 05/29/2015 Herpes simplex virus (HSV) infection Hypothyroidism KELOID, 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 Seasonal allergies 07/12/2014 Past Surgical History PAST SURGICAL HISTORY Procedure Laterality Date EXTRACTION, ERUPTED TOOTH OR EXPOSED ROOT (ELEVATION AND/OR FORCEPS REMOVAL) 09/2015 Mobile teeth TONSILLECTOMY & ADENOIDECTOMY <AGE 12 -Denies History of thyroid surgery (lobectomy or total thyroidectomy) -Denies History of parathyroid surgery Family History FAMILY HISTORY Problem Relation Age of Onset Thyroid Mother hypothyroidism other (Anemia) Mother As a child Heart Father other (anemia) Brother Arthritis Maternal Grandmother No Known Problems Maternal Grandfather Cervical Cancer Paternal Grandmother Skin Cancer Paternal Grandmother Cancer Paternal Grandfather 64 spinal -Denies Family history of thyroid cancer -Denies Family history of pituitary tumors -Denies Family history of pancreatic tumors Mother with vitiligo Social History Social History Tobacco Use Smoking status: Never Smoker Smokeless tobacco: Never Used Vaping Use Vaping Use: Never used Substance Use Topics Alcohol use: Not Currently Comment: Occasional before (only during holidays) Drug use: No Allergies ALLERGIES No Known Allergies Vitals Deferred in the setting of a virtual visit - pt does not have a BP cuff at home Last 12 Encounter BP Readings: Date: BP: 09/20/2021 100/60 08/09/2021 102/70 04/28/2020 96/60 10/28/2019 108/72 04/15/2019 106/56 07/15/2018 127/89 06/15/2018 126/82 04/20/2018 120/68 03/03/2018 104/64 01/14/2018 114/79 11/11/2017 122/70 10/09/2017 103/57 Physical Exam - limited in the setting of a virtual visit General: No acute distress, alert Lungs: Unlabored breathing on room air, no visible respiratory distress Neck: Visible goiter Neuro: Able to follow commands Skin: No visible rashes, no visible acanthosis nigricans Current Medications Current Outpatient Medications Medication Sig Dispense Refill levothyroxine (SYNTHROID) 125 mcg tablet Take 1 tablet by mouth once daily. Patient needs an appt for further refills 30 tablet 1 pyridoxine, vitamin B6, (VITAMIN B-6) 50 mg tablet Take 1 tablet by mouth twice daily. Magnesium Oxide 420 mg tab Take 1 tablet by mouth once daily. 100 tablet 2 multivitamin (CLASSIC ) 28 mg iron- 800 mcg tab(s) Take 1 tablet by mouth once daily. No current facility-administered medications for this visit. Labs TSH Date Value Ref Range Status 08/09/2021 6.440 (H) 0.270 - 4.200 mIU/L Final Comment: If the patient is , TSH reference range varies by gestational period: First Trimester (weeks 9-12): 0.180-2.990 mIU/L Second Trimester: 0.110-3.980 mIU/L Third Trimester: 0.480-4.710 mIU/L Gerry Joel et al. A Practical Approach for the Verifications and Determination of Site- and Trimester-Specific Reference Intervals for Thyroid Function tests in . Thyroid, 2019:29:3:412-420.Juvencio Marinelli et al. 2017 Guidelines of the [place] Thyroid Association for the Diagnosis and Management of Thyroid Disease during and the . Thyroid, 2017:27:3:315-389. 10/28/2019 12.020 (H) 0.270 - 4.200 uU/mL Final Comment: If the patient is , TSH reference range varies by gestational period: First Trimester (weeks 9-12): 0.180-2.990 mcIU/mL Second Trimester: 0.110-3.980 mcIU/mL Third Trimester: 0.480-4.710 mcIU/mL Gerry Joel et al. A Practical Approach for the Verifications and Determination of Site- and Trimester-Specific Reference Intervals for Thyroid Function tests in . Thyroid, 2019:29:3:412-420. Juvencio Marinelli et al. 2017 Guidelines of the [place] Thyroid Association for the Diagnosis and Management of Thyroid Disease during and the . Thyroid, 2017:27:3:315-389. 07/15/2018 3.510 0.510 - 4.300 uU/mL Final Comment: If the patient is , TSH reference range varies by gestational period: First Trimester 0.100-2.500 uU/mL Second Trimester 0.200-3.000 uU/mL Third Trimester 0.300-3.000 uU/mL References: 1. Rutherford L, Babar M, Juvencio RUFFIN, et al. Management of Thyroid Dysfunction during and : An Endocrine Society Clinical Practice Guideline. J Clin Endocrinol Metab, 2012:97:6436-9707. 2. Adán ALVAREZ. Overview of thyroid disease in . UpToDate. 2016. Accessed on October 06, 2015. 01/14/2018 52.800 (H) 0.510 - 4.300 uU/mL Final Comment: If the patient is , TSH reference range varies by gestational period: First Trimester 0.100-2.500 uU/mL Second Trimester 0.200-3.000 uU/mL Third Trimester 0.300-3.000 uU/mL References: 1. Babar Camejo, Juvencio RUFFIN, et al. Management of Thyroid Dysfunction during and : An Endocrine Society Clinical Practice Guideline. J Clin Endocrinol Metab, 2012:97:6872-7149. 2. Adán ALVAREZ. Overview of thyroid disease in . UpToDate. 2016. Accessed on October 06, 2015. 10/09/2017 248.900 (H) 0.400 - 5.500 uU/mL Final Comment: If the patient is , TSH reference range varies by gestational period: First Trimester 0.100-2.500 uU/mL Second Trimester 0.200-3.000 uU/mL Third Trimester 0.300-3.000 uU/mL References: 1. Babar Camejo, Juvencio RUFFIN, et al. Management of Thyroid Dysfunction during and : An Endocrine Society Clinical Practice Guideline. J Clin Endocrinol Metab, 2012:97:0386-3990. 2. Adán ALVAREZ. Overview of thyroid disease in . UpToDate. 2015. Accessed on October 06, 2015. Free T4 Date Value Ref Range Status 08/09/2021 1.4 0.9 - 1.7 ng/dL Final No results found for this basename: FREET3,T3,T3TOT,TRIODO No results found for: THYRSTIMAB, [id number], ANTHYPERAB, TBIGINTL, AFIRM Hemoglobin (g/dL) Date Value 08/09/2021 13.7 08/21/2017 12.5 Hematocrit (%) Date Value 08/09/2021 39.3 08/21/2017 37.6 WBC (k/uL) Date Value 08/09/2021 6.97 08/21/2017 7.96 Albumin (g/dL) Date Value 08/21/2017 4.5 Bilirubin, Total (mg/dL) Date Value 08/21/2017 0.3 Alkaline Phosphatase (U/L) Date Value 08/21/2017 56 AST (U/L) Date Value 08/21/2017 28 ALT (U/L) Date Value 08/21/2017 21 Protein, Total (g/dL) Date Value 08/21/2017 7.5 Imaging US THYROID/PARATHYROID Narrative: * * *Final Report* * * DATE OF EXAM: Aug 20 2017 8:16AM U 1048 - US THYROID/PARATHYROID / PROCEDURE REASON: Nontoxic goiter, unspecified * * * * Physician Interpretation * * * * US THYROID/PARATHYROID EXAM DATE/TIME: 08/20/2017 8:16 AM CLINICAL HISTORY: Enlargement of the thyroid on physical exam. COMPARISON: None. TECHNIQUE: Sonography and Doppler imaging of the thyroid was performed. Images were obtained and stored in a permanent archive. FINDINGS: RIGHT LOBE: Size: 5.1 x 1.7 x 1.9 cm Echotexture: Heterogeneous with increased blood flow Nodules: There is a hypoechoic nodule in the medial mid thyroid measuring 7 x 3 x 6 mm. LEFT LOBE: Size: 5.8 x 1.9 x 2.3 cm Echotexture: Heterogeneous with increased blood flow Nodules: No discrete nodules identified. ISTHMUS: AP diameter: 2 mm Nodules: None. Others: There is a 1.6 x 0.5 x 1.2 cm lymph node seen inferior to the left thyroid lobe. Impression: IMPRESSION: Enlargement of the bilateral thyroid with heterogeneous echotexture and a right thyroid nodule. Prominent cervical lymph node inferior to the left thyroid lobe. Letter Carrier: PSC[facility] Transcribe Date/Time: Aug 20 2017 3:50P Dictated by : CHACORTA HOWARD MD This examination was interpreted and the report reviewed and electronically signed by: CHACORTA HOWARD MD on Aug 20 2017 3:55PM EST Assessment and Plan Odalys Morales is a 25 year old 14 week old F who presents to the endocrine clinic for new evaluation and management of hypothyroidism. 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 -Initially diagnosed at age 21 in the setting of a visible goiter -Currently 14 weeks in 2nd trimester -Currently on levothyroxine 125 mcg once daily since August 09, 2021 due to TSH of 6.4 and Free T4 1.4 -Clinically euthyroid without compressive symptoms -Patient has not repeated TFTs since July 2021 -Repeat TFTs now - hold any biotin containing products for 3 days prior to completing blood work -Repeat TFTs every 4 weeks in 1st trimester and once in 2nd and 3rd trimester as along as TFTs remain stable -TSH goal <2.5 in 1st trimester and <3 in 2nd and third trimester -Reviewed the role of thyroid hormone in brain development -Refill of levothyroxine 125 mcg once daily prescribed today - continue this dose for now - will notify patient if LT4 needs to be adjusted RTC in 4 weeks I have confirmed and edited as necessary, the past medical, surgical, family, and social history asobtained by others. Lisa Gomez MD Endocrinology and Metabolism [facility] Medical Decision Making: Problems: Moderate: 1+ chronic illnesses with change Data: Unique test result(s) reviewed: 1 Unique test(s) ordered: 1 Risk: Moderate: Moderate risk from testing/treatment Medical Decision Making Level: 4 - Moderate documented in this encounterMemorial Health System06-02-2022 Miscellaneous Notes* Quick Notes - Coni Gonzalez APRN.CNM - 09/20/2021 2:15 PM EDT Odalys Morales is a 25 year old female who presents at 12w0d for a routine visit. Nausea resolved. No emesis. Concerned over weight loss. Patient had Covid over a year ago and still does not have previous taste or smell back. Reports no appetite and most food tasting like sulfur. Has appointment for endocrinology in 3 months but needs refill on Synthroid today. Trying to eat balanced meals and no meal skipping. Denies headache, visual changes, chest pain, shortness of breath, vaginal bleeding, leakage of fluid, or dysuria. Size equal to dates. -15 TWG. PTL/ Bleeding precautions reviewed. RTC in 4 weeks or sooner if needed. Coni Gonzalez APRN.CNM ASSESSMENT/PLAN: 1. 12 weeks gestation of - ICD9: V22.2, ICD10: Z3A.12 (primary diagnosis) 2. Encounter for supervision of normal first in first trimester - ICD9: V22.0, ICD10: Z34.01 3. Hypothyroidism, unspecified type - ICD9: 244.9, ICD10: E03.9 - Continue Synthroid 125 mcg PO Daily - TSH BLD 4. Weight loss, non-intentional - ICD9: 783.21, ICD10: R63.4 - CONS[facility] TO [facility] RTO 4 weeks or sooner if needed Coni Gonzalez APRN.CNM documented in this encounterMemorial Health System06-02-2022 Instructions* Patient Instructions* Judi Duarte Ma - 09/20/2021 1:45 PM EDT SEQUENTIAL SCREENINGS [facility] offers sequential screenings for women who are interested in screenings for chromosomal abnormalities and certain defects during a . The sequential screen combinesultrasound and blood tests to determine the risk of chromosomal abnormalities, including Down's Syndrome (Trisomy 21) and Trisomy 18, as well as open neural tube defects including spina bifida. Ultrasound examination is performed between 11 weeks and 13 weeks gestational age. Blood tests are drawn after the ultrasound and again later in the between 15 and 21 weeks gestational age. Please let your physician know if you are interested in this testing. It will require an appointment withour dyno technician. This is not an ultrasound performed by a physician in our office during a routine visit. SIGNS AND SYMPTOMS OF LABOR 1. Contractions every 10 minutes or more often 2. Clear, pink, or brownish fluid (water) leaking from vagina 3. Feeling that baby is pushing down, pressure 4. Low, dull backache 5. Cramps that feel like a period 6. Cramps with or without diarrhea If you notice any of the above symptoms, contact our office at [phone] and ask to speak with anurse. After hours, you can call doctors registry at [phone] OR call [facility] at [phone] ask to have the doctor outdoor education teacher paged. If you consider this an emergency, dial 9-2-4 or go to your nearest emergency department. NEED HELP? Are you dealing with a violent or abusive relationship? Are you a victim of rape or sexual assult? Call [facility] ([facility] 24 hour Crisis Hotline: 304.587.3856 or 232-754-7643. MANUAL Your Guide to a Healthy manual is now on-line. Visit [email or web address] to download your free copy documented in this encounterMemorial Health System04-22-2022 Miscellaneous Notes* Telephone Encounter - Romana Metz Ma - 08/10/2021 9:58 AM EDT Called and spoke with PT, expressed understanding Transferred to call center Closed * Telephone Encounter - Benita Sellers MD - 08/10/2021 9:37 AM EDT Received a message from Patient's OB. Patient is and TSH is elevated She has not seen endocrinology since 2019. I would like her to increase levothyroxine to 125 mcg daily She needs to schedule a 4-6 week virtual follow up with me to Cec[facility] Please notify the patient, thank you Benita Sellers MD documented in this encounterMemorial Health System04-21-2022 History of Present illness Narrative* Clotilde Conklin MD - 08/09/2021 9:50 AM EDT INITIAL OB ASSESSMENT Obstetric History T0 L0 SAB0 IAB0 Ectopic0 Multiple0 Live Births0 Name of Baby 1: Not recorded Date: Not recorded GA: Not recorded Delivery: Not recorded Apgar1: Not recorded Apgar5: Not recorded Living: Not recorded HPI: Odalys Morales is a 25 year old female here to establish Obstetrical Care. Patient's last menstrual period was 06/28/2021 (exact date). from OB Dating Form. Complaints: nausea without vomiting was planned. OB History T0 L0 SAB0 IAB0 Ectopic0 Multiple0 Live Births0 Prior : never History of 4th degree laceration: No Patient's Risk Screening for delivery: History of abnormal pap: No Prior treatment for cervical dysplasia: none. History of STDs: None and HSV Tobacco use: No Caffeine use: Yes - occ latte Drug use: No Alcohol use: No Multivitamin with Folic acid: will start today Occupation: [employer] or heritage: No Would refuse blood transfusion if medically necessary: No BMI 25.98 kg/(m^2) Patient BMI over 30? No Marital Status: Partner: Name: Haseeb Lopez Age: 24 Occupation: [employer] Gender: male 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 PMH - PAST MEDICAL HISTORY OF 05/11/2009 Color Vision - Pass Seasonal allergies 07/12/2014 PAST SURGICAL HISTORY Procedure Laterality Date EXTRACTION, ERUPTED TOOTH OR EXPOSED ROOT (ELEVATION AND/OR FORCEPS REMOVAL) 09/2015 Mobile teeth TONSILLECTOMY & ADENOIDECTOMY <AGE 12 Current Outpatient Medications on File Prior to Visit Medication Sig multivitamin (CLASSIC ) 28 mg iron- 800 mcg tab(s) Take 1 tablet by mouth once daily. TRI FEMYNOR 0.18/0.215/0.25 mg-35 mcg (28) TAKE 1 TABLET BY MOUTH EVERY DAY (Patient not taking: Reported on 08/02/2021) levothyroxine (SYNTHROID) 112 mcg tablet TAKE 1 TABLET BY MOUTH EVERY DAY ferrous sulfate (IRON) 325 mg (65 mg iron) tablet Take 325 mg by mouth daily with breakfast. (Patient not taking: Reported on 08/02/2021 ) No current facility-administered medications on file prior to visit. Review of Systems: GENERAL: Negative for: Fever or Chills HEENT: Negative for: Impaired Vision, Ringing in Ears, Nosebleeds. Some increased mild headaches that are intermittent. NECK: Negative for: Swelling, Pain, Stiffness RESPIRATORY: Negative for: Cough, Shortness of breath, Wheezing GASTROINTESTINAL: Negative for: Heartburn, Constipation, Diarrhea, Blood in stool, Vomiting MUSCULOSKELETAL: Negative for: Muscle or joint pain, stiffness, Joint swelling NEUROLOGIC/PSYCHIATRIC: Negative for: Weakness, Paralysis, Numbness, Tingling, Tremor, Anxiety, Depression, Memory loss SKIN: Negative for: Rash, Itching GENITOURINARY: Negative for: vaginal itching, vaginal discharge, hematuria or dysuria PHYSICAL EXAM: BP 102/70 Ht 5' 5.354 (1.66m) Wt 157 lb 12.8 oz (71.6kg) LMP 06/28/2021 BMI25.98 kg/(m^2). GENERAL: pleasant female in no apparent distress DERMATOLOGY: Normal, without lesions, non-icteric and non-hirsute NECK: Supple, full range of motion, no adenopathy and thyroid normal CHEST: Normal inspiratory effort BREAST: soft, non-tender, symmetric, no dominant mass, normal nipple-areolar complex, no lymphadenopathy and no nipple discharge ABDOMEN: soft, non-tender and no masses NEURO: alert and oriented x3,exam grossly non-focal PELVIS: External genitalia normal without lesions. Perineal body intact. No vaginal or cervical lesions. Cervix closed. Uterus 6 week size. No adnexal masses or tenderness. Clinical Pelvimetry: Pelvimetry clinically assessed as adequate Limited OB ultrasound exam: single intrauterine and positive cardiac activity OB Risk Screening: Completed, positive findings include: Patient answered 'Yes' to Partner with Herpes ASSESSMENT: 25 year old at 6 wks gestational age PLAN: 1) Patient oriented to practice. Discussed nutrition, folic acid supplementation, dietary guidelines, exercise, smoking, alcohol, caffeine, and drug use. Discussed routine OB labs including STD/HIV. Discussed aneuploidy screening options including serum screening and nuchal translucency. CF carrier screening discussed and declined. 2) Nausea - advised on vitamin B6 3) See problem list 4) Advised on magnesium oxide for headaches. Follow up in 4 weeks or sooner prn. Clotilde Conklin MD documented in this encounterMemorial Health System04-21-2022 Instructions* Patient Instructions* Rere Pink Ma - 08/09/2021 9:50 AM EDT Please select the following link to access the [facility] Your Guide to a Healthy . [email or web address] documented in this encounterMemorial Health System04-14-2022 Miscellaneous Notes* Quick Notes - Alta Ludwig RN - 08/02/2021 10:18 AM EDT DISTANCE HEALTH VISIT This Team Access Model visit is a phone encounter. It required patient-provider interaction for themedical decision making as documented below. Patient has a history of hypothyroidism treated by . Last thyroid labs drawn October 2019. I have asked her to call Dr. Sellers's office to let him know that she is .Pt is made aware to take thyroid medication and vitamins at different times of day due to their interactions.Pt has a history of genital herpes. Discussed with pt. importance of reporting any outbreaks during should they occur. Patient desires aneuploidy screening. Contact information to [facility] given to patient to check on insurance coverage.Patient considering genetic carrier screening testing. Contact information to the [facility] given to patient to check on insurance coverage.Alta Ludwig RN documented in this encounterMemorial Health System06-08-2021 Hospital Discharge instructions* Instructions* Norman Dozier DO - 09/26/2020 If Vision continues to have transient/temporary changes, please follow up with journalism intern. Follow up with PCP if he continues to have headaches. Perform cervical stretching 3 times a day at homeor work as shown at bedside. * Attachments The following attachments cannot be sent through Care Everywhere. * Headache (Wallisian) * Vision Tests: General Info (Wallisian) * Headache: Tension (Wallisian) documented in this encounterSUMMA Work Phone: [phone] History of Past illness Narrative* Problem Noted Date Resolved Date Family history of thyroid disease in mother 06/2 04/201708/09/2021 documented as of this encounter (statuses as of 08/09/2021) [facility] of [facility] illness Narrative* Problem Noted Date Resolved Date Family history of thyroid disease in mother 06/2 04/201708/09/2021 documented as of this encounter (statuses as of 08/10/2021) [facility] of [facility] illness Narrative* Problem Noted Date Resolved Date Family history of thyroid disease in mother 06/2 04/201708/09/2021 documented as of this encounter (statuses as of 09/07/2021) [facility] of [facility] illness Narrative* Problem Noted Date Resolved Date Family history of thyroid disease in mother 06/2 04/201708/09/2021 documented as of this encounter (statuses as of 09/20/2021) [facility] of [facility] illness Narrative* Problem Noted Date Resolved Date Family history of thyroid disease in mother 06/2 04/201708/09/2021 documented as of this encounter (statuses as of 10/04/2021) [address]21-2018 History of Past illness Narrative* Problem Noted Date Resolved Date Family history of thyroid disease in mother 06/2 04/201708/09/2021 documented as of this encounter (statuses as of 10/18/2021) [facility] of [facility] Narrative* Problem Noted Date Resolved Date Family history of thyroid disease in mother 06/2 04/201708/09/2021 documented as of this encounter (statuses as of 11/15/2021) [facility] Narrative* Problem Noted Date Resolved Date Family history of thyroid disease in mother 06/2 04/201708/09/2021 documented as of this encounter (statuses as of 11/29/2021) [address]21-2018 History of Past illness Narrative* Problem Noted Date Resolved Date Family history of thyroid disease in mother 06/2 04/201708/09/2021 documented as of this encounter (statuses as of 12/06/2021) [facility] Narrative* Problem Noted Date Resolved Date Family history of thyroid disease in mother 06/2 04/201708/09/2021 documented as of this encounter (statuses as of 12/21/2021) [facility] Narrative* Problem Noted Date Resolved Date Family history of thyroid disease in mother 06/2 04/201708/09/2021 documented as of this encounter (statuses as of 12/25/2021) [address]-2018 History of Past illness Narrative* Problem Noted Date Resolved Date Family history of thyroid disease in mother 06/2 04/201708/09/2021 documented as of this encounter (statuses as of 01/03/2022) [facility] Narrative* Problem Noted Date Resolved Date Family history of thyroid disease in mother 06/2 04/201708/09/2021 documented as of this encounter (statuses as of 01/17/2022) [address]21-2018 History of Past illness Narrative* Problem Noted Date Resolved Date Family history of thyroid disease in mother 06/2 04/201708/09/2021 documented as of this encounter (statuses as of 01/25/2022) [address]21-2018 History of Past illness Narrative* Problem Noted Date Resolved Date Family history of thyroid disease in mother 06/2 04/201708/09/2021 documented as of this encounter (statuses as of 01/31/2022) [address]21-2018 History of Past illness Narrative* Problem Noted Date Resolved Date Family history of thyroid disease in mother 06/2 04/201708/09/2021 documented as of this encounter (statuses as of 02/14/2022) [address]21-2018 History of Past illness Narrative* Problem Noted Date Resolved Date Family history of thyroid disease in mother 06/2 04/201708/09/2021 documented as of this encounter (statuses as of 02/20/2022) [address]21-2018 History of Past illness Narrative* Problem Noted Date Resolved Date Family history of thyroid disease in mother 06/2 04/201708/09/2021 documented as of this encounter (statuses as of 02/28/2022) [address]21-2018 History of Past illness Narrative* Problem Noted Date Resolved Date Family history of thyroid disease in mother 06/2 04/201708/09/2021 documented as of this encounter (statuses as of 03/01/2022) [address]21-2018 History of Past illness Narrative* Problem Noted Date Resolved Date Family history of thyroid disease in mother 06/2 04/201708/09/2021 documented as of this encounter (statuses as of 03/04/2022) [address]21-2018 History of Past illness Narrative* Problem Noted Date Resolved Date Family history of thyroid disease in mother 06/2 04/201708/09/2021 documented as of this encounter (statuses as of 03/08/2022) [address]21-2018 History of Past illness Narrative* Problem Noted Date Resolved Date Family history of thyroid disease in mother 06/2 04/201708/09/2021 documented as of this encounter (statuses as of 03/08/2022) [address]21-2018 History of Past illness Narrative* Problem Noted Date Resolved Date Family history of thyroid disease in mother 06/2 04/201708/09/2021 documented as of this encounter (statuses as of 03/12/2022) [address]21-2018 History of Past illness Narrative* Problem Noted Date Resolved Date Family history of thyroid disease in mother 06/2 04/201708/09/2021 documented as of this encounter (statuses as of 03/19/2022) [address]21-2018 History of Past illness Narrative* Problem Noted Date Resolved Date Family history of thyroid disease in mother 06/2 04/201708/09/2021 documented as of this encounter (statuses as of 03/19/2022) [address]21-2018 History of Past illness Narrative* Problem Noted Date Resolved Date Family history of thyroid disease in mother 06/2 04/201708/09/2021 documented as of this encounter (statuses as of 03/22/2022) [address]21-2018 History of Past illness Narrative* Problem Noted Date Resolved Date Family history of thyroid disease in mother 06/2 04/201708/09/2021 documented as of this encounter (statuses as of 03/29/2022) [address]21-2018 History of Past illness Narrative* Problem Noted Date Resolved Date Family history of thyroid disease in mother 06/2 04/201708/09/2021 documented as of this encounter (statuses as of 04/02/2022) [address]21-2018 History of Past illness Narrative* Problem Noted Date Resolved Date Family history of thyroid disease in mother 06/2 04/201708/09/2021 documented as of this encounter (statuses as of 04/08/2022) [address]21-2018 History of Past illness Narrative* Problem Noted Date Resolved Date Family history of thyroid disease in mother 06/2 04/201708/09/2021 documented as of this encounter (statuses as of 04/08/2022) [address]21-2018 History of Past illness Narrative* Problem Noted Date Resolved Date Family history of thyroid disease in mother 06/2 04/201708/09/2021 documented as of this encounter (statuses as of 04/09/2022) [address]21-2018 History of Past illness Narrative* Problem Noted Date Resolved Date Family history of thyroid disease in mother 06/2 04/201708/09/2021 documented as of this encounter (statuses as of 05/07/2022) [address]21-2018 History of Past illness Narrative* Problem Noted Date Resolved Date Family history of thyroid disease in mother 06/2 04/201708/09/2021 documented as of this encounter (statuses as of 05/10/2022) [address]21-2018 History of Past illness Narrative* Problem Noted Date Resolved Date Family history of thyroid disease in mother 06/2 04/201708/09/2021 documented as of this encounter (statuses as of 05/10/2022) [address]21-2018 History of Past illness Narrative* Problem Noted Date Resolved Date Family history of thyroid disease in mother 06/2 04/201708/09/2021 documented as of this encounter (statuses as of 05/14/2022) [address]21-2018 History of Past illness Narrative* Problem Noted Date Resolved Date Family history of thyroid disease in mother 06/2 04/201708/09/2021 documented as of this encounter (statuses as of 06/03/2022) [address]21-2018 History of Past illness Narrative* Problem Noted Date Diagnosed Date Resolved Date Family history of thyroid disease in mother 10/09/2017 08/09/2021 documented as of this encounter (statuses as of 11/21/2022) [address]21-2018 History of Past illness Narrative* Problem Noted Date Diagnosed Date Resolved Date Family history of thyroid disease in mother 10/09/2017 08/09/2021 documented as of this encounter (statuses as of 11/23/2022) [address]21-2018 History of Past illness Narrative* Problem Noted Date Diagnosed Date Resolved Date Family history of thyroid disease in mother 10/09/2017 08/09/2021 documented as of this encounter (statuses as of 02/26/2023) [address]21-2018 History of Past illness Narrative* Problem Noted Date Diagnosed Date Resolved Date Family history of thyroid disease in mother 10/09/2017 08/09/2021 documented as of this encounter (statuses as of 03/10/2023) [address]21-2018 History of Past illness Narrative* Problem Noted Date Diagnosed Date Resolved Date Family history of thyroid disease in mother 10/09/2017 08/09/2021 documented as of this encounter (statuses as of 06/09/2023) [address]21-2018 History of Past illness Narrative* Problem Noted Date Diagnosed Date Resolved Date Family history of thyroid disease in mother 10/09/2017 08/09/2021 documented as of this encounter (statuses as of 06/20/2023) [address]21-2018 History of Past illness Narrative* Problem Noted Date Diagnosed Date Resolved Date Family history of thyroid disease in mother 10/09/2017 08/09/2021 documented as of this encounter (statuses as of 06/20/2023) [facility]* Problem Noted Date Diagnosed Date Resolved Date Family history of thyroid disease in mother 10/09/2017 08/09/2021 documented as of this encounter (statuses as of 07/03/2023) [address]21-2018 History of Past illness Narrative* Problem Noted Date Diagnosed Date Resolved Date Family history of thyroid disease in mother 10/09/2017 08/09/2021 documented as of this encounter (statuses as of 07/04/2023) [address]21-2018 History of Past illness Narrative* Problem Noted Date Diagnosed Date Resolved Date Family history of thyroid disease in mother 10/09/2017 08/09/2021 documented as of this encounter (statuses as of 07/09/2023) [facility] [place] [facility] Diagnosis Nonintractable episodic headache, unspecified headache type- Primary Vision changes Unspecified visual disturbance documented in this encounter [facility] Work Phone: Evaluation note* Diagnosis Supervision of normal first , antepartum- Primary Hypothyroidism, unspecified type History of herpes genitalis Personal history of other infectious and parasitic disease Patient request for diagnostic testing Other specified examination [facility] this encounter [facility] [place] [facility]* Diagnosis Encounter for screening for malignant neoplasm of cervix- Primary Screening for malignant neoplasm of the cervix Supervision of normal first , antepartum Other specified hypothyroidism History of herpes genitalis Personal history of other infectious and parasitic disease [facility] Diagnosis 12 weeks gestation of - Primary state, incidental Encounter for supervision of normal first in first trimester Supervision of normal first Hypothyroidism, unspecified type Weight loss, non-intentional Loss of weight documented [facility] this [facility] [place] [facility]* 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 documented [facility] [place] [facility]* Diagnosis 16 weeks gestation of - Primary state, incidental [facility] [place] [facility]* Diagnosis Encounter for anatomic survey- Primary 20 weeks gestation of state, incidental [facility] [place] [facility]* Diagnosis Encounter for supervision of normal first in second trimester- Primary Supervision of normal first 23 weeks gestation of state, incidental Hypothyroidism, unspecified type [facility] [place] [facility]* Diagnosis 25 weeks gestation of - Primary state, incidental Hypothyroidism, unspecified type [facility] [place] [facility]* Diagnosis 27 weeks gestation of - Primary state, incidental Encounter for supervision of normal first in second trimester Supervision of normal first Need for vaccination Need for prophylactic vaccination and inoculation against unspecified single disease [facility] [place] [facility]* Diagnosis 25 weeks gestation of state, incidental Hypothyroidism, unspecified type [facility] [place] [facility]* 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 25 weeks gestation of state, incidental Hypothyroidism, unspecified type documented [facility] [place] [facility]* Diagnosis 33 weeks gestation of - Primary state, incidental [facility] [place] [facility]* Diagnosis 35 weeks gestation of - Primary state, incidental Encounter for supervision of normal first in third trimester Supervision of normal first History of herpes genitalis Personal history of other infectious and parasitic disease documented [facility] [place] [facility]* Diagnosis 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 documented [facility] [place] [facility]* Diagnosis 36 weeks gestation of - Primary state, incidental Swelling of lower extremity during in third trimester documented [facility] [place] [facility]* Diagnosis Variable heart rate decelerations, antepartum- Primary distress affecting management of mother, antepartum [facility] [place] [facility]* Diagnosis Suspected problem with amniotic cavity and membrane not found- Primary Variable heart rate decelerations, antepartum distress affecting management of mother, antepartum Suspected problem with growth not found 37 weeks gestation of state, incidental documented [facility] this [facility] [place] [facility]* Diagnosis 38 weeks gestation of - Primary state, incidental Encounter for supervision of normal first in third trimester Supervision of normal first documented [facility] [place] [facility]* Diagnosis 39 weeks gestation of - Primary state, incidental Encounter for supervision of normal first in third trimester Supervision of normal first documented [facility] [place] [facility]* Diagnosis Dysuria- Primary Feeling of incomplete bladder emptying Incomplete bladder emptying Lactating mother care and examination of lactating mother documented [facility] [place] [facility]* Diagnosis care and examination- Primary Routine follow-up Pain of pelvic girdle Encounter for initial prescription of contraceptive pills General counseling for prescription of oral contraceptives documented [facility] [place] [facility]* Diagnosis Mastitis, right, acute- Primary Inflammatory disease of breast documented [facility] this [facility] [place] [facility]* Diagnosis care and examination- Primary Routine follow-up Pain of pelvic girdle documented [facility] [place] [facility]* Diagnosis Family history of cancer- Primary Family history of unspecified malignant neoplasm Wellness examination Screening for diabetes mellitus Screening for lipid disorders Hypothyroidism, unspecified type Gallstones Calculus of gallbladder without mention of cholecystitis or obstruction Encounter for immunization Need for other specified prophylactic vaccination against single bacterial disease Low libido Decreased libido Difficulty articulating words [facility] Diagnosis Hypothyroidism, acquired- Primary Unspecified hypothyroidism documented [facility] this [facility] [place] [facility]* Diagnosis Hypothyroidism, acquired Unspecified hypothyroidism documented [facility] this [facility] [place] [facility]* Diagnosis Hypothyroidism, acquired Unspecified hypothyroidism documented [facility] this [facility] [place] [facility]* Diagnosis with uncertain dates, antepartum- Primary state, incidental Hypothyroidism, unspecified type 8 weeks gestation of state, incidental Encounter for supervision of normal first in first trimester Supervision of normal first documented [facility] [place] [facility]* 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 documented [facility] [place] [facility]* Diagnosis Encounter for supervision of normal first in first trimester- Primary Supervision of normal first documented [facility] [place] [facility]* 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 Thyroid dysfunction in in second trimester Thyroid dysfunction, antepartum [facility] Diagnosis Supervision of high risk in second trimester- Primary Unspecified high-risk 15 weeks gestation of state, incidental Hypothyroidism, unspecified type * Assessment & Plan Note - Josseline Cox MD - 08/27/2023 4:37 PM EDT Associated Problem(s): Hypothyroidism Seeing Endocrinology- repeat labs 09/03/23 documented in this encounter [facility] note* 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 [facility] [place] [facility]* Diagnosis Encounter for anatomic survey- Primary 20 weeks gestation of state, incidental documented [facility] [place] [facility]* Diagnosis 20 weeks gestation of - Primary state, incidental Supervision of high risk in second trimester Unspecified high-risk documented [facility] [place] [facility]* Diagnosis Supervision of high risk in second trimester- Primary Unspecified high-risk 23 weeks gestation of state, incidental Hypothyroidism affecting in second trimester Group beta Strep positive History of herpes genitalis Personal history of other infectious and parasitic disease Dizziness Dizziness and giddiness documented [facility] this encounter [facility] [place] [facility]* Diagnosis Thyroid dysfunction in in second trimester- Primary Thyroid dysfunction, antepartum 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 [facility] [place] [facility] Diagnosis 27 weeks gestation of - Primary state, incidental Supervision of high risk in second trimester Unspecified high-risk Need for vaccination Need for prophylactic vaccination and inoculation against unspecified single disease documented [facility] [place] [facility]* 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 documented [facility] [place] [facility]* Diagnosis Supervision of high risk in second trimester- Primary Unspecified high-risk 29 weeks gestation of state, incidental Encounter for supervision of high risk in second trimester, antepartum Hypothyroidism affecting in second trimester documented [facility] [place] [facility]* Diagnosis Supervision of high risk in second trimester- Primary Unspecified high-risk 15 weeks gestation of state, incidental Hypothyroidism, unspecified type 31 weeks gestation of - Primary state, incidental Supervision of high risk in second trimester Unspecified high-risk documented in this encounter [facility] note* Diagnosis Supervision of high risk in second trimester- Primary Unspecified high-risk 15 weeks gestation of state, incidental Hypothyroidism, unspecified type Supervision of high risk in third trimester- Primary Unspecified high-risk 32 weeks gestation of state, incidental Hypothyroidism affecting in second trimester GBS bacteriuria Uterine size-date discrepancy, third trimester documented in this encounter [facility] note* Diagnosis Supervision of high risk in second trimester- Primary Unspecified high-risk 15 weeks gestation of state, incidental Hypothyroidism, unspecified type Encounter for ultrasound to check growth- Primary Encounter for routine screening for malformation using ultrasonics Uterine size-date discrepancy, third trimester 34 weeks gestation of state, incidental Polyhydramnios in third trimester complication, single or unspecified fetus documented in this encounter [facility] note* Diagnosis Supervision of high risk in second trimester- Primary Unspecified high-risk 15 weeks gestation of state, incidental Hypothyroidism, unspecified type Supervision of high risk in third trimester- Primary Unspecified high-risk 35 weeks gestation of state, incidental documented in this encounter [facility] note* Diagnosis Supervision of high risk in second trimester- Primary Unspecified high-risk 15 weeks gestation of state, incidental Hypothyroidism, unspecified type Supervision of high risk in third trimester- Primary Unspecified high-risk 36 weeks gestation of state, incidental History of herpes genitalis Personal history of other infectious and parasitic disease documented in this encounter [facility] note* Diagnosis Supervision of high risk in second trimester- Primary Unspecified high-risk 15 weeks gestation of state, incidental Hypothyroidism, unspecified type Supervision of high risk in third trimester- Primary Unspecified high-risk 37 weeks gestation of state, incidental History of herpes genitalis Personal history of other infectious and parasitic disease Hypothyroidism affecting in third trimester GBS bacteriuria H/O dizziness Personal history of other specified diseases Syncope and collapse documented in this encounter [facility] note* Diagnosis Supervision of high risk in second trimester- Primary Unspecified high-risk 15 weeks gestation of state, incidental Hypothyroidism, unspecified type Encounter for supervision of high risk in third trimester, antepartum- Primary 38 weeks gestation of state, incidental History of herpes genitalis Personal history of other infectious and parasitic disease Hypothyroidism affecting in third trimester GBS bacteriuria Dizziness Dizziness and giddiness Vaginal cyst Other specified noninflammatory disorder of vagina [facility] Diagnosis Supervision of high risk in second trimester- Primary Unspecified high-risk 15 weeks gestation of state, incidental Hypothyroidism, unspecified type GBS bacteriuria- Primary Hypothyroidism affecting in third trimester Encounter for supervision of high risk in third trimester, antepartum History of herpes genitalis Personal history of other infectious and parasitic disease 39 weeks gestation of state, incidental documented in this encounter [facility] for referral (narrative)* Diagnostic Procedure Only (Routine) - Pending Review Specialty Diagnoses / Procedures Referred By June lara Referred To Contact [facility] Diagnoses Supervision of normal first , antepartum Procedures NUCHAL TRANSLUCENCY WHI US NUCHAL TRANSLUCENCY 1ST GESTATION Clotilde Conklin MD [address] [place] [address] Formerly Named [facility] [address] [place] [address] Referral ID Status Reason Start Date Expiration Date Visits Requested Visits Authorized [id number] Pending Review Auto-Generat ed Referral 08/09/2021 08/09/2022 1 1 [facility] for referral (narrative)* Diagnostic Procedure Only (Routine) - Authorized Specialty Diagnoses / Procedures Referred By June lara Referred To Contact [facility] Diagnoses 16 weeks gestation of Procedures OBSTETRIC ULTRASOUND WHI US PREG UTERUS AFTER 1ST TRIMEST GESTATION Coni Gonzalez APRN.CNM [address] [place] [address] Formerly Named [facility] [place] [address] Referral ID Status Reason Start Date Expiration Date Visits Requested Visits Authorized [id number] Authorized Auto-Generat ed Referral 10/18/2021 10/18/2022 1 1 [facility] for referral (narrative)* Diagnostic Procedure Only (Routine) - Closed Specialty Diagnoses / Procedures Referred By Contac t Referred To Contact [facility] Diagnoses Variable heart rate decelerations, antepartum Procedures OBSTETRIC ULTRASOUND WHI US PREG UTERUS AFTER 1ST TRIMEST GESTATION Josseline Cox MD [address] [place] [address] [address] Referral ID Status Reason Start Date Expiration Date V isits Requested Visits Authorized [id number] Closed Auto-Generate d Referral 03/19/2022 03/19/2023 1 1 [facility] for referral (narrative)* Diagnostic Procedure Only (Routine) - New Request Specialty Diagnoses / Procedures Referred By Contac t Referred To Contact [facility] Diagnoses Supervision of high risk in third trimester 32 weeks gestation of Uterine size-date discrepancy, third trimester Procedures OBSTETRIC ULTRASOUND WHI US PREG UTERUS AFTER 1ST TRIMEST GESTATION Jacinta Merritt APRN.CNM [address] [place] [address] Formerly Named [facility] [address] [place] [address] Referral ID Status Reason Start Date Expiration Date Visits Requested Visits Authorized [id number] New Request Auto-Generat ed Referral 12/23/2023 12/22/2024 1 1 [facility] Health Concerns Problem Noted Date OB Reminders 08/09/2021 Problem Noted Date OB Reminders 08/09/2021 Problem Noted Date OB Reminders 08/09/2021 Problem Noted Date OB Reminders 08/09/2021 Problem Noted Date OB Reminders 08/09/2021 Problem Noted Date OB Reminders 08/09/2021 Problem Noted Date OB Reminders 08/09/2021 Problem Noted Date OB Reminders 08/09/2021 Problem Noted Date OB Reminders 08/09/2021 Problem Noted Date OB Reminders 08/09/2021 Problem Noted Date OB Reminders 08/09/2021 Problem Noted Date OB Reminders 08/09/2021 Problem Noted Date OB Reminders 08/09/2021 Problem Noted Date OB Reminders 08/09/2021 Problem Noted Date OB Reminders 08/09/2021 Problem Noted Date OB Reminders 08/09/2021 Problem Noted Date Diagnosed Date OB Reminders 08/09/2021 Problem Noted Date Diagnosed Date OB Reminders 08/09/2021 Active Problems Noted Date Diagnosed Date [facility] - [facility] 07/03/2023 [place] - [place] 07/03/2023 Active Problems Noted Date Diagnosed Date [facility] - [place] 07/03/2023 [place] - [place] 07/03/2023 Reason for Referral Specialty Diagnoses / Procedures Referred By Contac t Referred To Contact [facility] Diagnoses care and examination Pain of pelvic girdle Procedures CONSULT TO PHYSICAL THERAPY PHYSICAL THERAPY EVALUATION HIGH COMPLEX 45 MINS Jacinta Merritt APRN.CNM [address] [place] [address] [facility] [address] [address] Referral ID Status Reason Start Date Expiration Date Visits Requested Visits Authorized [id number] Pending Review Auto-Generat ed Referral 05/06/2022 05/06/2023 1 1 Specialty Diagnoses / Procedures Referred By Contac t Referred To Contact [facility] Diagnoses care and examination Pain of pelvic girdle Procedures PT REHAB FOLLOW UP ORDER THERAPEUTIC EXERCISES RE, EA 15 MIN. Natasha Castillo, PT [address] [place] [address] [facility] [address] [address] Referral ID Status Reason Start Date Expiration Date Visits Requested Visits Authorized [id number] Pending Review PCP Requested Referral Auto-Generate d Referral 05/14/2022 08/12/2022 1 1 Specialty Diagnoses / Procedures Referred By Contac t Referred To Contact [facility] Diagnoses Difficulty articulating words Procedures CONSULT TO SPEECH THERAPY OFFICE/OUTPATIENT [facility] 60-74 MINUTES Nolan Garrido APRN.PAPER CUTTING MACHINE OPERATOR [address] [place] [address] [facility] [address] [address] Referral ID Status Reason Start Date Expiration Date Visits Requested Visits Authorized [id number] Pending Review Auto-Generat ed Referral 11/21/2022 11/21/2023 1 1 Specialty Diagnoses / Procedures Referred By Contac t Referred To Contact Diagnoses Low libido Procedures CONSULT TO FUNCTIONAL MEDICINE OFFICE/OUTPATIENT [facility] 60-74 MINUTES Nolan Garrido APRN.PAPER CUTTING MACHINE OPERATOR [address] [place] [id number] Referral ID Status Reason Start Date Expiration Date Visits Requested Visits Authorized [id number] Pending Review PCP Requested Referral 11/21/2022 11/21/2023 1 1 Specialty Diagnoses / Procedures Referred By Contac t Referred To Contact Diagnoses Family history of cancer Procedures CONSULT TO MEDICAL GENETICS - CANCER MEDICAL GENETICS COUNSELING EACH 30 MINUTES Nolan Garrido APRN.PAPER CUTTING MACHINE OPERATOR [address] [place] [address] [address] Referral ID Status Reason Start Date Expiration Date Visits Requested Visits Authorized [id number] Authorized PCP Requested Referral Auto-Generate d Referral 11/21/2022 11/21/2023 1 1 Specialty Diagnoses / Procedures Referred By Contac t Referred To Contact Endocrinology Diagnoses with uncertain dates, antepartum Hypothyroidism, unspecified type Procedures CONSULT TO ENDOCRINOLOGY OFFICE/OUTPATIENT [facility] 60 MINUTES Coni Gonzalez APRN.[facility] [address] [place] [address] Referral ID Status Reason Start Date Expiration Date Visits Requested Visits Authorized [id number] Authorized PCP Requested Referral 07/03/2023 07/02/2024 1 1 Specialty Diagnoses / Procedures Referred By Contac t Referred To Contact [facility] Diagnoses with uncertain dates, antepartum Procedures NUCHAL TRANSLUCENCY WHI US NUCHAL TRANSLUCENCY 1ST GESTATION Coni Gonzalez APRN.CNM [address] [place] [address] [address] Referral ID Status Reason Start Date Expiration Date Visits Requested Visits Authorized [id number] Authorized Auto-Generat ed Referral 07/03/2023 07/02/2024 1 1 Specialty Diagnoses / Procedures Referred By Contac t Referred To Contact [facility] Diagnoses with uncertain dates, antepartum Procedures OBSTETRIC ULTRASOUND WHI US PREG UTERUS AFTER 1ST TRIMEST GESTATION Coni Gonzalez APRN.[facility]NA[facility] [address] [place] [address] [address] Referral ID Status Reason Start Date Expiration Date Visits Requested Visits Authorized [id number] Pending Review Auto-Generat ed Referral 07/03/2023 07/02/2024 1 1 Specialty Diagnoses / Procedures Referred By Contac t Referred To Contact Cardiology Diagnoses Supervision of high risk in third trimester 37 weeks gestation of H/O dizziness Syncope and collapse Procedures CONSULT TO CARDIOLOGY OFFICE/OUTPATIENT NEW [facility] 60 MINUTES Coni Gonzalez APRN.CNM [address] [place] [address] Referral ID Status Reason Start Date Expiration Date Visits Requested Visits Authorized [id number] Authorized PCP Requested Referral 01/22/2024 01/21/2025 1 1 Summary Purpose Family History No Family History Records Found Advance Directives No Advanced Directives Records Found Additional Source Comments Reason for Visit (unrecogniz ed section and content) Reason Comments Migraine Reason Comments Care Reason Comments Initial OB Visit Reason Comments Results Reason Comments Refill Request Reason Onset Date Comments Care 09/20/2021 Reason Comments Thyroid Problem Reason Onset Date Comments Care 10/18/2021 Reason Comments US Specialty Diagnoses / Procedures Referred By Contac t Referred To Contact [facility] Diagnoses 16 weeks gestation of Procedures OBSTETRIC ULTRASOUND WHI US PREG UTERUS AFTER 1ST TRIMEST GESTATION Coni Gonzalez APRN.CNM [address] [place] [address] [address] Referral ID Status Reason Start Date Expiration Date V isits Requested Visits Authorized [id number] Closed Auto-Generate d Referral 10/18/2021 10/18/2022 1 1 Reason Onset Date Comments Care 12/06/2021 Reason Comments Orders Reason Onset Date Comments Care 01/03/2022 Reason Comments Appointment Reason Onset Date Comments Care 02/14/2022 Reason Onset Date Comments Care 02/28/2022 Reason Comments OB-Cramping Reason Onset Date Comments Care 03/12/2022 Reason Comments Orders Specialty Diagnoses / Procedures Referred By Contac t Referred To Contact [facility] Diagnoses Variable heart rate decelerations, antepartum Procedures OBSTETRIC ULTRASOUND WHI US PREG UTERUS AFTER 1ST TRIMEST GESTATION Josseline Cox MD [address] [place] [address] Formerly Named [facility] [address] [place] [address] Referral ID Status Reason Start Date Expiration Date V isits Requested Visits Authorized [id number] Closed Auto-Generate d Referral 03/19/2022 03/19/2023 1 1 Reason Onset Date Comments Care 03/21/2022 Reason Onset Date Comments Care 03/28/2022 Reason Comments Ob Delivery Note Reason Comments Dysuria X2-3 days, feels a l ot of pressure Early Reason Comments Routine Reason Comments Breast Problem Reason Comments PT Eval Specialty Diagnoses / Procedures Referred By Contac t Referred To Contact [facility] Diagnoses care and examination Pain of pelvic girdle Procedures CONSULT TO PHYSICAL THERAPY PHYSICAL THERAPY EVALUATION HIGH COMPLEX 45 MINS Jacinta Merritt APRN.[facility] [address] [place] [address] [facility] [address] [address] Referral ID Status Reason Start Date Expiration Date Visits Requested Visits Authorized [id number] Pending Review Auto-Generat ed Referral 05/06/2022 05/06/2023 1 1 Reason Comments Establish Care Reason Onset Date Comments Refill Request 06/06/2023 Reason Onset Date Comments Refill Request 06/20/2023 Reason Comments NOB Intake Questions Reason Onset Date Comments Care 08/07/2023 Reason Onset Date Comments Care 08/27/2023 Specialty Diagnoses / Procedures Referred By Contac t Referred To Contact [facility] Diagnoses with uncertain dates, antepartum Procedures OBSTETRIC ULTRASOUND WHI US PREG UTERUS AFTER 1ST TRIMEST GESTATION Coni Gonzalez APRN.CHILO [address] [place] [address] Formerly Named [facility] [address] [place] [address] Referral ID Status Reason Start Date Expiration Date V isits Requested Visits Authorized [id number] Closed Auto-Generate d Referral 07/03/2023 07/02/2024 1 1 Reason Onset Date Comments Care 09/25/2023 Reason Onset Date Comments Care Care 10/16/2023 Reason Onset Date Comments Care 11/13/2023 Reason Onset Date Comments Care 11/27/2023 Reason Onset Date Comments Care 12/11/2023 Reason Onset Date Comments Care 12/23/2023 Specialty Diagnoses / Procedures Referred By Contac t Referred To Contact [facility] Diagnoses Supervision of high risk in third trimester 32 weeks gestation of Uterine size-date discrepancy, third trimester Procedures OBSTETRIC ULTRASOUND WHI US PREG UTERUS AFTER 1ST TRIMEST GESTATION Jacinta Merritt APRN.AJ [address] [place] [address] Formerly Named [facility] [address] [place] [address] Referral ID Status Reason Start Date Expiration Date V isits Requested Visits Authorized [id number] Closed Auto-Generate d Referral 12/23/2023 12/22/2024 1 1 Reason Onset Date Comments Care 01/08/2024 Reason Onset Date Comments Care 01/15/2024 Reason Onset Date Comments Care 01/22/2024 Reason Onset Date Comments Care 01/29/2024 Reason Onset Date Comments Population Health Navigation Outreach 01/29/2024 OB/peds Reason Comments Breast Pump Reason Onset Date Comments Care 02/05/2024 Ordered Prescriptions (unrec ognized section and content) Prescription Sig Dispensed Refills Start Date End Da te metoclopramide (REGLAN) 10 MG tablet Take 1 tablet by mouth 2 times daily as needed (ANDREWS, N/V) 6 tablet 0 09/26/2020 Scheduled Active and Recently Administ ered Medications (unrecognized section and content) Medication Order 09/24/2020 09/25/2020 09/26/2020 metoclopramide (REGLAN) tablet 10 mg (COMPLETED) 10 mg, Oral, ONCE, On Fri09/26/20 at 2130, For 1 dose 2142 (Given - Provid er: Netta Sanches RN) metoclopramide (REGLAN) tablet 10 mg 10 mg, Oral, ONCE, On Fri09/26/20 at 2132, For 1 dose 2152 (Not Given - Pr ovider: Netta Sanches RN - Reason: Other - Comment: duplicate order) Source Comments (unrecognize d section and content) In the event this informatio n is protected by the Federal Confidentiality of Alcohol and Drug Abuse Patient Records regulations: The Federal rules restrict any use of the information to criminally investigate or prosecute any alcohol or drug abuse patient.[facility] System[facility] the event this information is protected by the Federal Confidentiality of Alcohol and Drug Abuse Patient Records regulations: The Federal rules restrict any use of the information to criminally investigate or prosecute any alcohol or drug abuse patient.[facility] SystemIn the event this information is protected by the Federal Confidentiality of Alcohol and Drug Abuse Patient Records regulations: The Federal rules restrict any use of the information to criminally investigate or prosecute any alcohol or drug abuse patient.[facility] SystemIn the event this information is protected by the Federal Confidentiality of Alcohol and Drug Abuse Patient Records regulations: The Federal rules restrict any use of the information to criminally investigate or prosecute any alcohol or drug abuse patient.[facility] SystemIn the event this information is protected by the Federal Confidentiality of Alcohol and Drug Abuse Patient Records regulations: The Federal rules restrict any use of the information to criminally investigate or prosecute any alcohol or drug abuse patient.[facility] SystemIn the event this information is protected by the Federal Confidentiality of Alcohol and Drug Abuse Patient Records regulations: The Federal rules restrict any use of the information to criminally investigate or prosecute any alcohol or drug abuse patient.[facility] SystemIn the event this information is protected by the Federal Confidentiality of Alcohol and Drug Abuse Patient Records regulations: The Federal rules restrict any use of the information to criminally investigate or prosecute any alcohol or drug abuse patient.[facility] SystemIn the event this information is protected by the Federal Confidentiality of Alcohol and Drug Abuse Patient Records regulations: The Federal rules restrict any use of the information to criminally investigate or prosecute any alcohol or drug abuse patient.[facility] SystemIn the event this information is protected by the Federal Confidentiality of Alcohol and Drug Abuse Patient Records regulations: The Federal rules restrict any use of the information to criminally investigate or prosecute any alcohol or drug abuse patient.[facility] SystemIn the event this information is protected by the Federal Confidentiality of Alcohol and Drug Abuse Patient Records regulations: The Federal rules restrict any use of the information to criminally investigate or prosecute any alcohol or drug abuse patient.[facility] SystemIn the event this information is protected by the Federal Confidentiality of Alcohol and Drug Abuse Patient Records regulations: The Federal rules restrict any use of the information to criminally investigate or prosecute any alcohol or drug abuse patient.[facility] SystemIn the event this information is protected by the Federal Confidentiality of Alcohol and Drug Abuse Patient Records regulations: The Federal rules restrict any use of the information to criminally investigate or prosecute any alcohol or drug abuse patient.[facility] SystemIn the event this information is protected by the Federal Confidentiality of Alcohol and Drug Abuse Patient Records regulations: The Federal rules restrict any use of the information to criminally investigate or prosecute any alcohol or drug abuse patient.[facility] SystemIn the event this information is protected by the Federal Confidentiality of Alcohol and Drug Abuse Patient Records regulations: The Federal rules restrict any use of the information to criminally investigate or prosecute any alcohol or drug abuse patient.[facility] SystemIn the event this information is protected by the Federal Confidentiality of Alcohol and Drug Abuse Patient Records regulations: The Federal rules restrict any use of the information to criminally investigate or prosecute any alcohol or drug abuse patient.[facility] SystemIn the event this information is protected by the Federal Confidentiality of Alcohol and Drug Abuse Patient Records regulations: The Federal rules restrict any use of the information to criminally investigate or prosecute any alcohol or drug abuse patient.[facility] SystemIn the event this information is protected by the Federal Confidentiality of Alcohol and Drug Abuse Patient Records regulations: The Federal rules restrict any use of the information to criminally investigate or prosecute any alcohol or drug abuse patient.[facility] SystemIn the event this information is protected by the Federal Confidentiality of Alcohol and Drug Abuse Patient Records regulations: The Federal rules restrict any use of the information to criminally investigate or prosecute any alcohol or drug abuse patient.[facility] SystemIn the event this information is protected by the Federal Confidentiality of Alcohol and Drug Abuse Patient Records regulations: The Federal rules restrict any use of the information to criminally investigate or prosecute any alcohol or drug abuse patient.[facility] SystemIn the event this information is protected by the Federal Confidentiality of Alcohol and Drug Abuse Patient Records regulations: The Federal rules restrict any use of the information to criminally investigate or prosecute any alcohol or drug abuse patient.[facility] SystemIn the event this information is protected by the Federal Confidentiality of Alcohol and Drug Abuse Patient Records regulations: The Federal rules restrict any use of the information to criminally investigate or prosecute any alcohol or drug abuse patient.[facility] SystemIn the event this information is protected by the Federal Confidentiality of Alcohol and Drug Abuse Patient Records regulations: The Federal rules restrict any use of the information to criminally investigate or prosecute any alcohol or drug abuse patient.[facility] SystemIn the event this information is protected by the Federal Confidentiality of Alcohol and Drug Abuse Patient Records regulations: The Federal rules restrict any use of the information to criminally investigate or prosecute any alcohol or drug abuse patient.[facility] SystemIn the event this information is protected by the Federal Confidentiality of Alcohol and Drug Abuse Patient Records regulations: The Federal rules restrict any use of the information to criminally investigate or prosecute any alcohol or drug abuse patient.[facility] SystemIn the event this information is protected by the Federal Confidentiality of Alcohol and Drug Abuse Patient Records regulations: The Federal rules restrict any use of the information to criminally investigate or prosecute any alcohol or drug abuse patient.[facility] SystemIn the event this information is protected by the Federal Confidentiality of Alcohol and Drug Abuse Patient Records regulations: The Federal rules restrict any use of the information to criminally investigate or prosecute any alcohol or drug abuse patient.[facility] SystemIn the event this information is protected by the Federal Confidentiality of Alcohol and Drug Abuse Patient Records regulations: The Federal rules restrict any use of the information to criminally investigate or prosecute any alcohol or drug abuse patient.[facility] SystemIn the event this information is protected by the Federal Confidentiality of Alcohol and Drug Abuse Patient Records regulations: The Federal rules restrict any use of the information to criminally investigate or prosecute any alcohol or drug abuse patient.[facility] SystemIn the event this information is protected by the Federal Confidentiality of Alcohol and Drug Abuse Patient Records regulations: The Federal rules restrict any use of the information to criminally investigate or prosecute any alcohol or drug abuse patient.[facility] SystemIn the event this information is protected by the Federal Confidentiality of Alcohol and Drug Abuse Patient Records regulations: The Federal rules restrict any use of the information to criminally investigate or prosecute any alcohol or drug abuse patient.[facility] SystemIn the event this information is protected by the Federal Confidentiality of Alcohol and Drug Abuse Patient Records regulations: The Federal rules restrict any use of the information to criminally investigate or prosecute any alcohol or drug abuse patient.[facility] SystemIn the event this information is protected by the Federal Confidentiality of Alcohol and Drug Abuse Patient Records regulations: The Federal rules restrict any use of the information to criminally investigate or prosecute any alcohol or drug abuse patient.[facility] SystemIn the event this information is protected by the Federal Confidentiality of Alcohol and Drug Abuse Patient Records regulations: The Federal rules restrict any use of the information to criminally investigate or prosecute any alcohol or drug abuse patient.[facility] SystemIn the event this information is protected by the Federal Confidentiality of Alcohol and Drug Abuse Patient Records regulations: The Federal rules restrict any use of the information to criminally investigate or prosecute any alcohol or drug abuse patient.[facility] SystemIn the event this information is protected by the Federal Confidentiality of Alcohol and Drug Abuse Patient Records regulations: The Federal rules restrict any use of the information to criminally investigate or prosecute any alcohol or drug abuse patient.[facility] SystemIn the event this information is protected by the Federal Confidentiality of Alcohol and Drug Abuse Patient Records regulations: The Federal rules restrict any use of the information to criminally investigate or prosecute any alcohol or drug abuse patient.[facility] SystemIn the event this information is protected by the Federal Confidentiality of Alcohol and Drug Abuse Patient Records regulations: The Federal rules restrict any use of the information to criminally investigate or prosecute any alcohol or drug abuse patient.[facility] SystemIn the event this information is protected by the Federal Confidentiality of Alcohol and Drug Abuse Patient Records regulations: The Federal rules restrict any use of the information to criminally investigate or prosecute any alcohol or drug abuse patient.[facility] SystemIn the event this information is protected by the Federal Confidentiality of Alcohol and Drug Abuse Patient Records regulations: The Federal rules restrict any use of the information to criminally investigate or prosecute any alcohol or drug abuse patient.[facility] SystemIn the event this information is protected by the Federal Confidentiality of Alcohol and Drug Abuse Patient Records regulations: The Federal rules restrict any use of the information to criminally investigate or prosecute any alcohol or drug abuse patient.[facility] SystemIn the event this information is protected by the Federal Confidentiality of Alcohol and Drug Abuse Patient Records regulations: The Federal rules restrict any use of the information to criminally investigate or prosecute any alcohol or drug abuse patient.[facility] SystemIn the event this information is protected by the Federal Confidentiality of Alcohol and Drug Abuse Patient Records regulations: The Federal rules restrict any use of the information to criminally investigate or prosecute any alcohol or drug abuse patient.[facility] SystemIn the event this information is protected by the Federal Confidentiality of Alcohol and Drug Abuse Patient Records regulations: The Federal rules restrict any use of the information to criminally investigate or prosecute any alcohol or drug abuse patient.[facility] SystemIn the event this information is protected by the Federal Confidentiality of Alcohol and Drug Abuse Patient Records regulations: The Federal rules restrict any use of the information to criminally investigate or prosecute any alcohol or drug abuse patient.[facility] SystemIn the event this information is protected by the Federal Confidentiality of Alcohol and Drug Abuse Patient Records regulations: The Federal rules restrict any use of the information to criminally investigate or prosecute any alcohol or drug abuse patient.[facility] SystemIn the event this information is protected by the Federal Confidentiality of Alcohol and Drug Abuse Patient Records regulations: The Federal rules restrict any use of the information to criminally investigate or prosecute any alcohol or drug abuse patient.[facility] SystemIn the event this information is protected by the Federal Confidentiality of Alcohol and Drug Abuse Patient Records regulations: The Federal rules restrict any use of the information to criminally investigate or prosecute any alcohol or drug abuse patient.[facility] SystemIn the event this information is protected by the Federal Confidentiality of Alcohol and Drug Abuse Patient Records regulations: The Federal rules restrict any use of the information to criminally investigate or prosecute any alcohol or drug abuse patient.[facility] SystemIn the event this information is protected by the Federal Confidentiality of Alcohol and Drug Abuse Patient Records regulations: The Federal rules restrict any use of the information to criminally investigate or prosecute any alcohol or drug abuse patient.[facility] SystemIn the event this information is protected by the Federal Confidentiality of Alcohol and Drug Abuse Patient Records regulations: The Federal rules restrict any use of the information to criminally investigate or prosecute any alcohol or drug abuse patient.[facility] SystemIn the event this information is protected by the Federal Confidentiality of Alcohol and Drug Abuse Patient Records regulations: The Federal rules restrict any use of the information to criminally investigate or prosecute any alcohol or drug abuse patient.[facility] SystemIn the event this information is protected by the Federal Confidentiality of Alcohol and Drug Abuse Patient Records regulations: The Federal rules restrict any use of the information to criminally investigate or prosecute any alcohol or drug abuse patient.[facility] SystemIn the event this information is protected by the Federal Confidentiality of Alcohol and Drug Abuse Patient Records regulations: The Federal rules restrict any use of the information to criminally investigate or prosecute any alcohol or drug abuse patient.[facility] SystemIn the event this information is protected by the Federal Confidentiality of Alcohol and Drug Abuse Patient Records regulations: The Federal rules restrict any use of the information to criminally investigate or prosecute any alcohol or drug abuse patient.[facility] SystemIn the event this information is protected by the Federal Confidentiality of Alcohol and Drug Abuse Patient Records regulations: The Federal rules restrict any use of the information to criminally investigate or prosecute any alcohol or drug abuse patient.[facility] SystemIn the event this information is protected by the Federal Confidentiality of Alcohol and Drug Abuse Patient Records regulations: The Federal rules restrict any use of the information to criminally investigate or prosecute any alcohol or drug abuse patient.[facility] SystemIn the event this information is protected by the Federal Confidentiality of Alcohol and Drug Abuse Patient Records regulations: The Federal rules restrict any use of the information to criminally investigate or prosecute any alcohol or drug abuse patient.[facility] SystemIn the event this information is protected by the Federal Confidentiality of Alcohol and Drug Abuse Patient Records regulations: The Federal rules restrict any use of the information to criminally investigate or prosecute any alcohol or drug abuse patient.[facility] SystemIn the event this information is protected by the Federal Confidentiality of Alcohol and Drug Abuse Patient Records regulations: The Federal rules restrict any use of the information to criminally investigate or prosecute any alcohol or drug abuse patient.[facility] SystemIn the event this information is protected by the Federal Confidentiality of Alcohol and Drug Abuse Patient Records regulations: The Federal rules restrict any use of the information to criminally investigate or prosecute any alcohol or drug abuse patient.[facility] SystemIn the event this information is protected by the Federal Confidentiality of Alcohol and Drug Abuse Patient Records regulations: The Federal rules restrict any use of the information to criminally investigate or prosecute any alcohol or drug abuse patient.[facility] SystemIn the event this information is protected by the Federal Confidentiality of Alcohol and Drug Abuse Patient Records regulations: The Federal rules restrict any use of the information to criminally investigate or prosecute any alcohol or drug abuse patient.[facility] SystemIn the event this information is protected by the Federal Confidentiality of Alcohol and Drug Abuse Patient Records regulations: The Federal rules restrict any use of the information to criminally investigate or prosecute any alcohol or drug abuse patient.[facility] SystemIn the event this information is protected by the Federal Confidentiality of Alcohol and Drug Abuse Patient Records regulations: The Federal rules restrict any use of the information to criminally investigate or prosecute any alcohol or drug abuse patient.[facility] SystemIn the event this information is protected by the Federal Confidentiality of Alcohol and Drug Abuse Patient Records regulations: The Federal rules restrict any use of the information to criminally investigate or prosecute any alcohol or drug abuse patient.[facility] SystemIn the event this information is protected by the Federal Confidentiality of Alcohol and Drug Abuse Patient Records regulations: The Federal rules restrict any use of the information to criminally investigate or prosecute any alcohol or drug abuse patient.[facility] SystemIn the event this information is protected by the Federal Confidentiality of Alcohol and Drug Abuse Patient Records regulations: The Federal rules restrict any use of the information to criminally investigate or prosecute any alcohol or drug abuse patient.[facility] SystemIn the event this information is protected by the Federal Confidentiality of Alcohol and Drug Abuse Patient Records regulations: The Federal rules restrict any use of the information to criminally investigate or prosecute any alcohol or drug abuse patient.[facility] SystemIn the event this information is protected by the Federal Confidentiality of Alcohol and Drug Abuse Patient Records regulations: The Federal rules restrict any use of the information to criminally investigate or prosecute any alcohol or drug abuse patient.[facility] SystemIn the event this information is protected by the Federal Confidentiality of Alcohol and Drug Abuse Patient Records regulations: The Federal rules restrict any use of the information to criminally investigate or prosecute any alcohol or drug abuse patient.[facility] SystemIn the event this information is protected by the Federal Confidentiality of Alcohol and Drug Abuse Patient Records regulations: The Federal rules restrict any use of the information to criminally investigate or prosecute any alcohol or drug abuse patient.[facility] SystemIn the event this information is protected by the Federal Confidentiality of Alcohol and Drug Abuse Patient Records regulations: The Federal rules restrict any use of the information to criminally investigate or prosecute any alcohol or drug abuse patient.[facility] Teams (unrecognized sec tion and content) Waistline Joiner Lockstitch Relationship Specialty Start Date End Date Nils Leo MD [facility] [place], [place] [id number] PCP - General Pediatrics 05/11/10 Waistline Joiner Lockstitch Relationship Specialty Start Date End Date Nils Leo MD [address] [place] [address] [phone] PCP - General Pediatrics 05/11/10 Waistline Joiner Lockstitch Relationship Specialty Start Date End Date Nils Leo MD [address] [place] [address] [phone] PCP - General Pediatrics 05/11/10 Waistline Joiner Lockstitch Relationship Specialty Start Date End Date Nils Leo MD [address] [place] [address] [phone] PCP - General Pediatrics 05/11/10 Waistline Joiner Lockstitch Relationship Specialty Start Date End Date Nils Leo MD [address] [place] [address] [phone] PCP - General Pediatrics 05/11/10 Waistline Joiner Lockstitch Relationship Specialty Start Date End Date Nils Leo MD [address] [place] [address] [place] [phone] PCP - General Pediatrics 05/11/10 Waistline Joiner Lockstitch Relationship Specialty Start Date End Date Nils Leo MD [address] [place] [address] [phone] PCP - General Pediatrics 05/11/10 Waistline Joiner Lockstitch Relationship Specialty Start Date End Date Nils Leo MD [address] [place] [address] PCP - General Pediatrics 05/11/10 Waistline Joiner Lockstitch Relationship Specialty Start Date End Date Nils Leo MD [address] [place] [address] PCP - General Pediatrics 05/11/10 Waistline Joiner Lockstitch Relationship Specialty Start Date End Date Nils Leo MD [address] [place] [address] PCP - General Pediatrics 05/11/10 Waistline Joiner Lockstitch Relationship Specialty Start Date End Date Nils Leo MD [address] [place] [address] PCP - General Pediatrics 05/11/10 Waistline Joiner Lockstitch Relationship Specialty Start Date End Date Nils Leo MD [address] [place] [address] PCP - General Pediatrics 05/11/10 Waistline Joiner Lockstitch Relationship Specialty Start Date End Date Nils Leo MD [address] [place] [address] PCP - General Pediatrics 05/11/10 Waistline Joiner Lockstitch Relationship Specialty Start Date End Date Nils Leo MD [address] [place] [address] PCP - General Pediatrics 05/11/10 Waistline Joiner Lockstitch Relationship Specialty Start Date End Date Nils Leo MD [address] [place] [address] PCP - General Pediatrics 05/11/10 Waistline Joiner Lockstitch Relationship Specialty Start Date End Date Nils Leo MD [address] [place] [address] PCP - General Pediatrics 05/11/10 Waistline Joiner Lockstitch Relationship Specialty Start Date End Date Nils Leo MD [address] [facility], [place] [id number] PCP - General Pediatrics 05/11/10 Waistline Joiner Lockstitch Relationship Specialty Start Date End Date Nils Leo MD [address] [place], [place] [address] PCP - General Pediatrics 05/11/10 Waistline Joiner Lockstitch Relationship Specialty Start Date End Date Nils Leo MD [address] [place], [place] [address] PCP - General Pediatrics 05/11/10 Waistline Joiner Lockstitch Relationship Specialty Start Date End Date Nolan Garrido, DIRECTOR OF TEENAGE ACTIVITIES.PAPER CUTTING MACHINE OPERATOR [address] [place] [phone] PCP - General Family Medicine 11/21/22 Waistline Joiner Lockstitch Relationship Specialty Start Date End Date Nolan Garrido, DIRECTOR OF TEENAGE ACTIVITIES.PAPER CUTTING MACHINE OPERATOR [address] [place] [address] [phone] PCP - General Family Medicine 11/21/22 Waistline Joiner Lockstitch Relationship Specialty Start Date End Date Nolan Garrido, DIRECTOR OF TEENAGE ACTIVITIES.PAPER CUTTING MACHINE OPERATOR [address] [place] [address] [phone] PCP - General Family Medicine 11/21/22 Waistline Joiner Lockstitch Relationship Specialty Start Date End Date Nolan Garrido, DIRECTOR OF TEENAGE ACTIVITIES.PAPER CUTTING MACHINE OPERATOR [address] [place] [address] [phone] PCP - General Family Medicine 11/21/22 Waistline Joiner Lockstitch Relationship Specialty Start Date End Date Nolan Garrido, DIRECTOR OF TEENAGE ACTIVITIES.PAPER CUTTING MACHINE OPERATOR [address] [place] [address] [phone] PCP - General Family Medicine 11/21/22 Waistline Joiner Lockstitch Relationship Specialty Start Date End Date Nolan Garrido APRN.PAPER CUTTING MACHINE OPERATOR [address] [place] [address] [phone] PCP - General Family Medicine 11/21/22 Waistline Joiner Lockstitch Relationship Specialty Start Date End Date Nolan Garrido APRN.PAPER CUTTING MACHINE OPERATOR [address] [place] [address] [phone] PCP - General Family Medicine 11/21/22 Waistline Joiner Lockstitch Relationship Specialty Start Date End Date Nolan Garrido APRN.PAPER CUTTING MACHINE OPERATOR [address] [place] [address] [phone] PCP - General Family Medicine 11/21/22 Waistline Joiner Lockstitch Relationship Specialty Start Date End Date Nolan Garrido APRN.PAPER CUTTING MACHINE OPERATOR [address] [place] [address] [phone] PCP - General Family Medicine 11/21/22 Waistline Joiner Lockstitch Relationship Specialty Start Date End Date Nolan Garrido APRN.PAPER CUTTING MACHINE OPERATOR [address] [place] [address] [phone] PCP - General Family Medicine 11/21/22 Waistline Joiner Lockstitch Relationship Specialty Start Date End Date Nolan Garrido APRN.PAPER CUTTING MACHINE OPERATOR [address] [place] [address] [phone] PCP - General Family Medicine 11/21/22 Waistline Joiner Lockstitch Relationship Specialty Start Date End Date Nolan Garrido APRN.PAPER CUTTING MACHINE OPERATOR [address] [place] [address] [phone] PCP - General Family Medicine 11/21/22 Waistline Joiner Lockstitch Relationship Specialty Start Date End Date Nolan Garrido APRN.PAPER CUTTING MACHINE OPERATOR [address] [place] [address] [phone] PCP - General Family Medicine 11/21/22 Waistline Joiner Lockstitch Relationship Specialty Start Date End Date Nolan Garrido DIRECTOR OF TEENAGE ACTIVITIES.PAPER CUTTING MACHINE OPERATOR [address] [place] [address] [phone] PCP - General Family Medicine 11/21/22 Waistline Joiner Lockstitch Relationship Specialty Start Date End Date Nolan Garrido DIRECTOR OF TEENAGE ACTIVITIES.PAPER CUTTING MACHINE OPERATOR [address] [place] [address] [phone] PCP - General Family Medicine 11/21/22 Waistline Joiner Lockstitch Relationship Specialty Start Date End Date Nolan Garrido DIRECTOR OF TEENAGE ACTIVITIES.PAPER CUTTING MACHINE OPERATOR [address] [place] [address] [phone] PCP - General Family Medicine 11/21/22 Waistline Joiner Lockstitch Relationship Specialty Start Date End Date Nolan Garrido, DIRECTOR OF TEENAGE ACTIVITIES.PAPER CUTTING MACHINE OPERATOR [address] [place] [address] [phone] PCP - General Family Medicine 11/21/22 Waistline Joiner Lockstitch Relationship Specialty Start Date End Date Nolan Garrido, DIRECTOR OF TEENAGE ACTIVITIES.PAPER CUTTING MACHINE OPERATOR [address] [place] [address] [phone] PCP - General Family Medicine 11/21/22 Waistline Joiner Lockstitch Relationship Specialty Start Date End Date Nolan Garrido, DIRECTOR OF TEENAGE ACTIVITIES.PAPER CUTTING MACHINE OPERATOR [address] [place] [address] [phone] PCP - General Family Medicine 11/21/22 Waistline Joiner Lockstitch Relationship Specialty Start Date End Date Nolan Garrido, DIRECTOR OF TEENAGE ACTIVITIES.PAPER CUTTING MACHINE OPERATOR [address] [place] [address] [phone] PCP - General Family Medicine 11/21/22 Waistline Joiner Lockstitch Relationship Specialty Start Date End Date Nolan Garrido APRN.PAPER CUTTING MACHINE OPERATOR [address] [place] [address] [phone] PCP - General Family Medicine 11/21/22 Waistline Joiner Lockstitch Relationship Specialty Start Date End Date Nolan Garrido APRN.PAPER CUTTING MACHINE OPERATOR [address] [place] [address] [phone] PCP - General Family Medicine 11/21/22 Waistline Joiner Lockstitch Relationship Specialty Start Date End Date Nolan Garrido APRN.PAPER CUTTING MACHINE OPERATOR [address] [place] [address] [phone] PCP - General Family Medicine 11/21/22 Waistline Joiner Lockstitch Relationship Specialty Start Date End Date Nolan Garrido APRN.PAPER CUTTING MACHINE OPERATOR [address] [place] [address] [phone] PCP - General Family Medicine 11/21/22 Waistline Joiner Lockstitch Relationship Specialty Start Date End Date Nolan Garrido APRN.PAPER CUTTING MACHINE OPERATOR [address] [place] [address] [phone] PCP - General Family Medicine 11/21/22 Waistline Joiner Lockstitch Relationship Specialty Start Date End Date Nolan Garrido APRN.PAPER CUTTING MACHINE OPERATOR [address] [place] [address] [phone] PCP - General Family Medicine 11/21/22 INFORMATION SOURCE (unrecogn ized section and content) DATE CREATED AUTHOR 02/08/2024 [facility] FOR RECORDS PERTAINING TO PATIENTS WHO ARE OR HAVE BEEN ENROLLED IN A CHEMICAL DEPENDENCY/SUBSTANCEABUSE PROGRAM, SOME INFORMATION MAY BE OMITTED. This clinical summary was aggregated from multiple sources. Caution should be exercised in using it in the provision of clinical care. This summary normalizes information from multiple sources, and as a consequence, information in this document may materially change the coding, format and clinical context of patient data. In addition, data may be omitted in some cases. CLINICAL DECISIONS SHOULD BE BASED ON THE PRIMARY CLINICAL RECORDS. [employer] [facility]. provides no warranty or guarantee of the accuracy or completeness of information in this document.
[2024-02-09] MEDS: Lactated Ringers 1,000 ML 50 ML IV (19:30)
[2024-02-09 20:01] LABS: Absolute Lymphocyte Count 3.95 X10^3/uL (0.83-4.51); Absolute Neutrophil Count 6.9 X10^3/uL (2.0-7.7); Basophil# 0.05 X10^3/uL; Basophil% 0.4 % (0-1); Eosinophil# 0.18 X10^3/uL; Eosinophils% 1.5 % (0-5); Hematocrit 35.2 % (37-47); Hemoglobin 11.7 g/dL (12.0-15.0); Lymphocyte # 3.95 X10^3/ul (0.83-4.51); Lymphocyte % 32.5 % (19-41); Mean Corp Hgb Conc 33.2 g/dL (32-36); Mean Corpuscular Hgb 29.8 pg (27.0-32.0); Mean Corpuscular Volume 89.6 fL (81-99); Mean Platelet Vol. 10.3 fl (6.2-12.0); Monocyte% 8.2 % (0-10); NRBC Flagged by Analyzer 0 % (0-5); Neutrophil % 56.7 % (47-70); Platelet Count 251 K/mm3 (150-450); RBC Distribution Width CV 13.5 % (11.6-14.6); RBC Distribution Width SD 44.2 fl (35.1-43.9); Red Blood Count 3.93 M/mm3 (4.2-5.4); White Blood Count 12.2 K/mm3 (4.4-11.0)
[2024-02-09] MEDS: Penicillin G Pot 5,000,000 UNITS in 0.9% Normal Saline (100mL MB+) 100 ML 150 UNITS IV (20:08)
[2024-02-09 20:48] LABS: Syphilis Antibodies Non-reactive
[2024-02-09] MEDS: miSOPROStol 25 MCG TABLET PO (21:24)
[2024-02-09] MEDS: Acyclovir 200 MG Capsule 400 MG PO (21:49)
[2024-02-10] VITALS (44 sets, daily range): BP systolic 92–144; BP diastolic 48–83; PULSE 60–169; RESP 14–18; TEMP 36.6–37.6; O2SAT 81–100
[2024-02-10] MEDS: miSOPROStol 25 MCG TABLET PO (01:45)
[2024-02-10] MEDS: Penicillin G 3,000,000 Units 50 ML 100 UNITS IV ×4 (04:06→12:23)
--- NOTE | 2024-02-10 05:01 | NURSING ---
this RN started fluid bolus at 0501 of of primary LR line due to fluid shortage.
[2024-02-10] MEDS: Lactated Ringers 1,000 ML 50 ML IV ×2 (06:00→11:00)
[2024-02-10] MEDS: Acyclovir 200 MG Capsule 400 MG PO ×2 (06:04→16:25)
[2024-02-10] MEDS: Levothyroxine 150 MCG Tablet PO (06:04)
[2024-02-10] MEDS: Oxytocin 15 Units/NS 250ml 15 UNITS/250 ML IV.SOLN 334 UNITS IV ×2 (08:07→17:17)
--- NOTE | 2024-02-10 08:24 | PCM.HP.OB ---
HPI - General General Date of Admission: 02/09/24 HPI Narrative MENDEZ CANADA, is a 28 F who presents with contractions. Maternal Data Information JADON Calculator Estimated Delivery Date Method Current WG Current Estimate 02/12/24 Manual 39w 5d Final JADON: 02/12/24 PFSH PFSH Medical History Anemia Hypothyroidism Elevated LFTs Herpes, genital Thyroid disorder Home Medications ?Medication ?Instructions ?Recorded ?Last Taken ?Type levothyroxine 150 mcg tablet 150 mcg PO DAILY #30 tabs 06/06/22 02/09/24 08:00 Rx (Synthroid) acyclovir 400 mg tablet 400 mg PO TID 02/09/24 02/09/24 12:00 History vit no.95-ferrous 1 tab PO DAILY 02/09/24 02/08/24 22:00 History fumarate 28 mg-folic acid 800 mcg tablet () Allergy/AdvReac Type Severity Reaction Status Date / Time pollen extracts (pollens) Allergy Itching Verified 02/09/24 17:43 Family History no significant family his Surgical History [place] teeth removed Hx of tonsillectomy Social History Smoking Status: Never smoker History Elective abortions Hx Para 1 Spontaneous abortions Hx # Term Pregnancies Ectopic pregnancies Hx # Pregnancies Multiple births # of living children Vital Signs Vital Signs Vital Signs: 02/09/24 17:39 02/09/24 17:39 02/09/24 17:39 Temperature Temperature Source Temporal Pulse Rate 81 Respiratory Rate Blood Pressure 123/82 H BP Systolic 123 BP Diastolic 82 Pulse Ox 02/09/24 17:39 02/09/24 17:39 02/09/24 18:35 Temperature 98.0 F Temperature Source Pulse Rate Respiratory Rate 16 Blood Pressure 96/60 BP Systolic 96 BP Diastolic 60 Pulse Ox 02/09/24 18:35 02/09/24 18:36 02/09/24 18:36 Temperature Temperature Source Pulse Rate 67 80 Respiratory Rate Blood Pressure BP Systolic BP Diastolic Pulse Ox 99 02/09/24 18:39 02/09/24 18:39 02/09/24 20:02 Temperature Temperature Source Temporal Pulse Rate 72 Respiratory Rate Blood Pressure 92/50 L BP Systolic 92 BP Diastolic 50 Pulse Ox 02/09/24 20:02 02/09/24 20:02 02/09/24 20:04 Temperature 99.0 F Temperature Source Pulse Rate Respiratory Rate 17 Blood Pressure 137/77 H BP Systolic 137 BP Diastolic 77 Pulse Ox 02/09/24 20:04 02/09/24 23:58 02/09/24 23:58 Temperature Temperature Source Pulse Rate 71 59 L Respiratory Rate Blood Pressure 101/58 L BP Systolic 101 BP Diastolic 58 Pulse Ox 02/09/24 23:58 02/09/24 23:58 02/09/24 23:58 Temperature 97.9 F Temperature Source Temporal Pulse Rate Respiratory Rate 17 Blood Pressure BP Systolic BP Diastolic Pulse Ox 02/10/24 04:03 02/10/24 04:03 02/10/24 04:03 Temperature Temperature Source Pulse Rate 169 H Respiratory Rate Blood Pressure 122/68 H BP Systolic 122 BP Diastolic 68 Pulse Ox 81 02/10/24 06:07 02/10/24 06:07 02/10/24 06:08 Temperature Temperature Source Temporal Pulse Rate 75 Respiratory Rate Blood Pressure 119/81 H BP Systolic 119 BP Diastolic 81 Pulse Ox 02/10/24 06:08 02/10/24 06:08 02/10/24 06:08 Temperature 98.9 F Temperature Source Pulse Rate Respiratory Rate 17 Blood Pressure BP Systolic BP Diastolic Pulse Ox 100 02/10/24 07:13 02/10/24 07:13 02/10/24 07:13 Temperature Temperature Source Pulse Rate 77 Respiratory Rate Blood Pressure 116/66 BP Systolic 116 BP Diastolic 66 Pulse Ox 95 Weight Weight: 197 lb Body Mass Index (BMI) 32.8 Physical Exam Const alert, oriented x3 and no apparent distress Chest inspection of chest normal GI soft to palpation, non-tender and non-distended Inspection: gravid external exam normal Narrative: cvx - 3/60/-3. AROM clear fluid Labs Labs Labs: Blood Type A POSITIVE Antibody Screen NEGATIVE Hct 35.2 % (37-47) L Hgb 11.7 g/dL (12.0-15.0) L Syphilis Total Ab Non-reactive Hep Bs Antigen Negative (Negative) Hepatitis C Ab (EIA) Non Reactive (Non Reactive) Assessment & Plan (1) 39 weeks gestation of : PLAN: Plan Admit to L&D for induction due to deceleration on EFM. Induction - s/p cytotec and AROM. Continue pitocin. Pain - epidural. EFW - less than 4500g and patient with adequate. GBS positive - pcn per protocol.
[2024-02-10] MEDS: Lactated Ringers 1,000 ML 999 ML IV (08:41)
[2024-02-10] MEDS: fentaNYL-bupivacaine (epidural) 100 ML BAG EPIDURAL ×2 (09:41→14:03)
[2024-02-10] MEDS: LACTATED RINGERS 500 ML 999 ML IV (13:45)
--- NOTE | 2024-02-10 17:38 | EX.PCM.OBRPT ---
Maternal Data Information JADON Calculator Estimated Delivery Date Method Current WG Current Estimate 02/12/24 Manual 39w 5d Vaginal Delivery Maternal Presentation Maternal Presentation: Medically Indicated Induction Type of Induction: Pitocin, Amniotomy and Cytotec Operative Information Date of Procedure: 02/10/24 Pre-Operative Diagnosis: Non reassuring heart tracing Post-Operative Diagnosis: Same Surgery / Procedure Performed: Spontaneous Vaginal Delivery Type of Anesthesia: Epidural Estimated Blood Loss: 200ml Findings Description of Procedure: Patient prepped & draped when C/C/+2. She pushed well to deliver the head. head gently guided to allow delivery of anterior and posterior shoulders. No excess traction placed on head. Body delivered and 3VC clamped & cut in delayed fashion. Placenta delivered with gentle traction and good uterine tone obtained. Presentation: JAMISON Amniotic Membrane Rupture Type: Artificial Amniotic Fluid Description: Clear Placental Delivery Description: Expressed Placenta Disposition: [facility] Specimen(s) Removed: Placenta Cord Vessel Description: 3 Vessels Cord Entanglement: None A Gender: Male (1 minute): 8 (5 minute): 9 Delayed Cord Clamping: Yes Post Vaginal Delivery Medications Given After Delivery: IV Pitocin Episiotomy Description: None Laceration: 1st degree (midline vaginal - repaired with 3-0 vicryl) Complication Complications: None
[2024-02-10] MEDS: Oxytocin 15 Units/NS 250ml 15 UNITS/250 ML IV.SOLN 83 UNITS IV (18:37)
--- NOTE | 2024-02-10 21:20 | NURSING ---
This RN received report from Leilani ARANA at 2119, to resume care at this time.
[2024-02-11 04:10] VITALS: BP 113/73; PULSE 68; RESP 16; TEMP 37.1; O2SAT 96
[2024-02-11] MEDS: Acetaminophen 500 MG Tablet 1000 MG PO (04:25)
[2024-02-11] MEDS: Levothyroxine 150 MCG Tablet PO (06:04)
--- NOTE | 2024-02-11 08:32 | PCM.PN.OB ---
Subjective Subjective Doing well. Ambulating and voiding without difficulty. Mild lochia. Breast feeding. Objective Data Objective Data Vital Signs: Vital Signs Temp Pulse Resp BP Pulse Ox O2 Del Method 98.7 F 68 16 113/73 96 Room Air 02/11/24 04:10 02/11/24 04:10 02/11/24 04:10 02/11/24 04:10 02/11/24 04:10 02/11/24 04:10 Oxygen Delivery Method Room Air Weight: 89.358 kg Body Mass Index (BMI) 32.8 Intake & Output: Intake and Output for Last 24 Hours 02/09/24 02/10/24 02/11/24 23:59 23:59 23:59 Intake Total 105 / 105 3978.51 / 3978.51 Output Total 1650 / 1650 650 / 650 Balance 105 / 105 2328.51 / 2328.51 -650 / -650 Lab / Micro Data 02/09/24 19:35 ROS Constitutional Constitutional: Denies fatigue, fever(s) or malaise Eyes Eyes: Denies change in vision ENT HEENT: Denies dizziness or headache(s) Cardiovascular Cardiovascular: Denies chest pain, dyspnea or lightheadedness Respiratory/Chest Respiratory/Chest: Denies cough or dyspnea Gastrointestinal Gastrointestinal: Denies change in bowel habits Genitourinary Genitourinary: Denies burning urination or genital lesions Integumentary Integumentary: Denies rash Neurologic Neurologic: Denies confusion, dizziness, headache(s), numbness or weakness Physical Exam Const alert and no apparent distress Narrative: Fundus firm, below umbilicus. Assessment & Plan (1) Vaginal delivery: PLAN: Plan Discharge home tonight
[2024-02-11 08:47] VITALS: BP 106/79; PULSE 70; RESP 14; TEMP 36.2; O2SAT 98
[2024-02-11 12:13] VITALS: BP 103/61; PULSE 61; RESP 16; TEMP 36.6; O2SAT 98
[2024-02-11 16:08] VITALS: BP 113/73; PULSE 70; RESP 18; TEMP 36; O2SAT 95
--- NOTE | 2024-02-11 17:22 | PCM.DC.SUM ---
Providers Date of Admission: 02/09/24 Date of Discharge: 02/11/24 Primary Care Physician: Lorena Griffin NP-C Reason For Visit: VAGINAL DELIVERY Diagnosis Discharge Diagnosis (1) Vaginal delivery: Status: Acute Code(s): O80 - Encounter for full-term uncomplicated delivery Plan Discharge home tonight Medications at Discharge Home Medications vit no.95-ferrous fumarate 28 mg-folic acid 800 mcg tablet () 1 tab PO DAILY 02/09/24 levothyroxine 150 mcg tablet (Synthroid) 150 mcg PO DAILY 02/10/24 Hospital Course Operations None Procedures None Physical Exam Const alert and no apparent distress Narrative: Fundus firm, below umbilicus. Weight / BMI Weight Weight: 89.358 kg Body Mass Index (BMI) 32.8 ABG / Lab / Microbiology Data 02/09/24 19:35 D/C Instructions May resume sexual activity in: 6 weeks Please Follow Up With: Micaela Sommer MD When: Follow up with our office in 1-2 and 6 weeks or as needed. [phone] Meaningful Use Info Meaningful Use Meaningful Use Diagnoses (Choose all that apply): None applicable Ischemic Stroke Statin Dosing Therapy Reference: STATIN DOSE THERAPY REFERENCE: * Patients > 75 years receive moderate or high dose statin therapy. * Patients 75 years or YOUNGER should receive HIGH intensity statin dose unless contraindicated. You will be required to document reason for non-treatment if statin daily dose does not meet guidelines. HIGH DOSE STATIN THERAPY DAILY Atorvastatin > than or = to 40 mg Rosuvastatin > than or = to 20 mg Amlodipine + Atorvastatin > than or = to 2.5/40 mg Ezetimibe + Simvastatin 10/80 mg Simvastatin 80mg Discharge Plan Admission Admit Date/Time: 02/09/24 18:56 Primary Reason for Your Visit: labor Attending Provider: Namrata Harvey Primary Care Provider: Lorena Griffin Discharge Orders/Prescriptions Prescriptions: Continued PNV cmb#95-ferrous fumarate-FA [] 28 mg iron- 800 mcg tablet 1 tab PO DAILY levothyroxine [Synthroid] 150 mcg tablet 150 mcg PO DAILY Discontinued acyclovir 400 mg tablet 400 mg PO TID Patient Comments: TAKE 1 TABLET BY MOUTH THREE TIMES A DAY Referrals / Follow Up: Lorena Griffin, [facility] [Primary Care Provider] - Disposition Disposition (needs filled in before D/C Order can be placed): Home, Self Care
== END 2024-02-11 18:57 | disposition home or self-care (01) | DRG 807 ==
LOC: WPOUT 19:04 → WP 19:04
PROVIDERS: Advanced Practice Midwife; Admitting Provider Obstetrics & Gynecology; PCP Nurse Practitioner Family; Referring Provider Obstetrics & Gynecology; Visit Provider Obstetrics & Gynecology
DX: O76 Abnormality in fetal heart rate and rhythm complicating labor and delivery (principal); Z37.0 Single live birth; D64.9 Anemia, unspecified; E03.9 Hypothyroidism, unspecified; O99.820 Streptococcus B carrier state complicating pregnancy; Z79.890 Hormone replacement therapy; Z3A.39 39 weeks gestation of pregnancy; O99.284 Endocrine, nutritional and metabolic diseases complicating childbirth; O99.02 Anemia complicating childbirth; O70.0 First degree perineal laceration during delivery
CPT/HCPCS: 59025; 59050; 85025; 86780; 86850; 86900; 86901; 99221; J7120; G0378